=== PATIENT | male | born 1950 | race Caucasian/White ===

== ENCOUNTER 2018-01-05 19:41 | Inpatient (IN) ==
[~2018-01-05 19:41] MED LIST: FLUTICASONE INH SCH; UMECLIDINIUM INH SCH; VILANTEROL INH SCH
[2018-01-05] MEDS ORDERED: Sodium Chlor 0.9% Inj 500 ML IV.SIG ONE ×2 (19:53→19:56)
[2018-01-05] MEDS ORDERED: Midazolam 50 MG/50 ML Inj 50 MG/50 ML BAG IV.CONT PRN (20:00)
[2018-01-05] MEDS: fentaNYL 10 mcg/mL Premix Drip 2,500 MCG/250 ML BAG IV.SIG PRN (20:08)
--- NOTE | 2018-01-05 20:15 | XR ---
EXAM DATE: 01/05/2018 8:09 PM EDT AGE/SEX: 89 years / Male INDICATIONS: Post intubation, fever CLINICAL DATA: This is the patient's initial encounter. Patient reports that signs and symptoms have been present for 1 day and indicates a pain score of Nonresponsive. MEDICAL/SURGICAL HISTORY: Non-responsive. Non-responsive. COMPARISON: No prior exams available for comparison. FINDINGS: ET tube tip is approximately 3 cm above the blessing. There is an NG tube in place. There is a at least moderate right pleural effusion. This increased density at the right base. The left lung is grossly clear. This calcified lymph node in the right mainstem bronchial region. The heart size is normal. CONCLUSION: Moderate right effusion. Right base atelectasis or consolidation. Electronically signed by: Wilfred Rollins MD 01/05/2018 8:14 PM EDT
[2018-01-05] MEDS ORDERED: Piperacil/Tazo 3.375 GM Premix 50 ML IV.SIG ONE (20:27)
[2018-01-05] MEDS ORDERED: Vancomycin Inj 1 GM/200 ML PIGGYBACK IV.SIG ONE (20:27)
[2018-01-05 20:29] LABS: Baso # (Auto) 0.1 th/mm3 (0.0-0.2); Baso % (Auto) 0.9 % (0.0-2.0); Eos % (Auto) 0.6 % (0.0-4.0); Hematocrit 27.9 % (39.0-51.0); Lymph % (Auto) 12.2 % (9.0-44.0); Mean Corpuscular HGB Conc 32.3 % (32.0-36.0); Mean Corpuscular Hemoglobin 28.3 pg (27.0-34.0); Mean Corpuscular Volume 87.7 fL (80.0-100.0); Mean Platelet Volume 8.3 fL (7.0-11.0); Mono # (Auto) 0.8 th/mm3 (0.0-0.9); Mono % (Auto) 10.3 % (0.0-8.0); Neut # (Auto) 6.1 th/mm3 (1.8-7.7); Platelet Count 187 th/mm3 (150-450); Red Blood Count 3.18 mil/mm3 (4.50-5.90); Red Cell Distribution Width 15.2 % (11.6-17.2)
[2018-01-05 20:47] LABS: Bilirubin,Urine Negative (Negative); Clarity,Urine Clear (Clear); Color,Urine Straw (Yellw/Straw); Glucose,Urine (UA) Negative (Negative); Hyaline Casts,Urine 6 /lpf (0-3); Leukocyte Esterase,Urine Negative (Negative); Mucus,Urine Few /lpf (Occasional); Nitrite,Urine Negative (Negative); Specific Gravity,Urine 1.008 (1.002-1.035)
[2018-01-05] MEDS ORDERED: fentaNYL Citrate Inj 100 MCG/2 ML Ampul IV.PUSH ONE (20:50)
[2018-01-05 20:55] LABS: Albumin 2.2 g/dL (3.4-5.0); Carbon Dioxide 33.5 meq/L (21.0-32.0); Potassium 3.6 meq/L (3.5-5.1); Total Protein 5.3 g/dL (6.4-8.2)
--- NOTE | 2018-01-05 20:56 | ED ---
HPI General Chief complaint: Altered Mental Status Stated complaint: Emergent/ Evac Time Seen by Provider: 01/05/18 19:48 Source: EMS Mode of arrival: EMS Limitations: altered mental status History of Present Illness HPI narrative: pt found by evac to be shortness of breath and lethargic FS [address] D50 ampule given no change in Mental status and was intubated to protect airway pt arrives obtunded and intubated and slightly hypotensive, 88/40 but after 500 cc NS BP 112 SBP and POC bedside sono shows good cardiac activity , pt sedated with fentanyl and versed, and then he remains unconscious on vent and admitted ICU for resp failure, No HPI no ROS available except that by EMS Onset (ago): hour(s) (1) Related Data Home Medications Medication Instructions Recorded Confirmed aspirin [Aspirin Low Dose] 81 mg PO DAILY 01/05/18 01/05/18 bumetanide 2 mg PO DAILY 01/05/18 01/05/18 carvedilol 3.125 mg PO BID 01/05/18 01/05/18 febuxostat [Uloric] 80 mg PO DAILY 01/05/18 01/05/18 [id number] 1 inh INHALATION DAILY 01/05/18 01/05/18 [Trelegy Ellipta] glimepiride 8 mg PO QAM 01/05/18 01/05/18 hydralazine 50 mg PO TID 01/05/18 01/05/18 losartan 50 mg PO HS 01/05/18 01/05/18 pravastatin 40 mg PO DAILY 01/05/18 01/05/18 spironolactone 50 mg PO DAILY 01/05/18 01/05/18 Allergies Allergy/AdvReac Type Severity Reaction Status Date / Time Iodine and Iodide Containing Allergy Hives Verified 01/05/18 20:39 Produc Penicillins Allergy Hives Verified 01/05/18 20:52 Review of Systems ROS Unobtainable due to endotracheal tube and unobtainable due to mental condition PMFSH Social History Social History Substance History: No History of Abuse Second Hand Smoke Exposure: No Smoking Status: Former smoker How Often Do You Have a Drink Containing Alcohol: Never Recent Travel in [facility] within the Last 8 Weeks: No Recent Out of Country Travel within the Last 8 Weeks: No Immunization History Tetanus Immunization: Unsure Hx Influenza Vaccine This Season: Yes Exam Narrative Exam Narrative: GENERAL: pt obtunded sedated intubated hypotensive SKIN: Warm and dry. HEAD: Atraumatic. Normocephalic. EYES: Pupils equal and round. No scleral icterus. No injection or drainage. ENT: intubated . NECK: Trachea midline. No JVD. CARDIOVASCULAR: Regular rate and rhythm. RESPIRATORY: No accessory muscle use. Clear to auscultation. Breath sounds equal bilaterally. GASTROINTESTINAL: Abdomen soft, non-tender, nondistended. Hepatic and splenic margins not palpable. MUSCULOSKELETAL: Extremities without clubbing, cyanosis, or edema. No obvious deformities. NEUROLOGICAL: intubated sedated no neuro exam possible Course Initial Documented Vital Signs Temperature 97.7 F 01/05/18 19:43 Pulse Rate 95 H 01/05/18 19:43 Respiratory Rate 14 01/05/18 19:43 Blood Pressure 112/62 01/05/18 19:43 Pulse Oximetry 100 01/05/18 19:43 Last Documented Vital Signs Temperature 98.3 F 01/09/18 16:00 Pulse Rate 90 01/09/18 19:53 Respiratory Rate 18 01/09/18 19:53 Blood Pressure 138/90 01/09/18 19:30 Pulse Oximetry 95 01/09/18 19:53 Critical Care Time Critical Care Time: Yes Total Critical Care Time: 45 Attestation: i was primary provider on this pt i did not supervise midlevel Medical Decision Making MDM Narrative Medical decision making narrative: pt was sedated and intubted in the filed , POC bedside sono shows good cardiac activity and no significant effusion around heart , 1 liter NS bring BP to 120 sbp and pt sedated for ventilator with fentanyl and versed and ICU to Dr Vaca Differential Diagnosis Differential Diagnosis: PNA --> Resp failure vs CHF to resp failure vs COPD to resp failure vs cardiac event vs bronchitis to resp failure Lab Data Result diagrams: 01/09/18 03:44 01/09/18 03:44 Lab Results 01/05/18 01/05/18 01/05/18 Range/Units 19:55 19:55 19:55 WBC 8.0 (4.0-11.0) th/mm3 RBC 3.18 L (4.50-5.90) mil/mm3 Hgb 9.0 L (13.0-17.0) gm/dL Hct 27.9 L (39.0-51.0) % MCV 87.7 (80.0-100.0) fL MCH 28.3 (27.0-34.0) pg MCHC 32.3 (32.0-36.0) % RDW 15.2 (11.6-17.2) % Plt Count 187 (150-450) th/mm3 MPV 8.3 (7.0-11.0) fL Prelim Diff (Auto) Slide review pending Neut % (Auto) 76.0 H (16.0-70.0) % Lymph % (Auto) 12.2 (9.0-44.0) % Meagher % (Auto) 10.3 H (0.0-8.0) % Eos % (Auto) 0.6 (0.0-4.0) % Baso % (Auto) 0.9 (0.0-2.0) % Neut # (Auto) 6.1 (1.8-7.7) th/mm3 Lymph # (Auto) 1.0 (1.0-4.8) th/mm3 Meagher # (Auto) 0.8 (0.0-0.9) th/mm3 Eos # (Auto) 0.0 (0.0-0.4) th/mm3 Baso # (Auto) 0.1 (0.0-0.2) th/mm3 WBC Differential . Diff Scan Auto diff confirmed Seg Neuts % (Manual) (16-70) % Band Neuts % (Manual) (0-6) % Lymphocytes % (Manual) (9-44) % Monocytes % (Manual) (0-8) % Eosinophils % (Manual) (0-4) % Metamyelocytes % (Man) (0-1) % Myelocytes % (Man) (0-0) % Abs Neuts (Manual) (1.8-7.7) th/mm3 Differential Comment . Platelet Estimate (Normal) Platelet Morphology (Normal) Basophilic Stippling (None) Stomatocytes (None) PT (9.8-11.6) sec INR Ratio APTT (24.3-30.1) sec Puncture Site Patient Temperature O2 Saturation (90-100) % ABG pH (7.380-7.420) ABG pCO2 (38-42) mmHg ABG pO2 (61-120) mmHg ABG HCO3 (22-26) mmol/L ABG O2 Content (12.0-20.0) Vol % ABG Base Excess (-2-2) mmol/L ABG Methemoglobin (0-2) % Catracho Test Hemoglobin (12.0-16.0) G/DL Carboxyhemoglobin (0-4) % O2 Delivery Device Vent Setting Inspired O2 % Critical Value Sodium 146 H (136-145) meq/L Potassium 3.6 (3.5-5.1) meq/L Chloride 106 (98-107) meq/L Carbon Dioxide 33.5 H (21.0-32.0) meq/L Anion Gap 7 (5-15) meq/L BUN 35 H (7-18) mg/dL Creatinine 1.22 (0.60-1.30) mg/dL Estimated GFR 51 L (>89) mL/min POC Glucose (68-110) mg/dl Random Glucose 77 (74-106) mg/dL Lactic Acid 1.1 (0.4-2.0) mmol/L Calcium 7.0 L* (8.5-10.1) mg/dL Prot Corrected Calcium 7.9 L (8.5-10.1) mg/dL Phosphorus (2.5-4.9) mg/dL Magnesium (1.5-2.5) mg/dL Total Bilirubin 0.3 (0.2-1.0) mg/dL AST 22 (15-37) U/L ALT 35 (12-78) U/L Alkaline Phosphatase 50 (45-117) U/L Troponin I (0.02-0.05) ng/mL B-Natriuretic Peptide (0-100) pg/mL Total Protein 5.3 L (6.4-8.2) g/dL Albumin 2.2 L (3.4-5.0) g/dL TSH (0.358-3.740) uIU/mL Urine Color (Yellw/Straw) Urine Clarity (Clear) Urine pH (5.0-8.5) Ur Specific [place] (1.002-1.035) Urine Protein (Neg-Trace) mg/dL Urine Glucose (UA) (Negative) mg/dL Urine Ketones (Negative) mg/dL Urine Occult Blood (Negative) Urine Nitrate (Negative) Urine Bilirubin (Negative) Urine Urobilinogen (Less than 2) mg/dL Ur Leukocyte Esterase (Negative) Urine RBC (0-3) /hpf Urine WBC (0-5) /hpf Hyaline Casts (0-3) /lpf Urine Mucus (Occasional) /lpf Micro UA Comment Urine Culture Comments Ur Random Creatinine (27-300) mg/dL Ur Random Sodium meq/L Pleural pH Pleural RBC (0-0) /mm3 Pleural Nuc Cells (0-10) /mm3 Pleural Neutrophils % Pleural Lymphocytes % Pleural Monocytes % Pleural Histocytes % Pleural Total Protein gm/dL Pleural LDH U/L Pleural Glucose mg/dL Pleural Amylase U/L Nasal Screen MRSA (PCR) (Negative) Vancomycin Trough (5.0-10.0) mcg/mL 01/05/18 01/05/18 01/05/18 Range/Units 19:55 20:00 20:12 WBC (4.0-11.0) th/mm3 RBC (4.50-5.90) mil/mm3 Hgb (13.0-17.0) gm/dL Hct (39.0-51.0) % MCV (80.0-100.0) fL MCH (27.0-34.0) pg MCHC (32.0-36.0) % RDW (11.6-17.2) % Plt Count (150-450) th/mm3 MPV (7.0-11.0) fL Prelim Diff (Auto) Neut % (Auto) (16.0-70.0) % Lymph % (Auto) (9.0-44.0) % Meagher % (Auto) (0.0-8.0) % Eos % (Auto) (0.0-4.0) % Baso % (Auto) (0.0-2.0) % Neut # (Auto) (1.8-7.7) th/mm3 Lymph # (Auto) (1.0-4.8) th/mm3 Meagher # (Auto) (0.0-0.9) th/mm3 Eos # (Auto) (0.0-0.4) th/mm3 Baso # (Auto) (0.0-0.2) th/mm3 WBC Differential Diff Scan Seg Neuts % (Manual) (16-70) % Band Neuts % (Manual) (0-6) % Lymphocytes % (Manual) (9-44) % Monocytes % (Manual) (0-8) % Eosinophils % (Manual) (0-4) % Metamyelocytes % (Man) (0-1) % Myelocytes % (Man) (0-0) % Abs Neuts (Manual) (1.8-7.7) th/mm3 Differential Comment Platelet Estimate (Normal) Platelet Morphology (Normal) Basophilic Stippling (None) Stomatocytes (None) PT (9.8-11.6) sec INR Ratio APTT (24.3-30.1) sec Puncture Site Right radial Patient Temperature 98.6 O2 Saturation 92 (90-100) % ABG pH 7.33 L (7.380-7.420) ABG pCO2 79 H* (38-42) mmHg ABG pO2 73 (61-120) mmHg ABG HCO3 40 H (22-26) mmol/L ABG O2 Content 11.0 L (12.0-20.0) Vol % ABG Base Excess 13.9 H (-2-2) mmol/L ABG Methemoglobin 0.6 (0-2) % Catracho Test Present Hemoglobin 8.5 L (12.0-16.0) G/DL Carboxyhemoglobin 2.2 (0-4) % O2 Delivery Device Vent Vent Setting Prvc/ac Inspired O2 100 % Critical Value Yes Sodium (136-145) meq/L Potassium (3.5-5.1) meq/L Chloride (98-107) meq/L Carbon Dioxide (21.0-32.0) meq/L Anion Gap (5-15) meq/L BUN (7-18) mg/dL Creatinine (0.60-1.30) mg/dL Estimated GFR (>89) mL/min POC Glucose (68-110) mg/dl Random Glucose (74-106) mg/dL Lactic Acid (0.4-2.0) mmol/L Calcium (8.5-10.1) mg/dL Prot Corrected Calcium (8.5-10.1) mg/dL Phosphorus (2.5-4.9) mg/dL Magnesium (1.5-2.5) mg/dL Total Bilirubin (0.2-1.0) mg/dL AST (15-37) U/L ALT (12-78) U/L Alkaline Phosphatase (45-117) U/L Troponin I Less than 0.02 L (0.02-0.05) ng/mL B-Natriuretic Peptide (0-100) pg/mL Total Protein (6.4-8.2) g/dL Albumin (3.4-5.0) g/dL TSH (0.358-3.740) uIU/mL Urine Color Straw (Yellw/Straw) Urine Clarity Clear (Clear) Urine pH 5.0 (5.0-8.5) Ur Specific [place] 1.008 (1.002-1.035) Urine Protein Negative (Neg-Trace) mg/dL Urine Glucose (UA) Negative (Negative) mg/dL Urine Ketones Negative (Negative) mg/dL Urine Occult Blood Negative (Negative) Urine Nitrate Negative (Negative) Urine Bilirubin Negative (Negative) Urine Urobilinogen Less than 2 (Less than 2) mg/dL Ur Leukocyte Esterase Negative (Negative) Urine RBC 2 (0-3) /hpf Urine WBC 2 (0-5) /hpf Hyaline Casts 6 (0-3) /lpf Urine Mucus Few H (Occasional) /lpf Micro UA Comment Cath-culture not ind Urine Culture Comments Cath-cult not ind Ur Random Creatinine (27-300) mg/dL Ur Random Sodium meq/L Pleural pH Pleural RBC (0-0) /mm3 Pleural Nuc Cells (0-10) /mm3 Pleural Neutrophils % Pleural Lymphocytes % Pleural Monocytes % Pleural Histocytes % Pleural Total Protein gm/dL Pleural LDH U/L Pleural Glucose mg/dL Pleural Amylase U/L Nasal Screen MRSA (PCR) (Negative) Vancomycin Trough (5.0-10.0) mcg/mL 01/05/18 01/06/18 01/06/18 Range/Units 22:00 00:17 00:18 WBC (4.0-11.0) th/mm3 RBC (4.50-5.90) mil/mm3 Hgb (13.0-17.0) gm/dL Hct (39.0-51.0) % MCV (80.0-100.0) fL MCH (27.0-34.0) pg MCHC (32.0-36.0) % RDW (11.6-17.2) % Plt Count (150-450) th/mm3 MPV (7.0-11.0) fL Prelim Diff (Auto) Neut % (Auto) (16.0-70.0) % Lymph % (Auto) (9.0-44.0) % Meagher % (Auto) (0.0-8.0) % Eos % (Auto) (0.0-4.0) % Baso % (Auto) (0.0-2.0) % Neut # (Auto) (1.8-7.7) th/mm3 Lymph # (Auto) (1.0-4.8) th/mm3 Meagher # (Auto) (0.0-0.9) th/mm3 Eos # (Auto) (0.0-0.4) th/mm3 Baso # (Auto) (0.0-0.2) th/mm3 WBC Differential Diff Scan Seg Neuts % (Manual) (16-70) % Band Neuts % (Manual) (0-6) % Lymphocytes % (Manual) (9-44) % Monocytes % (Manual) (0-8) % Eosinophils % (Manual) (0-4) % Metamyelocytes % (Man) (0-1) % Myelocytes % (Man) (0-0) % Abs Neuts (Manual) (1.8-7.7) th/mm3 Differential Comment Platelet Estimate (Normal) Platelet Morphology (Normal) Basophilic Stippling (None) Stomatocytes (None) PT (9.8-11.6) sec INR Ratio APTT (24.3-30.1) sec Puncture Site Patient Temperature O2 Saturation (90-100) % ABG pH (7.380-7.420) ABG pCO2 (38-42) mmHg ABG pO2 (61-120) mmHg ABG HCO3 (22-26) mmol/L ABG O2 Content (12.0-20.0) Vol % ABG Base Excess (-2-2) mmol/L ABG Methemoglobin (0-2) % Catracho Test Hemoglobin (12.0-16.0) G/DL Carboxyhemoglobin (0-4) % O2 Delivery Device Vent Setting Inspired O2 % Critical Value Sodium (136-145) meq/L Potassium (3.5-5.1) meq/L Chloride (98-107) meq/L Carbon Dioxide (21.0-32.0) meq/L Anion Gap (5-15) meq/L BUN (7-18) mg/dL Creatinine (0.60-1.30) mg/dL Estimated GFR (>89) mL/min POC Glucose 18 L* 18 L* (68-110) mg/dl Random Glucose (74-106) mg/dL Lactic Acid (0.4-2.0) mmol/L Calcium (8.5-10.1) mg/dL Prot Corrected Calcium (8.5-10.1) mg/dL Phosphorus (2.5-4.9) mg/dL Magnesium (1.5-2.5) mg/dL Total Bilirubin (0.2-1.0) mg/dL AST (15-37) U/L ALT (12-78) U/L Alkaline Phosphatase (45-117) U/L Troponin I (0.02-0.05) ng/mL B-Natriuretic Peptide (0-100) pg/mL Total Protein (6.4-8.2) g/dL Albumin (3.4-5.0) g/dL TSH (0.358-3.740) uIU/mL Urine Color (Yellw/Straw) Urine Clarity (Clear) Urine pH (5.0-8.5) Ur Specific [place] (1.002-1.035) Urine Protein (Neg-Trace) mg/dL Urine Glucose (UA) (Negative) mg/dL Urine Ketones (Negative) mg/dL Urine Occult Blood (Negative) Urine Nitrate (Negative) Urine Bilirubin (Negative) Urine Urobilinogen (Less than 2) mg/dL Ur Leukocyte Esterase (Negative) Urine RBC (0-3) /hpf Urine WBC (0-5) /hpf Hyaline Casts (0-3) /lpf Urine Mucus (Occasional) /lpf Micro UA Comment Urine Culture Comments Ur Random Creatinine (27-300) mg/dL Ur Random Sodium meq/L Pleural pH Pleural RBC (0-0) /mm3 Pleural Nuc Cells (0-10) /mm3 Pleural Neutrophils % Pleural Lymphocytes % Pleural Monocytes % Pleural Histocytes % Pleural Total Protein gm/dL Pleural LDH U/L Pleural Glucose mg/dL Pleural Amylase U/L Nasal Screen MRSA (PCR) Not detected (Negative) Vancomycin Trough (5.0-10.0) mcg/mL 01/06/18 01/06/1818 Range/Units 00:24 00:37 02:06 WBC 7.7 (4.0-11.0) th/mm3 RBC 2.77 L (4.50-5.90) mil/mm3 Hgb 7.7 L (13.0-17.0) gm/dL Hct 24.1 L (39.0-51.0) % MCV 86.9 (80.0-100.0) fL MCH 27.8 (27.0-34.0) pg MCHC 32.0 (32.0-36.0) % RDW 15.1 (11.6-17.2) % Plt Count 181 (150-450) th/mm3 MPV 7.5 (7.0-11.0) fL Prelim Diff (Auto) Slide review pending Neut % (Auto) 72.5 H (16.0-70.0) % Lymph % (Auto) 13.2 (9.0-44.0) % Meagher % (Auto) 12.7 H (0.0-8.0) % Eos % (Auto) 0.7 (0.0-4.0) % Baso % (Auto) 0.9 (0.0-2.0) % Neut # (Auto) 5.6 (1.8-7.7) th/mm3 Lymph # (Auto) 1.0 (1.0-4.8) th/mm3 Meagher # (Auto) 1.0 H (0.0-0.9) th/mm3 Eos # (Auto) 0.1 (0.0-0.4) th/mm3 Baso # (Auto) 0.1 (0.0-0.2) th/mm3 WBC Differential Manual diff final Diff Scan Seg Neuts % (Manual) 65 (16-70) % Band Neuts % (Manual) 4 (0-6) % Lymphocytes % (Manual) 12 (9-44) % Monocytes % (Manual) 15 H (0-8) % Eosinophils % (Manual) 1 (0-4) % Metamyelocytes % (Man) 1 (0-1) % Myelocytes % (Man) 2 H (0-0) % Abs Neuts (Manual) 5.5 (1.8-7.7) th/mm3 Differential Comment . Platelet Estimate Normal (Normal) Platelet Morphology Normal (Normal) Basophilic Stippling Faint H (None) Stomatocytes 1+ H (None) PT (9.8-11.6) sec INR Ratio APTT (24.3-30.1) sec Puncture Site Patient Temperature O2 Saturation (90-100) % ABG pH (7.380-7.420) ABG pCO2 (38-42) mmHg ABG pO2 (61-120) mmHg ABG HCO3 (22-26) mmol/L ABG O2 Content (12.0-20.0) Vol % ABG Base Excess (-2-2) mmol/L ABG Methemoglobin (0-2) % Catracho Test Hemoglobin (12.0-16.0) G/DL Carboxyhemoglobin (0-4) % O2 Delivery Device Vent Setting Inspired O2 % Critical Value Sodium (136-145) meq/L Potassium (3.5-5.1) meq/L Chloride (98-107) meq/L Carbon Dioxide (21.0-32.0) meq/L Anion Gap (5-15) meq/L BUN (7-18) mg/dL Creatinine (0.60-1.30) mg/dL Estimated GFR (>89) mL/min POC Glucose 171 H 96 (68-110) mg/dl Random Glucose (74-106) mg/dL Lactic Acid (0.4-2.0) mmol/L Calcium (8.5-10.1) mg/dL Prot Corrected Calcium (8.5-10.1) mg/dL Phosphorus (2.5-4.9) mg/dL Magnesium (1.5-2.5) mg/dL Total Bilirubin (0.2-1.0) mg/dL AST (15-37) U/L ALT (12-78) U/L Alkaline Phosphatase (45-117) U/L Troponin I (0.02-0.05) ng/mL B-Natriuretic Peptide (0-100) pg/mL Total Protein (6.4-8.2) g/dL Albumin (3.4-5.0) g/dL TSH (0.358-3.740) uIU/mL Urine Color (Yellw/Straw) Urine Clarity (Clear) Urine pH (5.0-8.5) Ur Specific [place] (1.002-1.035) Urine Protein (Neg-Trace) mg/dL Urine Glucose (UA) (Negative) mg/dL Urine Ketones (Negative) mg/dL Urine Occult Blood (Negative) Urine Nitrate (Negative) Urine Bilirubin (Negative) Urine Urobilinogen (Less than 2) mg/dL Ur Leukocyte Esterase (Negative) Urine RBC (0-3) /hpf Urine WBC (0-5) /hpf Hyaline Casts (0-3) /lpf Urine Mucus (Occasional) /lpf Micro UA Comment Urine Culture Comments Ur Random Creatinine (27-300) mg/dL Ur Random Sodium meq/L Pleural pH Pleural RBC (0-0) /mm3 Pleural Nuc Cells (0-10) /mm3 Pleural Neutrophils % Pleural Lymphocytes % Pleural Monocytes % Pleural Histocytes % Pleural Total Protein gm/dL Pleural LDH U/L Pleural Glucose mg/dL Pleural Amylase U/L Nasal Screen MRSA (PCR) (Negative) Vancomycin Trough (5.0-10.0) mcg/mL 01/06/18 01/06/18 01/06/18 Range/Units 02:06 02:06 02:06 WBC (4.0-11.0) th/mm3 RBC (4.50-5.90) mil/mm3 Hgb (13.0-17.0) gm/dL Hct (39.0-51.0) % MCV (80.0-100.0) fL MCH (27.0-34.0) pg MCHC (32.0-36.0) % RDW (11.6-17.2) % Plt Count (150-450) th/mm3 MPV (7.0-11.0) fL Prelim Diff (Auto) Neut % (Auto) (16.0-70.0) % Lymph % (Auto) (9.0-44.0) % Meagher % (Auto) (0.0-8.0) % Eos % (Auto) (0.0-4.0) % Baso % (Auto) (0.0-2.0) % Neut # (Auto) (1.8-7.7) th/mm3 Lymph # (Auto) (1.0-4.8) th/mm3 Meagher # (Auto) (0.0-0.9) th/mm3 Eos # (Auto) (0.0-0.4) th/mm3 Baso # (Auto) (0.0-0.2) th/mm3 WBC Differential Diff Scan Seg Neuts % (Manual) (16-70) % Band Neuts % (Manual) (0-6) % Lymphocytes % (Manual) (9-44) % Monocytes % (Manual) (0-8) % Eosinophils % (Manual) (0-4) % Metamyelocytes % (Man) (0-1) % Myelocytes % (Man) (0-0) % Abs Neuts (Manual) (1.8-7.7) th/mm3 Differential Comment Platelet Estimate (Normal) Platelet Morphology (Normal) Basophilic Stippling (None) Stomatocytes (None) PT 11.3 (9.8-11.6) sec INR 1.1 Ratio APTT 28.4 (24.3-30.1) sec Puncture Site Patient Temperature O2 Saturation (90-100) % ABG pH (7.380-7.420) ABG pCO2 (38-42) mmHg ABG pO2 (61-120) mmHg ABG HCO3 (22-26) mmol/L ABG O2 Content (12.0-20.0) Vol % ABG Base Excess (-2-2) mmol/L ABG Methemoglobin (0-2) % Catracho Test Hemoglobin (12.0-16.0) G/DL Carboxyhemoglobin (0-4) % O2 Delivery Device Vent Setting Inspired O2 % Critical Value Sodium 145 (136-145) meq/L Potassium 4.3 (3.5-5.1) meq/L Chloride 100 (98-107) meq/L Carbon Dioxide 40.9 H (21.0-32.0) meq/L Anion Gap 4 L (5-15) meq/L BUN 42 H (7-18) mg/dL Creatinine 1.64 H (0.60-1.30) mg/dL Estimated GFR 36 L (>89) mL/min POC Glucose (68-110) mg/dl Random Glucose 43 L* (74-106) mg/dL Lactic Acid 0.6 (0.4-2.0) mmol/L Calcium 8.0 L D (8.5-10.1) mg/dL Prot Corrected Calcium (8.5-10.1) mg/dL Phosphorus 2.3 L (2.5-4.9) mg/dL Magnesium 1.8 (1.5-2.5) mg/dL Total Bilirubin 0.4 (0.2-1.0) mg/dL AST 20 (15-37) U/L ALT 41 (12-78) U/L Alkaline Phosphatase 53 (45-117) U/L Troponin I Less than 0.02 L (0.02-0.05) ng/mL B-Natriuretic Peptide (0-100) pg/mL Total Protein 5.9 L D (6.4-8.2) g/dL Albumin 2.5 L (3.4-5.0) g/dL TSH (0.358-3.740) uIU/mL Urine Color (Yellw/Straw) Urine Clarity (Clear) Urine pH (5.0-8.5) Ur Specific [place] (1.002-1.035) Urine Protein (Neg-Trace) mg/dL Urine Glucose (UA) (Negative) mg/dL Urine Ketones (Negative) mg/dL Urine Occult Blood (Negative) Urine Nitrate (Negative) Urine Bilirubin (Negative) Urine Urobilinogen (Less than 2) mg/dL Ur Leukocyte Esterase (Negative) Urine RBC (0-3) /hpf Urine WBC (0-5) /hpf Hyaline Casts (0-3) /lpf Urine Mucus (Occasional) /lpf Micro UA Comment Urine Culture Comments Ur Random Creatinine (27-300) mg/dL Ur Random Sodium meq/L Pleural pH Pleural RBC (0-0) /mm3 Pleural Nuc Cells (0-10) /mm3 Pleural Neutrophils % Pleural Lymphocytes % Pleural Monocytes % Pleural Histocytes % Pleural Total Protein gm/dL Pleural LDH U/L Pleural Glucose mg/dL Pleural Amylase U/L Nasal Screen MRSA (PCR) (Negative) Vancomycin Trough (5.0-10.0) mcg/mL 01/06/18 01/06/18 01/06/18 Range/Units 02:06 03:00 03:14 WBC (4.0-11.0) th/mm3 RBC (4.50-5.90) mil/mm3 Hgb (13.0-17.0) gm/dL Hct (39.0-51.0) % MCV (80.0-100.0) fL MCH (27.0-34.0) pg MCHC (32.0-36.0) % RDW (11.6-17.2) % Plt Count (150-450) th/mm3 MPV (7.0-11.0) fL Prelim Diff (Auto) Neut % (Auto) (16.0-70.0) % Lymph % (Auto) (9.0-44.0) % Meagher % (Auto) (0.0-8.0) % Eos % (Auto) (0.0-4.0) % Baso % (Auto) (0.0-2.0) % Neut # (Auto) (1.8-7.7) th/mm3 Lymph # (Auto) (1.0-4.8) th/mm3 Meagher # (Auto) (0.0-0.9) th/mm3 Eos # (Auto) (0.0-0.4) th/mm3 Baso # (Auto) (0.0-0.2) th/mm3 WBC Differential Diff Scan Seg Neuts % (Manual) (16-70) % Band Neuts % (Manual) (0-6) % Lymphocytes % (Manual) (9-44) % Monocytes % (Manual) (0-8) % Eosinophils % (Manual) (0-4) % Metamyelocytes % (Man) (0-1) % Myelocytes % (Man) (0-0) % Abs Neuts (Manual) (1.8-7.7) th/mm3 Differential Comment Platelet Estimate (Normal) Platelet Morphology (Normal) Basophilic Stippling (None) Stomatocytes (None) PT (9.8-11.6) sec INR Ratio APTT (24.3-30.1) sec Puncture Site Patient Temperature O2 Saturation (90-100) % ABG pH (7.380-7.420) ABG pCO2 (38-42) mmHg ABG pO2 (61-120) mmHg ABG HCO3 (22-26) mmol/L ABG O2 Content (12.0-20.0) Vol % ABG Base Excess (-2-2) mmol/L ABG Methemoglobin (0-2) % Catracho Test Hemoglobin (12.0-16.0) G/DL Carboxyhemoglobin (0-4) % O2 Delivery Device Vent Setting Inspired O2 % Critical Value Sodium (136-145) meq/L Potassium (3.5-5.1) meq/L Chloride (98-107) meq/L Carbon Dioxide (21.0-32.0) meq/L Anion Gap (5-15) meq/L BUN (7-18) mg/dL Creatinine (0.60-1.30) mg/dL Estimated GFR (>89) mL/min POC Glucose 34 L* 119 H (68-110) mg/dl Random Glucose (74-106) mg/dL Lactic Acid (0.4-2.0) mmol/L Calcium (8.5-10.1) mg/dL Prot Corrected Calcium (8.5-10.1) mg/dL Phosphorus (2.5-4.9) mg/dL Magnesium (1.5-2.5) mg/dL Total Bilirubin (0.2-1.0) mg/dL AST (15-37) U/L ALT (12-78) U/L Alkaline Phosphatase (45-117) U/L Troponin I (0.02-0.05) ng/mL B-Natriuretic Peptide 72 (0-100) pg/mL Total Protein (6.4-8.2) g/dL Albumin (3.4-5.0) g/dL TSH (0.358-3.740) uIU/mL Urine Color (Yellw/Straw) Urine Clarity (Clear) Urine pH (5.0-8.5) Ur Specific [place] (1.002-1.035) Urine Protein (Neg-Trace) mg/dL Urine Glucose (UA) (Negative) mg/dL Urine Ketones (Negative) mg/dL Urine Occult Blood (Negative) Urine Nitrate (Negative) Urine Bilirubin (Negative) Urine Urobilinogen (Less than 2) mg/dL Ur Leukocyte Esterase (Negative) Urine RBC (0-3) /hpf Urine WBC (0-5) /hpf Hyaline Casts (0-3) /lpf Urine Mucus (Occasional) /lpf Micro UA Comment Urine Culture Comments Ur Random Creatinine (27-300) mg/dL Ur Random Sodium meq/L Pleural pH Pleural RBC (0-0) /mm3 Pleural Nuc Cells (0-10) /mm3 Pleural Neutrophils % Pleural Lymphocytes % Pleural Monocytes % Pleural Histocytes % Pleural Total Protein gm/dL Pleural LDH U/L Pleural Glucose mg/dL Pleural Amylase U/L Nasal Screen MRSA (PCR) (Negative) Vancomycin Trough (5.0-10.0) mcg/mL 01/06/18 01/06/18 01/06/18 Range/Units 05:10 05:53 06:04 WBC (4.0-11.0) th/mm3 RBC (4.50-5.90) mil/mm3 Hgb (13.0-17.0) gm/dL Hct (39.0-51.0) % MCV (80.0-100.0) fL MCH (27.0-34.0) pg MCHC (32.0-36.0) % RDW (11.6-17.2) % Plt Count (150-450) th/mm3 MPV (7.0-11.0) fL Prelim Diff (Auto) Neut % (Auto) (16.0-70.0) % Lymph % (Auto) (9.0-44.0) % Meagher % (Auto) (0.0-8.0) % Eos % (Auto) (0.0-4.0) % Baso % (Auto) (0.0-2.0) % Neut # (Auto) (1.8-7.7) th/mm3 Lymph # (Auto) (1.0-4.8) th/mm3 Meagher # (Auto) (0.0-0.9) th/mm3 Eos # (Auto) (0.0-0.4) th/mm3 Baso # (Auto) (0.0-0.2) th/mm3 WBC Differential Diff Scan Seg Neuts % (Manual) (16-70) % Band Neuts % (Manual) (0-6) % Lymphocytes % (Manual) (9-44) % Monocytes % (Manual) (0-8) % Eosinophils % (Manual) (0-4) % Metamyelocytes % (Man) (0-1) % Myelocytes % (Man) (0-0) % Abs Neuts (Manual) (1.8-7.7) th/mm3 Differential Comment Platelet Estimate (Normal) Platelet Morphology (Normal) Basophilic Stippling (None) Stomatocytes (None) PT (9.8-11.6) sec INR Ratio APTT (24.3-30.1) sec Puncture Site Patient Temperature O2 Saturation (90-100) % ABG pH (7.380-7.420) ABG pCO2 (38-42) mmHg ABG pO2 (61-120) mmHg ABG HCO3 (22-26) mmol/L ABG O2 Content (12.0-20.0) Vol % ABG Base Excess (-2-2) mmol/L ABG Methemoglobin (0-2) % Catracho Test Hemoglobin (12.0-16.0) G/DL Carboxyhemoglobin (0-4) % O2 Delivery Device Vent Setting Inspired O2 % Critical Value Sodium (136-145) meq/L Potassium (3.5-5.1) meq/L Chloride (98-107) meq/L Carbon Dioxide (21.0-32.0) meq/L Anion Gap (5-15) meq/L BUN (7-18) mg/dL Creatinine (0.60-1.30) mg/dL Estimated GFR (>89) mL/min POC Glucose 53 L 97 161 H (68-110) mg/dl Random Glucose (74-106) mg/dL Lactic Acid (0.4-2.0) mmol/L Calcium (8.5-10.1) mg/dL Prot Corrected Calcium (8.5-10.1) mg/dL Phosphorus (2.5-4.9) mg/dL Magnesium (1.5-2.5) mg/dL Total Bilirubin (0.2-1.0) mg/dL AST (15-37) U/L ALT (12-78) U/L Alkaline Phosphatase (45-117) U/L Troponin I (0.02-0.05) ng/mL B-Natriuretic Peptide (0-100) pg/mL Total Protein (6.4-8.2) g/dL Albumin (3.4-5.0) g/dL TSH (0.358-3.740) uIU/mL Urine Color (Yellw/Straw) Urine Clarity (Clear) Urine pH (5.0-8.5) Ur Specific [place] (1.002-1.035) Urine Protein (Neg-Trace) mg/dL Urine Glucose (UA) (Negative) mg/dL Urine Ketones (Negative) mg/dL Urine Occult Blood (Negative) Urine Nitrate (Negative) Urine Bilirubin (Negative) Urine Urobilinogen (Less than 2) mg/dL Ur Leukocyte Esterase (Negative) Urine RBC (0-3) /hpf Urine WBC (0-5) /hpf Hyaline Casts (0-3) /lpf Urine Mucus (Occasional) /lpf Micro UA Comment Urine Culture Comments Ur Random Creatinine (27-300) mg/dL Ur Random Sodium meq/L Pleural pH Pleural RBC (0-0) /mm3 Pleural Nuc Cells (0-10) /mm3 Pleural Neutrophils % Pleural Lymphocytes % Pleural Monocytes % Pleural Histocytes % Pleural Total Protein gm/dL Pleural LDH U/L Pleural Glucose mg/dL Pleural Amylase U/L Nasal Screen MRSA (PCR) (Negative) Vancomycin Trough (5.0-10.0) mcg/mL 01/06/18 01/06/18 01/06/18 Range/Units 07:49 09:25 09:39 WBC (4.0-11.0) th/mm3 RBC (4.50-5.90) mil/mm3 Hgb (13.0-17.0) gm/dL Hct (39.0-51.0) % MCV (80.0-100.0) fL MCH (27.0-34.0) pg MCHC (32.0-36.0) % RDW (11.6-17.2) % Plt Count (150-450) th/mm3 MPV (7.0-11.0) fL Prelim Diff (Auto) Neut % (Auto) (16.0-70.0) % Lymph % (Auto) (9.0-44.0) % Meagher % (Auto) (0.0-8.0) % Eos % (Auto) (0.0-4.0) % Baso % (Auto) (0.0-2.0) % Neut # (Auto) (1.8-7.7) th/mm3 Lymph # (Auto) (1.0-4.8) th/mm3 Meagher # (Auto) (0.0-0.9) th/mm3 Eos # (Auto) (0.0-0.4) th/mm3 Baso # (Auto) (0.0-0.2) th/mm3 WBC Differential Diff Scan Seg Neuts % (Manual) (16-70) % Band Neuts % (Manual) (0-6) % Lymphocytes % (Manual) (9-44) % Monocytes % (Manual) (0-8) % Eosinophils % (Manual) (0-4) % Metamyelocytes % (Man) (0-1) % Myelocytes % (Man) (0-0) % Abs Neuts (Manual) (1.8-7.7) th/mm3 Differential Comment Platelet Estimate (Normal) Platelet Morphology (Normal) Basophilic Stippling (None) Stomatocytes (None) PT (9.8-11.6) sec INR Ratio APTT (24.3-30.1) sec Puncture Site Left radial Patient Temperature 98.6 O2 Saturation 95 (90-100) % ABG pH 7.34 L (7.380-7.420) ABG pCO2 73 H* (38-42) mmHg ABG pO2 104 (61-120) mmHg ABG HCO3 38 H (22-26) mmol/L ABG O2 Content 11.3 L (12.0-20.0) Vol % ABG Base Excess 11.8 H (-2-2) mmol/L ABG Methemoglobin 1.3 (0-2) % Catracho Test Present Hemoglobin 8.3 L (12.0-16.0) G/DL Carboxyhemoglobin 1.1 (0-4) % O2 Delivery Device Ventilator Vent Setting [id number] Inspired O2 50 % Critical Value Yes Sodium (136-145) meq/L Potassium (3.5-5.1) meq/L Chloride (98-107) meq/L Carbon Dioxide (21.0-32.0) meq/L Anion Gap (5-15) meq/L BUN (7-18) mg/dL Creatinine (0.60-1.30) mg/dL Estimated GFR (>89) mL/min POC Glucose 127 H 106 (68-110) mg/dl Random Glucose (74-106) mg/dL Lactic Acid (0.4-2.0) mmol/L Calcium (8.5-10.1) mg/dL Prot Corrected Calcium (8.5-10.1) mg/dL Phosphorus (2.5-4.9) mg/dL Magnesium (1.5-2.5) mg/dL Total Bilirubin (0.2-1.0) mg/dL AST (15-37) U/L ALT (12-78) U/L Alkaline Phosphatase (45-117) U/L Troponin I (0.02-0.05) ng/mL B-Natriuretic Peptide (0-100) pg/mL Total Protein (6.4-8.2) g/dL Albumin (3.4-5.0) g/dL TSH (0.358-3.740) uIU/mL Urine Color (Yellw/Straw) Urine Clarity (Clear) Urine pH (5.0-8.5) Ur Specific [place] (1.002-1.035) Urine Protein (Neg-Trace) mg/dL Urine Glucose (UA) (Negative) mg/dL Urine Ketones (Negative) mg/dL Urine Occult Blood (Negative) Urine Nitrate (Negative) Urine Bilirubin (Negative) Urine Urobilinogen (Less than 2) mg/dL Ur Leukocyte Esterase (Negative) Urine RBC (0-3) /hpf Urine WBC (0-5) /hpf Hyaline Casts (0-3) /lpf Urine Mucus (Occasional) /lpf Micro UA Comment Urine Culture Comments Ur Random Creatinine (27-300) mg/dL Ur Random Sodium meq/L Pleural pH Pleural RBC (0-0) /mm3 Pleural Nuc Cells (0-10) /mm3 Pleural Neutrophils % Pleural Lymphocytes % Pleural Monocytes % Pleural Histocytes % Pleural Total Protein gm/dL Pleural LDH U/L Pleural Glucose mg/dL Pleural Amylase U/L Nasal Screen MRSA (PCR) (Negative) Vancomycin Trough (5.0-10.0) mcg/mL 01/06/18 01/06/18 01/06/18 Range/Units 10:09 11:11 12:22 WBC (4.0-11.0) th/mm3 RBC (4.50-5.90) mil/mm3 Hgb (13.0-17.0) gm/dL Hct (39.0-51.0) % MCV (80.0-100.0) fL MCH (27.0-34.0) pg MCHC (32.0-36.0) % RDW (11.6-17.2) % Plt Count (150-450) th/mm3 MPV (7.0-11.0) fL Prelim Diff (Auto) Neut % (Auto) (16.0-70.0) % Lymph % (Auto) (9.0-44.0) % Meagher % (Auto) (0.0-8.0) % Eos % (Auto) (0.0-4.0) % Baso % (Auto) (0.0-2.0) % Neut # (Auto) (1.8-7.7) th/mm3 Lymph # (Auto) (1.0-4.8) th/mm3 Meagher # (Auto) (0.0-0.9) th/mm3 Eos # (Auto) (0.0-0.4) th/mm3 Baso # (Auto) (0.0-0.2) th/mm3 WBC Differential Diff Scan Seg Neuts % (Manual) (16-70) % Band Neuts % (Manual) (0-6) % Lymphocytes % (Manual) (9-44) % Monocytes % (Manual) (0-8) % Eosinophils % (Manual) (0-4) % Metamyelocytes % (Man) (0-1) % Myelocytes % (Man) (0-0) % Abs Neuts (Manual) (1.8-7.7) th/mm3 Differential Comment Platelet Estimate (Normal) Platelet Morphology (Normal) Basophilic Stippling (None) Stomatocytes (None) PT (9.8-11.6) sec INR Ratio APTT (24.3-30.1) sec Puncture Site Patient Temperature O2 Saturation (90-100) % ABG pH (7.380-7.420) ABG pCO2 (38-42) mmHg ABG pO2 (61-120) mmHg ABG HCO3 (22-26) mmol/L ABG O2 Content (12.0-20.0) Vol % ABG Base Excess (-2-2) mmol/L ABG Methemoglobin (0-2) % Catracho Test Hemoglobin (12.0-16.0) G/DL Carboxyhemoglobin (0-4) % O2 Delivery Device Vent Setting Inspired O2 % Critical Value Sodium (136-145) meq/L Potassium (3.5-5.1) meq/L Chloride (98-107) meq/L Carbon Dioxide (21.0-32.0) meq/L Anion Gap (5-15) meq/L BUN (7-18) mg/dL Creatinine (0.60-1.30) mg/dL Estimated GFR (>89) mL/min POC Glucose 93 85 86 (68-110) mg/dl Random Glucose (74-106) mg/dL Lactic Acid (0.4-2.0) mmol/L Calcium (8.5-10.1) mg/dL Prot Corrected Calcium (8.5-10.1) mg/dL Phosphorus (2.5-4.9) mg/dL Magnesium (1.5-2.5) mg/dL Total Bilirubin (0.2-1.0) mg/dL AST (15-37) U/L ALT (12-78) U/L Alkaline Phosphatase (45-117) U/L Troponin I (0.02-0.05) ng/mL B-Natriuretic Peptide (0-100) pg/mL Total Protein (6.4-8.2) g/dL Albumin (3.4-5.0) g/dL TSH (0.358-3.740) uIU/mL Urine Color (Yellw/Straw) Urine Clarity (Clear) Urine pH (5.0-8.5) Ur Specific [place] (1.002-1.035) Urine Protein (Neg-Trace) mg/dL Urine Glucose (UA) (Negative) mg/dL Urine Ketones (Negative) mg/dL Urine Occult Blood (Negative) Urine Nitrate (Negative) Urine Bilirubin (Negative) Urine Urobilinogen (Less than 2) mg/dL Ur Leukocyte Esterase (Negative) Urine RBC (0-3) /hpf Urine WBC (0-5) /hpf Hyaline Casts (0-3) /lpf Urine Mucus (Occasional) /lpf Micro UA Comment Urine Culture Comments Ur Random Creatinine (27-300) mg/dL Ur Random Sodium meq/L Pleural pH Pleural RBC (0-0) /mm3 Pleural Nuc Cells (0-10) /mm3 Pleural Neutrophils % Pleural Lymphocytes % Pleural Monocytes % Pleural Histocytes % Pleural Total Protein gm/dL Pleural LDH U/L Pleural Glucose mg/dL Pleural Amylase U/L Nasal Screen MRSA (PCR) (Negative) Vancomycin Trough (5.0-10.0) mcg/mL 01/06/18 01/06/18 01/06/18 Range/Units 13:30 14:49 16:37 WBC (4.0-11.0) th/mm3 RBC (4.50-5.90) mil/mm3 Hgb (13.0-17.0) gm/dL Hct (39.0-51.0) % MCV (80.0-100.0) fL MCH (27.0-34.0) pg MCHC (32.0-36.0) % RDW (11.6-17.2) % Plt Count (150-450) th/mm3 MPV (7.0-11.0) fL Prelim Diff (Auto) Neut % (Auto) (16.0-70.0) % Lymph % (Auto) (9.0-44.0) % Meagher % (Auto) (0.0-8.0) % Eos % (Auto) (0.0-4.0) % Baso % (Auto) (0.0-2.0) % Neut # (Auto) (1.8-7.7) th/mm3 Lymph # (Auto) (1.0-4.8) th/mm3 Meagher # (Auto) (0.0-0.9) th/mm3 Eos # (Auto) (0.0-0.4) th/mm3 Baso # (Auto) (0.0-0.2) th/mm3 WBC Differential Diff Scan Seg Neuts % (Manual) (16-70) % Band Neuts % (Manual) (0-6) % Lymphocytes % (Manual) (9-44) % Monocytes % (Manual) (0-8) % Eosinophils % (Manual) (0-4) % Metamyelocytes % (Man) (0-1) % Myelocytes % (Man) (0-0) % Abs Neuts (Manual) (1.8-7.7) th/mm3 Differential Comment Platelet Estimate (Normal) Platelet Morphology (Normal) Basophilic Stippling (None) Stomatocytes (None) PT (9.8-11.6) sec INR Ratio APTT (24.3-30.1) sec Puncture Site Patient Temperature O2 Saturation (90-100) % ABG pH (7.380-7.420) ABG pCO2 (38-42) mmHg ABG pO2 (61-120) mmHg ABG HCO3 (22-26) mmol/L ABG O2 Content (12.0-20.0) Vol % ABG Base Excess (-2-2) mmol/L ABG Methemoglobin (0-2) % Catracho Test Hemoglobin (12.0-16.0) G/DL Carboxyhemoglobin (0-4) % O2 Delivery Device Vent Setting Inspired O2 % Critical Value Sodium (136-145) meq/L Potassium (3.5-5.1) meq/L Chloride (98-107) meq/L Carbon Dioxide (21.0-32.0) meq/L Anion Gap (5-15) meq/L BUN (7-18) mg/dL Creatinine (0.60-1.30) mg/dL Estimated GFR (>89) mL/min POC Glucose 94 107 129 H (68-110) mg/dl Random Glucose (74-106) mg/dL Lactic Acid (0.4-2.0) mmol/L Calcium (8.5-10.1) mg/dL Prot Corrected Calcium (8.5-10.1) mg/dL Phosphorus (2.5-4.9) mg/dL Magnesium (1.5-2.5) mg/dL Total Bilirubin (0.2-1.0) mg/dL AST (15-37) U/L ALT (12-78) U/L Alkaline Phosphatase (45-117) U/L Troponin I (0.02-0.05) ng/mL B-Natriuretic Peptide (0-100) pg/mL Total Protein (6.4-8.2) g/dL Albumin (3.4-5.0) g/dL TSH (0.358-3.740) uIU/mL Urine Color (Yellw/Straw) Urine Clarity (Clear) Urine pH (5.0-8.5) Ur Specific [place] (1.002-1.035) Urine Protein (Neg-Trace) mg/dL Urine Glucose (UA) (Negative) mg/dL Urine Ketones (Negative) mg/dL Urine Occult Blood (Negative) Urine Nitrate (Negative) Urine Bilirubin (Negative) Urine Urobilinogen (Less than 2) mg/dL Ur Leukocyte Esterase (Negative) Urine RBC (0-3) /hpf Urine WBC (0-5) /hpf Hyaline Casts (0-3) /lpf Urine Mucus (Occasional) /lpf Micro UA Comment Urine Culture Comments Ur Random Creatinine (27-300) mg/dL Ur Random Sodium meq/L Pleural pH Pleural RBC (0-0) /mm3 Pleural Nuc Cells (0-10) /mm3 Pleural Neutrophils % Pleural Lymphocytes % Pleural Monocytes % Pleural Histocytes % Pleural Total Protein gm/dL Pleural LDH U/L Pleural Glucose mg/dL Pleural Amylase U/L Nasal Screen MRSA (PCR) (Negative) Vancomycin Trough (5.0-10.0) mcg/mL 01/06/18 01/07/18 01/07/18 Range/Units 23:30 04:45 04:45 WBC 5.5 (4.0-11.0) th/mm3 RBC 2.79 L (4.50-5.90) mil/mm3 Hgb 7.8 L (13.0-17.0) gm/dL Hct 24.6 L (39.0-51.0) % MCV 87.9 (80.0-100.0) fL MCH 27.9 (27.0-34.0) pg MCHC 31.7 L (32.0-36.0) % RDW 15.4 (11.6-17.2) % Plt Count 159 (150-450) th/mm3 MPV 7.7 (7.0-11.0) fL Prelim Diff (Auto) Slide review pending Neut % (Auto) 88.1 H (16.0-70.0) % Lymph % (Auto) 7.5 L (9.0-44.0) % Meagher % (Auto) 4.2 (0.0-8.0) % Eos % (Auto) 0.0 (0.0-4.0) % Baso % (Auto) 0.2 (0.0-2.0) % Neut # (Auto) 4.8 (1.8-7.7) th/mm3 Lymph # (Auto) 0.4 L (1.0-4.8) th/mm3 Meagher # (Auto) 0.2 (0.0-0.9) th/mm3 Eos # (Auto) 0.0 (0.0-0.4) th/mm3 Baso # (Auto) 0.0 (0.0-0.2) th/mm3 WBC Differential Manual diff final Diff Scan Seg Neuts % (Manual) 81 H (16-70) % Band Neuts % (Manual) 8 H (0-6) % Lymphocytes % (Manual) 4 L (9-44) % Monocytes % (Manual) 5 (0-8) % Eosinophils % (Manual) (0-4) % Metamyelocytes % (Man) 1 (0-1) % Myelocytes % (Man) 1 H (0-0) % Abs Neuts (Manual) 5.0 (1.8-7.7) th/mm3 Differential Comment . Platelet Estimate Normal (Normal) Platelet Morphology Normal (Normal) Basophilic Stippling (None) Stomatocytes 1+ H (None) PT (9.8-11.6) sec INR Ratio APTT (24.3-30.1) sec Puncture Site Patient Temperature O2 Saturation (90-100) % ABG pH (7.380-7.420) ABG pCO2 (38-42) mmHg ABG pO2 (61-120) mmHg ABG HCO3 (22-26) mmol/L ABG O2 Content (12.0-20.0) Vol % ABG Base Excess (-2-2) mmol/L ABG Methemoglobin (0-2) % Catracho Test Hemoglobin (12.0-16.0) G/DL Carboxyhemoglobin (0-4) % O2 Delivery Device Vent Setting Inspired O2 % Critical Value Sodium 142 (136-145) meq/L Potassium 4.9 (3.5-5.1) meq/L Chloride 101 (98-107) meq/L Carbon Dioxide 31.9 D (21.0-32.0) meq/L Anion Gap 9 (5-15) meq/L BUN 41 H (7-18) mg/dL Creatinine 1.63 H (0.60-1.30) mg/dL Estimated GFR 42 L (>89) mL/min POC Glucose 336 H (68-110) mg/dl Random Glucose 401 H D (74-106) mg/dL Lactic Acid (0.4-2.0) mmol/L Calcium 8.5 (8.5-10.1) mg/dL Prot Corrected Calcium (8.5-10.1) mg/dL Phosphorus (2.5-4.9) mg/dL Magnesium (1.5-2.5) mg/dL Total Bilirubin 0.4 (0.2-1.0) mg/dL AST 13 L (15-37) U/L ALT 34 (12-78) U/L Alkaline Phosphatase 56 (45-117) U/L Troponin I (0.02-0.05) ng/mL B-Natriuretic Peptide (0-100) pg/mL Total Protein 6.2 L (6.4-8.2) g/dL Albumin 2.4 L (3.4-5.0) g/dL TSH (0.358-3.740) uIU/mL Urine Color (Yellw/Straw) Urine Clarity (Clear) Urine pH (5.0-8.5) Ur Specific [place] (1.002-1.035) Urine Protein (Neg-Trace) mg/dL Urine Glucose (UA) (Negative) mg/dL Urine Ketones (Negative) mg/dL Urine Occult Blood (Negative) Urine Nitrate (Negative) Urine Bilirubin (Negative) Urine Urobilinogen (Less than 2) mg/dL Ur Leukocyte Esterase (Negative) Urine RBC (0-3) /hpf Urine WBC (0-5) /hpf Hyaline Casts (0-3) /lpf Urine Mucus (Occasional) /lpf Micro UA Comment Urine Culture Comments Ur Random Creatinine (27-300) mg/dL Ur Random Sodium meq/L Pleural pH Pleural RBC (0-0) /mm3 Pleural Nuc Cells (0-10) /mm3 Pleural Neutrophils % Pleural Lymphocytes % Pleural Monocytes % Pleural Histocytes % Pleural Total Protein gm/dL Pleural LDH U/L Pleural Glucose mg/dL Pleural Amylase U/L Nasal Screen MRSA (PCR) (Negative) Vancomycin Trough (5.0-10.0) mcg/mL 01/07/18 01/07/18 01/07/18 Range/Units 12:01 16:35 18:07 WBC (4.0-11.0) th/mm3 RBC (4.50-5.90) mil/mm3 Hgb (13.0-17.0) gm/dL Hct (39.0-51.0) % MCV (80.0-100.0) fL MCH (27.0-34.0) pg MCHC (32.0-36.0) % RDW (11.6-17.2) % Plt Count (150-450) th/mm3 MPV (7.0-11.0) fL Prelim Diff (Auto) Neut % (Auto) (16.0-70.0) % Lymph % (Auto) (9.0-44.0) % Meagher % (Auto) (0.0-8.0) % Eos % (Auto) (0.0-4.0) % Baso % (Auto) (0.0-2.0) % Neut # (Auto) (1.8-7.7) th/mm3 Lymph # (Auto) (1.0-4.8) th/mm3 Meagher # (Auto) (0.0-0.9) th/mm3 Eos # (Auto) (0.0-0.4) th/mm3 Baso # (Auto) (0.0-0.2) th/mm3 WBC Differential Diff Scan Seg Neuts % (Manual) (16-70) % Band Neuts % (Manual) (0-6) % Lymphocytes % (Manual) (9-44) % Monocytes % (Manual) (0-8) % Eosinophils % (Manual) (0-4) % Metamyelocytes % (Man) (0-1) % Myelocytes % (Man) (0-0) % Abs Neuts (Manual) (1.8-7.7) th/mm3 Differential Comment Platelet Estimate (Normal) Platelet Morphology (Normal) Basophilic Stippling (None) Stomatocytes (None) PT (9.8-11.6) sec INR Ratio APTT (24.3-30.1) sec Puncture Site Patient Temperature O2 Saturation (90-100) % ABG pH (7.380-7.420) ABG pCO2 (38-42) mmHg ABG pO2 (61-120) mmHg ABG HCO3 (22-26) mmol/L ABG O2 Content (12.0-20.0) Vol % ABG Base Excess (-2-2) mmol/L ABG Methemoglobin (0-2) % Catracho Test Hemoglobin (12.0-16.0) G/DL Carboxyhemoglobin (0-4) % O2 Delivery Device Vent Setting Inspired O2 % Critical Value Sodium (136-145) meq/L Potassium (3.5-5.1) meq/L Chloride (98-107) meq/L Carbon Dioxide (21.0-32.0) meq/L Anion Gap (5-15) meq/L BUN (7-18) mg/dL Creatinine (0.60-1.30) mg/dL Estimated GFR (>89) mL/min POC Glucose 416 H 376 H (68-110) mg/dl Random Glucose (74-106) mg/dL Lactic Acid (0.4-2.0) mmol/L Calcium (8.5-10.1) mg/dL Prot Corrected Calcium (8.5-10.1) mg/dL Phosphorus (2.5-4.9) mg/dL Magnesium (1.5-2.5) mg/dL Total Bilirubin (0.2-1.0) mg/dL AST (15-37) U/L ALT (12-78) U/L Alkaline Phosphatase (45-117) U/L Troponin I (0.02-0.05) ng/mL B-Natriuretic Peptide (0-100) pg/mL Total Protein (6.4-8.2) g/dL Albumin (3.4-5.0) g/dL TSH (0.358-3.740) uIU/mL Urine Color (Yellw/Straw) Urine Clarity (Clear) Urine pH (5.0-8.5) Ur Specific [place] (1.002-1.035) Urine Protein (Neg-Trace) mg/dL Urine Glucose (UA) (Negative) mg/dL Urine Ketones (Negative) mg/dL Urine Occult Blood (Negative) Urine Nitrate (Negative) Urine Bilirubin (Negative) Urine Urobilinogen (Less than 2) mg/dL Ur Leukocyte Esterase (Negative) Urine RBC (0-3) /hpf Urine WBC (0-5) /hpf Hyaline Casts (0-3) /lpf Urine Mucus (Occasional) /lpf Micro UA Comment Urine Culture Comments Ur Random Creatinine 48 (27-300) mg/dL Ur Random Sodium 53 meq/L Pleural pH Pleural RBC (0-0) /mm3 Pleural Nuc Cells (0-10) /mm3 Pleural Neutrophils % Pleural Lymphocytes % Pleural Monocytes % Pleural Histocytes % Pleural Total Protein gm/dL Pleural LDH U/L Pleural Glucose mg/dL Pleural Amylase U/L Nasal Screen MRSA (PCR) (Negative) Vancomycin Trough (5.0-10.0) mcg/mL 01/08/18 01/08/18 01/08/18 Range/Units 01:37 04:00 04:00 WBC 8.4 D (4.0-11.0) th/mm3 RBC 2.68 L (4.50-5.90) mil/mm3 Hgb 7.5 L (13.0-17.0) gm/dL Hct 23.4 L (39.0-51.0) % MCV 87.4 (80.0-100.0) fL MCH 28.1 (27.0-34.0) pg MCHC 32.2 (32.0-36.0) % RDW 15.3 (11.6-17.2) % Plt Count 170 (150-450) th/mm3 MPV 8.1 (7.0-11.0) fL Prelim Diff (Auto) Slide review pending Neut % (Auto) 86.2 H (16.0-70.0) % Lymph % (Auto) 6.2 L (9.0-44.0) % Meagher % (Auto) 7.4 (0.0-8.0) % Eos % (Auto) 0.0 (0.0-4.0) % Baso % (Auto) 0.2 (0.0-2.0) % Neut # (Auto) 7.2 (1.8-7.7) th/mm3 Lymph # (Auto) 0.5 L (1.0-4.8) th/mm3 Meagher # (Auto) 0.6 (0.0-0.9) th/mm3 Eos # (Auto) 0.0 (0.0-0.4) th/mm3 Baso # (Auto) 0.0 (0.0-0.2) th/mm3 WBC Differential Manual diff final Diff Scan Seg Neuts % (Manual) 71 H (16-70) % Band Neuts % (Manual) 20 H (0-6) % Lymphocytes % (Manual) 4 L (9-44) % Monocytes % (Manual) 5 (0-8) % Eosinophils % (Manual) (0-4) % Metamyelocytes % (Man) (0-1) % Myelocytes % (Man) (0-0) % Abs Neuts (Manual) 7.6 (1.8-7.7) th/mm3 Differential Comment . Platelet Estimate Normal (Normal) Platelet Morphology Normal (Normal) Basophilic Stippling (None) Stomatocytes 1+ H (None) PT (9.8-11.6) sec INR Ratio APTT (24.3-30.1) sec Puncture Site Patient Temperature O2 Saturation (90-100) % ABG pH (7.380-7.420) ABG pCO2 (38-42) mmHg ABG pO2 (61-120) mmHg ABG HCO3 (22-26) mmol/L ABG O2 Content (12.0-20.0) Vol % ABG Base Excess (-2-2) mmol/L ABG Methemoglobin (0-2) % Catracho Test Hemoglobin (12.0-16.0) G/DL Carboxyhemoglobin (0-4) % O2 Delivery Device Vent Setting Inspired O2 % Critical Value Sodium 145 (136-145) meq/L Potassium 4.5 (3.5-5.1) meq/L Chloride 106 (98-107) meq/L Carbon Dioxide 36.9 H (21.0-32.0) meq/L Anion Gap 2 L (5-15) meq/L BUN 47 H (7-18) mg/dL Creatinine 1.42 H (0.60-1.30) mg/dL Estimated GFR 49 L (>89) mL/min POC Glucose 369 H (68-110) mg/dl Random Glucose 379 H (74-106) mg/dL Lactic Acid (0.4-2.0) mmol/L Calcium 8.3 L (8.5-10.1) mg/dL Prot Corrected Calcium (8.5-10.1) mg/dL Phosphorus 1.8 L (2.5-4.9) mg/dL Magnesium 2.2 (1.5-2.5) mg/dL Total Bilirubin (0.2-1.0) mg/dL AST (15-37) U/L ALT (12-78) U/L Alkaline Phosphatase (45-117) U/L Troponin I (0.02-0.05) ng/mL B-Natriuretic Peptide (0-100) pg/mL Total Protein (6.4-8.2) g/dL Albumin (3.4-5.0) g/dL TSH 0.761 (0.358-3.740) uIU/mL Urine Color (Yellw/Straw) Urine Clarity (Clear) Urine pH (5.0-8.5) Ur Specific [place] (1.002-1.035) Urine Protein (Neg-Trace) mg/dL Urine Glucose (UA) (Negative) mg/dL Urine Ketones (Negative) mg/dL Urine Occult Blood (Negative) Urine Nitrate (Negative) Urine Bilirubin (Negative) Urine Urobilinogen (Less than 2) mg/dL Ur Leukocyte Esterase (Negative) Urine RBC (0-3) /hpf Urine WBC (0-5) /hpf Hyaline Casts (0-3) /lpf Urine Mucus (Occasional) /lpf Micro UA Comment Urine Culture Comments Ur Random Creatinine (27-300) mg/dL Ur Random Sodium meq/L Pleural pH Pleural RBC (0-0) /mm3 Pleural Nuc Cells (0-10) /mm3 Pleural Neutrophils % Pleural Lymphocytes % Pleural Monocytes % Pleural Histocytes % Pleural Total Protein gm/dL Pleural LDH U/L Pleural Glucose mg/dL Pleural Amylase U/L Nasal Screen MRSA (PCR) (Negative) Vancomycin Trough (5.0-10.0) mcg/mL 01/08/18 01/08/18 01/08/18 Range/Units 11:45 18:06 23:20 WBC (4.0-11.0) th/mm3 RBC (4.50-5.90) mil/mm3 Hgb (13.0-17.0) gm/dL Hct (39.0-51.0) % MCV (80.0-100.0) fL MCH (27.0-34.0) pg MCHC (32.0-36.0) % RDW (11.6-17.2) % Plt Count (150-450) th/mm3 MPV (7.0-11.0) fL Prelim Diff (Auto) Neut % (Auto) (16.0-70.0) % Lymph % (Auto) (9.0-44.0) % Meagher % (Auto) (0.0-8.0) % Eos % (Auto) (0.0-4.0) % Baso % (Auto) (0.0-2.0) % Neut # (Auto) (1.8-7.7) th/mm3 Lymph # (Auto) (1.0-4.8) th/mm3 Meagher # (Auto) (0.0-0.9) th/mm3 Eos # (Auto) (0.0-0.4) th/mm3 Baso # (Auto) (0.0-0.2) th/mm3 WBC Differential Diff Scan Seg Neuts % (Manual) (16-70) % Band Neuts % (Manual) (0-6) % Lymphocytes % (Manual) (9-44) % Monocytes % (Manual) (0-8) % Eosinophils % (Manual) (0-4) % Metamyelocytes % (Man) (0-1) % Myelocytes % (Man) (0-0) % Abs Neuts (Manual) (1.8-7.7) th/mm3 Differential Comment Platelet Estimate (Normal) Platelet Morphology (Normal) Basophilic Stippling (None) Stomatocytes (None) PT (9.8-11.6) sec INR Ratio APTT (24.3-30.1) sec Puncture Site Patient Temperature O2 Saturation (90-100) % ABG pH (7.380-7.420) ABG pCO2 (38-42) mmHg ABG pO2 (61-120) mmHg ABG HCO3 (22-26) mmol/L ABG O2 Content (12.0-20.0) Vol % ABG Base Excess (-2-2) mmol/L ABG Methemoglobin (0-2) % Catracho Test Hemoglobin (12.0-16.0) G/DL Carboxyhemoglobin (0-4) % O2 Delivery Device Vent Setting Inspired O2 % Critical Value Sodium (136-145) meq/L Potassium (3.5-5.1) meq/L Chloride (98-107) meq/L Carbon Dioxide (21.0-32.0) meq/L Anion Gap (5-15) meq/L BUN (7-18) mg/dL Creatinine (0.60-1.30) mg/dL Estimated GFR (>89) mL/min POC Glucose 238 H 238 H 248 H (68-110) mg/dl Random Glucose (74-106) mg/dL Lactic Acid (0.4-2.0) mmol/L Calcium (8.5-10.1) mg/dL Prot Corrected Calcium (8.5-10.1) mg/dL Phosphorus (2.5-4.9) mg/dL Magnesium (1.5-2.5) mg/dL Total Bilirubin (0.2-1.0) mg/dL AST (15-37) U/L ALT (12-78) U/L Alkaline Phosphatase (45-117) U/L Troponin I (0.02-0.05) ng/mL B-Natriuretic Peptide (0-100) pg/mL Total Protein (6.4-8.2) g/dL Albumin (3.4-5.0) g/dL TSH (0.358-3.740) uIU/mL Urine Color (Yellw/Straw) Urine Clarity (Clear) Urine pH (5.0-8.5) Ur Specific [place] (1.002-1.035) Urine Protein (Neg-Trace) mg/dL Urine Glucose (UA) (Negative) mg/dL Urine Ketones (Negative) mg/dL Urine Occult Blood (Negative) Urine Nitrate (Negative) Urine Bilirubin (Negative) Urine Urobilinogen (Less than 2) mg/dL Ur Leukocyte Esterase (Negative) Urine RBC (0-3) /hpf Urine WBC (0-5) /hpf Hyaline Casts (0-3) /lpf Urine Mucus (Occasional) /lpf Micro UA Comment Urine Culture Comments Ur Random Creatinine (27-300) mg/dL Ur Random Sodium meq/L Pleural pH Pleural RBC (0-0) /mm3 Pleural Nuc Cells (0-10) /mm3 Pleural Neutrophils % Pleural Lymphocytes % Pleural Monocytes % Pleural Histocytes % Pleural Total Protein gm/dL Pleural LDH U/L Pleural Glucose mg/dL Pleural Amylase U/L Nasal Screen MRSA (PCR) (Negative) Vancomycin Trough (5.0-10.0) mcg/mL 01/09/18 01/09/18 01/09/18 Range/Units 00:35 03:44 03:44 WBC 9.0 (4.0-11.0) th/mm3 RBC 2.79 L (4.50-5.90) mil/mm3 Hgb 8.0 L (13.0-17.0) gm/dL Hct 24.8 L (39.0-51.0) % MCV 88.7 (80.0-100.0) fL MCH 28.8 (27.0-34.0) pg MCHC 32.5 (32.0-36.0) % RDW 15.5 (11.6-17.2) % Plt Count 169 (150-450) th/mm3 MPV 7.9 (7.0-11.0) fL Prelim Diff (Auto) Neut % (Auto) 89.6 H (16.0-70.0) % Lymph % (Auto) 5.0 L (9.0-44.0) % Meagher % (Auto) 5.3 (0.0-8.0) % Eos % (Auto) 0.0 (0.0-4.0) % Baso % (Auto) 0.1 (0.0-2.0) % Neut # (Auto) 8.1 H (1.8-7.7) th/mm3 Lymph # (Auto) 0.4 L (1.0-4.8) th/mm3 Meagher # (Auto) 0.5 (0.0-0.9) th/mm3 Eos # (Auto) 0.0 (0.0-0.4) th/mm3 Baso # (Auto) 0.0 (0.0-0.2) th/mm3 WBC Differential . Diff Scan Seg Neuts % (Manual) (16-70) % Band Neuts % (Manual) (0-6) % Lymphocytes % (Manual) (9-44) % Monocytes % (Manual) (0-8) % Eosinophils % (Manual) (0-4) % Metamyelocytes % (Man) (0-1) % Myelocytes % (Man) (0-0) % Abs Neuts (Manual) (1.8-7.7) th/mm3 Differential Comment Auto diff final Platelet Estimate (Normal) Platelet Morphology (Normal) Basophilic Stippling (None) Stomatocytes (None) PT (9.8-11.6) sec INR Ratio APTT (24.3-30.1) sec Puncture Site Patient Temperature O2 Saturation (90-100) % ABG pH (7.380-7.420) ABG pCO2 (38-42) mmHg ABG pO2 (61-120) mmHg ABG HCO3 (22-26) mmol/L ABG O2 Content (12.0-20.0) Vol % ABG Base Excess (-2-2) mmol/L ABG Methemoglobin (0-2) % Catracho Test Hemoglobin (12.0-16.0) G/DL Carboxyhemoglobin (0-4) % O2 Delivery Device Vent Setting Inspired O2 % Critical Value Sodium 144 (136-145) meq/L Potassium 4.7 (3.5-5.1) meq/L Chloride 105 (98-107) meq/L Carbon Dioxide 38.9 H (21.0-32.0) meq/L Anion Gap 0 L (5-15) meq/L BUN 42 H (7-18) mg/dL Creatinine 1.18 (0.60-1.30) mg/dL Estimated GFR 61 L (>89) mL/min POC Glucose (68-110) mg/dl Random Glucose 207 H D (74-106) mg/dL Lactic Acid (0.4-2.0) mmol/L Calcium 8.2 L (8.5-10.1) mg/dL Prot Corrected Calcium (8.5-10.1) mg/dL Phosphorus 3.4 D (2.5-4.9) mg/dL Magnesium 2.1 (1.5-2.5) mg/dL Total Bilirubin (0.2-1.0) mg/dL AST (15-37) U/L ALT (12-78) U/L Alkaline Phosphatase (45-117) U/L Troponin I (0.02-0.05) ng/mL B-Natriuretic Peptide (0-100) pg/mL Total Protein (6.4-8.2) g/dL Albumin (3.4-5.0) g/dL TSH (0.358-3.740) uIU/mL Urine Color (Yellw/Straw) Urine Clarity (Clear) Urine pH (5.0-8.5) Ur Specific [place] (1.002-1.035) Urine Protein (Neg-Trace) mg/dL Urine Glucose (UA) (Negative) mg/dL Urine Ketones (Negative) mg/dL Urine Occult Blood (Negative) Urine Nitrate (Negative) Urine Bilirubin (Negative) Urine Urobilinogen (Less than 2) mg/dL Ur Leukocyte Esterase (Negative) Urine RBC (0-3) /hpf Urine WBC (0-5) /hpf Hyaline Casts (0-3) /lpf Urine Mucus (Occasional) /lpf Micro UA Comment Urine Culture Comments Ur Random Creatinine (27-300) mg/dL Ur Random Sodium meq/L Pleural pH Pleural RBC (0-0) /mm3 Pleural Nuc Cells (0-10) /mm3 Pleural Neutrophils % Pleural Lymphocytes % Pleural Monocytes % Pleural Histocytes % Pleural Total Protein gm/dL Pleural LDH U/L Pleural Glucose mg/dL Pleural Amylase U/L Nasal Screen MRSA (PCR) (Negative) Vancomycin Trough 16.3 H (5.0-10.0) mcg/mL 01/09/18 01/09/18 01/09/18 Range/Units 06:06 12:23 16:55 WBC (4.0-11.0) th/mm3 RBC (4.50-5.90) mil/mm3 Hgb (13.0-17.0) gm/dL Hct (39.0-51.0) % MCV (80.0-100.0) fL MCH (27.0-34.0) pg MCHC (32.0-36.0) % RDW (11.6-17.2) % Plt Count (150-450) th/mm3 MPV (7.0-11.0) fL Prelim Diff (Auto) Neut % (Auto) (16.0-70.0) % Lymph % (Auto) (9.0-44.0) % Meagher % (Auto) (0.0-8.0) % Eos % (Auto) (0.0-4.0) % Baso % (Auto) (0.0-2.0) % Neut # (Auto) (1.8-7.7) th/mm3 Lymph # (Auto) (1.0-4.8) th/mm3 Meagher # (Auto) (0.0-0.9) th/mm3 Eos # (Auto) (0.0-0.4) th/mm3 Baso # (Auto) (0.0-0.2) th/mm3 WBC Differential Diff Scan Seg Neuts % (Manual) (16-70) % Band Neuts % (Manual) (0-6) % Lymphocytes % (Manual) (9-44) % Monocytes % (Manual) (0-8) % Eosinophils % (Manual) (0-4) % Metamyelocytes % (Man) (0-1) % Myelocytes % (Man) (0-0) % Abs Neuts (Manual) (1.8-7.7) th/mm3 Differential Comment Platelet Estimate (Normal) Platelet Morphology (Normal) Basophilic Stippling (None) Stomatocytes (None) PT (9.8-11.6) sec INR Ratio APTT (24.3-30.1) sec Puncture Site Patient Temperature O2 Saturation (90-100) % ABG pH (7.380-7.420) ABG pCO2 (38-42) mmHg ABG pO2 (61-120) mmHg ABG HCO3 (22-26) mmol/L ABG O2 Content (12.0-20.0) Vol % ABG Base Excess (-2-2) mmol/L ABG Methemoglobin (0-2) % Catracho Test Hemoglobin (12.0-16.0) G/DL Carboxyhemoglobin (0-4) % O2 Delivery Device Vent Setting Inspired O2 % Critical Value Sodium (136-145) meq/L Potassium (3.5-5.1) meq/L Chloride (98-107) meq/L Carbon Dioxide (21.0-32.0) meq/L Anion Gap (5-15) meq/L BUN (7-18) mg/dL Creatinine (0.60-1.30) mg/dL Estimated GFR (>89) mL/min POC Glucose 202 H 238 H (68-110) mg/dl Random Glucose (74-106) mg/dL Lactic Acid (0.4-2.0) mmol/L Calcium (8.5-10.1) mg/dL Prot Corrected Calcium (8.5-10.1) mg/dL Phosphorus (2.5-4.9) mg/dL Magnesium (1.5-2.5) mg/dL Total Bilirubin (0.2-1.0) mg/dL AST (15-37) U/L ALT (12-78) U/L Alkaline Phosphatase (45-117) U/L Troponin I (0.02-0.05) ng/mL B-Natriuretic Peptide (0-100) pg/mL Total Protein (6.4-8.2) g/dL Albumin (3.4-5.0) g/dL TSH (0.358-3.740) uIU/mL Urine Color (Yellw/Straw) Urine Clarity (Clear) Urine pH (5.0-8.5) Ur Specific [place] (1.002-1.035) Urine Protein (Neg-Trace) mg/dL Urine Glucose (UA) (Negative) mg/dL Urine Ketones (Negative) mg/dL Urine Occult Blood (Negative) Urine Nitrate (Negative) Urine Bilirubin (Negative) Urine Urobilinogen (Less than 2) mg/dL Ur Leukocyte Esterase (Negative) Urine RBC (0-3) /hpf Urine WBC (0-5) /hpf Hyaline Casts (0-3) /lpf Urine Mucus (Occasional) /lpf Micro UA Comment Urine Culture Comments Ur Random Creatinine (27-300) mg/dL Ur Random Sodium meq/L Pleural pH 8.0 Pleural RBC (0-0) /mm3 Pleural Nuc Cells (0-10) /mm3 Pleural Neutrophils % Pleural Lymphocytes % Pleural Monocytes % Pleural Histocytes % Pleural Total Protein 3.7 gm/dL Pleural LDH 336 U/L Pleural Glucose 223 mg/dL Pleural Amylase 57 U/L Nasal Screen MRSA (PCR) (Negative) Vancomycin Trough (5.0-10.0) mcg/mL 01/09/18 01/09/18 Range/Units 16:55 17:25 WBC (4.0-11.0) th/mm3 RBC (4.50-5.90) mil/mm3 Hgb (13.0-17.0) gm/dL Hct (39.0-51.0) % MCV (80.0-100.0) fL MCH (27.0-34.0) pg MCHC (32.0-36.0) % RDW (11.6-17.2) % Plt Count (150-450) th/mm3 MPV (7.0-11.0) fL Prelim Diff (Auto) Neut % (Auto) (16.0-70.0) % Lymph % (Auto) (9.0-44.0) % Meagher % (Auto) (0.0-8.0) % Eos % (Auto) (0.0-4.0) % Baso % (Auto) (0.0-2.0) % Neut # (Auto) (1.8-7.7) th/mm3 Lymph # (Auto) (1.0-4.8) th/mm3 Meagher # (Auto) (0.0-0.9) th/mm3 Eos # (Auto) (0.0-0.4) th/mm3 Baso # (Auto) (0.0-0.2) th/mm3 WBC Differential Diff Scan Seg Neuts % (Manual) (16-70) % Band Neuts % (Manual) (0-6) % Lymphocytes % (Manual) (9-44) % Monocytes % (Manual) (0-8) % Eosinophils % (Manual) (0-4) % Metamyelocytes % (Man) (0-1) % Myelocytes % (Man) (0-0) % Abs Neuts (Manual) (1.8-7.7) th/mm3 Differential Comment Platelet Estimate (Normal) Platelet Morphology (Normal) Basophilic Stippling (None) Stomatocytes (None) PT (9.8-11.6) sec INR Ratio APTT (24.3-30.1) sec Puncture Site Patient Temperature O2 Saturation (90-100) % ABG pH (7.380-7.420) ABG pCO2 (38-42) mmHg ABG pO2 (61-120) mmHg ABG HCO3 (22-26) mmol/L ABG O2 Content (12.0-20.0) Vol % ABG Base Excess (-2-2) mmol/L ABG Methemoglobin (0-2) % Catracho Test Hemoglobin (12.0-16.0) G/DL Carboxyhemoglobin (0-4) % O2 Delivery Device Vent Setting Inspired O2 % Critical Value Sodium (136-145) meq/L Potassium (3.5-5.1) meq/L Chloride (98-107) meq/L Carbon Dioxide (21.0-32.0) meq/L Anion Gap (5-15) meq/L BUN (7-18) mg/dL Creatinine (0.60-1.30) mg/dL Estimated GFR (>89) mL/min POC Glucose 254 H (68-110) mg/dl Random Glucose (74-106) mg/dL Lactic Acid (0.4-2.0) mmol/L Calcium (8.5-10.1) mg/dL Prot Corrected Calcium (8.5-10.1) mg/dL Phosphorus (2.5-4.9) mg/dL Magnesium (1.5-2.5) mg/dL Total Bilirubin (0.2-1.0) mg/dL AST (15-37) U/L ALT (12-78) U/L Alkaline Phosphatase (45-117) U/L Troponin I (0.02-0.05) ng/mL B-Natriuretic Peptide (0-100) pg/mL Total Protein (6.4-8.2) g/dL Albumin (3.4-5.0) g/dL TSH (0.358-3.740) uIU/mL Urine Color (Yellw/Straw) Urine Clarity (Clear) Urine pH (5.0-8.5) Ur Specific [place] (1.002-1.035) Urine Protein (Neg-Trace) mg/dL Urine Glucose (UA) (Negative) mg/dL Urine Ketones (Negative) mg/dL Urine Occult Blood (Negative) Urine Nitrate (Negative) Urine Bilirubin (Negative) Urine Urobilinogen (Less than 2) mg/dL Ur Leukocyte Esterase (Negative) Urine RBC (0-3) /hpf Urine WBC (0-5) /hpf Hyaline Casts (0-3) /lpf Urine Mucus (Occasional) /lpf Micro UA Comment Urine Culture Comments Ur Random Creatinine (27-300) mg/dL Ur Random Sodium meq/L Pleural pH Pleural RBC 08161 H (0-0) /mm3 Pleural Nuc Cells 373 H (0-10) /mm3 Pleural Neutrophils 55 % Pleural Lymphocytes 24 % Pleural Monocytes 5 % Pleural Histocytes 16 % Pleural Total Protein gm/dL Pleural LDH U/L Pleural Glucose mg/dL Pleural Amylase U/L Nasal Screen MRSA (PCR) (Negative) Vancomycin Trough (5.0-10.0) mcg/mL Imaging Data Radiologist's impression: Chest X-Ray 01/05/18 19:52 CONCLUSION: Moderate right effusion. Right base atelectasis or consolidation. Chest X-Ray 01/06/18 03:56 CONCLUSION: Bilateral mostly basilar airspace disease. Small to moderate right effusion. Findings similar to January 05. Abdomen/Bladder Ultrasound 01/07/18 00:00 CONCLUSION: 1. No evidence of hydronephrosis on either side. 2. Gallstones. Chest X-Ray 01/08/18 06:00 CONCLUSION: Support apparatus unchanged. Relatively stable basilar airspace disease and right pleural effusion. Chest X-Ray 01/09/18 00:00 CONCLUSION: No pneumothorax is visualized following right thoracentesis. There is residual atelectasis versus airspace consolidation at the right lung base. Chest X-Ray 01/09/18 06:00 CONCLUSION: Stable exam compared with January 08 bilateral effusions and basilar airspace disease, right greater than left. Previous endotracheal tube has been removed. Discharge Plan Discharge Disposition Patient Disposition: 30 Still Patient Physicians Team ED Provider: Joe Flores Primary Care Provider: Primary Care Olena Hayden Attending Provider: Robert Vaca Other Providers: [facility],Insurance Discharge Interventions Interventions: ED Discharge Assessment Last Done: 01/05/18 21:38 Vital Signs Last Done: 01/05/18 21:38 Status ED Status: Left Department Discharge Information Discharge Date/Time: 01/05/18 22:00
[2018-01-05] MEDS ORDERED: Vancomycin Inj 1,000 MG in Sodium Chlor 0.9% Inj 250 ML IV.SIG ONE (21:00)
[2018-01-05] MEDS ORDERED: Glimepiride 4 MG Tablet PO SCH (21:15)
[2018-01-05] MEDS ORDERED: Acetaminophen 325 MG Tablet PO PRN (21:17)
[2018-01-05] MEDS ORDERED: Bisacodyl 10 MG Supp RECTAL PRN (21:17)
[2018-01-05 21:18] LABS: ABG Base Excess 13.9 mmol/L (-2-2); ABG PCO2 79 mmHg (38-42); ABG PO2 73 mmHg (61-120)
[2018-01-05] MEDS ORDERED: Propofol 1000 mg/100 ml Inj 1,000 MG/100 ML BOTTLE IV.CONT PRN (21:23)
[2018-01-05] MEDS ORDERED: Sod Chloride 0.9% Inj 1,000 ML IV.CONT SCH (21:30)
[2018-01-05] MEDS: Heparin - SQ 10,000 UNITS/ML Vial SQ SCH (22:42)
--- NOTE | 2018-01-05 23:18 | P.HPCC ---
History of Present Illness History of Present Illness: Elderly gentleman with past medical history of CHF, diabetes mellitus, gout, dyslipidemia and hypertension presents with respiratory distress and altered mental status. The patient was intubated by ED attending for an airway protection and respiratory failure. No other information or history is available at this time. Inpatient Certification: I certify that the inpatient services were ordered in accordance with Medicare regulations governing the order. This includes certification that hospital inpatient services are reasonable and necessary and in the case of services not specified as inpatient-only under 42 CFR 419.22(n), that they are appropriately provided as inpatient services in accordance to with the 2-midnight benchmark under 43 CFR 412.3(e) Estimated Total Length of Stay (Days): 5 Plans for Post Hospital Care: Not yet determined Review of Systems unobtainable due to endotracheal tube PMFSH - History History Provided By: Family Member - Medical History Medical History: Medical History (Last Updated 01/05/18 @ 20:14 by Desi Petersen) CHF (congestive heart failure) Diabetes Gout Hyperlipemia Hypertension - Surgical History Surgical History: Surgical History (Last Updated 01/05/18 @ 20:45 by Desi Petersen) History of lung biopsy - Tobacco History Second Hand Smoke Exposure: No Tobacco Use In Past 30 Days: No Smoking Status: Former smoker - Alcohol History How Often Do You Have a Drink Containing Alcohol: Never - Substance Use History Substance History: No History of Abuse - Travel History Recent Travel in the [place] Within the Last 8 Weeks: No Recent Travel Out of the Country Within the Last 8 Weeks: No - Immunization History Tetanus Immunization: Unsure Hx Influenza Vaccine This Season: Yes Medications and Allergies Active Medications: Active Medications Acetaminophen (Tylenol) 650 mg PO Q6H PRN PRN Reason: PAIN 1-10 AND/OR FEVER >101F Al Hydroxide/Mg Hydroxide (Milk Of Jessica Liq) 30 ml PO Q12H PRN PRN Reason: Mild Constipation Albuterol (Duoneb Neb (Prn)) 1 ampul NEB Q2HR NEB PRN PRN Reason: WHEEZING Aspirin (Ecotrin) 81 mg PO DAILY LORI Bisacodyl (Dulcolax Supp) 10 mg RECTAL DAILY PRN PRN Reason: SEVERE CONSITIPATION Chlorhexidine Gluconate (Peridex 0.12% Oral Kit) 15 ml OROPHARYNG BID@0800, 2000 [facility]ORI Chlorhexidine Gluconate (Chlorhexidine 2% Cloth) 3 pack TOPICAL DAILY@0400 [facility] Stop: 01/11/18 03:59 Chlorhexidine Gluconate (Chlorhexidine 2% Cloth) 3 pack TOPICAL DAILY@0400 PRN PRN Reason: Extra cloth needed Stop: 01/11/18 03:59 Dextrose (D50w Vial) 50 ml IV.PUSH UNSCH PRN PRN Reason: PER HYPOGLYCEMIA PROTOCOL Famotidine (Pepcid Pf Inj) 20 mg IV.PUSH Q12HR [facility] Glimepiride (Amaryl) 8 mg PO DAILY [facility] Last Admin: 01/05/18 22:42 Dose: Not Given Glucagon (Glucagon Inj) 1 mg OTHER PRN PRN PRN Reason: for Hypoglycemia Protocol Heparin Sodium (Porcine) (Heparin Inj) 5,000 units SQ Q8HR [facility] Last Admin: 01/05/18 22:42 Dose: 5,000 units Fentanyl (Fentanyl 10 Mcg/Ml Premix Drip) 2,500 mcg in 250 mls @ 5 mls/hr IV.SIG TITRATE PRN; Protocol PRN Reason: Per Protocol Last Titration: 01/05/18 20:50 Dose: 50 mcg/hr, 5 mls/hr Midazolam HCl (Versed Inj) 50 mg in 50 mls @ 2 mls/hr IV.CONT TITRATE PRN; Protocol PRN Reason: Per Protocol Last Titration: 01/05/18 21:38 Dose: 2.5 mg/hr, 2.5 mls/hr Sodium Chloride (Ns Inj) 1,000 mls @ 84 mls/hr IV.CONT .[id number] [facility] Last Admin: 01/05/18 22:00 Dose: 84 mls/hr Propofol (Diprivan 1000 Mg/100 Ml Inj) 1,000 mg in 100 mls @ 4.082 mls/hr IV.CONT TITRATE PRN; Protocol PRN Reason: Per Protocol Insulin Aspart (Novolog Insulin Suppl Scale Inj) 0 unit SQ Q6HR [facility]; Protocol Lactulose (Lactulose Liq) 30 ml PO DAILY PRN PRN Reason: SEVERE CONSITIPATION Lorazepam (Ativan Inj) 1 mg IV.PUSH Q1H PRN PRN Reason: Agitation/sedation Pat Own Med: Febuxostat (Uloric) 80 Mg Tablet 0 each PO DAILY [facility] Pat Own Med: Fluticasone- Umeclidinium- Vilanterol (Trelegy Ellipta)Inh 0 each INH DAILY [facility] Last Admin: 01/05/18 22:38 Dose: Not Given Pravastatin Sodium (Pravachol) 40 mg PO DAILY [facility] Senna/Docusate Sodium (Zandra-Colace) 1 tab PO BID [facility] Sennosides (Senokot) 17.2 mg PO Q12H PRN PRN Reason: Moderate Constipation Sodium Chloride (Ns Flush) 2 ml IV.FLUSH BID [facility] Sodium Chloride (Ns Flush) 2 ml IV.FLUSH PRN PRN PRN Reason: FLUSH AFTER USING IV ACCESS Allergies Allergy/AdvReac Type Severity Reaction Status Date / Time Iodine and Iodide Containing Allergy Hives Verified 01/05/18 20:39 Produc Penicillins Allergy Hives Verified 01/05/18 20:52 Home Medications Medication Instructions Recorded Confirmed Type aspirin [Aspirin Low Dose] 81 mg PO DAILY 01/05/18 01/05/18 History bumetanide 2 mg PO DAILY 01/05/18 01/05/18 History carvedilol 3.125 mg PO BID 01/05/18 01/05/18 History febuxostat [Uloric] 80 mg PO DAILY 01/05/18 01/05/18 History wsefcjlriwz-dtqtftnen-pnfxnefl 1 inh INHALATION DAILY 01/05/18 01/05/18 History [Trelegy Ellipta] glimepiride 8 mg PO QAM 01/05/18 01/05/18 History hydralazine 50 mg PO TID 01/05/18 01/05/18 History losartan 50 mg PO HS 01/05/18 01/05/18 History pravastatin 40 mg PO DAILY 01/05/18 01/05/18 History spironolactone 50 mg PO DAILY 01/05/18 01/05/18 History Results - Labs CBC & Chem 7: 01/05/18 19:55 01/05/18 19:55 Labs: Short CBC 01/05/18 Range/Units 19:55 WBC 8.0 (4.0-11.0) th/mm3 Hgb 9.0 L (13.0-17.0) gm/dL Hct 27.9 L (39.0-51.0) % Plt Count 187 (150-450) th/mm3 [facility] 01/05/18 19:55 Sodium 146 H Potassium 3.6 Chloride 106 Carbon Dioxide 33.5 H BUN 35 H Creatinine 1.22 Calcium 7.0 L* Cardiac Enzymes 01/05/18 Range/Units 19:55 Troponin I Less than 0.02 L (0.02-0.05) ng/mL Liver Function 01/05/18 Range/Units 19:55 Total Bilirubin 0.3 (0.2-1.0) mg/dL AST 22 (15-37) U/L ALT 35 (12-78) U/L Alkaline Phosphatase 50 (45-117) U/L Albumin 2.2 L (3.4-5.0) g/dL Urine 01/05/18 Range/Units 20:00 Urine Color Straw (Yellw/Straw) Urine Clarity Clear (Clear) Urine pH 5.0 (5.0-8.5) Ur Specific [place] 1.008 (1.002-1.035) Urine Protein Negative (Neg-Trace) mg/dL Urine Glucose (UA) Negative (Negative) mg/dL - Imaging Impressions Chest X-Ray 01/05/18 19:52 CONCLUSION: Moderate right effusion. Right base atelectasis or consolidation. Exam Vital signs: Vital Signs 01/05/18 19:43 01/05/18 19:45 01/05/18 19:50 Temperature 97.7 F Pulse Rate 95 H 81 Respiratory Rate 14 18 Blood Pressure 112/62 Pulse Oximetry 100 100 100 01/05/18 20:00 01/05/18 20:15 01/05/18 20:29 Temperature 97.7 F 97.7 F 97.7 F Pulse Rate 78 78 86 Respiratory Rate 14 14 16 Blood Pressure 118/59 L 85/49 L 104/55 L Pulse Oximetry 100 100 100 01/05/18 20:45 01/05/18 21:05 01/05/18 21:38 Temperature 97.7 F 97.7 F 97.9 F Pulse Rate 74 98 H 70 Respiratory Rate 16 16 16 Blood Pressure 113/58 L 124/69 83/53 L Pulse Oximetry 100 100 100 01/05/18 21:48 01/05/18 22:00 Temperature Pulse Rate Respiratory Rate 16 Blood Pressure Pulse Oximetry 100 99 Intake & Output 01/05/18 01/05/18 01/06/18 06:59 18:59 06:59 Intake Total 1000 / 1000 Output Total 850 / 850 Balance 150 / 150 Weight 136.078 kg Intake: IV 1000 / 1000 NS Inj 500 ML @ Wide Open IV. 1000 / 1000 SIG BOLUS ONE Rx#:[id number] Output: Urine Amount (Catheter) 450 / 450 Indwelling Temp Sensing 450 / 450 Catheter Gastric Drainage 400 / 400 Pre-Hospital Oral 400 / 400 - Constitutional average body habitus, chronically ill appearing - Routine HEENT Exam Head: Present: normocephalic, atraumatic Eye: Present: PERRL ENT: Present: mucous membranes moist - Routine Neck Exam Absent: JVD, carotid bruit - Routine Respiratory Exam Present: patient mechanically ventilated, rhonchi. Absent: stridor, wheezes - Routine Cardiovascular Exam Present: RRR, S1, S2 - Routine Abdominal Exam Present: soft, normoactive bowel sounds. Absent: tenderness, distended - Routine Extremities Exam Absent: cyanosis, clubbing, edema - Routine Skin Exam Present: intact. Absent: cyanosis, erythema - Routine Neurological Exam Present: normal reflexes, normal tone Caprini VTE Risk Assessment Caprini VTE Risk Assessment: Moderate/High Risk (score >= 2) Caprini Risk Assessment Model: Point Value = 1 Point Value = 2 Point Value = 3 Point Value = 5 Age 41-60 Minor surgery BMI > 25 kg/m2 Swollen legs Varicose veins or History of unexplained or recurrent spontaneous Oral contraceptives or hormone replacement Sepsis (< 1 month) Serious lung disease, including pneumonia (< 1 month) Abnormal pulmonary function Acute myocardial infarction Congestive heart failure (< 1 month) History of inflammatory bowel disease Medical patient at bed rest Age 61-74 Arthroscopic surgery Major open surgery (> 45 min) Laparoscopic surgery (> 45 min) Malignancy Confined to bed (> 72 hours) Immobilizing plaster cast Central venous access Age >= 75 History of VTE Family history of VTE Factor V Leiden Prothrombin [id number] Lupus anticoagulant Anticardiolipin antibodies Elevated serum homocysteine Heparin-induced thrombocytopenia Other congenital or acquired thrombophilia Stroke (< 1 month) Elective arthroplasty Hip, pelvis, or leg fracture Acute spinal cord injury (< 1 month) Prophylaxis Regimen: Total Risk Factor Score Risk Level Prophylaxis Regimen 0-1 Low Early ambulation 2 Moderate Order ONE of the following: *Sequential Compression Device (SCD) *Heparin 5000 units SQ BID 3-4 Higher Order ONE of the following medications: *Heparin 5000 units SQ TID *Enoxaparin/Lovenox 40 mg SQ daily (WT < 150 kg, CrCl > 30 mL/min) *Enoxaparin/Lovenox 30 mg SQ daily (WT < 150 kg, CrCl > 10-29 mL/min) *Enoxaparin/Lovenox 30 mg SQ BID (WT < 150 kg, CrCl > 30 mL/min) AND/OR *Sequential Compression Device (SCD) 5 or more Highest Order ONE of the following medications: *Heparin 5000 units SQ TID (Preferred with Epidurals) *Enoxaparin/Lovenox 40 mg SQ daily (WT < 150 kg, CrCl > 30 mL/min) *Enoxaparin/Lovenox 30 mg SQ daily (WT < 150 kg, CrCl > 10-29 mL/min) *Enoxaparin/Lovenox 30 mg SQ BID (WT < 150 kg, CrCl > 30 mL/min) AND *Sequential Compression Device (SCD) Assessment and Plan - Assessment and Plan Plan: Respiratory failure -Underlying COPD -DuoNeb scheduled and as needed -Chest x-ray concerning of right lower lobe consolidation -Broad-spectrum antibiotics -CXR and ABG daily Diabetes mellitus -Insulin sliding scale -Glimepiride -Glucerna tube feeds Hypertension -Hold home antihypertensive meds due to borderline blood pressure and hypertension in the ED Coronary artery disease -Continue aspirin -Trends of troponins and EKGs to rule out acute coronary syndrome DVT GI prophylaxis -Teds SCDs -Subcu heparin -Pepcid Critical Care: The total critical care time was 35 minutes. Time to perform other separately billable procedures was not included in the critical care time
[2018-01-05] MEDS ORDERED: Vancomycin Consult Pharmacy 1 EACH OTHER SCH (23:45)
[2018-01-06] MEDS: Dextrose 50% in Water 50 ML Vial IV.PUSH PRN ×4 (00:21→06:01)
[2018-01-06] MEDS: Insulin NovoLOG Aspart Correctional Sugar Inj SQ SCH ×4 (00:33→17:11)
[2018-01-06] MEDS: Oral Hygiene Kit OROPHARYNG SCH ×4 (00:34→16:53)
[2018-01-06] MEDS ORDERED: Vancomycin Inj 1,500 MG in Sodium Chlor 0.9% Inj 500 ML IV.SIG ONE (01:00)
[2018-01-06 02:19] LABS: Baso # (Auto) 0.1 th/mm3 (0.0-0.2); Baso % (Auto) 0.9 % (0.0-2.0); Eos # (Auto) 0.1 th/mm3 (0.0-0.4); Eos % (Auto) 0.7 % (0.0-4.0); Hematocrit 24.1 % (39.0-51.0); Hemoglobin 7.7 gm/dL (13.0-17.0); Lymph % (Auto) 13.2 % (9.0-44.0); Mean Corpuscular Hemoglobin 27.8 pg (27.0-34.0); Mean Corpuscular Volume 86.9 fL (80.0-100.0); Mean Platelet Volume 7.5 fL (7.0-11.0); Mono % (Auto) 12.7 % (0.0-8.0); Neut # (Auto) 5.6 th/mm3 (1.8-7.7); Neut % (Auto) 72.5 % (16.0-70.0); Platelet Count 181 th/mm3 (150-450); Red Blood Count 2.77 mil/mm3 (4.50-5.90); Red Cell Distribution Width 15.1 % (11.6-17.2); White Blood Count 7.7 th/mm3 (4.0-11.0)
[2018-01-06 02:35] LABS: Activated Partial Thrombo Time 28.4 sec (24.3-30.1); INR 1.1 Ratio; Prothrombin Time 11.3 sec (9.8-11.6)
[2018-01-06 02:56] LABS: Alanine Aminotransferase 41 U/L (12-78); Albumin 2.5 g/dL (3.4-5.0); Alkaline Phosphatase 53 U/L (45-117); Anion Gap 4 meq/L (5-15); Aspartate Aminotransferase 20 U/L (15-37); Blood Urea Nitrogen 42 mg/dL (7-18); Carbon Dioxide 40.9 meq/L (21.0-32.0); Chloride 100 meq/L (98-107); Glomerular Filtration Rate 36 mL/min (>89); Magnesium 1.8 mg/dL (1.5-2.5); Phosphorus 2.3 mg/dL (2.5-4.9); Potassium 4.3 meq/L (3.5-5.1); Sodium 145 meq/L (136-145); Total Protein 5.9 g/dL (6.4-8.2)
[2018-01-06] MEDS ORDERED: Sod Chloride 0.9% Inj 2,000 ML IV.SIG ONE (02:56)
[2018-01-06 02:58] LABS: Glucose,Random 43 mg/dL (74-106)
[2018-01-06 03:05] LABS: Eosinophils 1 % (0-4); Lymphocytes 12 % (9-44); Metamyelocytes 1 % (0-1); Monocytes 15 % (0-8); Myelocytes 2 % (0-0)
[2018-01-06 03:06] LABS: Platelet Estimate Normal (Normal); Platelet Morphology Normal (Normal)
[2018-01-06 03:10] LABS: Stomatocytes 1+
[2018-01-06] MEDS ORDERED: Chlorhexidine Gluconate 2% 1 Pack (2 Cloths) TOPICAL PRN (04:00)
[2018-01-06] MEDS: Aztreonam Inj 2 GM in Sodium Chloride 0.9% Inj 100 ML IV.SIG SCH ×5 (04:01→23:51)
[2018-01-06] MEDS: Chlorhexidine Gluconate 2% 1 Pack (2 Cloths) TOPICAL SCH (04:02)
--- NOTE | 2018-01-06 04:54 | XR ---
EXAM DATE: 01/06/2018 4:48 AM EDT AGE/SEX: 89 years / Male INDICATIONS: Central line placement. CLINICAL DATA: This is the patient's subsequent encounter. Patient reports that signs and symptoms h ave been present for 2 days and indicates a pain score of Nonresponsive. MEDICAL/SURGICAL HISTORY: Non-responsive. Non-responsive. COMPARISON: [facility], CHEST 1V SINGLE AP, 01/05/2018. . FINDINGS: Right central line in superior vena cava. Endotracheal tube in good position. NG enters stomach. Bila teral mostly basilar airspace disease. Small to moderate right effusion. CONCLUSION: Bilateral mostly basilar airspace disease. Small to moderate right effusion. Findings similar to January 05. Electronically signed by: Salvatore Cummings MD 01/06/2018 4:52 AM EDT
[2018-01-06] MEDS: Heparin - SQ 10,000 UNITS/ML Vial SQ SCH ×3 (05:49→21:44)
--- NOTE | 2018-01-06 07:50 | P.PNCC ---
Subjective Subjective Remarks/Hospital Course: Elderly gentleman with past medical history of CHF, diabetes mellitus, gout, dyslipidemia and hypertension presents with respiratory distress and altered mental status. The patient was intubated by ED attending for an airway protection and respiratory failure. No other information or history is available at this time. 01/06 Patient remains sedated and intubated Objective Vital Signs / I&O: Vital Signs 01/05/18 19:43 01/05/18 19:45 01/05/18 19:50 Temperature 97.7 F Pulse Rate 95 H 81 Respiratory Rate 14 18 Blood Pressure 112/62 Pulse Oximetry 100 100 100 01/05/18 20:00 01/05/18 20:15 01/05/18 20:29 Temperature 97.7 F 97.7 F 97.7 F Pulse Rate 78 78 86 Respiratory Rate 14 14 16 Blood Pressure 118/59 L 85/49 L 104/55 L Pulse Oximetry 100 100 100 01/05/18 20:45 01/05/18 21:05 01/05/18 21:38 Temperature 97.7 F 97.7 F 97.9 F Pulse Rate 74 98 H 70 Respiratory Rate 16 16 16 Blood Pressure 113/58 L 124/69 83/53 L Pulse Oximetry 100 100 100 01/05/18 21:48 01/05/18 22:00 01/05/18 22:04 Temperature 97.0 F L Pulse Rate 94 H 100 H Respiratory Rate 22 34 H Blood Pressure 119/57 L 119/57 L Pulse Oximetry 100 92 L 92 L 01/05/18 23:00 01/05/18 23:01 01/06/18 00:00 Temperature 98.2 F 98.2 F Pulse Rate 66 68 60 Respiratory Rate 17 13 17 Blood Pressure 95/50 L 95/50 L 87/51 L Pulse Oximetry 100 100 100 01/06/18 00:41 01/06/18 01:00 01/06/18 02:00 Temperature 98.1 F 97.5 F L Pulse Rate 67 62 Respiratory Rate 16 19 17 Blood Pressure 91/63 L 119/44 L Pulse Oximetry 100 100 99 01/06/18 02:01 01/06/18 03:00 01/06/18 04:00 Temperature 97.3 F L 97.0 F L Pulse Rate 66 56 L 64 Respiratory Rate 17 16 16 Blood Pressure 119/44 L 66/46 L 86/48 L Pulse Oximetry 94 L 97 96 01/06/18 04:31 01/06/18 05:00 01/06/18 06:00 Temperature 96.8 F L 96.8 F L Pulse Rate 50 L 76 Respiratory Rate 16 13 12 Blood Pressure 86/51 L 128/60 Pulse Oximetry 95 93 L 94 L Intake & Output 01/05/18 01/06/18 01/06/18 18:59 06:59 18:59 Intake Total 3965 / 3965 Output Total 1050 / 1050 Balance 2915 / 2915 Weight 150 kg Intake: IV 3965 / 3965 Azactam Inj 2 GM In NS Inj 100 200 / 200 ML @ 200 mls/hr IV.SIG Q6HR LORI Rx#:[id number] NS Inj 2,000 ML @ Wide Open IV. 1999 / 1999 SIG BOLUS ONE Rx#:[id number] NS Inj 500 ML @ Wide Open IV. 1000 / 1000 SIG BOLUS ONE Rx#:[id number] Vancomycin Inj 1,000 MG In NS 250 / 250 Inj 250 ML @ 250 mls/hr IV.SIG ONCE ONE Rx#:[id number] Vancomycin Inj 1,500 MG In NS 515 / 515 Inj 500 ML @ 250 mls/hr IV.SIG ONCE ONE Rx#:[id number] Output: Urine Amount (Catheter) 650 / 650 Indwelling Temp Sensing 650 / 650 Catheter Gastric Drainage 400 / 400 Pre-Hospital Oral 400 / 400 Other: Date of Last Bowel Movement 01/06/18 # Bowel Movements 1 Weight On Admission 187.9 kg Result Diagrams: 01/06/18 02:06 01/06/18 02:06 Other Results: Abnormal Lab Results 01/05/18 01/05/18 01/05/18 19:55 19:55 19:55 WBC 8.0 RBC 3.18 L Hgb 9.0 L Hct 27.9 L MCV 87.7 MCH 28.3 MCHC 32.3 RDW 15.2 Plt Count 187 MPV 8.3 Prelim Diff (Auto) Slide review pending Neut % (Auto) 76.0 H Lymph % (Auto) 12.2 [place] % (Auto) 10.3 H Eos % (Auto) 0.6 Baso % (Auto) 0.9 Neut # (Auto) 6.1 Lymph # (Auto) 1.0 [place] # (Auto) 0.8 Eos # (Auto) 0.0 Baso # (Auto) 0.1 WBC Differential . Diff Scan Auto diff confirmed Seg Neuts % (Manual) Band Neuts % (Manual) Lymphocytes % (Manual) Monocytes % (Manual) Eosinophils % (Manual) Metamyelocytes % (Man) Myelocytes % (Man) Abs Neuts (Manual) Differential Comment . Platelet Estimate Platelet Morphology Basophilic Stippling Stomatocytes PT INR APTT Puncture Site Patient Temperature O2 Saturation ABG pH ABG pCO2 ABG pO2 ABG HCO3 ABG O2 Content ABG Base Excess ABG Methemoglobin Catracho Test Hemoglobin Carboxyhemoglobin O2 Delivery Device Vent Setting Inspired O2 Critical Value Sodium 146 H Potassium 3.6 Chloride 106 Carbon Dioxide 33.5 H Anion Gap 7 BUN 35 H Creatinine 1.22 Estimated GFR 51 L POC Glucose Random Glucose 77 Lactic Acid 1.1 Calcium 7.0 L* Prot Corrected Calcium 7.9 L Phosphorus Magnesium Total Bilirubin 0.3 AST 22 ALT 35 Alkaline Phosphatase 50 Troponin I Total Protein 5.3 L Albumin 2.2 L Urine Color Urine Clarity Urine pH Ur Specific [place] Urine Protein Urine Glucose (UA) Urine Ketones Urine Occult Blood Urine Nitrate Urine Bilirubin Urine Urobilinogen Ur Leukocyte Esterase Urine RBC Urine WBC Hyaline Casts Urine Mucus Micro UA Comment Urine Culture Comments Nasal Screen MRSA (PCR) 01/05/18 01/05/18 01/05/18 19:55 20:00 20:12 WBC RBC Hgb Hct MCV MCH MCHC RDW Plt Count MPV Prelim Diff (Auto) Neut % (Auto) Lymph % (Auto) [place] % (Auto) Eos % (Auto) Baso % (Auto) Neut # (Auto) Lymph # (Auto) [place] # (Auto) Eos # (Auto) Baso # (Auto) WBC Differential Diff Scan Seg Neuts % (Manual) Band Neuts % (Manual) Lymphocytes % (Manual) Monocytes % (Manual) Eosinophils % (Manual) Metamyelocytes % (Man) Myelocytes % (Man) Abs Neuts (Manual) Differential Comment Platelet Estimate Platelet Morphology Basophilic Stippling Stomatocytes PT INR APTT Puncture Site Right radial Patient Temperature 98.6 O2 Saturation 92 ABG pH 7.33 L ABG pCO2 79 H* ABG pO2 73 ABG HCO3 40 H ABG O2 Content 11.0 L ABG Base Excess 13.9 H ABG Methemoglobin 0.6 Catracho Test Present Hemoglobin 8.5 L Carboxyhemoglobin 2.2 O2 Delivery Device Vent Vent Setting Prvc/ac Inspired O2 100 Critical Value Yes Sodium Potassium Chloride Carbon Dioxide Anion Gap BUN Creatinine Estimated GFR POC Glucose Random Glucose Lactic Acid Calcium Prot Corrected Calcium Phosphorus Magnesium Total Bilirubin AST ALT Alkaline Phosphatase Troponin I Less than 0.02 L Total Protein Albumin Urine Color Straw Urine Clarity Clear Urine pH 5.0 Ur Specific [place] 1.008 Urine Protein Negative Urine Glucose (UA) Negative Urine Ketones Negative Urine Occult Blood Negative Urine Nitrate Negative Urine Bilirubin Negative Urine Urobilinogen Less than 2 Ur Leukocyte Esterase Negative Urine RBC 2 Urine WBC 2 Hyaline Casts 6 Urine Mucus Few H Micro UA Comment Cath-culture not ind Urine Culture Comments Cath-cult not ind Nasal Screen MRSA (PCR) 01/05/18 01/06/18 01/06/18 22:00 00:17 00:18 WBC RBC Hgb Hct MCV MCH MCHC RDW Plt Count MPV Prelim Diff (Auto) Neut % (Auto) Lymph % (Auto) [place] % (Auto) Eos % (Auto) Baso % (Auto) Neut # (Auto) Lymph # (Auto) [place] # (Auto) Eos # (Auto) Baso # (Auto) WBC Differential Diff Scan Seg Neuts % (Manual) Band Neuts % (Manual) Lymphocytes % (Manual) Monocytes % (Manual) Eosinophils % (Manual) Metamyelocytes % (Man) Myelocytes % (Man) Abs Neuts (Manual) Differential Comment Platelet Estimate Platelet Morphology Basophilic Stippling Stomatocytes PT INR APTT Puncture Site Patient Temperature O2 Saturation ABG pH ABG pCO2 ABG pO2 ABG HCO3 ABG O2 Content ABG Base Excess ABG Methemoglobin Catracho Test Hemoglobin Carboxyhemoglobin O2 Delivery Device Vent Setting Inspired O2 Critical Value Sodium Potassium Chloride Carbon Dioxide Anion Gap BUN Creatinine Estimated GFR POC Glucose 18 L* 18 L* Random Glucose Lactic Acid Calcium Prot Corrected Calcium Phosphorus Magnesium Total Bilirubin AST ALT Alkaline Phosphatase Troponin I Total Protein Albumin Urine Color Urine Clarity Urine pH Ur Specific [place] Urine Protein Urine Glucose (UA) Urine Ketones Urine Occult Blood Urine Nitrate Urine Bilirubin Urine Urobilinogen Ur Leukocyte Esterase Urine RBC Urine WBC Hyaline Casts Urine Mucus Micro UA Comment Urine Culture Comments Nasal Screen MRSA (PCR) Not detected 01/06/18 01/06/18 01/06/18 00:24 00:37 02:06 WBC 7.7 RBC 2.77 L Hgb 7.7 L Hct 24.1 L MCV 86.9 MCH 27.8 MCHC 32.0 RDW 15.1 Plt Count 181 MPV 7.5 Prelim Diff (Auto) Slide review pending Neut % (Auto) 72.5 H Lymph % (Auto) 13.2 [place] % (Auto) 12.7 H Eos % (Auto) 0.7 Baso % (Auto) 0.9 Neut # (Auto) 5.6 Lymph # (Auto) 1.0 [place] # (Auto) 1.0 H Eos # (Auto) 0.1 Baso # (Auto) 0.1 WBC Differential Manual diff final Diff Scan Seg Neuts % (Manual) 65 Band Neuts % (Manual) 4 Lymphocytes % (Manual) 12 Monocytes % (Manual) 15 H Eosinophils % (Manual) 1 Metamyelocytes % (Man) 1 Myelocytes % (Man) 2 H Abs Neuts (Manual) 5.5 Differential Comment . Platelet Estimate Normal Platelet Morphology Normal Basophilic Stippling Faint H Stomatocytes 1+ H PT INR APTT Puncture Site Patient Temperature O2 Saturation ABG pH ABG pCO2 ABG pO2 ABG HCO3 ABG O2 Content ABG Base Excess ABG Methemoglobin Catracho Test Hemoglobin Carboxyhemoglobin O2 Delivery Device Vent Setting Inspired O2 Critical Value Sodium Potassium Chloride Carbon Dioxide Anion Gap BUN Creatinine Estimated GFR POC Glucose 171 H 96 Random Glucose Lactic Acid Calcium Prot Corrected Calcium Phosphorus Magnesium Total Bilirubin AST ALT Alkaline Phosphatase Troponin I Total Protein Albumin Urine Color Urine Clarity Urine pH Ur Specific [place] Urine Protein Urine Glucose (UA) Urine Ketones Urine Occult Blood Urine Nitrate Urine Bilirubin Urine Urobilinogen Ur Leukocyte Esterase Urine RBC Urine WBC Hyaline Casts Urine Mucus Micro UA Comment Urine Culture Comments Nasal Screen MRSA (PCR) 01/06/18 01/06/18 01/06/18 02:06 02:06 02:06 WBC RBC Hgb Hct MCV MCH MCHC RDW Plt Count MPV Prelim Diff (Auto) Neut % (Auto) Lymph % (Auto) [place] % (Auto) Eos % (Auto) Baso % (Auto) Neut # (Auto) Lymph # (Auto) [place] # (Auto) Eos # (Auto) Baso # (Auto) WBC Differential Diff Scan Seg Neuts % (Manual) Band Neuts % (Manual) Lymphocytes % (Manual) Monocytes % (Manual) Eosinophils % (Manual) Metamyelocytes % (Man) Myelocytes % (Man) Abs Neuts (Manual) Differential Comment Platelet Estimate Platelet Morphology Basophilic Stippling Stomatocytes PT 11.3 INR 1.1 APTT 28.4 Puncture Site Patient Temperature O2 Saturation ABG pH ABG pCO2 ABG pO2 ABG HCO3 ABG O2 Content ABG Base Excess ABG Methemoglobin Catracho Test Hemoglobin Carboxyhemoglobin O2 Delivery Device Vent Setting Inspired O2 Critical Value Sodium 145 Potassium 4.3 Chloride 100 Carbon Dioxide 40.9 H Anion Gap 4 L BUN 42 H Creatinine 1.64 H Estimated GFR 36 L POC Glucose Random Glucose 43 L* Lactic Acid 0.6 Calcium 8.0 L D Prot Corrected Calcium Phosphorus 2.3 L Magnesium 1.8 Total Bilirubin 0.4 AST 20 ALT 41 Alkaline Phosphatase 53 Troponin I Less than 0.02 L Total Protein 5.9 L D Albumin 2.5 L Urine Color Urine Clarity Urine pH Ur Specific [place] Urine Protein Urine Glucose (UA) Urine Ketones Urine Occult Blood Urine Nitrate Urine Bilirubin Urine Urobilinogen Ur Leukocyte Esterase Urine RBC Urine WBC Hyaline Casts Urine Mucus Micro UA Comment Urine Culture Comments Nasal Screen MRSA (PCR) 01/06/18 01/06/18 01/06/18 03:00 03:14 05:10 WBC RBC Hgb Hct MCV MCH MCHC RDW Plt Count MPV Prelim Diff (Auto) Neut % (Auto) Lymph % (Auto) [place] % (Auto) Eos % (Auto) Baso % (Auto) Neut # (Auto) Lymph # (Auto) [place] # (Auto) Eos # (Auto) Baso # (Auto) WBC Differential Diff Scan Seg Neuts % (Manual) Band Neuts % (Manual) Lymphocytes % (Manual) Monocytes % (Manual) Eosinophils % (Manual) Metamyelocytes % (Man) Myelocytes % (Man) Abs Neuts (Manual) Differential Comment Platelet Estimate Platelet Morphology Basophilic Stippling Stomatocytes PT INR APTT Puncture Site Patient Temperature O2 Saturation ABG pH ABG pCO2 ABG pO2 ABG HCO3 ABG O2 Content ABG Base Excess ABG Methemoglobin Catracho Test Hemoglobin Carboxyhemoglobin O2 Delivery Device Vent Setting Inspired O2 Critical Value Sodium Potassium Chloride Carbon Dioxide Anion Gap BUN Creatinine Estimated GFR POC Glucose 34 L* 119 H 53 L Random Glucose Lactic Acid Calcium Prot Corrected Calcium Phosphorus Magnesium Total Bilirubin AST ALT Alkaline Phosphatase Troponin I Total Protein Albumin Urine Color Urine Clarity Urine pH Ur Specific [place] Urine Protein Urine Glucose (UA) Urine Ketones Urine Occult Blood Urine Nitrate Urine Bilirubin Urine Urobilinogen Ur Leukocyte Esterase Urine RBC Urine WBC Hyaline Casts Urine Mucus Micro UA Comment Urine Culture Comments Nasal Screen MRSA (PCR) 01/06/18 01/06/18 05:53 06:04 WBC RBC Hgb Hct MCV MCH MCHC RDW Plt Count MPV Prelim Diff (Auto) Neut % (Auto) Lymph % (Auto) [place] % (Auto) Eos % (Auto) Baso % (Auto) Neut # (Auto) Lymph # (Auto) [place] # (Auto) Eos # (Auto) Baso # (Auto) WBC Differential Diff Scan Seg Neuts % (Manual) Band Neuts % (Manual) Lymphocytes % (Manual) Monocytes % (Manual) Eosinophils % (Manual) Metamyelocytes % (Man) Myelocytes % (Man) Abs Neuts (Manual) Differential Comment Platelet Estimate Platelet Morphology Basophilic Stippling Stomatocytes PT INR APTT Puncture Site Patient Temperature O2 Saturation ABG pH ABG pCO2 ABG pO2 ABG HCO3 ABG O2 Content ABG Base Excess ABG Methemoglobin Catracho Test Hemoglobin Carboxyhemoglobin O2 Delivery Device Vent Setting Inspired O2 Critical Value Sodium Potassium Chloride Carbon Dioxide Anion Gap BUN Creatinine Estimated GFR POC Glucose 97 161 H Random Glucose Lactic Acid Calcium Prot Corrected Calcium Phosphorus Magnesium Total Bilirubin AST ALT Alkaline Phosphatase Troponin I Total Protein Albumin Urine Color Urine Clarity Urine pH Ur Specific [place] Urine Protein Urine Glucose (UA) Urine Ketones Urine Occult Blood Urine Nitrate Urine Bilirubin Urine Urobilinogen Ur Leukocyte Esterase Urine RBC Urine WBC Hyaline Casts Urine Mucus Micro UA Comment Urine Culture Comments Nasal Screen MRSA (PCR) Imaging: Chest X-Ray 01/06/18 03:56 CONCLUSION: Bilateral mostly basilar airspace disease. Small to moderate right effusion. Findings similar to January 05. Objective Remarks: GENERAL: Patient is intubated and sedated SKIN: Warm and dry. HEAD: Normocephalic. EYES: No scleral icterus. No injection or drainage. NECK: Supple, trachea midline. No JVD or lymphadenopathy. CARDIOVASCULAR: Regular rate and rhythm without murmurs, gallops, or rubs. RESPIRATORY: Breath sounds equal bilaterally. No accessory muscle use. GASTROINTESTINAL: Abdomen soft, non-tender, nondistended. MUSCULOSKELETAL: No cyanosis, +edema. Neuro: sedated, intubated Assessment and Plan - Assessment and Plan Plan: Acute hypercapnic and hypoxemic resp failure COPD ARGENIS B/L airspace disease Anemia Hx HTN DM CAD Plan Neuro: On Fentanyl and Versed infusion for sedation. Daily sdeation vacation. Pulm: Continue with vent support keep sats >92% Bronchodilators, ICU vent bundle. Place on Solumedrol 60mg Q8. Decrease FIO2 as shanthi, check ABG CV: Wean off Levophed keep MAP>65mmHg Lactic acid 0.6 Check echo to eval LV function, continue with ASA, check BNP : Monitor renal function, electrolytes replacement per protocol Change IVF-D5NS@84ml/hr GI: On Pepcid for GI prophylaxis, tube feeds- Glucerna 1.5 ID: Continue with abx ( Aztreonam, Azithromycin, Vanco) Follow up on sputum and blood cxs. Check strep pneumonia and Legionella urinary Ag Heme: Monitor CBC Endo: SSI for glycemic control DVT GI prophylaxis -Teds SCDs -Subcu heparin -Pepcid Lines" Right IJ CVP, peripheral IV;s Critical Care: The total critical care time was 0 minutes. Time to perform other separately billable procedures was not included in the critical care time
[2018-01-06] MEDS: Senna/Docusate Sodium 8.6/50 MG Tablet PO SCH ×2 (08:37→21:44)
[2018-01-06] MEDS: Chlorhexidine 0.12% Oral Kit 15 ML UDC OROPHARYNG SCH ×2 (08:38→21:45)
[2018-01-06] MEDS ORDERED: FEBUXOSTAT 80 MG PO SCH (09:00)
[2018-01-06] MEDS: Famotidine PF Inj 20 MG/2 ML Vial IV.PUSH SCH ×2 (09:19→21:44)
[2018-01-06] MEDS: MethylPREDNISolone Sod Succinate Inj 40 MG/ML Vial IV.PUSH SCH ×2 (09:19→17:10)
[2018-01-06 10:00] LABS: ABG Base Excess 11.8 mmol/L (-2-2); ABG PCO2 73 mmHg (38-42); ABG PO2 104 mmHG (61-120)
[2018-01-06] MEDS: Dextrose 5%/NaCl 0.9% Inj 1,000 ML IV.CONT SCH (11:45)
--- NOTE | 2018-01-06 12:06 | P.DIET ---
Nutritional Evaluation Type of nutrition evaluation: initial Nutrition consult regarding: Tube Feeding Screening comments: Assessment per SCCM and ASPEN guidelines for critically ill pts with a BMI >30.0 Objective - Diagnosis Respiratory Failure - Objective % IBW: 185 (IBW = 178#/ 80.9 kg) Body Weight Used for Calculations: IBW (Used for protien needs), Actual (150 kg used for kcaloric needs) Energy Needs - Lower Range (kCal/kg): 11 Energy Needs - Upper Range (kCal/kg): 14 Lower Limit kCal/kg (kCals): 1,650 Upper Limit kCal/kg (kCals): 2,100 Lower Limit Protein Factor (Grams per Kg): 1.5 Upper Limit Protein Factor (Grams per Kg): 2.0 Lower Protein Needs (Protein): 121 Upper Protein Needs (Protein): 162 Dietitian Reviewed in Medical Record: Curent medications, Intake & Output, Labs , Medical history, Tube feeding Objective Comments: Hx includes CHF, DM, gout, dyslipidemia, HTN LBM today BMI 44.8 Feeding - Current Tube Feeding Tube Feeding Product: Glucerna 1.5 Assessment Assessment: Pt is at high nutrition risk 2' to his need for TFing while intubated. Recommend Vital High Protein @ 70 mls/hr goal to provide 1680 kcals, 147 gms protein and 1404 mls of free water. Some additional kcals will be provided by propofol (1.1 kcal/ml). Recommendations: Vital High Protein @ 70 mls/hr goal Dietitian to Monitor: Lab values, Intake & Output, Tube feeding tolerance, Weight change, Medical course
--- NOTE | 2018-01-06 12:41 | ECHRPT ---
Indication: SHORTNESS OF BREATH CONCLUSIONS The left ventricular systolic function is normal with an estimated ejection fraction in the range of 60-65%. Normal left ventricular size. Wall thickness is normal. No definite regional wall motion abnormalities are present. The aortic valve is not well visualized. No aortic valve stenosis or regurgitation. There is trace tricuspid valve regurgitation. BP: / HR: Rhythm: Sinus MEASUREMENTS (Male / Female) Normal Values Technical Quality:Poor 2D ECHO LV Diastolic Diameter PLAX 5.0 cm 4.2 - 5.9 / 3.9 - 5.3 cm LV Systolic Diameter PLAX 3.6 cm IVS Diastolic Thickness 1.1 cm 0.6 - 1.0 / 0.6 - 0.9 cm LVPW Diastolic Thickness 1.1 cm 0.6 - 1.0 / 0.6 - 0.9 cm LV Relative Wall Thickness 0.4 LVOT Diameter 1.9 cm LA Systolic Diameter LX 3.9 cm 3.0 - 4.0 / 2.7 - 3.8 cm M-MODE Aortic Root Diameter MM 2.5 cm LA Systolic Diameter MM 3.9 cm LA Ao Ratio MM 1.6 AV Cusp Separation MM 1.9 cm DOPPLER AV Peak Velocity 148.0 cm/s AV Peak Gradient 8.8 mmHg AI Peak Velocity 153.0 cm/s AI Peak Gradient 9.4 mmHg AI Pressure Half Time 117.0 ms LVOT Peak Velocity 90.3 cm/s LVOT Peak Gradient 3.3 mmHg AV Area Cont Eq pk 1.7 cm MV Area PHT 3.2 cm Mitral E Point Velocity 89.3 cm/s Mitral A Point Velocity 57.3 cm/s Mitral E to A Ratio 1.6 LV E' Lateral Velocity 7.7 cm/s Mitral E to LV E' Lateral Ratio 11.6 LV E' Septal Velocity 7.3 cm/s Mitral E to LV E' Septal Ratio 12.2 FINDINGS LEFT VENTRICLE The left ventricular systolic function is normal with an estimated ejection fraction in the range of 60-65%. Normal left ventricular size. Wall thickness is normal. No regional wall motion abnormalities are present. RIGHT VENTRICLE Normal right ventricular size and systolic function. LEFT ATRIUM The left atrial size is normal. RIGHT ATRIUM The right atrial size is normal. ATRIAL SEPTUM Normal atrial septal thickness without atrial level shunting by limited color doppler interrogation. AORTA The aortic root and proximal ascending aorta are normal in size on limited imaging. MITRAL VALVE Structurally normal mitral valve. No mitral valve stenosis or regurgitation. AORTIC VALVE The aortic valve is not well visualized. No aortic valve stenosis or regurgitation. TRICUSPID VALVE Structurally normal tricuspid valve. There is trace tricuspid valve regurgitation. PULMONARY VALVE The pulmonary valve is not well visualized. VESSELS There is less than 50% respiratory change in dimension of the inferior vena cava (abnormal). PERICARDIUM No pericardial effusion. Luis Armando Brown MD (Electronically Signed) Final Date:06 January 2018 12:40
[2018-01-06] MEDS: fentaNYL 10 mcg/mL Premix Drip 2,500 MCG/250 ML BAG IV.SIG PRN (15:16)
--- NOTE | 2018-01-06 17:31 | ECG ---
Date Performed: 01/05/2018 Time Performed: 19:52:35 PTAGE: 89 years EKG: Sinus rhythm WITH SINUS ARRHYTHMIA NORMAL ECG NO PREVIOUS TRACING DOCTOR: Connor Boss Interpretating Date/Time 01/06/2018 17:29:12
--- NOTE | 2018-01-06 23:35 | P.PCN ---
Date of procedure: 01/06/18 Pre-op diagnosis: Hypotension Procedure: Central line placement A time-out was completed verifying correct patient, procedure, site, positioning , and special equipment if applicable. The patient was placed in a dependent position appropriate for central line placement based on the vein to be cannulated. The patients right neck was prepped and draped in sterile fashion. 1% Lidocaine was used to anesthetize the surrounding skin area. A triple lumen 9 -Russian Cordis catheter was introduced into the the internal jugular vein using the Seldinger technique and under ultrasound guidance. The catheter was threaded smoothly over the guide wire and appropriate blood return was obtained. Each lumen of the catheter was evacuated of air and flushed with sterile saline. The catheter was then sutured in place to the skin and a sterile dressing applied. Perfusion to the extremity distal to the point of catheter insertion was checked and found to be adequate. Estimated Blood Loss: 1ml The patient tolerated the procedure well and there were no complications.
[2018-01-07] MEDS: Azithromycin Inj 500 MG in Sodium Chlor 0.9% Inj 250 ML IV.SIG SCH ×2
[2018-01-07] MEDS: Vancomycin Inj 1,750 MG in Sodium Chlor 0.9% Inj 500 ML IV.SIG SCH ×2
[2018-01-07] MEDS: Oral Hygiene Kit OROPHARYNG SCH ×4 (00:01→17:25)
[2018-01-07] MEDS: Insulin NovoLOG Aspart Correctional Sugar Inj SQ SCH ×4 (00:22→18:15)
[2018-01-07] MEDS: Dextrose 5%/NaCl 0.9% Inj 1,000 ML IV.CONT SCH (01:24)
[2018-01-07 05:11] LABS: Baso % (Auto) 0.2 % (0.0-2.0); Hematocrit 24.6 % (39.0-51.0); Hemoglobin 7.8 gm/dL (13.0-17.0); Lymph # (Auto) 0.4 th/mm3 (1.0-4.8); Lymph % (Auto) 7.5 % (9.0-44.0); Mean Corpuscular HGB Conc 31.7 % (32.0-36.0); Mean Corpuscular Hemoglobin 27.9 pg (27.0-34.0); Mean Corpuscular Volume 87.9 fL (80.0-100.0); Mean Platelet Volume 7.7 fL (7.0-11.0); Mono # (Auto) 0.2 th/mm3 (0.0-0.9); Mono % (Auto) 4.2 % (0.0-8.0); Neut # (Auto) 4.8 th/mm3 (1.8-7.7); Neut % (Auto) 88.1 % (16.0-70.0); Platelet Count 159 th/mm3 (150-450); Red Blood Count 2.79 mil/mm3 (4.50-5.90); Red Cell Distribution Width 15.4 % (11.6-17.2); White Blood Count 5.5 th/mm3 (4.0-11.0)
[2018-01-07] MEDS: Chlorhexidine Gluconate 2% 1 Pack (2 Cloths) TOPICAL SCH (05:22)
[2018-01-07 05:35] LABS: Alanine Aminotransferase 34 U/L (12-78); Albumin 2.4 g/dL (3.4-5.0); Alkaline Phosphatase 56 U/L (45-117); Anion Gap 9 meq/L (5-15); Aspartate Aminotransferase 13 U/L (15-37); Blood Urea Nitrogen 41 mg/dL (7-18); Calcium 8.5 mg/dL (8.5-10.1); Carbon Dioxide 31.9 meq/L (21.0-32.0); Chloride 101 meq/L (98-107); Glomerular Filtration Rate 42 mL/min (>89); Glucose,Random 401 mg/dL (74-106); Potassium 4.9 meq/L (3.5-5.1); Sodium 142 meq/L (136-145); Total Protein 6.2 g/dL (6.4-8.2)
[2018-01-07] MEDS: Heparin - SQ 10,000 UNITS/ML Vial SQ SCH ×3 (06:34→22:18)
[2018-01-07] MEDS: Aztreonam Inj 2 GM in Sodium Chloride 0.9% Inj 100 ML IV.SIG SCH ×3 (06:35→18:15)
[2018-01-07 07:20] LABS: Lymphocytes 4 % (9-44); Metamyelocytes 1 % (0-1); Monocytes 5 % (0-8); Myelocytes 1 % (0-0); Stomatocytes 1+
[2018-01-07 07:21] LABS: Platelet Estimate Normal (Normal); Platelet Morphology Normal (Normal)
[2018-01-07] MEDS: Chlorhexidine 0.12% Oral Kit 15 ML UDC OROPHARYNG SCH (09:41)
[2018-01-07] MEDS: Famotidine PF Inj 20 MG/2 ML Vial IV.PUSH SCH ×2 (09:42→22:17)
[2018-01-07] MEDS: MethylPREDNISolone Sod Succinate Inj 40 MG/ML Vial IV.PUSH SCH ×3 (09:42→22:16)
[2018-01-07] MEDS: Senna/Docusate Sodium 8.6/50 MG Tablet PO SCH ×2 (09:43→22:17)
--- NOTE | 2018-01-07 12:45 | P.PNCC ---
Subjective Subjective Remarks/Hospital Course: Elderly gentleman with past medical history of CHF, diabetes mellitus, gout, dyslipidemia and hypertension presents with respiratory distress and altered mental status. The patient was intubated by ED attending for an airway protection and respiratory failure. No other information or history is available at this time. 01/06 Patient remains sedated and intubated SUBJECTIVE: 01/07: Awake and alert on the ventilator on 100 mcg an hour fentanyl. Tolerating tube feeds at goal. On CPAP trial 03/28 at 50%. Saturation 93. On baseline 3 L at home. His long term care social worker is Dr. Clarke. Objective Vital Signs / I&O: Vital Signs 01/06/18 12:45 01/06/18 13:00 01/06/18 13:15 Temperature Pulse Rate 63 65 65 Respiratory Rate 18 16 9 L Blood Pressure 101/56 L 106/57 L 108/58 L Pulse Oximetry 96 99 99 01/06/18 13:30 01/06/18 13:35 01/06/18 13:45 Temperature Pulse Rate 90 77 Respiratory Rate 20 21 21 Blood Pressure 124/58 L 137/75 Pulse Oximetry 97 94 L 96 01/06/18 14:00 01/06/18 14:05 01/06/18 14:15 Temperature Pulse Rate 112 H 102 H 100 H Respiratory Rate 35 H 17 20 Blood Pressure 142/65 H 145/66 H Pulse Oximetry 95 95 95 01/06/18 14:30 01/06/18 14:45 01/06/18 15:00 Temperature Pulse Rate 89 79 88 Respiratory Rate 13 20 13 Blood Pressure 124/57 L 115/58 L Pulse Oximetry 94 L 96 94 L 01/06/18 15:15 01/06/18 15:24 01/06/18 15:29 Temperature Pulse Rate 82 69 Respiratory Rate 14 20 20 Blood Pressure 120/56 L Pulse Oximetry 94 L 96 01/06/18 15:30 01/06/18 15:34 01/06/18 15:45 Temperature Pulse Rate 73 77 72 Respiratory Rate 17 16 13 Blood Pressure 113/56 L 105/56 L 107/56 L Pulse Oximetry 93 L 91 L 92 L 01/06/18 16:00 01/06/18 16:15 01/06/18 16:30 Temperature 98.5 F Pulse Rate 76 76 75 Respiratory Rate 12 15 13 Blood Pressure 108/55 L 108/56 L 115/57 L Pulse Oximetry 94 L 93 L 94 L 01/06/18 16:45 01/06/18 17:00 01/06/18 17:15 Temperature Pulse Rate 71 82 83 Respiratory Rate 16 18 20 Blood Pressure 102/54 L 106/55 L 105/52 L Pulse Oximetry 93 L 91 L 91 L 01/06/18 17:30 01/06/18 18:00 01/06/18 18:01 Temperature Pulse Rate 82 101 H 104 H Respiratory Rate 8 L 21 19 Blood Pressure 101/55 L 162/84 H Pulse Oximetry 92 L 93 L 94 L 01/06/18 18:31 01/06/18 19:00 01/06/18 19:01 Temperature Pulse Rate 104 H 103 H 105 H Respiratory Rate 18 17 18 Blood Pressure 173/89 H 170/78 H Pulse Oximetry 93 L 93 L 93 L 01/06/18 19:31 01/06/18 20:00 01/06/18 20:01 Temperature 98.5 F Pulse Rate 104 H 106 H 106 H Respiratory Rate 19 15 17 Blood Pressure 186/92 H 160/68 H 145/80 H Pulse Oximetry 81 L 93 L 92 L 01/06/18 20:31 01/06/18 20:40 01/06/18 20:47 Temperature Pulse Rate 106 H 103 H Respiratory Rate 11 L 21 20 Blood Pressure 160/68 H Pulse Oximetry 90 L 94 L 01/06/18 21:00 01/06/18 21:31 01/06/18 22:00 Temperature Pulse Rate 104 H 103 H 113 H Respiratory Rate 11 L 9 L 37 H Blood Pressure 160/74 H 131/61 164/72 H Pulse Oximetry 94 L 92 L 92 L 01/06/18 22:02 01/06/18 23:00 01/06/18 23:01 Temperature Pulse Rate 113 H 106 H 105 H Respiratory Rate 39 H 17 20 Blood Pressure 164/72 H 172/77 H 172/77 H Pulse Oximetry 91 L 92 L 92 L 01/06/18 23:29 01/07/18 00:00 01/07/18 00:01 Temperature 98.9 F Pulse Rate 104 H 104 H Respiratory Rate 21 17 21 Blood Pressure 146/73 H 146/73 H Pulse Oximetry 93 L 96 96 01/07/18 01:00 01/07/18 01:01 01/07/18 02:00 Temperature Pulse Rate 96 H 99 H 88 Respiratory Rate 21 20 20 Blood Pressure 110/57 L 110/57 L 118/65 Pulse Oximetry 94 L 94 L 95 01/07/18 03:00 01/07/18 03:07 01/07/18 04:00 Temperature 98.5 F Pulse Rate 84 81 101 H Respiratory Rate 20 20 20 Blood Pressure 120/57 L 122/58 L Pulse Oximetry 96 95 01/07/18 04:16 01/07/18 05:00 01/07/18 06:00 Temperature Pulse Rate 103 H 86 Respiratory Rate 20 20 20 Blood Pressure 132/62 114/56 L Pulse Oximetry 92 L 96 96 01/07/18 07:00 01/07/18 08:00 01/07/18 08:01 Temperature Pulse Rate 104 H 103 H 103 H Respiratory Rate 20 16 15 Blood Pressure 156/75 H 160/72 H Pulse Oximetry 97 95 95 01/07/18 09:00 01/07/18 09:01 01/07/18 10:00 Temperature 99.0 F Pulse Rate 101 H 100 H 102 H Respiratory Rate 18 14 18 Blood Pressure 161/76 H 156/74 H Pulse Oximetry 95 94 L 94 L 01/07/18 11:55 Temperature Pulse Rate Respiratory Rate 12 Blood Pressure Pulse Oximetry 92 L Intake & Output 01/06/18 01/07/18 01/07/18 18:59 06:59 18:59 Intake Total 1989 / 1989 1450.5 / 1450.5 100 / 100 Output Total 400 / 400 1100 / 1100 Balance 1590 / 1590 350.5 / 350.5 100 / 100 Weight 152.5 kg Intake: IV 1700 / 1700 867.5 / 867.5 100 / 100 Versed Inj 50 mg In 50 ml @ 2 50 / 50 MG/HR 2 mls/hr IV.CONT TITRATE PRN Rx#:[id number] NS Inj 1,000 ML @ 84 mls/hr IV. 1000 / 1000 CONT .[id number] [facility] Rx#:[id number] Azithromycin Inj 500 MG In NS 250 / 250 Inj 250 ML @ 250 mls/hr IV.SIG Q24H [facility] Rx#:[id number] Azactam Inj 2 GM In NS Inj 100 200 / 200 100 / 100 100 / 100 ML @ 200 mls/hr IV.SIG Q6HR [facility] Rx#:[id number] Levophed-Dextrose 4 mg/250 ml 200 / 200 Drip 4 mg In 250 ml @ 2 MCG/MIN 7.5 mls/hr IV.SIG TITRATE PRN Rx#:[id number] Vancomycin Inj 1,750 MG In NS 517.5 / 517.5 Inj 500 ML @ 250 mls/hr IV.SIG Q24H [facility] Rx#:[id number] fentaNYL 10 mcg/mL Premix Drip 250 / 250 2,500 mcg In 250 ml @ 50 MCG/HR 5 mls/hr IV.SIG TITRATE PRN Rx #:[id number] Oral 0 / 0 Tube Feeding 230 / 230 583 / 583 Tube Irrigant 60 / 60 Output: Urine 400 / 400 Urine Amount (Catheter) 1100 / 1100 Indwelling Temp Sensing 1100 / 1100 Catheter Other: # Bowel Movements 0 0 Result Diagrams: 01/07/18 04:45 01/07/18 04:45 Other Results: Microbiology 01/05/18 23:00 Sputum - Endotracheal Gram Stain - Final 01/05/18 23:00 Sputum - Endotracheal Sputum Culture - Preliminary Pseudomonas species gram negative rods 01/05/18 19:55 Blood - Peripheral Aerobic Blood Culture - Preliminary No growth in 2 days 01/05/18 19:55 Blood - Peripheral Anaerobic Blood Culture - Preliminary No growth in 2 days 01/05/18 19:50 Blood - Peripheral Aerobic Blood Culture - Preliminary gram positive cocci 01/05/18 19:50 Blood - Peripheral Anaerobic Blood Culture - Preliminary No growth in 2 days 01/06/18 08:45 Urine - Catheterized Urine Legionella Antigen - Final Presumptive negative for Legionella pneumophila serogroup 1 antigen in urine, suggesting no recent or recurrent infection. Infection due to Legionella cannot be ruled out since other serogroups and species may cause disease, antigen may not be present in urine in early infection, and the level of antigen present in the urine may be below the detection limit of the test. 01/06/18 08:45 Urine - Catheterized Urine Streptococcus pneumoniae Antigen ( M - Final Presumptive negative for streptococcus pneumoniae antigen, suggesting no current or recent infection. Infection due to Streptococcus pneumoniae cannot be ruled out since the antigen present in the sample may be below the detection limit of the test. Imaging: Chest X-Ray 01/05/18 19:52 CONCLUSION: Moderate right effusion. Right base atelectasis or consolidation. Chest X-Ray 01/06/18 03:56 CONCLUSION: Bilateral mostly basilar airspace disease. Small to moderate right effusion. Findings similar to January 05. Objective Remarks: GENERAL: 67-year-old male currently orotracheally intubated SKIN: Warm and dry. HEAD: Normocephalic. EYES: No scleral icterus. No injection or drainage. NECK: Supple, trachea midline. No JVD or lymphadenopathy. CARDIOVASCULAR: Tachycardic, RR. S1, S3 no S4. Without murmur RESPIRATORY: Diminished breath sounds bilateral lower lobes right greater than left. No wheezing.. GASTROINTESTINAL: Abdomen soft, non-tender, nondistended. MUSCULOSKELETAL: 1+ bilateral lower extremity edema peer Neuro: Cranial nerves II through XII are grossly intact. Moves all 4 x-rays spontaneously to command. Normal sensation. Positive cough and gag. Assessment and Plan - Assessment and Plan Plan: Neuro/Psych: Currently on fentanyl drip at 100 mcg an hour for analgesia sedation while intubated Goal RASS -2 Daily sedation vacation Acetaminophen 650 p.o. every 6 hours as needed fever Pulm: Acute hypoxic/hypercapnic respiratory failure Chronic respiratory failure/3 L oxygen dependent. Follows with Dr. Clarke Obstructive sleep apnea/CPAP at night COPD Currently on CPAP trial 10/5 and 50% Continue with vent support keep sats >92% Albuterol/Ultram aerosols every 4 hours with albuterol aerosols every 2 hours as needed for dyspnea Budesonide 0.5/2 1 inhalation twice daily. On fluticasone/umeclinide/ Vilanterol 100/60 2.5/25 1 inhalation twice daily at home ICU vent bundle. Patient is on nocturnal CPAP at home. will bring in machine Continue methylprednisolone 40 mg IV twice daily Chest x-ray in a.m. 01/08 CV: Essential hypertension Hyperlipidemia Coronary artery disease Currently normal saline at 84 cc now. Weaned off norepinephrine drip. Map greater than equal 65. Home medications include carvedilol 3.125 mg twice daily, hydralazine 50 3 times daily, losartan 50 mg at night and spironolactone 50 mg daily with bumetanide 2 mg daily. Continue aspirin chew 81 mg daily Continue pravastatin 40 mg daily for dyslipidemia 2D echocardiogram revealed EF 60-65%. No regional wall motion abnormalities. : Condom catheter GI: Hypoalbuminemia On famotidine for GI prophylaxis, tube feeds-vital high-protein goal 70 cc an hour Docusate sodium/senna 1 tablet twice daily for bowel regimen ID: Sputum -Pseudomonas/gram-negative anna Gram-positive cocci bacteremia Continue with abx ( Aztreonam, Azithromycin, Vanco) Pertinent cultures 01/05 -blood cultures 2 gram-positive cocci 01/05 -sputum -Pseudomonas/gram-negative anna Follow up on sputum and blood cxs. Check strep pneumonia and Legionella urinary Ag Heme: Normocytic anemia Monitor CBC No indication for transfusion of blood products at this time Endo: Diabetes mellitus type 2 Gout On glimepiride 4 mg daily at home. SSI for glycemic control every 6 hours with aspart insulin On febuxostat at home for gout FEN: Replace electrolytes as clinically indicated per ICU electrolyte protocol Discontinue IV fluids MSK: Elevated BMI Weight loss encouraged DVT GI prophylaxis -Teds SCDs -Subcu heparin -Famotidine Lines" Right IJ CVP, peripheral IV;s Critical Care: The total critical care time was 30 minutes. Time to perform other separately billable procedures was not included in the critical care time. Discussed with at bedside. Care plan discussed and all questions answered.
[2018-01-07] MEDS: hydrALAZINE 10 MG Tablet PO SCH ×2 (14:14→18:15)
[2018-01-07] MEDS: Metoprolol Inj 5 MG/5 ML Vial IV.PUSH SCH ×2 (14:14→22:17)
[2018-01-07] MEDS: Hypromellose 0.3% Opth Gel 10 GM Bottle EACH EYE SCH (14:15)
[2018-01-07] MEDS: fentaNYL 10 mcg/mL Premix Drip 2,500 MCG/250 ML BAG IV.SIG PRN (14:47)
[2018-01-07 19:14] LABS: Creatinine,Urine Random 48 mg/dL (27-300)
--- NOTE | 2018-01-07 21:15 | ECG ---
Date Performed: 01/06/2018 Time Performed: 03:29:26 PTAGE: 89 years EKG: Sinus rhythm with PAC(s). rSr'(V1) - probable normal variant Borderline ECG No significant change when compared w ith previous DOCTOR: Myra White Interpretating Date/Time 01/07/2018 21:12:59
--- NOTE | 2018-01-07 22:02 | US ---
EXAM DATE: 01/07/2018 9:35 PM EDT AGE/SEX: 67 years / Male INDICATIONS: Increased lab values. CLINICAL DATA: This is the patient's initial encounter. Patient reports that signs and symptoms have been present for 1 day and indicates a pain score of 2/10. MEDICAL/SURGICAL HISTORY: Congestive heart failure. Diabetes. Hypertension. Hyperlipidemia. Gout. . Lung biopsy. Endotracheal tube. COMPARISON: [facility], US KIDNEY, BILATERAL, 06/07/2014. . MEASUREMENTS: Right Kidney:__14.3 x 5.6 x 6.4 cm Left Kidney:__12.8 x x 6.0 cm FINDINGS: Right Kidney: Normal renal cortical thickness. No evidence of hydronephrosis. Cortical cyst lower cliff e measuring 1.4 cm. Left Kidney: Normal renal cortical thickness. No evidence of hydronephrosis. Multiple simple cysts, t he largest located in the lower pole measuring 5.8 x 4.8 cm. Bladder: Cunningham catheter is present. Bladder decompressed. Other: Multiple shadowing gallstones near the neck. CONCLUSION: 1. No evidence of hydronephrosis on either side. 2. Gallstones. Electronically signed by: Elias Latif MD 01/07/2018 10:01 PM EDT
[2018-01-08] MEDS: Aztreonam Inj 2 GM in Sodium Chloride 0.9% Inj 100 ML IV.SIG SCH ×5 (02:06→23:16)
[2018-01-08] MEDS: Vancomycin Inj 1,750 MG in Sodium Chlor 0.9% Inj 500 ML IV.SIG SCH (02:07)
--- NOTE | 2018-01-08 04:51 | XR ---
EXAM DATE: 01/08/2018 4:46 AM EDT AGE/SEX: 67 years / Male INDICATIONS: . Shortness of breath. CLINICAL DATA: This is the patient's subsequent encounter. Patient reports that signs and symptoms h ave been present for 4 - 6 days and indicates a pain score of Nonresponsive. MEDICAL/SURGICAL HISTORY: Non-responsive. Non-responsive. COMPARISON: [facility], CHEST 1V SINGLE AP, 01/06/2018. . FINDINGS: Endotracheal tube in good position. NG enters stomach. Bilateral mostly basilar airspace disease and right effusion not significantly changed over the last day. Cardiomegaly. Right central line in super ior vena cava. CONCLUSION: Support apparatus unchanged. Relatively stable basilar airspace disease and right pleural effusion. Electronically signed by: Salvatore Cummings MD 01/08/2018 4:50 AM EDT
[2018-01-08 05:25] LABS: Baso % (Auto) 0.2 % (0.0-2.0); Hematocrit 23.4 % (39.0-51.0); Hemoglobin 7.5 gm/dL (13.0-17.0); Lymph # (Auto) 0.5 th/mm3 (1.0-4.8); Lymph % (Auto) 6.2 % (9.0-44.0); Mean Corpuscular HGB Conc 32.2 % (32.0-36.0); Mean Corpuscular Hemoglobin 28.1 pg (27.0-34.0); Mean Corpuscular Volume 87.4 fL (80.0-100.0); Mean Platelet Volume 8.1 fL (7.0-11.0); Mono # (Auto) 0.6 th/mm3 (0.0-0.9); Mono % (Auto) 7.4 % (0.0-8.0); Neut # (Auto) 7.2 th/mm3 (1.8-7.7); Neut % (Auto) 86.2 % (16.0-70.0); Platelet Count 170 th/mm3 (150-450); Red Blood Count 2.68 mil/mm3 (4.50-5.90); Red Cell Distribution Width 15.3 % (11.6-17.2); White Blood Count 8.4 th/mm3 (4.0-11.0)
[2018-01-08 05:43] LABS: Calcium 8.3 mg/dL (8.5-10.1); Carbon Dioxide 36.9 meq/L (21.0-32.0); Magnesium 2.2 mg/dL (1.5-2.5); Phosphorus 1.8 mg/dL (2.5-4.9); Potassium 4.5 meq/L (3.5-5.1)
[2018-01-08 05:52] LABS: Thyroid Stimulating Hormone 0.761 uIU/mL (0.358-3.740)
[2018-01-08] MEDS: Insulin NovoLOG Aspart Correctional Sugar Inj SQ SCH ×5 (06:25→23:27)
[2018-01-08] MEDS: Heparin - SQ 10,000 UNITS/ML Vial SQ SCH ×3 (06:27→21:46)
[2018-01-08] MEDS: Oral Hygiene Kit OROPHARYNG SCH ×5 (06:28→23:23)
[2018-01-08] MEDS: Metoprolol Inj 5 MG/5 ML Vial IV.PUSH SCH ×2 (06:28→08:13)
[2018-01-08] MEDS: Hypromellose 0.3% Opth Gel 10 GM Bottle EACH EYE SCH ×3 (06:29→20:05)
[2018-01-08] MEDS: Azithromycin Inj 500 MG in Sodium Chlor 0.9% Inj 250 ML IV.SIG SCH (06:31)
[2018-01-08] MEDS: Chlorhexidine Gluconate 2% 1 Pack (2 Cloths) TOPICAL SCH (06:32)
[2018-01-08 08:09] LABS: Lymphocytes 4 % (9-44); Monocytes 5 % (0-8)
[2018-01-08 08:10] LABS: Platelet Estimate Normal (Normal); Platelet Morphology Normal (Normal); Stomatocytes 1+
[2018-01-08] MEDS: Chlorhexidine 0.12% Oral Kit 15 ML UDC OROPHARYNG SCH ×2 (08:12→19:21)
[2018-01-08] MEDS: Famotidine PF Inj 20 MG/2 ML Vial IV.PUSH SCH ×2 (08:13→20:04)
[2018-01-08] MEDS: Senna/Docusate Sodium 8.6/50 MG Tablet PO SCH ×2 (08:13→20:04)
[2018-01-08] MEDS: hydrALAZINE 10 MG Tablet PO SCH (08:13)
[2018-01-08] MEDS ORDERED: Sodium Phosphate Inj 15 MMOL in Sodium Chlor 0.9% Inj 150 ML IV.SIG ONE (10:00)
[2018-01-08] MEDS: MethylPREDNISolone Sod Succinate Inj 40 MG/ML Vial IV.PUSH SCH ×2 (10:52→21:46)
[2018-01-08] MEDS: hydrALAZINE 25 MG Tablet PO SCH ×3 (10:53→18:11)
--- NOTE | 2018-01-08 11:40 | P.PNCC ---
Subjective Subjective Remarks/Hospital Course: Elderly gentleman with past medical history of CHF, diabetes mellitus, gout, dyslipidemia and hypertension presents with respiratory distress and altered mental status. The patient was intubated by ED attending for an airway protection and respiratory failure. No other information or history is available at this time. 01/06 Patient remains sedated and intubated 01/07: Awake and alert on the ventilator on 100 mcg an hour fentanyl. Tolerating tube feeds at goal. On CPAP trial 03/28 at 50%. Saturation 93. On baseline 3 L at home. His heel room supervisor is Dr. Clarke. SUBJECTIVE: 01/08: Extubated today without complication. Currently on high flow nasal cannula at 50%. Saturations 94%. Requesting coffee. Denies chest pain or shortness of breath currently. Objective Vital Signs / I&O: Vital Signs 01/07/18 11:55 01/07/18 12:00 01/07/18 12:01 Temperature 98.4 F Pulse Rate 99 H 97 H Respiratory Rate 12 19 17 Blood Pressure 150/69 H Pulse Oximetry 92 L 93 L 93 L 01/07/18 13:00 01/07/18 13:01 01/07/18 14:00 Temperature Pulse Rate 97 H 102 H 90 Respiratory Rate 12 19 12 Blood Pressure 152/83 H Pulse Oximetry 90 L 97 92 L 01/07/18 14:01 01/07/18 15:00 01/07/18 15:35 Temperature Pulse Rate 87 91 H Respiratory Rate 12 22 11 L Blood Pressure 117/58 L 166/79 H Pulse Oximetry 92 L 93 L 91 L 01/07/18 16:00 01/07/18 17:00 01/07/18 18:00 Temperature 98.1 F Pulse Rate 80 73 82 Respiratory Rate 21 10 L 11 L Blood Pressure 136/62 136/62 143/72 H Pulse Oximetry 90 L 90 L 92 L 01/07/18 19:00 01/07/18 19:25 01/07/18 20:00 Temperature 98.1 F Pulse Rate 61 59 L 61 Respiratory Rate 9 L 20 20 Blood Pressure 133/63 117/58 L Pulse Oximetry 92 L 94 L 93 L 01/07/18 21:00 01/07/18 22:00 01/07/18 23:00 Temperature 98.1 F Pulse Rate 96 H 66 59 L Respiratory Rate 5 L 16 7 L Blood Pressure 169/77 H 145/65 H 123/58 L Pulse Oximetry 94 L 92 L 94 L 01/07/18 23:08 01/08/18 00:00 01/08/18 01:00 Temperature 98.4 F Pulse Rate 52 L 51 L Respiratory Rate 20 11 L 13 Blood Pressure 115/58 L 118/61 Pulse Oximetry 94 L 92 L 94 L 01/08/18 02:00 01/08/18 03:00 01/08/18 03:01 Temperature Pulse Rate 69 94 H 91 H Respiratory Rate 11 L 15 13 Blood Pressure 119/56 L 161/70 H 161/73 H Pulse Oximetry 93 L 93 L 93 L 01/08/18 03:21 01/08/18 04:00 01/08/18 04:01 Temperature 98.8 F Pulse Rate 75 77 Respiratory Rate 20 20 20 Blood Pressure 162/70 H Pulse Oximetry 93 L 93 L 01/08/18 05:00 01/08/18 06:00 01/08/18 07:00 Temperature 98.3 F Pulse Rate 69 100 H 55 L Respiratory Rate 16 16 20 Blood Pressure 157/69 H 168/76 H Pulse Oximetry 93 L 95 92 L 01/08/18 07:01 01/08/18 07:35 01/08/18 08:00 Temperature 98.3 F Pulse Rate 80 94 H Respiratory Rate 20 8 L 16 Blood Pressure 141/64 H 185/81 H Pulse Oximetry 90 L 92 L 92 L 01/08/18 09:00 01/08/18 09:01 01/08/18 09:51 Temperature Pulse Rate 93 H 92 H Respiratory Rate 15 16 12 Blood Pressure 181/81 H Pulse Oximetry 94 L 93 L 01/08/18 10:00 01/08/18 10:20 01/08/18 11:00 Temperature Pulse Rate 87 94 H Respiratory Rate 23 30 H Blood Pressure 173/74 H Pulse Oximetry 90 L 92 L 88 L 01/08/18 11:01 Temperature Pulse Rate 91 H Respiratory Rate 25 H Blood Pressure 198/88 H Pulse Oximetry 89 L Intake & Output 01/07/18 01/08/18 01/08/18 18:59 06:59 18:59 Intake Total 825 / 825 1240 / 1240 100 / 100 Output Total 1475 / 1475 0 / 0 Balance -650 / -650 1240 / 1240 100 / 100 Weight 154.4 kg Intake: IV 550 / 550 100 / 100 100 / 100 Azactam Inj 2 GM In NS Inj 100 300 / 300 100 / 100 100 / 100 ML @ 200 mls/hr IV.SIG Q6HR [facility] Rx#:[id number] fentaNYL 10 mcg/mL Premix Drip 250 / 250 2,500 mcg In 250 ml @ 50 MCG/HR 5 mls/hr IV.SIG TITRATE PRN Rx #:[id number] Tube Feeding 275 / 275 420 / 420 Other 720 / 720 Output: Urine 1475 / 1475 0 / 0 Stool 0 / 0 Other: Date of Last Bowel Movement 01/06/18 01/06/18 Result Diagrams: 01/08/18 04:00 01/08/18 04:00 Other Results: Microbiology 01/05/18 19:55 Blood - Peripheral Aerobic Blood Culture - Preliminary No growth in 3 days 01/05/18 19:55 Blood - Peripheral Anaerobic Blood Culture - Preliminary No growth in 3 days 01/05/18 19:50 Blood - Peripheral Aerobic Blood Culture - Preliminary Staphylococcus coag negative 01/05/18 19:50 Blood - Peripheral Anaerobic Blood Culture - Preliminary No growth in 3 days 01/05/18 23:00 Sputum - Endotracheal Gram Stain - Final 01/05/18 23:00 Sputum - Endotracheal Sputum Culture - Preliminary Pseudomonas aeruginosa gram negative rods 01/07/18 15:00 Nasal Wash Influenza Types A,B Antigen - Final Negative for FLU A and B antigen Infection due to influenza A or B cannot be ruled out since the antigen present in the sample may be below the detection limit of the test. 01/06/18 08:45 Urine - Catheterized Urine Legionella Antigen - Final Presumptive negative for Legionella pneumophila serogroup 1 antigen in urine, suggesting no recent or recurrent infection. Infection due to Legionella cannot be ruled out since other serogroups and species may cause disease, antigen may not be present in urine in early infection, and the level of antigen present in the urine may be below the detection limit of the test. 01/06/18 08:45 Urine - Catheterized Urine Streptococcus pneumoniae Antigen ( M - Final Presumptive negative for streptococcus pneumoniae antigen, suggesting no current or recent infection. Infection due to Streptococcus pneumoniae cannot be ruled out since the antigen present in the sample may be below the detection limit of the test. Imaging: ITS Impressions Abdomen/Bladder Ultrasound 01/07/18 00:00 CONCLUSION: 1. No evidence of hydronephrosis on either side. 2. Gallstones. Chest X-Ray 01/08/18 06:00 CONCLUSION: Support apparatus unchanged. Relatively stable basilar airspace disease and right pleural effusion. Objective Remarks: GENERAL: 67-year-old male currently on high flow nasal cannula requesting coffee SKIN: Warm and dry. Chronic venous stasis lower extremities HEAD: Normocephalic. EYES: No scleral icterus. No injection or drainage. NECK: Supple, trachea midline. No JVD or lymphadenopathy. CARDIOVASCULAR: Tachycardic, RR. S1, S3 no S4. Without murmur RESPIRATORY: Diminished breath sounds bilateral lower lobes right greater than left. No wheezing.. GASTROINTESTINAL: Abdomen soft, non-tender, nondistended. MUSCULOSKELETAL: 1+ bilateral lower extremity edema pretibial Neuro: Cranial nerves II through XII are grossly intact. Strength is equal and symmetric. Normal sensation. Assessment and Plan - Assessment and Plan Plan: Neuro/Psych: Acetaminophen 650 p.o. every 6 hours as needed fever Morphine sulfate 2 mg IV every 2 hours as needed pain 1 through 10 Pulm: Acute hypoxic/hypercapnic respiratory failure Chronic respiratory failure/3 L oxygen dependent. Follows with Dr. Clarke Obstructive sleep apnea/CPAP at night COPD Extubated today 01/08. High flow nasal cannula currently at 50% FiO2/30 L. Titrate to keep saturations greater or equal to 92% Albuterol/ipratropium aerosols every 4 hours with albuterol aerosols every 2 hours as needed for dyspnea Budesonide 0.5/2 1 inhalation twice daily. On fluticasone/umeclinide/ Vilanterol 100/60 2.5/25 1 inhalation twice daily at home Patient is on nocturnal CPAP at home. cannot bring in machine as it is too heavy for her Continue methylprednisolone 40 mg IV twice daily Chest x-ray in a.m. 01/09 CV: Essential hypertension Hyperlipidemia Coronary artery disease Currently normal saline at 84 cc now. Discontinue Weaned off norepinephrine drip. Map greater than equal 65. Home medications include carvedilol 3.125 mg twice daily, hydralazine 50 3 times daily, losartan 50 mg at night and spironolactone 50 mg daily with bumetanide 2 mg daily. We will start on hydralazine 25 3 times daily, carvedilol 3.125 mg twice daily. Hold losartan with acute kidney injury. Restart the amantadine 1 mg daily and prolactin 25 mg daily. As needed labetalol Nitropaste Continue aspirin chew 81 mg daily Continue pravastatin 40 mg daily for dyslipidemia 2D echocardiogram revealed EF 60-65%. No regional wall motion abnormalities. : Condom catheter GI: Hypoalbuminemia Speech therapy. Evaluate and advance diet as tolerated On famotidine for GI prophylaxis, tube feeds-vital high-protein goal 70 cc an hour can be discontinued Docusate sodium/senna 1 tablet twice daily for bowel regimen ID: Sputum -Pseudomonas/gram-negative anna Gram-positive cocci bacteremia Continue with abx ( Aztreonam, Azithromycin, Vanco) Repeat blood cultures today 01/08 Pertinent cultures 01/05 -blood cultures 2 gram-positive cocci 01/05 -sputum -Pseudomonas/gram-negative anna Follow up on sputum and blood cxs. Negative strep pneumonia and Legionella urinary Ag Heme: Normocytic anemia Monitor CBC No indication for transfusion of blood products at this time Endo: Diabetes mellitus type 2 Gout On glimepiride 4 mg daily at home. SSI for glycemic control every 6 hours with aspart insulin On febuxostat at home for gout FEN: Replace electrolytes as clinically indicated per ICU electrolyte protocol Discontinue IV fluids MSK: Elevated BMI Weight loss encouraged DVT GI prophylaxis -Teds SCDs -Subcu heparin -Famotidine Lines- Right IJ CVP day #3, peripheral IV;s Level 3 follow-up
[2018-01-08] MEDS: Labetalol HCl Inj 100 MG/20 ML Vial IV.PUSH PRN (15:13)
[2018-01-08] MEDS ORDERED: niCARdipine Inj 25 MG in Sodium Chlor 0.9% Inj 240 ML IV.CONT PRN (16:23)
[2018-01-09] MEDS: Labetalol HCl Inj 100 MG/20 ML Vial IV.PUSH PRN (00:02)
[2018-01-09] MEDS: Azithromycin Inj 500 MG in Sodium Chlor 0.9% Inj 250 ML IV.SIG SCH (00:12)
[2018-01-09] MEDS ORDERED: Pharmacy Ordered Lab Info OTHER ONE (00:45)
[2018-01-09] MEDS: Vancomycin Inj 1,750 MG in Sodium Chlor 0.9% Inj 500 ML IV.SIG SCH (01:24)
--- NOTE | 2018-01-09 04:00 | XR ---
EXAM DATE: 01/09/2018 3:57 AM EDT AGE/SEX: 67 years / Male INDICATIONS: . Short of breath. CLINICAL DATA: This is the patient's subsequent encounter. Patient reports that signs and symptoms h ave been present for 1 week and indicates a pain score of 3/10. MEDICAL/SURGICAL HISTORY: None. None. COMPARISON: [facility], CHEST 1V SINGLE AP, 01/08/2018. . FINDINGS: Right central line in superior vena cava. Moderate right effusion and small left effusion with basila r airspace disease, right greater than left. Findings are similar to January 08. CONCLUSION: Stable exam compared with January 08 bilateral effusions and basilar airspace disease, right greater abisai n left. Previous endotracheal tube has been removed. Electronically signed by: Salvatore Cummings MD 01/09/2018 3:59 AM EDT
[2018-01-09 04:12] LABS: Baso % (Auto) 0.1 % (0.0-2.0); Hematocrit 24.8 % (39.0-51.0); Lymph # (Auto) 0.4 th/mm3 (1.0-4.8); Mean Corpuscular HGB Conc 32.5 % (32.0-36.0); Mean Corpuscular Hemoglobin 28.8 pg (27.0-34.0); Mean Corpuscular Volume 88.7 fL (80.0-100.0); Mean Platelet Volume 7.9 fL (7.0-11.0); Mono # (Auto) 0.5 th/mm3 (0.0-0.9); Mono % (Auto) 5.3 % (0.0-8.0); Neut # (Auto) 8.1 th/mm3 (1.8-7.7); Neut % (Auto) 89.6 % (16.0-70.0); Platelet Count 169 th/mm3 (150-450); Red Blood Count 2.79 mil/mm3 (4.50-5.90); Red Cell Distribution Width 15.5 % (11.6-17.2)
[2018-01-09 04:47] LABS: Calcium 8.2 mg/dL (8.5-10.1); Carbon Dioxide 38.9 meq/L (21.0-32.0); Magnesium 2.1 mg/dL (1.5-2.5); Phosphorus 3.4 mg/dL (2.5-4.9); Potassium 4.7 meq/L (3.5-5.1)
[2018-01-09] MEDS: Chlorhexidine Gluconate 2% 1 Pack (2 Cloths) TOPICAL SCH (05:57)
[2018-01-09] MEDS: Oral Hygiene Kit OROPHARYNG SCH ×3 (05:57→16:01)
[2018-01-09] MEDS: Hypromellose 0.3% Opth Gel 10 GM Bottle EACH EYE SCH ×3 (05:57→21:49)
[2018-01-09] MEDS: Aztreonam Inj 2 GM in Sodium Chloride 0.9% Inj 100 ML IV.SIG SCH ×3 (06:18→17:26)
[2018-01-09] MEDS: Insulin NovoLOG Aspart Correctional Sugar Inj SQ SCH ×3 (06:18→17:27)
[2018-01-09] MEDS: Heparin - SQ 10,000 UNITS/ML Vial SQ SCH ×3 (06:18→21:50)
[2018-01-09] MEDS: Senna/Docusate Sodium 8.6/50 MG Tablet PO SCH ×2 (08:24→21:50)
[2018-01-09] MEDS: hydrALAZINE 25 MG Tablet PO SCH ×2 (08:24→12:30)
[2018-01-09] MEDS: Spironolactone 25 MG Tablet PO SCH (08:25)
[2018-01-09] MEDS: Famotidine PF Inj 20 MG/2 ML Vial IV.PUSH SCH (08:25)
[2018-01-09] MEDS: Chlorhexidine 0.12% Oral Kit 15 ML UDC OROPHARYNG SCH ×2 (08:26→21:49)
[2018-01-09] MEDS: MethylPREDNISolone Sod Succinate Inj 40 MG/ML Vial IV.PUSH SCH ×2 (10:07→21:50)
--- NOTE | 2018-01-09 13:29 | P.PNCC ---
Subjective Subjective Remarks/Hospital Course: Elderly gentleman with past medical history of CHF, diabetes mellitus, gout, dyslipidemia and hypertension presents with respiratory distress and altered mental status. The patient was intubated by ED attending for an airway protection and respiratory failure. No other information or history is available at this time. 01/06 Patient remains sedated and intubated 01/07: Awake and alert on the ventilator on 100 mcg an hour fentanyl. Tolerating tube feeds at goal. On CPAP trial 03/28 at 50%. Saturation 93. On baseline 3 L at home. 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 01/08: Extubated today without complication. Currently on high flow nasal cannula at 50%. Saturations 94%. Requesting coffee. Denies chest pain or shortness of breath currently. SUBJECTIVE: 01/09: Afebrile. Remains on high flow nasal cannula at 50%. States he has a history of nonspinal lung carcinoma stage for newly diagnosed. Recently hospitalized at [facility] red bilateral thoracentesis approximately 3 L. Objective Vital Signs / I&O: Vital Signs 01/08/18 14:00 01/08/18 15:00 01/08/18 15:01 Temperature Pulse Rate 81 78 75 Respiratory Rate 12 14 16 Blood Pressure 181/85 H 195/84 H Pulse Oximetry 93 L 83 L 83 L 01/08/18 15:28 01/08/18 15:31 01/08/18 16:00 Temperature 97.6 F Pulse Rate 89 73 66 Respiratory Rate 21 12 20 Blood Pressure 206/81 H Pulse Oximetry 96 96 01/08/18 16:01 01/08/18 16:31 01/08/18 17:00 Temperature 97.6 F Pulse Rate 82 70 84 Respiratory Rate 30 H 13 30 H Blood Pressure 183/84 H 184/82 H Pulse Oximetry 96 95 95 01/08/18 17:01 01/08/18 17:30 01/08/18 18:00 Temperature Pulse Rate 84 85 82 Respiratory Rate 29 H 20 20 Blood Pressure 181/91 H 178/84 H 192/89 H Pulse Oximetry 94 L 95 97 01/08/18 19:00 01/08/18 19:32 01/08/18 20:00 Temperature Pulse Rate 85 85 94 H Respiratory Rate 13 22 33 H Blood Pressure 179/82 H Pulse Oximetry 94 L 96 94 L 01/08/18 20:02 01/08/18 21:00 01/08/18 21:03 Temperature Pulse Rate 82 Respiratory Rate 22 Blood Pressure 149/70 H 165/75 H Pulse Oximetry 92 L 01/08/18 22:00 01/08/18 23:00 01/08/18 23:01 Temperature Pulse Rate 76 93 H Respiratory Rate 12 13 Blood Pressure 150/70 H 177/97 H Pulse Oximetry 95 95 01/08/18 23:22 01/09/18 00:00 01/09/18 00:20 Temperature Pulse Rate 85 84 Respiratory Rate 25 H 17 Blood Pressure 176/81 H Pulse Oximetry 91 L 98 01/09/18 00:24 01/09/18 01:00 01/09/18 02:00 Temperature Pulse Rate 82 64 Respiratory Rate 14 11 L Blood Pressure 149/77 H Pulse Oximetry 95 96 98 01/09/18 02:01 01/09/18 02:30 01/09/18 03:00 Temperature Pulse Rate 65 72 Respiratory Rate 14 22 Blood Pressure 151/79 H 172/86 H Pulse Oximetry 97 94 L 01/09/18 03:01 01/09/18 03:35 01/09/18 04:00 Temperature Pulse Rate 65 Respiratory Rate 10 L Blood Pressure 151/68 H 157/77 H Pulse Oximetry 96 97 01/09/18 04:31 01/09/18 05:00 01/09/18 05:31 Temperature Pulse Rate 64 63 95 H Respiratory Rate 12 11 L 36 H Blood Pressure 158/71 H 160/80 H 145/68 H Pulse Oximetry 99 98 85 L 01/09/18 06:00 01/09/18 07:43 01/09/18 08:00 Temperature 98.1 F Pulse Rate 88 94 H 77 Respiratory Rate 15 21 Blood Pressure 141/76 H Pulse Oximetry 95 96 01/09/18 11:39 Temperature Pulse Rate 98 H Respiratory Rate 19 Blood Pressure Pulse Oximetry Intake & Output 01/08/18 01/09/18 01/09/18 18:59 06:59 18:59 Intake Total 1310 / 1310 2016. / Output Total 2550 / 2550 1125 / 1125 Balance -1240 / -1240 892.5 / 892.5 Weight 156.6 kg Intake: IV 450 / 450 817.5 / 817.5 Azithromycin Inj 500 MG In NS 250 / 250 Inj 250 ML @ 250 mls/hr IV.SIG Q24H L[facility]I Rx#:[id number] Azactam Inj 2 GM In NS Inj 100 200 / 200 300 / 300 ML @ 200 mls/hr IV.SIG Q6HR [facility] Rx#:[id number] Vancomycin Inj 1,750 MG In NS 517.5 / 517.5 Inj 500 ML @ 250 mls/hr IV.SIG Q24H LORI Rx#:[id number] Oral 720 / 720 1200 / 1200 Tube Feeding 140 / 140 Output: Urine Amount (Catheter) 2550 / 2550 1125 / 1125 Indwelling Urethral Catheter 2550 / 2550 1125 / 1125 Other: Date of Last Bowel Movement 01/06/18 01/06/18 # Bowel Movements 0 Result Diagrams: 01/09/18 03:44 01/09/18 03:44 Other Results: Microbiology 01/08/18 13:20 Blood - Peripheral Aerobic Blood Culture - Preliminary No growth in 1 day 01/08/18 13:20 Blood - Peripheral Anaerobic Blood Culture - Preliminary No growth in 1 day 01/08/18 13:15 Blood - Peripheral Aerobic Blood Culture - Preliminary No growth in 1 day 01/08/18 13:15 Blood - Peripheral Anaerobic Blood Culture - Preliminary No growth in 1 day 01/05/18 19:55 Blood - Peripheral Aerobic Blood Culture - Preliminary No growth in 4 days 01/05/18 19:55 Blood - Peripheral Anaerobic Blood Culture - Preliminary No growth in 4 days 01/05/18 19:50 Blood - Peripheral Aerobic Blood Culture - Preliminary Staphylococcus coag negative 01/05/18 19:50 Blood - Peripheral Anaerobic Blood Culture - Preliminary No growth in 4 days 01/05/18 23:00 Sputum - Endotracheal Gram Stain - Final 01/05/18 23:00 Sputum - Endotracheal Sputum Culture - Final Pseudomonas aeruginosa Stenotrophomonas maltophilia 01/07/18 15:00 Nasal Wash Influenza Types A,B Antigen - Final Negative for FLU A and B antigen Infection due to influenza A or B cannot be ruled out since the antigen present in the sample may be below the detection limit of the test. 01/06/18 08:45 Urine - Catheterized Urine Legionella Antigen - Final Presumptive negative for Legionella pneumophila serogroup 1 antigen in urine, suggesting no recent or recurrent infection. Infection due to Legionella cannot be ruled out since other serogroups and species may cause disease, antigen may not be present in urine in early infection, and the level of antigen present in the urine may be below the detection limit of the test. 01/06/18 08:45 Urine - Catheterized Urine Streptococcus pneumoniae Antigen ( M - Final Presumptive negative for streptococcus pneumoniae antigen, suggesting no current or recent infection. Infection due to Streptococcus pneumoniae cannot be ruled out since the antigen present in the sample may be below the detection limit of the test. Imaging: ITS Impressions Abdomen/Bladder Ultrasound 01/07/18 00:00 CONCLUSION: 1. No evidence of hydronephrosis on either side. 2. Gallstones. Chest X-Ray 01/09/18 06:00 CONCLUSION: Stable exam compared with January 08 bilateral effusions and basilar airspace disease, right greater than left. Previous endotracheal tube has been removed. Objective Remarks: GENERAL: 67-year-old male currently on high flow nasal cannula in no acute distress SKIN: Warm and dry. Chronic venous stasis lower extremities HEAD: Normocephalic. EYES: No scleral icterus. No injection or drainage. NECK: Supple, trachea midline. No JVD or lymphadenopathy. CARDIOVASCULAR: Tachycardic, RR. S1, S3 no S4. Without murmur RESPIRATORY: Diminished breath sounds bilateral lower lobes right greater than left. No wheezing.. GASTROINTESTINAL: Abdomen soft, non-tender, nondistended. MUSCULOSKELETAL: 1+ bilateral lower extremity edema pretibial Neuro: Cranial nerves II through XII are grossly intact. Strength is equal and symmetric. Normal sensation. Assessment and Plan - Assessment and Plan Plan: Neuro/Psych: Acetaminophen 650 p.o. every 6 hours as needed fever Morphine sulfate 2 mg IV every 2 hours as needed pain 1 through 10 Pulm: Acute hypoxic/hypercapnic respiratory failure Chronic respiratory failure/3 L oxygen dependent. Follows with Dr. Clarke Obstructive sleep apnea/CPAP at night COPD Bilateral pleural effusion Extubated today 01/08. High flow nasal cannula currently at 50% FiO2/30 L. Titrate to keep saturations greater or equal to 92% Albuterol/ipratropium aerosols every 4 hours with albuterol aerosols every 2 hours as needed for dyspnea Budesonide 0.5/2 1 inhalation twice daily. On fluticasone/umeclinide/ Vilanterol 100/60 2.5/25 1 inhalation twice daily at home Patient is on nocturnal CPAP at home. cannot bring in machine as it is too heavy for her Continue methylprednisolone 40 mg IV twice daily Chest x-ray in a.m. 01/10 -possible thoracentesis right side CV: Essential hypertension Hyperlipidemia Coronary artery disease Currently normal saline at 84 cc now. Discontinue Weaned off norepinephrine drip. Map greater than equal 65. Home medications include carvedilol 3.125 mg twice daily, hydralazine 50 3 times daily, losartan 50 mg at night and spironolactone 50 mg daily with bumetanide 2 mg daily. We will start on hydralazine 25 3 times daily, carvedilol 3.125 mg twice daily. Hold losartan with acute kidney injury. Restart the amantadine 1 mg daily and prolactin 25 mg daily. As needed labetalol Nitropaste Continue aspirin chew 81 mg daily Continue pravastatin 40 mg daily for dyslipidemia 2D echocardiogram revealed EF 60-65%. No regional wall motion abnormalities. : Condom catheter/Cunningham catheter placed secondary to urinary retention. GI: Hypoalbuminemia Speech therapy. Evaluate and advance diet as tolerated On famotidine for GI prophylaxis, tube feeds-vital high-protein goal 70 cc an hour can be discontinued Docusate sodium/senna 1 tablet twice daily for bowel regimen ID: Sputum -Pseudomonas/gram-negative anna Gram-positive cocci bacteremia Continue with abx ( Aztreonam, Azithromycin, Vanco) Repeat blood cultures today 01/08 Pertinent cultures 01/05 -blood cultures 2 gram-positive cocci 01/05 -sputum -Pseudomonas/gram-negative anna Follow up on sputum and blood cxs. Negative strep pneumonia and Legionella urinary Ag Heme: Normocytic anemia Monitor CBC No indication for transfusion of blood products at this time Endo: Diabetes mellitus type 2 Gout On glimepiride 4 mg daily at home. SSI for glycemic control every 6 hours with aspart insulin Start insulin detemir 8 units subcu twice daily On febuxostat at home for gout FEN: Replace electrolytes as clinically indicated per ICU electrolyte protocol Discontinue IV fluids MSK: Elevated BMI Weight loss encouraged DVT GI prophylaxis -Teds SCDs -Subcu heparin -Famotidine Lines- Right IJ CVP day #4, peripheral IV;s Level 3 follow-up
[2018-01-09] MEDS ORDERED: acetaZOLAMIDE Inj 250 MG in Sodium Chlor 0.9% Inj 50 ML IV.SIG SCH (14:00)
[2018-01-09] MEDS ORDERED: Lidocaine PF 1% Inj 30 ML Vial ONE (17:14)
[2018-01-09] MEDS: hydrALAZINE 50 MG Tablet PO SCH (17:26)
[2018-01-09 17:48] LABS: Total Protein,Pleural Fluid 3.7 gm/dL
--- NOTE | 2018-01-09 18:03 | XR ---
EXAM DATE: 01/09/2018 5:52 PM EDT AGE/SEX: 67 years / Male INDICATIONS: Post thoracentesis CLINICAL DATA: This is the patient's subsequent encounter. Patient reports that signs and symptoms h ave been present for 4 - 6 days and indicates a pain score of Nonresponsive. MEDICAL/SURGICAL HISTORY: Non-responsive. Non-responsive. COMPARISON: [facility], CHEST 1V SINGLE AP, 01/09/2018. . FINDINGS: AP upright expiratory view of the chest demonstrates no pneumothorax following recent right thoracent esis. There is residual airspace opacity in the right lower lung zone. Some type of lines overlie the right hemithorax. Right IJ line tip overlies the SVC. There is stable atelectasis at the left lung b ase. CONCLUSION: No pneumothorax is visualized following right thoracentesis. There is residual atelectasis versus air space consolidation at the right lung base. Electronically signed by: Wilfred Reyes MD 01/09/2018 6:01 PM EDT
[2018-01-09 18:07] LABS: Lymphocytes,Pleural Fluid 24 %; Monocytes,Pleural Fluid 5 %; Neutrophils,Pleural Fluid 55 %; RBC,Pleural Fluid 12282 /mm3 (0-0)
[2018-01-09] MEDS: Insulin Detemir Inj 1,000 UNIT/10 ML Vial SQ SCH (21:49)
[2018-01-10] MEDS: Oral Hygiene Kit OROPHARYNG SCH ×5 (01:09→23:38)
[2018-01-10] MEDS: Insulin NovoLOG Aspart Correctional Sugar Inj SQ SCH ×5 (01:32→21:17)
[2018-01-10] MEDS: Aztreonam Inj 2 GM in Sodium Chloride 0.9% Inj 100 ML IV.SIG SCH ×2 (01:33→05:14)
[2018-01-10] MEDS: Vancomycin Inj 1,750 MG in Sodium Chlor 0.9% Inj 500 ML IV.SIG SCH (01:34)
[2018-01-10] MEDS: Azithromycin Inj 500 MG in Sodium Chlor 0.9% Inj 250 ML IV.SIG SCH (01:36)
[2018-01-10] MEDS: Chlorhexidine Gluconate 2% 1 Pack (2 Cloths) TOPICAL SCH (03:11)
[2018-01-10] MEDS: Hypromellose 0.3% Opth Gel 10 GM Bottle EACH EYE SCH ×3 (05:14→21:16)
[2018-01-10] MEDS: Heparin - SQ 10,000 UNITS/ML Vial SQ SCH ×3 (05:15→21:18)
[2018-01-10 05:28] LABS: Baso % (Auto) 0.2 % (0.0-2.0); Hematocrit 25.6 % (39.0-51.0); Hemoglobin 8.1 gm/dL (13.0-17.0); Lymph # (Auto) 0.5 th/mm3 (1.0-4.8); Lymph % (Auto) 6.6 % (9.0-44.0); Mean Corpuscular HGB Conc 31.5 % (32.0-36.0); Mean Corpuscular Hemoglobin 27.8 pg (27.0-34.0); Mean Platelet Volume 8.3 fL (7.0-11.0); Mono # (Auto) 0.6 th/mm3 (0.0-0.9); Mono % (Auto) 7.2 % (0.0-8.0); Neut # (Auto) 6.7 th/mm3 (1.8-7.7); Platelet Count 170 th/mm3 (150-450); Red Cell Distribution Width 15.4 % (11.6-17.2); White Blood Count 7.7 th/mm3 (4.0-11.0)
[2018-01-10 05:52] LABS: Calcium 8.4 mg/dL (8.5-10.1); Carbon Dioxide 36.9 meq/L (21.0-32.0); Potassium 4.6 meq/L (3.5-5.1)
[2018-01-10 05:55] LABS: Magnesium 2.4 mg/dL (1.5-2.5)
--- NOTE | 2018-01-10 06:51 | XR ---
EXAM DATE: 01/10/2018 6:45 AM EDT AGE/SEX: 67 years / Male INDICATIONS: Shortness of breath. CLINICAL DATA: This is the patient's subsequent encounter. Patient reports that signs and symptoms h ave been present for 4 - 6 days and indicates a pain score of Nonresponsive. MEDICAL/SURGICAL HISTORY: Non-responsive. Non-responsive. COMPARISON: [facility], CHEST EXPIRATION ONLY, 01/09/2018. . FINDINGS: Right greater the left basilar consolidation not significantly changed. There is a small right pleura l effusion also similar to yesterday. No pneumothorax demonstrated. Right chest tube has been removed . Heart size within normal limits. Right IJ line has been removed. CONCLUSION: Right chest tube out. No pneumothorax demonstrated. No significant change right base consolidation an d small effusion. Electronically signed by: Wilfred Chamorro MD 01/10/2018 6:50 AM EDT
[2018-01-10 07:55] LABS: Platelet Estimate Normal (Normal); Platelet Morphology Normal (Normal)
[2018-01-10] MEDS: hydrALAZINE 50 MG Tablet PO SCH ×3 (08:07→17:28)
[2018-01-10] MEDS: Senna/Docusate Sodium 8.6/50 MG Tablet PO SCH ×3 (08:07→21:19)
[2018-01-10] MEDS: Chlorhexidine 0.12% Oral Kit 15 ML UDC OROPHARYNG SCH ×3 (08:07→21:19)
[2018-01-10] MEDS: Insulin Detemir Inj 1,000 UNIT/10 ML Vial SQ SCH ×2 (08:08→21:16)
[2018-01-10] MEDS: Spironolactone 25 MG Tablet PO SCH (08:10)
--- NOTE | 2018-01-10 09:24 | P.PNCC ---
Subjective Subjective Remarks/Hospital Course: Elderly gentleman with past medical history of CHF, diabetes mellitus, gout, dyslipidemia and hypertension presents with respiratory distress and altered mental status. The patient was intubated by ED attending for an airway protection and respiratory failure. No other information or history is available at this time. 01/06 Patient remains sedated and intubated 01/07: Awake and alert on the ventilator on 100 mcg an hour fentanyl. Tolerating tube feeds at goal. On CPAP trial 03/28 at 50%. Saturation 93. On baseline 3 L at home. 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 01/08: Extubated today without complication. Currently on high flow nasal cannula at 50%. Saturations 94%. Requesting coffee. Denies chest pain or shortness of breath currently. 01/09: Afebrile. Remains on high flow nasal cannula at 50%. States he has a history of nonspinal lung carcinoma stage for newly diagnosed. Recently hospitalized at [facility] [place] red bilateral thoracentesis approximately 3 L. SUBJECTIVE: 01/10: Afebrile. -2 L from bedside right-sided thoracentesis yesterday. Patient is breathing better. New stenotrophomonas noted in sputum today. Will consult ID and pulmonology for assistance with management. Obtain records from PET scan from [facility]. Appears comfortable. Objective Vital Signs / I&O: Vital Signs 01/09/18 09:30 01/09/18 10:00 01/09/18 10:14 Temperature Pulse Rate 95 H 98 H 89 Respiratory Rate 18 27 H 24 Blood Pressure 125/58 L 164/71 H Pulse Oximetry 91 L 82 L 84 L 01/09/18 10:30 01/09/18 11:00 01/09/18 11:01 Temperature Pulse Rate 81 78 79 Respiratory Rate 24 19 19 Blood Pressure 172/78 H 183/77 H Pulse Oximetry 92 L 96 96 01/09/18 11:26 01/09/18 11:31 01/09/18 11:39 Temperature Pulse Rate 88 89 98 H Respiratory Rate 31 H 53 H 19 Blood Pressure 142/76 H 125/88 Pulse Oximetry 94 L 91 L 01/09/18 12:00 01/09/18 12:02 01/09/18 12:34 Temperature 98.1 F Pulse Rate 95 H 82 85 Respiratory Rate 28 H 20 17 Blood Pressure 135/92 H 177/91 H Pulse Oximetry 97 90 L 94 L 01/09/18 12:36 01/09/18 13:00 01/09/18 13:11 Temperature Pulse Rate 86 83 94 H Respiratory Rate 14 23 23 Blood Pressure 176/86 H 114/61 Pulse Oximetry 94 L 94 L 94 L 01/09/18 13:31 01/09/18 14:00 01/09/18 14:31 Temperature Pulse Rate 93 H 90 99 H Respiratory Rate 16 17 24 Blood Pressure 158/72 H 160/78 H 149/72 H Pulse Oximetry 94 L 95 90 L 01/09/18 15:00 01/09/18 16:00 01/09/18 17:00 Temperature 98.3 F Pulse Rate 96 H 94 H Respiratory Rate 28 H 25 H Blood Pressure 168/83 H Pulse Oximetry 87 L 95 94 L 01/09/18 17:02 01/09/18 17:31 01/09/18 18:00 Temperature Pulse Rate 101 H 88 89 Respiratory Rate 21 25 H 20 Blood Pressure 161/77 H 145/65 H Pulse Oximetry 96 99 99 01/09/18 18:01 01/09/18 18:31 01/09/18 19:00 Temperature Pulse Rate 77 89 92 H Respiratory Rate 17 27 H 7 L Blood Pressure 179/81 H 183/100 H Pulse Oximetry 98 97 97 01/09/18 19:30 01/09/18 19:53 01/09/18 20:00 Temperature 98.6 F Pulse Rate 94 H 90 83 Respiratory Rate 6 L 18 18 Blood Pressure 138/90 138/90 Pulse Oximetry 94 L 95 96 01/09/18 22:23 01/09/18 23:37 01/10/18 00:00 Temperature 98.2 F Pulse Rate 65 63 Respiratory Rate 15 16 Blood Pressure 141/71 H Pulse Oximetry 96 94 L 01/10/18 04:00 01/10/18 04:11 01/10/18 04:13 Temperature 97.7 F Pulse Rate 73 52 L Respiratory Rate 20 16 Blood Pressure 116/67 Pulse Oximetry 100 95 01/10/18 04:15 01/10/18 07:33 Temperature Pulse Rate 101 H Respiratory Rate 18 16 Blood Pressure Pulse Oximetry Intake & Output 01/09/18 01/10/18 01/10/18 18:59 06:59 18:59 Intake Total 1250 / 1250 2925 / 2925 Output Total 3450 / 3450 1400 / 1400 Balance -2200 / -2200 1525 / 1525 Weight 154.2 kg Intake: IV 100 / 100 1725 / 1725 Azithromycin Inj 500 MG In NS 450 / 450 Inj 250 ML @ 250 mls/hr IV.SIG Q24H [facility] Rx#:[id number] Azactam Inj 2 GM In NS Inj 100 100 / 100 300 / 300 ML @ 200 mls/hr IV.SIG Q6HR [facility] Rx#:[id number] Vancomycin Inj 1,750 MG In NS 975 / 975 Inj 500 ML @ 250 mls/hr IV.SIG Q24H [facility]I Rx#:[id number] Oral 1150 / 1150 1200 / 1200 Output: Pleural Fluid 2000 / 1999 Urine Amount (Catheter) 1450 / 1450 1400 / 1400 Indwelling Urethral Catheter 1450 / 1450 1400 / 1400 Other: Bladder Irrigation Fluid - Amount Instilled Indwelling Urethral Catheter 60 Bladder Irrigation Fluid - Amount Drained Indwelling Urethral Catheter 60 Date of Last Bowel Movement 01/06/18 # Bowel Movements 0 Result Diagrams: 01/10/18 04:01 01/10/18 04:01 Other Results: Microbiology 01/09/18 16:55 Fluid - Pleural fluid Gram Stain - Final 01/05/18 19:50 Blood - Peripheral Aerobic Blood Culture - Final Staphylococcus hominis-hominis 01/05/18 19:50 Blood - Peripheral Anaerobic Blood Culture - Preliminary No growth in 4 days 01/08/18 13:20 Blood - Peripheral Aerobic Blood Culture - Preliminary No growth in 1 day 01/08/18 13:20 Blood - Peripheral Anaerobic Blood Culture - Preliminary No growth in 1 day 01/08/18 13:15 Blood - Peripheral Aerobic Blood Culture - Preliminary No growth in 1 day 01/08/18 13:15 Blood - Peripheral Anaerobic Blood Culture - Preliminary No growth in 1 day 01/05/18 19:55 Blood - Peripheral Aerobic Blood Culture - Preliminary No growth in 4 days 01/05/18 19:55 Blood - Peripheral Anaerobic Blood Culture - Preliminary No growth in 4 days 01/05/18 23:00 Sputum - Endotracheal Gram Stain - Final 01/05/18 23:00 Sputum - Endotracheal Sputum Culture - Final Pseudomonas aeruginosa Stenotrophomonas maltophilia 01/07/18 15:00 Nasal Wash Influenza Types A,B Antigen - Final Negative for FLU A and B antigen Infection due to influenza A or B cannot be ruled out since the antigen present in the sample may be below the detection limit of the test. 01/06/18 08:45 Urine - Catheterized Urine Legionella Antigen - Final Presumptive negative for Legionella pneumophila serogroup 1 antigen in urine, suggesting no recent or recurrent infection. Infection due to Legionella cannot be ruled out since other serogroups and species may cause disease, antigen may not be present in urine in early infection, and the level of antigen present in the urine may be below the detection limit of the test. 01/06/18 08:45 Urine - Catheterized Urine Streptococcus pneumoniae Antigen ( M - Final Presumptive negative for streptococcus pneumoniae antigen, suggesting no current or recent infection. Infection due to Streptococcus pneumoniae cannot be ruled out since the antigen present in the sample may be below the detection limit of the test. Imaging: Chest X-Ray 01/05/18 19:52 CONCLUSION: Moderate right effusion. Right base atelectasis or consolidation. Chest X-Ray 01/06/18 03:56 CONCLUSION: Bilateral mostly basilar airspace disease. Small to moderate right effusion. Findings similar to January 05. Abdomen/Bladder Ultrasound 01/07/18 00:00 CONCLUSION: 1. No evidence of hydronephrosis on either side. 2. Gallstones. Chest X-Ray 01/08/18 06:00 CONCLUSION: Support apparatus unchanged. Relatively stable basilar airspace disease and right pleural effusion. Chest X-Ray 01/09/18 00:00 CONCLUSION: No pneumothorax is visualized following right thoracentesis. There is residual atelectasis versus airspace consolidation at the right lung base. Chest X-Ray 01/09/18 06:00 CONCLUSION: Stable exam compared with January 08 bilateral effusions and basilar airspace disease, right greater than left. Previous endotracheal tube has been removed. Chest X-Ray 01/10/18 06:00 CONCLUSION: Right chest tube out. No pneumothorax demonstrated. No significant change right base consolidation and small effusion. Objective Remarks: GENERAL: 67-year-old male currently on high flow nasal cannula in no acute distress SKIN: Warm and dry. Chronic venous stasis lower extremities HEAD: Normocephalic. EYES: No scleral icterus. No injection or drainage. NECK: Supple, trachea midline. No JVD or lymphadenopathy. CARDIOVASCULAR: Tachycardic, RR. S1, S3 no S4. Without murmur RESPIRATORY: Diminished breath sounds bilateral lower lobes right greater than left. No wheezing.. GASTROINTESTINAL: Abdomen soft, non-tender, nondistended. MUSCULOSKELETAL: 1+ bilateral lower extremity edema pretibial Neuro: Cranial nerves II through XII are grossly intact. Strength is equal and symmetric. Moves all 4 extremities spontaneously. Normal sensation. Assessment and Plan - Assessment and Plan Plan: Neuro/Psych: Acetaminophen 650 p.o. every 6 hours as needed fever Morphine sulfate 2 mg IV every 2 hours as needed pain 1 through 10 Pulm: Acute hypoxic/hypercapnic respiratory failure Chronic respiratory failure/3 L oxygen dependent. Follows with Dr. Clarke Obstructive sleep apnea/CPAP at night COPD Bilateral pleural effusion right greater than left. -2 L Extubated today 01/08. High flow nasal cannula currently at 50% FiO2/30 L. Titrate to keep saturations greater or equal to 92% Albuterol/ipratropium aerosols every 4 hours with albuterol aerosols every 2 hours as needed for dyspnea Budesonide 0.5/2 1 inhalation twice daily. On fluticasone/umeclinide/ Vilanterol 100/60 2.5/25 1 inhalation twice daily at home Patient is on nocturnal CPAP at home. cannot bring in machine as it is too heavy for her Continue methylprednisolone 40 mg IV twice daily Chest x-ray in a.m. 01/10 -stable/small right pleural effusion. Bilateral effusions. CV: Essential hypertension Hyperlipidemia Coronary artery disease Currently normal saline at 84 cc now. Discontinue Weaned off norepinephrine drip. Map greater than equal 65. Home medications include carvedilol 3.125 mg twice daily, hydralazine 50 3 times daily, losartan 50 mg at night and spironolactone 50 mg daily with bumetanide 2 mg daily. We will start on hydralazine 25 3 times daily, carvedilol 3.125 mg twice daily. Hold losartan with acute kidney injury. Restart the amantadine 1 mg daily and prolactin 25 mg daily. As needed labetalol Nitropaste Continue aspirin chew 81 mg daily Continue pravastatin 40 mg daily for dyslipidemia 2D echocardiogram revealed EF 60-65%. No regional wall motion abnormalities. : Condom catheter/Cunningham catheter placed secondary to urinary retention. GI: Hypoalbuminemia Speech therapy. Evaluate and advance diet as tolerated On famotidine for GI prophylaxis, tube feeds-vital high-protein goal 70 cc an hour can be discontinued Docusate sodium/senna 1 tablet twice daily for bowel regimen ID: Sputum -Pseudomonas/stenotrophomonas Staph hominis bacteremia Continue with abx ( Aztreonam, Azithromycin, levofloxacin. Discontinue vancomycin 01/10 Repeat blood cultures today 01/08 Pertinent cultures 01/05 -blood cultures 2 gram-staph hominis. -Repeat blood culture 01/08 no growth to date 01/05 -sputum -Pseudomonas/stenotrophomonas Follow up on sputum and blood cxs. Negative strep pneumonia and Legionella urinary Ag Heme: Normocytic anemia Monitor CBC No indication for transfusion of blood products at this time Endo: Diabetes mellitus type 2 Gout On glimepiride 4 mg daily at home. SSI for glycemic control every before meals/at bedtime with medium protocol with aspart insulin Start insulin detemir 12 units subcu twice daily On febuxostat at home for gout FEN: Replace electrolytes as clinically indicated per ICU electrolyte protocol Discontinue IV fluids MSK: Elevated BMI Weight loss encouraged DVT GI prophylaxis -Teds SCDs -Subcu heparin -Famotidine Lines- Right IJ CVP day #4 discontinued 01/09 Level 3 follow-up
[2018-01-10] MEDS: MethylPREDNISolone Sod Succinate Inj 40 MG/ML Vial IV.PUSH SCH ×2 (10:17→21:18)
--- NOTE | 2018-01-10 10:53 | P.CONID ---
History of Present Illness Service: Infectious disease Consult date: 01/10/18 Requesting Physician: Ernesto Oakley Reason for Consult: Evaluate patient with Pseudomonas pneumonia Primary Care Provider: No Primary Care Physician History of Present Illness: Patient seen and examined. Records reviewed. Patient is a 67-year-old male with known COPD, on nasal O2 at home 24 hours a day, and just prescribed a BiPAP machine to be used at night, presented to the hospital with severe shortness of breath. He apparently has been having shortness of breath for about a week. Patient has a chronic cough and usually does not bring up any phlegm. He emergently got intubated, and sputum culture is now reported as growing Pseudomonas and stenotrophomonas. Patient has been on Azactam, and Zithromax, and has been successfully extubated 01/08. He is on high flow oxygen. Levaquin was added today. He has not been febrile. His WBC is normal. Chest x-ray has show bilateral pleural effusions, and he had right thoracentesis and took out 2 L of fluid. Plans for left thoracentesis is in process. Patient currently feels a little better as far as his shortness of breath. He denies any chest pain. Patient states that he has not really had any change in his chronic cough. There was no fever or chills, but he has had some occasional sweats. He has not had any nausea or vomiting, swallowing difficulty, GI or any urinary complaints. Patient was recently hospitalized at [facility] in November for about 3 weeks. He was intubated at that time and improved and discharged. Infectious disease consultation has been requested to evaluate patient with Pseudomonas and stenotrophomonas in the sputum. Review of Systems Constitutional: Reports night sweats, Denies body ache(s), Denies chills Eyes: Denies discharge, Denies dry eyes Ears, Nose, Mouth, and Throat: Denies difficulty swallowing, Denies dizziness, Denies nasal discharge, Denies pain with swallowing, Denies sore throat Cardiovascular: Reports leg swelling, Denies chest pain Respiratory: Reports cough, Denies coughing up blood Gastrointestinal: Denies abdominal pain, Denies difficulty swallowing, Denies loose stools, Denies nausea, Denies vomiting Genitourinary: Reports painful urination Skin/Breast: Denies redness, Denies rash PMFSH - History History Provided By: Family Member - Medical History Medical History: Medical History (Last Updated 01/10/18 @ 10:42 by Hilary Armstrong MD) CHF (congestive heart failure) Diabetes Gout Hyperlipemia Hypertension Lipoma - Surgical History Surgical History: Surgical History (Last Updated 01/10/18 @ 10:42 by Hilary Armstrong MD) History of cystoscopy History of lung biopsy - Tobacco History Second Hand Smoke Exposure: No Tobacco Use In Past 30 Days: No Smoking Status: Former smoker - Alcohol History How Often Do You Have a Drink Containing Alcohol: Monthly or less - Substance Use History Substance History: No History of Abuse - Travel History Recent Travel in the [place] Within the Last 8 Weeks: No Recent Travel Out of the Country Within the Last 8 Weeks: No - Immunization History Tetanus Immunization: Unsure Hx Influenza Vaccine This Season: Yes Medications and Allergies Active Medications: Active Medications Acetaminophen (Tylenol) 650 mg PO Q6H PRN PRN Reason: PAIN 1-10 AND/OR FEVER >101F Last Admin: 01/10/18 02:43 Dose: 650 mg Al Hydroxide/Mg Hydroxide (Milk Of Jessica Polanco) 30 ml PO Q12H PRN PRN Reason: Mild Constipation Last Admin: 01/10/18 02:42 Dose: 30 ml Albuterol (Albuterol Neb (Prn)) 2.5 mg NEB Q2HR NEB PRN PRN Reason: DYSPNEA Albuterol (Duoneb Neb (Usman)) 1 ampul NEB Q4HR NEB [facility]MAN Last Admin: 01/10/18 04:11 Dose: 1 ampul Artificial Tears (Genteal Severe Dry Eye Relief 0.3% Opth Gel) 1 drops EACH EYE Q8H [facility] Last Admin: 01/10/18 05:14 Dose: 1 drops Aspirin (Aspirin Chew) 81 mg PO DAILY [facility] Last Admin: 01/10/18 08:07 Dose: 81 mg Bisacodyl (Dulcolax Supp) 10 mg RECTAL DAILY PRN PRN Reason: SEVERE CONSITIPATION Budesonide (Pulmocort Respule Neb) 0.5 mg NEB Q12HR NEB [facility]MAN Last Admin: 01/10/18 07:30 Dose: 0.5 mg Bumetanide (Bumex Inj) 1 mg IV.PUSH DAILY [facility] Last Admin: 01/09/18 08:25 Dose: 1 mg Carvedilol (Coreg) 3.125 mg PO BID [facility] Last Admin: 01/10/18 08:08 Dose: 3.125 mg Chlorhexidine Gluconate (Peridex 0.12% Oral Kit) 15 ml OROPHARYNG BID@0800, 2000 [facility] Last Admin: 01/10/18 08:07 Dose: Not Given Chlorhexidine Gluconate (Chlorhexidine 2% Cloth) 3 pack TOPICAL DAILY@0400 [facility] Stop: 01/11/18 03:59 Last Admin: 01/10/18 03:11 Dose: 3 pack Chlorhexidine Gluconate (Chlorhexidine 2% Cloth) 3 pack TOPICAL DAILY@0400 PRN PRN Reason: Extra cloth needed Stop: 01/11/18 03:59 Dextrose (D50w Vial) 50 ml IV.PUSH UNSCH PRN PRN Reason: PER HYPOGLYCEMIA PROTOCOL Last Admin: 01/06/18 06:01 Dose: 50 ml Glucagon (Glucagon Inj) 1 mg OTHER PRN PRN PRN Reason: for Hypoglycemia Protocol Heparin Sodium (Porcine) (Heparin Inj) 5,000 units SQ Q8HR [facility] Last Admin: 01/10/18 05:15 Dose: 5,000 units Hydralazine HCl (Apresoline) 50 mg PO TID [facility] Last Admin: 01/10/18 08:07 Dose: 50 mg Aztreonam 2 gm/ Sodium (Chloride) 100 mls @ 200 mls/hr IV.SIG Q6HR [facility] Last Infusion: 01/10/18 06:30 Dose: Infused Azithromycin 500 mg/ Sodium (Chloride) 250 mls @ 250 mls/hr IV.SIG Q24H [facility] Stop: 01/12/18 00:59 Last Admin: 01/10/18 01:36 Dose: 250 mls/hr Nicardipine HCl 25 mg/ Sodium (Chloride) 250 mls @ 50 mls/hr IV.CONT TITRATE PRN; Protocol PRN Reason: Per Protocol Levofloxacin/Dextrose (Levaquin 750 Mg Premix Inj) 150 mls @ 100 mls/hr IV.SIG Q24H [facility] Last Admin: 01/10/18 10:18 Dose: 100 mls/hr Insulin Aspart (Novolog Insulin Correctional Sugar Inj) 0 unit SQ ACHS [facility]; Protocol Insulin Detemir (Levemir Inj) 12 unit SQ BID [facility] Labetalol HCl (Trandate Inj) 10 mg IV.PUSH Q1H PRN PRN Reason: SBP>180, DBP>100, HR>65 Last Admin: 01/09/18 00:02 Dose: 10 mg Lactulose (Lactulose Liq) 30 ml PO DAILY PRN PRN Reason: SEVERE CONSITIPATION Last Admin: 01/10/18 02:42 Dose: 30 ml Lorazepam (Ativan Inj) 1 mg IV.PUSH Q1H PRN PRN Reason: Agitation/sedation Last Admin: 01/07/18 22:46 Dose: 1 mg Methylprednisolone Sodium Succinate (Solumedrol Inj) 40 mg IV.PUSH Q12H [facility] Last Admin: 01/10/18 10:17 Dose: 40 mg Nitroglycerin (Nitro-Bid 2% Oint) 2 inch TOPICAL Q6HR PRN PRN Reason: SBP>160, DBP>90 Pat Own Med: Febuxostat (Uloric) 80 Mg Tablet 0 each PO DAILY [facility] Pat Own Med: Fluticasone- Umeclidinium- Vilanterol (Trelegy Ellipta)Inh 0 each INH DAILY [facility] Last Admin: 01/05/18 22:38 Dose: Not Given Pravastatin Sodium (Pravachol) 40 mg PO DAILY [facility] Last Admin: 01/10/18 08:09 Dose: Not Given Senna/Docusate Sodium (Zandra-Colace) 1 tab PO BID [facility] Last Admin: 01/10/18 08:07 Dose: 1 tab Sennosides (Senokot) 17.2 mg PO Q12H PRN PRN Reason: Moderate Constipation Last Admin: 01/10/18 02:43 Dose: 17.2 mg Sodium Chloride (Ns Flush) 2 ml IV.FLUSH BID [facility] Last Admin: 01/10/18 08:07 Dose: 2 ml Sodium Chloride (Ns Flush) 2 ml IV.FLUSH PRN PRN PRN Reason: FLUSH AFTER USING IV ACCESS Spironolactone (Aldactone) 25 mg PO DAILY [facility] Last Admin: 01/10/18 08:10 Dose: 25 mg Allergies Allergy/AdvReac Type Severity Reaction Status Date / Time Iodine and Iodide Containing Allergy Hives Verified 01/10/18 10:43 Produc Penicillins Allergy Hives Verified 01/05/18 20:52 Home Medications Medication Instructions Recorded Confirmed Type aspirin [Aspirin Low Dose] 81 mg PO DAILY 01/05/18 01/05/18 History bumetanide 2 mg PO DAILY 01/05/18 01/05/18 History carvedilol 3.125 mg PO BID 01/05/18 01/05/18 History febuxostat [Uloric] 80 mg PO DAILY 01/05/18 01/05/18 History pexfcibamvw-ikwvbhftw-siovkblv 1 inh INHALATION DAILY 01/05/18 01/05/18 History [Trelegy Ellipta] glimepiride 8 mg PO QAM 01/05/18 01/05/18 History hydralazine 50 mg PO TID 01/05/18 01/05/18 History losartan 50 mg PO HS 01/05/18 01/05/18 History pravastatin 40 mg PO DAILY 01/05/18 01/05/18 History spironolactone 50 mg PO DAILY 01/05/18 01/05/18 History Exam Vital signs: Vital Signs 01/09/18 11:00 01/09/18 11:01 01/09/18 11:26 Temperature Pulse Rate 78 79 88 Respiratory Rate 19 19 31 H Blood Pressure 183/77 H 142/76 H Pulse Oximetry 96 96 94 L 01/09/18 11:31 01/09/18 11:39 01/09/18 12:00 Temperature 98.1 F Pulse Rate 89 98 H 95 H Respiratory Rate 53 H 19 28 H Blood Pressure 125/88 Pulse Oximetry 91 L 97 01/09/18 12:02 01/09/18 12:34 01/09/18 12:36 Temperature Pulse Rate 82 85 86 Respiratory Rate 20 17 14 Blood Pressure 135/92 H 177/91 H 176/86 H Pulse Oximetry 90 L 94 L 94 L 01/09/18 13:00 01/09/18 13:11 01/09/18 13:31 Temperature Pulse Rate 83 94 H 93 H Respiratory Rate 23 23 16 Blood Pressure 114/61 158/72 H Pulse Oximetry 94 L 94 L 94 L 01/09/18 14:00 01/09/18 14:31 01/09/18 15:00 Temperature Pulse Rate 90 99 H 96 H Respiratory Rate 17 24 28 H Blood Pressure 160/78 H 149/72 H 168/83 H Pulse Oximetry 95 90 L 87 L 01/09/18 16:00 01/09/18 17:00 01/09/18 17:02 Temperature 98.3 F Pulse Rate 94 H 101 H Respiratory Rate 25 H 21 Blood Pressure 161/77 H Pulse Oximetry 95 94 L 96 01/09/18 17:31 01/09/18 18:00 01/09/18 18:01 Temperature Pulse Rate 88 89 77 Respiratory Rate 25 H 20 17 Blood Pressure 145/65 H 179/81 H Pulse Oximetry 99 99 98 01/09/18 18:31 01/09/18 19:00 01/09/18 19:30 Temperature Pulse Rate 89 92 H 94 H Respiratory Rate 27 H 7 L 6 L Blood Pressure 183/100 H 138/90 Pulse Oximetry 97 97 94 L 01/09/18 19:53 01/09/18 20:00 01/09/18 22:23 Temperature 98.6 F Pulse Rate 90 83 Respiratory Rate 18 18 Blood Pressure 138/90 Pulse Oximetry 95 96 96 01/09/18 23:37 01/10/18 00:00 01/10/18 04:00 Temperature 98.2 F 97.7 F Pulse Rate 65 63 73 Respiratory Rate 15 16 20 Blood Pressure 141/71 H 116/67 Pulse Oximetry 94 L 100 01/10/18 04:11 01/10/18 04:13 01/10/18 04:15 Temperature Pulse Rate 52 L Respiratory Rate 16 18 Blood Pressure Pulse Oximetry 95 01/10/18 07:33 Temperature Pulse Rate 101 H Respiratory Rate 16 Blood Pressure Pulse Oximetry Intake & Output 01/09/18 01/10/18 01/10/18 18:59 06:59 18:59 Intake Total 1250 / 1250 2925 / 2925 Output Total 3450 / 3450 1400 / 1400 Balance -2200 / -2200 1525 / 1525 Weight 154.2 kg Intake: IV 100 / 100 1725 / 1725 Azithromycin Inj 500 MG In NS 450 / 450 Inj 250 ML @ 250 mls/hr IV.SIG Q24H [facility] Rx#:[id number] Azactam Inj 2 GM In NS Inj 100 100 / 100 300 / 300 ML @ 200 mls/hr IV.SIG Q6HR [facility] Rx#:[id number] Vancomycin Inj 1,750 MG In NS 975 / 975 Inj 500 ML @ 250 mls/hr IV.SIG Q24H [facility] Rx#:[id number] Oral 1150 / 1150 1200 / 1200 Output: Pleural Fluid 2000 / 2000 Urine Amount (Catheter) 1450 / 1450 1400 / 1400 Indwelling Urethral Catheter 1450 / 1450 1400 / 1400 Other: Bladder Irrigation Fluid - Amount Instilled Indwelling Urethral Catheter 60 Bladder Irrigation Fluid - Amount Drained Indwelling Urethral Catheter 60 Date of Last Bowel Movement 01/06/18 # Bowel Movements 0 Narrative: PHYSICAL EXAMINATION GENERAL: Patient is an obese, well-developed patient, awake and alert, mild SOB when talking, on high flow O2. SKIN: Cool and dry. No generalized rash, no ecchymoses and no evidence of embolic lesions. HEAD: Atraumatic. Normocephalic. No temporal wasting, or tenderness. EYES: [place] conjunctiva. No petechia or hemorrhage. Pupils equal, round and reactive to light. Extraocular movements full and intact. No scleral icterus. No injection or drainage. EARS, NOSE AND THROAT: Nose without bleeding or purulent nasal discharge. No sinus tenderness. Mucous membranes pink and moist. No oral lesions noted. No exudate. No oral thrush. NECK: Trachea midline. Supple and not tender, no meningeal signs CARDIOVASCULAR: Regular rate and rhythm. No murmurs, rubs or gallops heard RESPIRATORY: Occ rhonchi L side, decreased breath sounds bases, worse n L then on R. ABDOMEN: Soft, obese, non-tender, nondistended. Bowel sounds present and normoactive. No guarding. No rebound. No organomegaly. EXTREMITIES: No clubbing, cyanosis. Has some pedal edema, and chronic pigmentation legs and feet. No calf tenderness. Well perfused and warm. NEUROLOGICAL: Awake and alert. Cranial nerves grossly intact. Motor grossly within normal limits. PSYCHIATRIC: Normal affect, calm and cooperative. LINE: No evidence of infection Results - Labs CBC & Chem 7: 01/10/18 04:01 01/10/18 04:01 Labs: Laboratory Results - last 24 hr 01/09/18 01/09/18 01/09/18 12:23 16:55 16:55 WBC RBC Hgb Hct MCV MCH MCHC RDW Plt Count MPV Prelim Diff (Auto) Neut % (Auto) Lymph % (Auto) Glynn % (Auto) Eos % (Auto) Baso % (Auto) Neut # (Auto) Lymph # (Auto) Glynn # (Auto) Eos # (Auto) Baso # (Auto) WBC Differential Diff Scan Differential Comment Platelet Estimate Platelet Morphology Basophilic Stippling Sodium Potassium Chloride Carbon Dioxide Anion Gap BUN Creatinine Estimated GFR POC Glucose 238 H Random Glucose Calcium Phosphorus Magnesium Lactate Dehydrogenase Urine Eosinophils Pleural pH 8.0 Pleural RBC 20114 H Pleural Nuc Cells 373 H Pleural Neutrophils 55 Pleural Lymphocytes 24 Pleural Monocytes 5 Pleural Histocytes 16 Pleural Total Protein 3.7 Pleural LDH 336 Pleural Glucose 223 Pleural Amylase 57 01/09/18 01/09/18 01/10/18 17:25 21:54 01:05 WBC RBC Hgb Hct MCV MCH MCHC RDW Plt Count MPV Prelim Diff (Auto) Neut % (Auto) Lymph % (Auto) Glynn % (Auto) Eos % (Auto) Baso % (Auto) Neut # (Auto) Lymph # (Auto) Glynn # (Auto) Eos # (Auto) Baso # (Auto) WBC Differential Diff Scan Differential Comment Platelet Estimate Platelet Morphology Basophilic Stippling Sodium Potassium Chloride Carbon Dioxide Anion Gap BUN Creatinine Estimated GFR POC Glucose 254 H 257 H 245 H Random Glucose Calcium Phosphorus Magnesium Lactate Dehydrogenase Urine Eosinophils Pleural pH Pleural RBC Pleural Nuc Cells Pleural Neutrophils Pleural Lymphocytes Pleural Monocytes Pleural Histocytes Pleural Total Protein Pleural LDH Pleural Glucose Pleural Amylase 01/10/18 01/10/18 01/10/18 03:06 04:01 04:01 WBC 7.7 RBC 2.90 L Hgb 8.1 L Hct 25.6 L MCV 88.0 MCH 27.8 MCHC 31.5 L RDW 15.4 Plt Count 170 MPV 8.3 Prelim Diff (Auto) Slide review pending Neut % (Auto) 86.0 H Lymph % (Auto) 6.6 L Glynn % (Auto) 7.2 Eos % (Auto) 0.0 Baso % (Auto) 0.2 Neut # (Auto) 6.7 Lymph # (Auto) 0.5 L Glynn # (Auto) 0.6 Eos # (Auto) 0.0 Baso # (Auto) 0.0 WBC Differential . Diff Scan Auto diff confirmed Differential Comment . Platelet Estimate Normal Platelet Morphology Normal Basophilic Stippling Faint H Sodium Potassium Chloride Carbon Dioxide Anion Gap BUN Creatinine Estimated GFR POC Glucose Random Glucose Calcium Phosphorus 3.0 Magnesium 2.4 Lactate Dehydrogenase 216 Urine Eosinophils None seen Pleural pH Pleural RBC Pleural Nuc Cells Pleural Neutrophils Pleural Lymphocytes Pleural Monocytes Pleural Histocytes Pleural Total Protein Pleural LDH Pleural Glucose Pleural Amylase 01/10/18 01/10/18 01/10/18 04:01 05:16 08:06 WBC RBC Hgb Hct MCV MCH MCHC RDW Plt Count MPV Prelim Diff (Auto) Neut % (Auto) Lymph % (Auto) Glynn % (Auto) Eos % (Auto) Baso % (Auto) Neut # (Auto) Lymph # (Auto) Glynn # (Auto) Eos # (Auto) Baso # (Auto) WBC Differential Diff Scan Differential Comment Platelet Estimate Platelet Morphology Basophilic Stippling Sodium 143 Potassium 4.6 Chloride 103 Carbon Dioxide 36.9 H Anion Gap 3 L BUN 45 H Creatinine 1.23 Estimated GFR 58 L POC Glucose 264 H 219 H Random Glucose 219 H Calcium 8.4 L Phosphorus Magnesium Lactate Dehydrogenase Urine Eosinophils Pleural pH Pleural RBC Pleural Nuc Cells Pleural Neutrophils Pleural Lymphocytes Pleural Monocytes Pleural Histocytes Pleural Total Protein Pleural LDH Pleural Glucose Pleural Amylase - Imaging Impressions Chest X-Ray 01/09/18 00:00 CONCLUSION: No pneumothorax is visualized following right thoracentesis. There is residual atelectasis versus airspace consolidation at the right lung base. Chest X-Ray 01/10/18 06:00 CONCLUSION: Right chest tube out. No pneumothorax demonstrated. No significant change right base consolidation and small effusion. Assessment and Plan - Plan Impression Respiratory failure, has Hx COPD, has bilateral pleural effusions - has PSAE and Sten mal in sputum C/S, prob more of tracheitis than PNA, he has been extubated despita no RX for these pathogens Bilateral pleural effusions, recurrent problem, etiology? COPD, prob CORINA Recent Dx NSCL Ca, from lung biopsy - had PET scan results not known yet Obesity Allergy to PCN, has tolerated Cephalosporins States he is allergic to levaquin Recommendation Stop Levaquin IV Fortaz and po Bactrim - give at least 7 days Monitor respiratory status Monitor progress I will follow along with you Thank you for this consultation
--- NOTE | 2018-01-10 13:23 | US ---
EXAM DATE: 01/09/2018 5:31 PM EDT AGE/SEX: 67 years / Male INDICATIONS: Right pleural effusion. CLINICAL DATA: This is the patient's initial encounter. Patient reports that signs and symptoms have been present for 2 months and indicates a pain score of 2/10. MEDICAL/SURGICAL HISTORY: Hypertension. Congestive heart failure. Diabetes. GOUT. Hyperlipidemi a. . Lung biopsy. COMPARISON: No prior exams available for comparison. FLUID: Total volume of 2000 cc of clear, red fluid was removed. Fluid was sent to lab for ordered studies. . . TECHNIQUE: Ultrasound guidance for thoracentesis. Thoracentesis. The risks, benefits, and alternatives to ultrasound guided thoracentesis were explained to the patien t in lay simple terms, including the risk of bleeding and infection. Written and verbal informed con sent was obtained. Appropriate area for right thoracentesis was marked under ultrasound guidance with the patient in the upright position. Overlying skin was prepped and draped in the usual sterile fashion and with local anesthetic, a dermatotomy was made with an 11 blade scalpel. A 6 Mal[place]ian thoracentesis catheter was placed in the pleural space and fluid was removed. Catheter was then removed and a sterile dressing applied. There were no immediate complications. The patient tolerated the procedure well and the lef t the ultrasound suite in stable condition. Chest radiograph is to be obtained. FINDINGS: Large right-sided pleural effusion. CONCLUSION: 1. Uncomplicated ultrasound-guided right-sided thoracentesis, as above. Electronically signed by: Jesus Hayes MD 01/10/2018 1:22 PM EDT
[2018-01-10] MEDS: Sulfamethoxazole/Trimethoprim 400/80 MG Tablet PO SCH ×2 (14:12→21:16)
[2018-01-10] MEDS ORDERED: Vancomycin Consult Pharmacy 1 EACH OTHER SCH (18:00)
[2018-01-11] MEDS: Azithromycin Inj 500 MG in Sodium Chlor 0.9% Inj 250 ML IV.SIG SCH (00:30)
[2018-01-11] MEDS ORDERED: Pharmacy Ordered Lab Info OTHER ONE (00:45)
[2018-01-11] MEDS: Vancomycin Inj 1,750 MG in Sodium Chlor 0.9% Inj 500 ML IV.SIG SCH (01:50)
[2018-01-11] MEDS: Oral Hygiene Kit OROPHARYNG SCH ×3 (05:34→19:26)
[2018-01-11] MEDS: Heparin - SQ 10,000 UNITS/ML Vial SQ SCH ×3 (05:34→22:32)
[2018-01-11] MEDS: Hypromellose 0.3% Opth Gel 10 GM Bottle EACH EYE SCH ×3 (05:34→22:31)
[2018-01-11 06:31] LABS: Baso % (Auto) 0.3 % (0.0-2.0); Hematocrit 25.5 % (39.0-51.0); Hemoglobin 8.2 gm/dL (13.0-17.0); Lymph # (Auto) 0.5 th/mm3 (1.0-4.8); Mean Corpuscular Hemoglobin 27.8 pg (27.0-34.0); Mean Corpuscular Volume 86.8 fL (80.0-100.0); Mono # (Auto) 0.5 th/mm3 (0.0-0.9); Mono % (Auto) 7.3 % (0.0-8.0); Neut # (Auto) 6.2 th/mm3 (1.8-7.7); Neut % (Auto) 85.4 % (16.0-70.0); Platelet Count 157 th/mm3 (150-450); Red Blood Count 2.94 mil/mm3 (4.50-5.90); Red Cell Distribution Width 15.2 % (11.6-17.2); White Blood Count 7.2 th/mm3 (4.0-11.0)
[2018-01-11 07:00] LABS: Calcium 8.5 mg/dL (8.5-10.1); Carbon Dioxide 33.6 meq/L (21.0-32.0); Potassium 4.8 meq/L (3.5-5.1)
[2018-01-11] MEDS: Insulin Detemir Inj 1,000 UNIT/10 ML Vial SQ SCH ×2 (08:38→22:31)
[2018-01-11] MEDS: hydrALAZINE 50 MG Tablet PO SCH ×3 (08:39→19:25)
[2018-01-11] MEDS: Sulfamethoxazole/Trimethoprim 400/80 MG Tablet PO SCH ×2 (08:39→22:30)
[2018-01-11] MEDS: Senna/Docusate Sodium 8.6/50 MG Tablet PO SCH ×2 (08:39→22:32)
[2018-01-11] MEDS: Spironolactone 25 MG Tablet PO SCH ×2 (08:40→19:25)
[2018-01-11] MEDS: Chlorhexidine 0.12% Oral Kit 15 ML UDC OROPHARYNG SCH ×2 (12:38→19:44)
--- NOTE | 2018-01-11 13:27 | P.PNCC ---
Subjective Subjective Remarks/Hospital Course: Elderly gentleman with past medical history of CHF, diabetes mellitus, gout, dyslipidemia and hypertension presents with respiratory distress and altered mental status. The patient was intubated by ED attending for an airway protection and respiratory failure. No other information or history is available at this time. 01/06 Patient remains sedated and intubated 01/07: Awake and alert on the ventilator on 100 mcg an hour fentanyl. Tolerating tube feeds at goal. On CPAP trial 03/28 at 50%. Saturation 93. On baseline 3 L at home. His hearing examiner is Dr. Clarke. 01/08: Extubated today without complication. Currently on high flow nasal cannula at 50%. Saturations 94%. Requesting coffee. Denies chest pain or shortness of breath currently. 01/09: Afebrile. Remains on high flow nasal cannula at 50%. States he has a history of nonspinal lung carcinoma stage for newly diagnosed. Recently hospitalized at [facility] [place] red bilateral thoracentesis approximately 3 L. 01/10: Afebrile. -2 L from bedside right-sided thoracentesis yesterday. Patient is breathing better. New Stenotrophomonas noted in sputum today. Will consult ID and pulmonology for assistance with management. Obtain records from PET scan from [facility]. Appears comfortable. SUBJECTIVE: 01/11: Afebrile. Down to nasal cannula/off high flow nasal cannula. Saturations were 92%. No acute findings overnight. Will check chest x-ray in a.m. Objective Vital Signs / I&O: Vital Signs 01/10/18 14:00 01/10/18 15:00 01/10/18 15:01 Temperature Pulse Rate 91 H 90 95 H Respiratory Rate 17 17 19 Blood Pressure 160/69 H 115/78 Pulse Oximetry 94 L 93 L 94 L 01/10/18 15:31 01/10/18 16:00 01/10/18 16:31 Temperature 97.9 F Pulse Rate 91 H 86 87 Respiratory Rate 18 19 15 Blood Pressure 156/71 H 169/75 H 134/72 Pulse Oximetry 96 94 L 96 01/10/18 16:39 01/10/18 17:00 01/10/18 17:30 Temperature Pulse Rate 82 82 Respiratory Rate 16 18 Blood Pressure 152/69 H 161/71 H Pulse Oximetry 99 96 93 L 01/10/18 18:00 01/10/18 18:01 01/10/18 18:31 Temperature Pulse Rate 88 85 92 H Respiratory Rate 16 22 16 Blood Pressure 128/87 166/71 H Pulse Oximetry 96 93 L 93 L 01/10/18 19:58 01/10/18 20:00 01/10/18 23:27 Temperature 98.7 F Pulse Rate 97 H 85 79 Respiratory Rate 18 15 17 Blood Pressure 150/66 H Pulse Oximetry 92 L 89 L 100 01/11/18 00:00 01/11/18 03:21 01/11/18 04:00 Temperature 97.8 F Pulse Rate 74 76 Respiratory Rate 15 25 H Blood Pressure 139/72 155/75 H Pulse Oximetry 98 98 96 01/11/18 07:18 01/11/18 08:00 01/11/18 11:58 Temperature Pulse Rate 80 80 Respiratory Rate 18 Blood Pressure Pulse Oximetry 94 L 96 Intake & Output 01/10/18 01/11/18 01/11/18 18:59 06:59 18:59 Intake Total 1100 / 1100 0 / 0 100 / 100 Output Total 1650 / 1650 1500 / 1500 Balance -550 / -550 -1500 / -1500 100 / 100 Weight 153.4 kg Intake: IV 100 / 100 100 / 100 Tazicef Inj 2,000 MG In NS Inj 100 / 100 100 / 100 100 ML @ 200 mls/hr IV.SIG Q12H [facility] Rx#:[id number] Oral 1000 / 1000 0 / 0 Tube Feeding 0 / 0 Tube Irrigant 0 / 0 Other 0 / 0 Output: Urine 0 / 0 Stool 0 / 0 Pleural Fluid 0 / 0 Urine Amount (Catheter) 1650 / 1650 1500 / 1500 Indwelling Urethral Catheter 1650 / 1650 1500 / 1500 Gastric Drainage 0 / 0 Pre-Hospital Oral 0 / 0 Other: Date of Last Bowel Movement 01/10/18 01/10/18 01/10/18 # Bowel Movements 1 0 Result Diagrams: 01/11/18 06:09 01/11/18 06:09 Other Results: Microbiology 01/08/18 13:20 Blood - Peripheral Aerobic Blood Culture - Preliminary No growth in 3 days 01/08/18 13:20 Blood - Peripheral Anaerobic Blood Culture - Preliminary No growth in 3 days 01/08/18 13:15 Blood - Peripheral Aerobic Blood Culture - Preliminary Staphylococcus coag negative 01/08/18 13:15 Blood - Peripheral Anaerobic Blood Culture - Preliminary No growth in 3 days 01/09/18 16:55 Fluid - Pleural fluid Gram Stain - Final 01/09/18 16:55 Fluid - Pleural fluid Body Fluid Culture - Preliminary No growth in 48 hours 01/05/18 19:55 Blood - Peripheral Aerobic Blood Culture - Final No growth in 5 days 01/05/18 19:55 Blood - Peripheral Anaerobic Blood Culture - Final No growth in 5 days 01/05/18 19:50 Blood - Peripheral Aerobic Blood Culture - Final Staphylococcus hominis-hominis 01/05/18 19:50 Blood - Peripheral Anaerobic Blood Culture - Final No growth in 5 days 01/05/18 23:00 Sputum - Endotracheal Gram Stain - Final 01/05/18 23:00 Sputum - Endotracheal Sputum Culture - Final Pseudomonas aeruginosa Stenotrophomonas maltophilia 01/07/18 15:00 Nasal Wash Influenza Types A,B Antigen - Final Negative for FLU A and B antigen Infection due to influenza A or B cannot be ruled out since the antigen present in the sample may be below the detection limit of the test. 01/06/18 08:45 Urine - Catheterized Urine Legionella Antigen - Final Presumptive negative for Legionella pneumophila serogroup 1 antigen in urine, suggesting no recent or recurrent infection. Infection due to Legionella cannot be ruled out since other serogroups and species may cause disease, antigen may not be present in urine in early infection, and the level of antigen present in the urine may be below the detection limit of the test. 01/06/18 08:45 Urine - Catheterized Urine Streptococcus pneumoniae Antigen ( M - Final Presumptive negative for streptococcus pneumoniae antigen, suggesting no current or recent infection. Infection due to Streptococcus pneumoniae cannot be ruled out since the antigen present in the sample may be below the detection limit of the test. Imaging: Chest X-Ray 01/05/18 19:52 CONCLUSION: Moderate right effusion. Right base atelectasis or consolidation. Chest X-Ray 01/06/18 03:56 CONCLUSION: Bilateral mostly basilar airspace disease. Small to moderate right effusion. Findings similar to January 05. Abdomen/Bladder Ultrasound 01/07/18 00:00 CONCLUSION: 1. No evidence of hydronephrosis on either side. 2. Gallstones. Chest X-Ray 01/08/18 06:00 CONCLUSION: Support apparatus unchanged. Relatively stable basilar airspace disease and right pleural effusion. Chest X-Ray 01/09/18 00:00 CONCLUSION: No pneumothorax is visualized following right thoracentesis. There is residual atelectasis versus airspace consolidation at the right lung base. Thoracentesis Ultrasound 01/09/18 00:00 CONCLUSION: 1. Uncomplicated ultrasound-guided right-sided thoracentesis, as above. Chest X-Ray 01/09/18 06:00 CONCLUSION: Stable exam compared with January 08 bilateral effusions and basilar airspace disease, right greater than left. Previous endotracheal tube has been removed. Chest X-Ray 01/10/18 06:00 CONCLUSION: Right chest tube out. No pneumothorax demonstrated. No significant change right base consolidation and small effusion. Objective Remarks: GENERAL: 67-year-old male currently on high flow nasal cannula in no acute distress SKIN: Warm and dry. Chronic venous stasis lower extremities HEAD: Normocephalic. EYES: No scleral icterus. No injection or drainage. NECK: Supple, trachea midline. No JVD or lymphadenopathy. CARDIOVASCULAR: RRR. S1, S3 no S4. Without murmur RESPIRATORY: Diminished breath sounds bilateral lower lobes right greater than left. No wheezing.. GASTROINTESTINAL: Abdomen soft, non-tender, nondistended. MUSCULOSKELETAL: 1+ bilateral lower extremity edema pretibial Neuro: Cranial nerves II through XII are grossly intact. Strength is equal and symmetric. Moves all 4 extremities spontaneously. Normal sensation. Assessment and Plan - Assessment and Plan Plan: Neuro/Psych: Acetaminophen 650 p.o. every 6 hours as needed fever Morphine sulfate 2 mg IV every 2 hours as needed pain 1 through 10 Pulm: Acute hypoxic/hypercapnic respiratory failure Chronic respiratory failure/3 L oxygen dependent. Follows with Dr. Clarke Obstructive sleep apnea/CPAP at night COPD Bilateral pleural effusion right greater than left. -2 L Extubated today 01/08. High flow nasal cannula currently at 50% FiO2/30 L. Titrate to keep saturations greater or equal to 92% Albuterol/ipratropium aerosols every 4 hours with albuterol aerosols every 2 hours as needed for dyspnea Budesonide 0.5/2 1 inhalation twice daily. On fluticasone/umeclinide/ Vilanterol 100/60 2.5/25 1 inhalation twice daily at home Patient is on nocturnal CPAP at home. cannot bring in machine as it is too heavy for her Continue methylprednisolone 40 mg IV twice daily Chest x-ray in a.m. 01/10 -stable/small right pleural effusion. Bilateral effusions. CV: Essential hypertension Hyperlipidemia Coronary artery disease Currently normal saline at 84 cc now. Discontinue Weaned off norepinephrine drip. Map greater than equal 65. Home medications include carvedilol 3.125 mg twice daily, hydralazine 50 3 times daily, losartan 50 mg at night and spironolactone 50 mg daily with bumetanide 2 mg daily. We will start on hydralazine 25 3 times daily, carvedilol 3.125 mg twice daily. Hold losartan with acute kidney injury. Restart the amantadine 1 mg daily and prolactin 25 mg daily. As needed labetalol Nitropaste Continue aspirin chew 81 mg daily Continue pravastatin 40 mg daily for dyslipidemia 2D echocardiogram revealed EF 60-65%. No regional wall motion abnormalities. : Condom catheter/Cunningham catheter placed secondary to urinary retention. GI: Hypoalbuminemia Speech therapy. Evaluate and advance diet as tolerated On famotidine for GI prophylaxis, tube feeds-vital high-protein goal 70 cc an hour can be discontinued Docusate sodium/senna 1 tablet twice daily for bowel regimen ID: Sputum -Pseudomonas/stenotrophomonas Staph hominis bacteremia Continue with abx (discontinued aztreonam, Azithromycin, levofloxacin 01/10. Currently on sulfamethoxazole/trimethoprim twice daily #2 through 7 days, on ceftazidime to 7 days day #2 7 Repeat blood cultures today 01/08 Pertinent cultures 01/05 -blood cultures 2 gram-staph hominis. -Repeat blood culture 01/08 with gram -positive cocci. Results pending 01/05 -sputum -Pseudomonas/Stenotrophomonas Negative strep pneumonia and Legionella urinary Ag Heme: Normocytic anemia Monitor CBC No indication for transfusion of blood products at this time Endo: Diabetes mellitus type 2 Gout On glimepiride 4 mg daily at home. SSI for glycemic control every before meals/at bedtime with medium protocol with aspart insulin Start insulin detemir 14 units subcu twice daily On febuxostat at home for gout FEN: Replace electrolytes as clinically indicated per ICU electrolyte protocol Discontinue IV fluids MSK: Elevated BMI Weight loss encouraged DVT GI prophylaxis -Teds SCDs -Subcu heparin -Famotidine Lines- Right IJ CVP day #4 discontinued 01/09 Level 3 follow-up
--- NOTE | 2018-01-11 18:42 | P.PNID ---
Subjective Remarks: ID Xcover for Dr Armstrong 67 M [facility] COPD morbid obesity and recent NSC lung ca with acute VDRF and PNA - PSAE, Steno malt extubated 2nd blood clx + for coag neg staph afebrile c/o cough, unable to expectorate Antibiotics: azithro ceftaz bactrim Past Medical History: lung CA - new dx COPD Allergies/Adverse Reactions: Allergies Iodine and Iodide Containing Produc Allergy (Verified 01/10/18 10:43) Hives has tolerated cephalosporins levofloxacin [From Levaquin] Allergy (Verified 01/10/18 10:57) Hives Penicillins Allergy (Verified 01/10/18 10:58) Hives tolerates cephalosporins Objective Vital Signs 01/10/18 19:58 01/10/18 20:00 01/10/18 23:27 Temperature 98.7 F Pulse Rate 97 H 85 79 Respiratory Rate 18 15 17 Blood Pressure 150/66 H Pulse Oximetry 92 L 89 L 100 01/11/18 00:00 01/11/18 03:21 01/11/18 04:00 Temperature 97.8 F Pulse Rate 74 76 Respiratory Rate 15 25 H Blood Pressure 139/72 155/75 H Pulse Oximetry 98 98 96 01/11/18 07:18 01/11/18 08:00 01/11/18 11:58 Temperature 98.2 F Pulse Rate 80 84 Respiratory Rate 18 16 Blood Pressure 156/53 H Pulse Oximetry 94 L 96 01/11/18 12:00 01/11/18 15:57 01/11/18 16:00 Temperature 97.5 F L 98.0 F Pulse Rate 90 94 H 86 Respiratory Rate 17 Blood Pressure 125/60 Pulse Oximetry 95 Intake & Output 01/10/18 01/11/18 01/11/18 18:59 06:59 18:59 Intake Total 1100 / 1100 0 / 0 100 / 100 Output Total 1650 / 1650 1500 / 1500 Balance -550 / -550 -1500 / -1500 100 / 100 Weight 153.4 kg Intake: IV 100 / 100 100 / 100 Tazicef Inj 2,000 MG In NS Inj 100 / 100 100 / 100 100 ML @ 200 mls/hr IV.SIG Q12H [facility] Rx#:[id number] Oral 1000 / 1000 0 / 0 Tube Feeding 0 / 0 Tube Irrigant 0 / 0 Other 0 / 0 Output: Urine 0 / 0 Stool 0 / 0 Pleural Fluid 0 / 0 Urine Amount (Catheter) 1650 / 1650 1500 / 1500 Indwelling Urethral Catheter 1650 / 1650 1500 / 1500 Gastric Drainage 0 / 0 Pre-Hospital Oral 0 / 0 Other: Date of Last Bowel Movement 01/10/18 01/10/18 01/10/18 # Bowel Movements 1 0 01/08/18 13:20 Blood - Peripheral Aerobic Blood Culture - Preliminary No growth in 3 days 01/08/18 13:20 Blood - Peripheral Anaerobic Blood Culture - Preliminary No growth in 3 days 01/08/18 13:15 Blood - Peripheral Aerobic Blood Culture - Preliminary Staphylococcus coag negative 01/08/18 13:15 Blood - Peripheral Anaerobic Blood Culture - Preliminary No growth in 3 days 01/09/18 16:55 Fluid - Pleural fluid Gram Stain - Final 01/09/18 16:55 Fluid - Pleural fluid Body Fluid Culture - Preliminary No growth in 48 hours 01/05/18 19:55 Blood - Peripheral Aerobic Blood Culture - Final No growth in 5 days 01/05/18 19:55 Blood - Peripheral Anaerobic Blood Culture - Final No growth in 5 days 01/05/18 19:50 Blood - Peripheral Aerobic Blood Culture - Final Staphylococcus hominis-hominis 01/05/18 19:50 Blood - Peripheral Anaerobic Blood Culture - Final No growth in 5 days 01/05/18 23:00 Sputum - Endotracheal Gram Stain - Final 01/05/18 23:00 Sputum - Endotracheal Sputum Culture - Final Pseudomonas aeruginosa Stenotrophomonas maltophilia Lab - Hematology Results 01/10/18 01/11/18 04:01 06:09 WBC 7.7 7.2 RBC 2.90 L 2.94 L Hgb 8.1 L 8.2 L Hct 25.6 L 25.5 L MCV 88.0 86.8 MCH 27.8 27.8 MCHC 31.5 L 32.0 RDW 15.4 15.2 Plt Count 170 157 MPV 8.3 8.0 Prelim Diff (Auto) Slide review pending Neut % (Auto) 86.0 H 85.4 H Lymph % (Auto) 6.6 L 7.0 L Jewell % (Auto) 7.2 7.3 Eos % (Auto) 0.0 0.0 Baso % (Auto) 0.2 0.3 Neut # (Auto) 6.7 6.2 Lymph # (Auto) 0.5 L 0.5 L Jewell # (Auto) 0.6 0.5 Eos # (Auto) 0.0 0.0 Baso # (Auto) 0.0 0.0 WBC Differential . . Diff Scan Auto diff confirmed Differential Comment . Auto diff final Platelet Estimate Normal Platelet Morphology Normal Basophilic Stippling Faint H Lab - Chemistry Results 01/09/18 01/10/18 01/10/18 21:54 01:05 04:01 Sodium Potassium Chloride Carbon Dioxide Anion Gap BUN Creatinine Estimated GFR POC Glucose 257 H 245 H Random Glucose Calcium Phosphorus 3.0 Magnesium 2.4 Lactate Dehydrogenase 216 01/10/18 01/10/18 01/10/18 04:01 05:16 08:06 Sodium 143 Potassium 4.6 Chloride 103 Carbon Dioxide 36.9 H Anion Gap 3 L BUN 45 H Creatinine 1.23 Estimated GFR 58 L POC Glucose 264 H 219 H Random Glucose 219 H Calcium 8.4 L Phosphorus Magnesium Lactate Dehydrogenase 01/10/18 01/10/18 01/10/18 12:25 17:29 19:42 Sodium Potassium Chloride Carbon Dioxide Anion Gap BUN Creatinine Estimated GFR POC Glucose 201 H 203 H 224 H Random Glucose Calcium Phosphorus Magnesium Lactate Dehydrogenase 01/11/18 01/11/18 01/11/18 06:09 11:17 16:05 Sodium 140 Potassium 4.8 Chloride 101 Carbon Dioxide 33.6 H Anion Gap 5 BUN 41 H Creatinine 1.12 Estimated GFR 65 L POC Glucose 202 H 243 H Random Glucose 184 H Calcium 8.5 Phosphorus Magnesium Lactate Dehydrogenase Imaging: ITS Impressions Abdomen/Bladder Ultrasound 01/07/18 00:00 CONCLUSION: 1. No evidence of hydronephrosis on either side. 2. Gallstones. Thoracentesis Ultrasound 01/09/18 00:00 CONCLUSION: 1. Uncomplicated ultrasound-guided right-sided thoracentesis, as above. Chest X-Ray 01/10/18 06:00 CONCLUSION: Right chest tube out. No pneumothorax demonstrated. No significant change right base consolidation and small effusion. Physical Exam: GENERAL: NAD morbidly obese SKIN: Warm and dry. Brown skin discoloration VBL lower legs, cw stasis hyperpigmientation HEAD: Atraumatic. Normocephalic. EYES: Pupils equal and round. No scleral icterus. No injection or drainage. ENT: No nasal bleeding or discharge. Mucous membranes pink and moist. NECK: Trachea midline. No JVD. CARDIOVASCULAR: Regular rate and rhythm. RESPIRATORY: No accessory muscle use. Clear to auscultation. Breath sounds equally diminished bilaterally. GASTROINTESTINAL: Abdomen soft, non-tender, nondistended. Hepatic and splenic margins not palpable. MUSCULOSKELETAL: Extremities without clubbing, cyanosis, or edema. No obvious deformities. NEUROLOGICAL: Awake and alert. No obvious cranial nerve deficits. Motor grossly within normal limits. Five out of 5 muscle strength in the arms and legs. Normal speech. PSYCHIATRIC: Appropriate mood and affect; insight and judgment normal. Assessment and Plan - Plan Impression Respiratory failure, has Hx COPD, has bilateral pleural effusions - has PSAE and Sten mal in sputum C/S, prob more of tracheitis than PNA, he has been extubated despita no RX for these pathogens Bilateral pleural effusions, recurrent problem, etiology? COPD, prob CORINA Recent Dx NSCL Ca, from lung biopsy - had PET scan results not known yet Morbid obesity Allergy to PCN, has tolerated Cephalosporins States he is allergic to levaquin Coag neg staph bacteremia - unknown signoificance Recommendation IV Fortaz and po Bactrim - x 7 days Increase Bacrtim dose, keep monitoring electrolytes and GFR Monitor respiratory status Monitor progress Monitor BC results, no tx if different strains: will dc vanco if 2nd clx with different strai debi Oakley
[2018-01-11] MEDS: MethylPREDNISolone Sod Succinate Inj 40 MG/ML Vial IV.PUSH SCH ×2 (19:24→22:33)
[2018-01-11] MEDS: Insulin NovoLOG Aspart Correctional Sugar Inj SQ SCH ×4 (19:24→22:32)
[2018-01-12] MEDS: Oral Hygiene Kit OROPHARYNG SCH ×4 (02:50→15:19)
[2018-01-12] MEDS: Vancomycin Inj 1,750 MG in Sodium Chlor 0.9% Inj 500 ML IV.SIG SCH (02:50)
[2018-01-12 04:34] LABS: Baso % (Auto) 0.1 % (0.0-2.0); Hematocrit 24.4 % (39.0-51.0); Hemoglobin 7.9 gm/dL (13.0-17.0); Lymph # (Auto) 0.4 th/mm3 (1.0-4.8); Lymph % (Auto) 4.8 % (9.0-44.0); Mean Corpuscular HGB Conc 32.6 % (32.0-36.0); Mean Corpuscular Hemoglobin 28.6 pg (27.0-34.0); Mean Corpuscular Volume 87.7 fL (80.0-100.0); Mean Platelet Volume 8.4 fL (7.0-11.0); Mono # (Auto) 0.5 th/mm3 (0.0-0.9); Mono % (Auto) 6.7 % (0.0-8.0); Neut # (Auto) 7.1 th/mm3 (1.8-7.7); Neut % (Auto) 88.4 % (16.0-70.0); Platelet Count 146 th/mm3 (150-450); Red Blood Count 2.78 mil/mm3 (4.50-5.90); Red Cell Distribution Width 15.8 % (11.6-17.2); White Blood Count 8.1 th/mm3 (4.0-11.0)
[2018-01-12 04:52] LABS: Albumin 2.2 g/dL (3.4-5.0); Anion Gap 4 meq/L (5-15); Aspartate Aminotransferase 12 U/L (15-37); Blood Urea Nitrogen 39 mg/dL (7-18); Calcium 8.8 mg/dL (8.5-10.1); Chloride 101 meq/L (98-107); Glomerular Filtration Rate 63 mL/min (>89); Glucose,Random 193 mg/dL (74-106); Magnesium 2.3 mg/dL (1.5-2.5); Potassium 4.9 meq/L (3.5-5.1); Sodium 138 meq/L (136-145)
[2018-01-12 04:53] LABS: Alanine Aminotransferase 31 U/L (12-78); Phosphorus 3.3 mg/dL (2.5-4.9)
[2018-01-12 04:56] LABS: Alkaline Phosphatase 54 U/L (45-117); Total Protein 5.5 g/dL (6.4-8.2)
[2018-01-12] MEDS: Hypromellose 0.3% Opth Gel 10 GM Bottle EACH EYE SCH ×3 (05:28→21:14)
[2018-01-12] MEDS: Heparin - SQ 10,000 UNITS/ML Vial SQ SCH ×3 (05:28→21:16)
--- NOTE | 2018-01-12 05:29 | XR ---
EXAM DATE: 01/12/2018 5:23 AM EDT AGE/SEX: 67 years / Male INDICATIONS: Follow up pleural effusion. CLINICAL DATA: This is the patient's subsequent encounter. Patient reports that signs and symptoms h ave been present for 1 week and indicates a pain score of Nonresponsive. MEDICAL/SURGICAL HISTORY: Non-responsive. . Chest tube COMPARISON: [facility] [place], CHEST 1V SINGLE AP, 01/10/2018. . FINDINGS: Single AP view the chest. Increased confluent parenchymal opacity at the mid to lower lung zone on th e right. Persistent small right pleural effusion. No evidence of pneumothorax. CONCLUSION: Increased right lung base pulmonary consolidation. Persistent small right pleural effusion. Electronically signed by: Robinson Hankins MD 01/12/2018 5:28 AM EDT
[2018-01-12] MEDS: Insulin NovoLOG Aspart Correctional Sugar Inj SQ SCH ×4 (08:03→21:15)
[2018-01-12] MEDS: Chlorhexidine 0.12% Oral Kit 15 ML UDC OROPHARYNG SCH ×2 (08:04→21:14)
[2018-01-12] MEDS: Sulfamethoxazole/Trimethoprim 400/80 MG Tablet PO SCH ×2 (09:29→21:14)
[2018-01-12] MEDS: Senna/Docusate Sodium 8.6/50 MG Tablet PO SCH ×2 (09:30→21:16)
[2018-01-12] MEDS: Insulin Detemir Inj 1,000 UNIT/10 ML Vial SQ SCH ×2 (09:30→21:15)
[2018-01-12] MEDS: Spironolactone 25 MG Tablet PO SCH ×2 (09:32→18:10)
[2018-01-12] MEDS: hydrALAZINE 50 MG Tablet PO SCH ×3 (09:33→18:10)
[2018-01-12] MEDS: MethylPREDNISolone Sod Succinate Inj 40 MG/ML Vial IV.PUSH SCH (10:17)
--- NOTE | 2018-01-12 12:19 | P.PNCC ---
Subjective Subjective Remarks/Hospital Course: Elderly gentleman with past medical history of CHF, diabetes mellitus, gout, dyslipidemia and hypertension presents with respiratory distress and altered mental status. The patient was intubated by ED attending for an airway protection and respiratory failure. No other information or history is available at this time. 01/06 Patient remains sedated and intubated 01/07: Awake and alert on the ventilator on 100 mcg an hour fentanyl. Tolerating tube feeds at goal. On CPAP trial 03/28 at 50%. Saturation 93. On baseline 3 L at home. His crossing supervisor is Dr. Clarke. 01/08: Extubated today without complication. Currently on high flow nasal cannula at 50%. Saturations 94%. Requesting coffee. Denies chest pain or shortness of breath currently. 01/09: Afebrile. Remains on high flow nasal cannula at 50%. States he has a history of nonspinal lung carcinoma stage for newly diagnosed. Recently hospitalized at [facility] new [place] red bilateral thoracentesis approximately 3 L. 01/10: Afebrile. -2 L from bedside right-sided thoracentesis yesterday. Patient is breathing better. New Stenotrophomonas noted in sputum today. Will consult ID and pulmonology for assistance with management. Obtain records from PET scan from [facility]. Appears comfortable. 01/11: Afebrile. Down to nasal cannula/off high flow nasal cannula. Saturations were 92%. No acute findings overnight. Will check chest x-ray in a.m. SUBJECTIVE: 01/12: Currently on 3 L nasal cannula. Saturations were 92%. Productive cough persists. X-ray with slight increase in right-sided pleural effusion. Will recheck tomorrow might need initial thoracentesis. Objective Vital Signs / I&O: Vital Signs 01/11/18 15:57 01/11/18 16:00 01/11/18 19:52 Temperature 98.0 F Pulse Rate 94 H 86 89 Respiratory Rate 17 22 Blood Pressure 125/60 Pulse Oximetry 95 95 01/11/18 20:00 01/12/18 00:00 01/12/18 03:36 Temperature 98.1 F 97.9 F Pulse Rate 92 H 90 84 Respiratory Rate 22 19 24 Blood Pressure 158/81 H 131/61 Pulse Oximetry 97 95 01/12/18 04:00 01/12/18 08:00 01/12/18 08:24 Temperature 97.9 F 98.2 F Pulse Rate 80 97 H Respiratory Rate 17 24 Blood Pressure 133/71 152/69 H Pulse Oximetry 94 L 93 L 95 01/12/18 11:00 Temperature Pulse Rate 84 Respiratory Rate 18 Blood Pressure Pulse Oximetry Intake & Output 01/11/18 01/12/18 01/12/18 18:59 06:59 18:59 Intake Total 100 / 100 100 / 100 100 / 100 Output Total 3100 / 3100 1425 / 1425 Balance -3000 / -3000 -1325 / -1325 100 / 100 Weight 153.3 kg Intake: IV 100 / 100 100 / 100 100 / 100 Tazicef Inj 2,000 MG In NS Inj 100 / 100 100 / 100 100 / 100 100 ML @ 200 mls/hr IV.SIG Q12H [facility] Rx#:[id number] Oral 0 / 0 0 / 0 Tube Feeding 0 / 0 0 / 0 Tube Irrigant 0 / 0 0 / 0 Other 0 / 0 0 / 0 Output: Urine 0 / 0 0 / 0 Stool 0 / 0 0 / 0 Pleural Fluid 0 / 0 0 / 0 Urine Amount (Catheter) 3100 / 3100 1425 / 1425 Indwelling Urethral Catheter 3100 / 3100 1425 / 1425 Gastric Drainage 0 / 0 0 / 0 Pre-Hospital Oral 0 / 0 0 / 0 Other: Date of Last Bowel Movement 01/10/18 01/10/18 01/10/18 # Bowel Movements 0 0 Result Diagrams: 01/12/18 02:36 01/12/18 02:36 Other Results: Microbiology 01/08/18 13:20 Blood - Peripheral Aerobic Blood Culture - Preliminary No growth in 4 days 01/08/18 13:20 Blood - Peripheral Anaerobic Blood Culture - Preliminary No growth in 4 days 01/08/18 13:15 Blood - Peripheral Aerobic Blood Culture - Preliminary Staphylococcus coag negative 01/08/18 13:15 Blood - Peripheral Anaerobic Blood Culture - Preliminary No growth in 4 days 01/09/18 16:55 Fluid - Pleural fluid Gram Stain - Final 01/09/18 16:55 Fluid - Pleural fluid Body Fluid Culture - Final No growth in 72 hours (aerobically and anaerobically ) 01/05/18 19:55 Blood - Peripheral Aerobic Blood Culture - Final No growth in 5 days 01/05/18 19:55 Blood - Peripheral Anaerobic Blood Culture - Final No growth in 5 days 01/05/18 19:50 Blood - Peripheral Aerobic Blood Culture - Final Staphylococcus hominis-hominis 01/05/18 19:50 Blood - Peripheral Anaerobic Blood Culture - Final No growth in 5 days 01/05/18 23:00 Sputum - Endotracheal Gram Stain - Final 01/05/18 23:00 Sputum - Endotracheal Sputum Culture - Final Pseudomonas aeruginosa Stenotrophomonas maltophilia 01/07/18 15:00 Nasal Wash Influenza Types A,B Antigen - Final Negative for FLU A and B antigen Infection due to influenza A or B cannot be ruled out since the antigen present in the sample may be below the detection limit of the test. 01/06/18 08:45 Urine - Catheterized Urine Legionella Antigen - Final Presumptive negative for Legionella pneumophila serogroup 1 antigen in urine, suggesting no recent or recurrent infection. Infection due to Legionella cannot be ruled out since other serogroups and species may cause disease, antigen may not be present in urine in early infection, and the level of antigen present in the urine may be below the detection limit of the test. 01/06/18 08:45 Urine - Catheterized Urine Streptococcus pneumoniae Antigen ( M - Final Presumptive negative for streptococcus pneumoniae antigen, suggesting no current or recent infection. Infection due to Streptococcus pneumoniae cannot be ruled out since the antigen present in the sample may be below the detection limit of the test. Imaging: Chest X-Ray 01/05/18 19:52 CONCLUSION: Moderate right effusion. Right base atelectasis or consolidation. Chest X-Ray 01/06/18 03:56 CONCLUSION: Bilateral mostly basilar airspace disease. Small to moderate right effusion. Findings similar to January 05. Abdomen/Bladder Ultrasound 01/07/18 00:00 CONCLUSION: 1. No evidence of hydronephrosis on either side. 2. Gallstones. Chest X-Ray 01/08/18 06:00 CONCLUSION: Support apparatus unchanged. Relatively stable basilar airspace disease and right pleural effusion. Chest X-Ray 01/09/18 00:00 CONCLUSION: No pneumothorax is visualized following right thoracentesis. There is residual atelectasis versus airspace consolidation at the right lung base. Thoracentesis Ultrasound 01/09/18 00:00 CONCLUSION: 1. Uncomplicated ultrasound-guided right-sided thoracentesis, as above. Chest X-Ray 01/09/18 06:00 CONCLUSION: Stable exam compared with January 08 bilateral effusions and basilar airspace disease, right greater than left. Previous endotracheal tube has been removed. Chest X-Ray 01/10/18 06:00 CONCLUSION: Right chest tube out. No pneumothorax demonstrated. No significant change right base consolidation and small effusion. Chest X-Ray 01/12/18 06:00 CONCLUSION: Increased right lung base pulmonary consolidation. Persistent small right pleural effusion. Objective Remarks: GENERAL: 67-year-old male currently on nasal cannula in no acute distress SKIN: Warm and dry. Chronic venous stasis lower extremities HEAD: Normocephalic. EYES: No scleral icterus. No injection or drainage. NECK: Supple, trachea midline. No JVD or lymphadenopathy. CARDIOVASCULAR: RRR. S1, S3 no S4. Without murmur RESPIRATORY: Diminished breath sounds bilateral lower lobes right greater than left. No wheezing.. GASTROINTESTINAL: Abdomen soft, non-tender, nondistended. MUSCULOSKELETAL: 1+ bilateral lower extremity edema pretibial Neuro: Cranial nerves II through XII are grossly intact. Strength is equal and symmetric. Moves all 4 extremities spontaneously. Normal sensation. Assessment and Plan - Assessment and Plan Plan: Neuro/Psych: Acetaminophen 650 p.o. every 6 hours as needed fever Morphine sulfate 2 mg IV every 2 hours as needed pain 1 through 10 Pulm: Acute hypoxic/hypercapnic respiratory failure Chronic respiratory failure/3 L oxygen dependent. Follows with Dr. Clarke Obstructive sleep apnea/CPAP at night COPD Bilateral pleural effusion right greater than left. -2 L Extubated today 01/08. High flow nasal cannula currently at 50% FiO2/30 L. Titrate to keep saturations greater or equal to 92% Albuterol/ipratropium aerosols every 4 hours with albuterol aerosols every 2 hours as needed for dyspnea Budesonide 0.5/2 1 inhalation twice daily. On fluticasone/umeclinide/ Vilanterol 100/60 2.5/25 1 inhalation twice daily at home Patient is on nocturnal CPAP at home. cannot bring in machine as it is too heavy for her Continue methylprednisolone 40 mg IV twice daily Chest x-ray in a.m. 01/12 -slight worsening lower lobe infiltrates./small right pleural effusion. Pulmonary consultation ordered CV: Essential hypertension Hyperlipidemia Coronary artery disease Home medications include carvedilol 3.125 mg twice daily, hydralazine 50 3 times daily, losartan 50 mg at night and spironolactone 50 mg daily with bumetanide 2 mg daily. We will start on hydralazine 100 mg 3 times daily, carvedilol 3.125 mg twice daily. Hold losartan with acute kidney injury. Restart bumetanide 1 mg daily and Aldactone 25 mg twice daily.. Added isosorbide dinitrate 10 mg 3 times daily As needed labetalol Nitropaste Continue aspirin chew 81 mg daily Continue pravastatin 40 mg daily for dyslipidemia 2D echocardiogram revealed EF 60-65%. No regional wall motion abnormalities. : Condom catheter/Cunningham catheter placed secondary to urinary retention. GI: Hypoalbuminemia Speech therapy. Evaluate and advance diet as tolerated On famotidine for GI prophylaxis, Docusate sodium/senna 1 tablet twice daily for bowel regimen ID: Sputum -Pseudomonas/stenotrophomonas Staph hominis bacteremia Continue with abx (discontinued aztreonam, Azithromycin, levofloxacin 01/10. Currently on sulfamethoxazole/trimethoprim 2 tablets twice daily #3 through 7 days, on ceftazidime day #3- 7. Likely discontinue vancomycin today. Infectious disease following Pertinent cultures 01/05 -blood cultures 2 gram-staph hominis. -Repeat blood culture 01/08 with gram -positive cocci. Coag negative staph. 01/05 -sputum -Pseudomonas/Stenotrophomonas Negative strep pneumonia and Legionella urinary Ag Heme: Normocytic anemia Monitor CBC No indication for transfusion of blood products at this time Endo: Diabetes mellitus type 2 Gout On glimepiride 4 mg daily at home. SSI for glycemic control every before meals/at bedtime with medium protocol with aspart insulin Start insulin detemir 14 units subcu twice daily On febuxostat at home for gout FEN: Replace electrolytes as clinically indicated per ICU electrolyte protocol Discontinue IV fluids MSK: Elevated BMI Weight loss encouraged DVT GI prophylaxis -Teds SCDs -Subcu heparin -Famotidine Lines- Right IJ CVP day #4 discontinued 01/09 Level 2 follow-up Stable from critical care medicine standpoint. Assign care to hospitalist in a.m. 01/13.
--- NOTE | 2018-01-12 19:19 | MB ---
cc: Jean Gastelum MD DATE: 01/12/2018 REASON FOR CONSULTATION: Pleural effusion and lung mass. HISTORY OF PRESENT ILLNESS: This is a 67-year-old white male with a prior history of COPD, diabetes mellitus, sleep apnea, hypertension, gout, CHF and dyslipidemia, was admitted with respiratory distress and altered mental status. The patient had to be intubated in the ER and placed on ventilator support and was treated for CHF and IV antibiotics, as well as steroids for a right lung pneumonia, and subsequently extubated now and on a nasal cannula at 3 liters. The patient presently is breathing easier. He does have a cough, does not have hemoptysis, fevers or chills. PAST MEDICAL HISTORY: Includes a history for a lung mass in the right lung, for which a CT-guided needle biopsy was done and was found to be non-small cell lung CA. The patient did have a PET/CT and the results are still pending and he has had a brain CT as well. The patient has been on diuretics for a history of CHF and has had history for diabetes, gout, hyperlipidemia. The patient also had a thoracentesis done this week with removal of over a liter of fluid from the right chest and a prior thoracentesis was done last week, with removal of over 2 liters of fluid. He has had a history for cystoscopy and needle biopsy of the lung. HABITS: The patient smoked 1-2 packs per day for over 40 years and alcohol use minimal. 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 FAMILY HISTORY: Mother is alive at age 95. Father of heart trouble. MEDICATIONS: List was reviewed from the chart, also include budesonide nebs b.i.d., albuterol nebs q.i.d. p.r.n., Solu-Medrol 40 mg IV q. 12 hours, pravastatin 40 mg a day, Aldactone 25 mg daily, Bumex 1 mg daily. ALLERGIES: NO DRUG ALLERGIES ARE LISTED. REVIEW OF SYSTEMS: Reveals the patient is overweight. He has obstructive sleep apnea. He has dizziness and postnasal drip. He has cough with expectoration. He has had leg swelling. No calf muscle pain. Has urinary frequency and he has joint pains to the extremities. PHYSICAL EXAMINATION: GENERAL: This very obese, elderly white male, who is alert, , mild peripheral edema. No lymphadenopathy. VITAL SIGNS: Blood pressure 140/70, pulse 85, respirations 18, temperature 98. HEENT: Head is normocephalic. Pupils are reactive and equal. Nasal mucosa injected. Throat is mildly injected. NECK: Supple, without lymphadenopathy. No bruits or thyroid enlargement. CHEST: Equal movements with percussion, resonance throughout, with dullness at the right base. Breath sounds are diminished over the right lower chest, with occasional wheezes bilaterally. HEART: Sounds are irregular S1 and S2, with no murmur. ABDOMEN: Soft, obese, without masses. No organomegaly. No tenderness. EXTREMITIES: Varicosities and decreased pulses. Reflexes are 1+, with no gross motor deficits. NEUROLOGIC: Cranial nerves grossly intact. SKIN: No lesions. IMPRESSION: 1. Right basilar atelectasis and pleural effusion. 2. Probable obstructive pneumonitis. 3. Non-small cell carcinoma of the right lung. 4. Right pleural effusion. 5. Chronic obstructive pulmonary disease and emphysema. 6. Diabetes mellitus. 7. Hypertension. PLAN: The patient will be continued on antibiotic coverage as ordered, which includes Zithromax IV, Azactam and vancomycin. The pleural effusion is recurrent and he may need to have a PleurX catheter placed for recurrent drainage of this area. The patient will also need a pulmonary function study and evaluation by the oncologist for further treatment, including chemo and/or radiation. We will place him on O2 at 3 liters during the day and BiPAP at night set at 12/5 cm and 30% FiO2. A followup chest x-ray to be done. Prophylactic Lovenox to be given when the procedures are completed. I will follow the case with you, Dr. Oakley. Thank you for this consultation. MD CAMERON Duffy/TOY , 04:49 PM , 07:18 PM
[2018-01-13] MEDS: Oral Hygiene Kit OROPHARYNG SCH ×3 (01:21→19:46)
[2018-01-13] MEDS: Vancomycin Inj 1,750 MG in Sodium Chlor 0.9% Inj 500 ML IV.SIG SCH (01:21)
[2018-01-13 04:12] LABS: Baso % (Auto) 0.2 % (0.0-2.0); Eos % (Auto) 0.3 % (0.0-4.0); Hematocrit 25.1 % (39.0-51.0); Hemoglobin 8.1 gm/dL (13.0-17.0); Lymph % (Auto) 9.3 % (9.0-44.0); Mean Corpuscular HGB Conc 32.2 % (32.0-36.0); Mean Corpuscular Hemoglobin 27.9 pg (27.0-34.0); Mean Corpuscular Volume 86.6 fL (80.0-100.0); Mean Platelet Volume 8.1 fL (7.0-11.0); Mono # (Auto) 1.1 th/mm3 (0.0-0.9); Mono % (Auto) 11.1 % (0.0-8.0); Neut # (Auto) 8.1 th/mm3 (1.8-7.7); Neut % (Auto) 79.1 % (16.0-70.0); Platelet Count 150 th/mm3 (150-450); Red Cell Distribution Width 15.9 % (11.6-17.2); White Blood Count 10.3 th/mm3 (4.0-11.0)
[2018-01-13 04:31] LABS: Calcium 8.3 mg/dL (8.5-10.1); Magnesium 2.2 mg/dL (1.5-2.5); Phosphorus 2.8 mg/dL (2.5-4.9); Potassium 4.2 meq/L (3.5-5.1)
[2018-01-13] MEDS: Hypromellose 0.3% Opth Gel 10 GM Bottle EACH EYE SCH ×3 (04:52→21:44)
--- NOTE | 2018-01-13 06:04 | XR ---
EXAM DATE: 01/13/2018 5:39 AM EDT AGE/SEX: 67 years / Male INDICATIONS: Shortness of breath, possible pulmonary disease. CLINICAL DATA: This is the patient's subsequent encounter. Patient reports that signs and symptoms h ave been present for 1 week and indicates a pain score of Nonresponsive. MEDICAL/SURGICAL HISTORY: Non-responsive. Non-responsive. [place] [facility] [place]. . FINDINGS: Persistent, rather extensive right-sided airspace disease with associated effusion. Developing left b asilar consolidation with effusion. Heart size is normal. Osseous structures are intact CONCLUSION: Overall worsening in the radiographic appearance of the chest with worsening right-sided infiltrate a nd developing left basilar consolidation/effusion Electronically signed by: Marc Stewart MD 01/13/2018 6:03 AM EDT
[2018-01-13] MEDS: Heparin - SQ 10,000 UNITS/ML Vial SQ SCH ×2 (06:34→13:44)
--- NOTE | 2018-01-13 09:10 | US ---
EXAM DATE: 01/13/2018 9:04 AM EDT AGE/SEX: 67 years / Male INDICATIONS: Right pleural effusion. CLINICAL DATA: This is the patient's subsequent encounter. Patient reports that signs and symptoms h ave been present for 1 month and indicates a pain score of 0/10. MEDICAL/SURGICAL HISTORY: Congestive heart failure. Diabetes. Hypertension. Gout. Hyperlipid emia. Lipoma. . Cystoscopy. Lung biopsy. COMPARISON: [facility], CT CHEST W/O CONTRAST, 11/20/2017. . MEASUREMENTS: Skin To Parietal Pleura:__3.6 cm Skin To Max Safe Depth:__5.6 cm Estimated Fluid Volume:__434 cc Fluid Composition:__simple FINDINGS: Pleural effusion as above. CONCLUSION: 1. Moderate size pleural effusion. The patient was marked for thoracentesis. Electronically signed by: Alexander Barker MD 01/13/2018 9:08 AM EDT
--- NOTE | 2018-01-13 09:23 | P.PNID ---
Subjective Remarks: Patient is a 67-year-old male with known COPD, on nasal O2 at home 24 hours a day, and just prescribed a BiPAP machine to be used at night, presented to the hospital with severe shortness of breath. He apparently has been having shortness of breath for about a week. Patient has a chronic cough and usually does not bring up any phlegm. He emergently got intubated, and sputum culture is now reported as growing Pseudomonas and stenotrophomonas. Patient has been on Azactam, and Zithromax, and has been successfully extubated 01/08. He is on high flow oxygen. Levaquin was added today. He has not been febrile. His WBC is normal. Chest x-ray has show bilateral pleural effusions, and he had right thoracentesis and took out 2 L of fluid. Plans for left thoracentesis is in process. Patient currently feels a little better as far as his shortness of breath. He denies any chest pain. Patient states that he has not really had any change in his chronic cough. There was no fever or chills, but he has had some occasional sweats. He has not had any nausea or vomiting, swallowing difficulty, GI or any urinary complaints. Patient was recently hospitalized at [facility] in November for about 3 weeks. He was intubated at that time and improved and discharged. Infectious disease consultation has been requested to evaluate patient with Pseudomonas and stenotrophomonas in the sputum. Notes reviewed Tolerating extubation, on 4L nasal O2 Used BIPAP overnight Notes increased SOB last 2 days Suctioning up some brownish phlegm Complains of some chest tightness when he breathes Temps ok BP ok CXR worse infiltrates on R One BC 01/05 (+) Staph hominis Another BC 01/08 (+) Staph epi No rash or itching Antibiotics: Fortaz Bactrim vancomycin Past Medical History: lung CA - new dx COPD Allergies/Adverse Reactions: Allergies Iodine and Iodide Containing Produc Allergy (Verified 01/10/18 10:43) Hives has tolerated cephalosporins levofloxacin [From Levaquin] Allergy (Verified 01/10/18 10:57) Hives Penicillins Allergy (Verified 01/10/18 10:58) Hives tolerates cephalosporins Objective Vital Signs 01/12/18 11:00 01/12/18 12:00 01/12/18 14:39 Temperature 98.2 F Pulse Rate 84 81 91 H Respiratory Rate 18 17 15 Blood Pressure 154/72 H Pulse Oximetry 92 L 01/12/18 15:22 01/12/18 16:00 01/12/18 20:00 Temperature 98.2 F 98.3 F Pulse Rate 86 96 H 90 Respiratory Rate 23 18 Blood Pressure 126/97 H 132/60 Pulse Oximetry 84 L 92 L 01/12/18 20:39 01/12/18 23:50 01/13/18 00:00 Temperature 98.3 F Pulse Rate 92 H 87 85 Respiratory Rate 22 22 16 Blood Pressure 130/59 L Pulse Oximetry 94 L 95 01/13/18 04:00 01/13/18 04:17 01/13/18 04:24 Temperature 98.3 F Pulse Rate 79 92 H Respiratory Rate 22 Blood Pressure 119/59 L Pulse Oximetry 95 01/13/18 08:36 Temperature Pulse Rate Respiratory Rate Blood Pressure Pulse Oximetry 93 L Intake & Output 01/12/18 01/13/18 01/13/18 18:59 06:59 18:59 Intake Total 850 / 850 0 / 0 Output Total 2675 / 2675 1600 / 1600 Balance -1825 / -1825 -1600 / -1600 Weight 152 kg Intake: IV 100 / 100 Tazicef Inj 2,000 MG In NS Inj 100 / 100 100 ML @ 200 mls/hr IV.SIG Q12H [facility] Rx#:[id number] Oral 750 / 750 0 / 0 Tube Feeding 0 / 0 Tube Irrigant 0 / 0 Other 0 / 0 Output: Urine 0 / 0 Stool 0 / 0 Pleural Fluid 0 / 0 Urine Amount (Catheter) 2675 / 2675 1600 / 1600 Indwelling Urethral Catheter 2675 / 2675 1600 / 1600 Gastric Drainage 0 / 0 Pre-Hospital Oral 0 / 0 Other: Date of Last Bowel Movement 01/10/18 01/10/18 # Bowel Movements 0 0 01/08/18 13:15 Blood - Peripheral Aerobic Blood Culture - Final Staphylococcus epidermidis 01/08/18 13:15 Blood - Peripheral Anaerobic Blood Culture - Preliminary No growth in 4 days 01/08/18 13:20 Blood - Peripheral Aerobic Blood Culture - Preliminary No growth in 4 days 01/08/18 13:20 Blood - Peripheral Anaerobic Blood Culture - Preliminary No growth in 4 days 01/09/18 16:55 Fluid - Pleural fluid Gram Stain - Final 01/09/18 16:55 Fluid - Pleural fluid Body Fluid Culture - Final No growth in 72 hours (aerobically and anaerobically ) 01/05/18 19:55 Blood - Peripheral Aerobic Blood Culture - Final No growth in 5 days 01/05/18 19:55 Blood - Peripheral Anaerobic Blood Culture - Final No growth in 5 days 01/05/18 19:50 Blood - Peripheral Aerobic Blood Culture - Final Staphylococcus hominis-hominis 01/05/18 19:50 Blood - Peripheral Anaerobic Blood Culture - Final No growth in 5 days Lab - Hematology Results 01/12/18 01/13/18 02:36 03:46 WBC 8.1 10.3 RBC 2.78 L 2.90 L Hgb 7.9 L 8.1 L Hct 24.4 L 25.1 L MCV 87.7 86.6 MCH 28.6 27.9 MCHC 32.6 32.2 RDW 15.8 15.9 Plt Count 146 L 150 MPV 8.4 8.1 Neut % (Auto) 88.4 H 79.1 H Lymph % (Auto) 4.8 L 9.3 [place] % (Auto) 6.7 11.1 H Eos % (Auto) 0.0 0.3 Baso % (Auto) 0.1 0.2 Neut # (Auto) 7.1 8.1 H Lymph # (Auto) 0.4 L 1.0 [place] # (Auto) 0.5 1.1 H Eos # (Auto) 0.0 0.0 Baso # (Auto) 0.0 0.0 WBC Differential . . Differential Comment Auto diff final Auto diff final Lab - Chemistry Results 01/11/18 01/11/18 01/11/18 11:17 16:05 22:15 Sodium Potassium Chloride Carbon Dioxide Anion Gap BUN Creatinine Estimated GFR POC Glucose 202 H 243 H 247 H Random Glucose Calcium Phosphorus Magnesium Total Bilirubin AST ALT Alkaline Phosphatase Total Protein Albumin 01/12/18 01/12/18 01/12/18 02:36 07:59 11:43 Sodium 138 Potassium 4.9 Chloride 101 Carbon Dioxide 33.0 H Anion Gap 4 L BUN 39 H Creatinine 1.15 Estimated GFR 63 L POC Glucose 223 H 200 H Random Glucose 193 H Calcium 8.8 Phosphorus 3.3 Magnesium 2.3 Total Bilirubin 0.3 AST 12 L ALT 31 Alkaline Phosphatase 54 Total Protein 5.5 L D Albumin 2.2 L 01/12/18 01/12/18 01/13/18 16:44 19:19 03:46 Sodium 140 Potassium 4.2 Chloride 101 Carbon Dioxide 36.0 H Anion Gap 3 L BUN 35 H Creatinine 1.24 Estimated GFR 58 L POC Glucose 232 H 221 H Random Glucose 137 H Calcium 8.3 L Phosphorus 2.8 Magnesium 2.2 Total Bilirubin AST ALT Alkaline Phosphatase Total Protein Albumin 01/13/18 08:36 Sodium Potassium Chloride Carbon Dioxide Anion Gap BUN Creatinine Estimated GFR POC Glucose 116 H Random Glucose Calcium Phosphorus Magnesium Total Bilirubin AST ALT Alkaline Phosphatase Total Protein Albumin Imaging: ITS Impressions Abdomen/Bladder Ultrasound 01/07/18 00:00 CONCLUSION: 1. No evidence of hydronephrosis on either side. 2. Gallstones. Thoracentesis Ultrasound 01/09/18 00:00 CONCLUSION: 1. Uncomplicated ultrasound-guided right-sided thoracentesis, as above. Chest Ultrasound 01/13/18 00:00 CONCLUSION: 1. Moderate size pleural effusion. The patient was marked for thoracentesis. Chest X-Ray 01/13/18 06:00 CONCLUSION: Overall worsening in the radiographic appearance of the chest with worsening right-sided infiltrate and developing left basilar consolidation/effusion Physical Exam: GENERAL: Patient is an obese, well-developed patient, awake and alert, mild SOB when talking, nasal O2 SKIN: Cool and dry. No generalized rash, no ecchymoses and no evidence of embolic lesions. HEAD: Atraumatic. Normocephalic. No temporal wasting, or tenderness. EYES: [place] conjunctiva. No petechia or hemorrhage. Pupils equal, round and reactive to light. Extraocular movements full and intact. No scleral icterus. No injection or drainage. EARS, NOSE AND THROAT: Nose without bleeding or purulent nasal discharge. No sinus tenderness. Mucous membranes pink and moist. No oral lesions noted. No exudate. No oral thrush. NECK: Trachea midline. Supple and not tender, no meningeal signs CARDIOVASCULAR: Regular rate and rhythm. No murmurs, rubs or gallops heard RESPIRATORY: Occ wheezing upper lung parks, decreased at bases. ABDOMEN: Soft, obese, non-tender, nondistended. Bowel sounds present and normoactive. No guarding. No rebound. No organomegaly. EXTREMITIES: No clubbing, cyanosis. Has some pedal edema, and chronic pigmentation legs and feet. No calf tenderness. Well perfused and warm. NEUROLOGICAL: Grossly non-focal. PSYCHIATRIC: Normal affect, calm and cooperative. LINE: No evidence of infection Assessment and Plan - Plan Impression Respiratory failure, has Hx COPD, has bilateral pleural effusions - has PSAE and Sten mal in sputum C/S, prob more of tracheitis than PNA, he has been extubated despite no RX for these pathogens Bilateral pleural effusions, recurrent problem, etiology? COPD, prob CORINA Recent Dx NSCL Ca, from lung biopsy - had PET scan results not known yet Morbid obesity Allergy to PCN, has tolerated Cephalosporins States he is allergic to levaquin Coag neg staph bacteremia - C/W contamination, 2 different Coag Neg Staph Recommendation Continue IV Fortaz and po Bactrim - x 7 days Repeat BMP - may need to decrease Bactrim dose again repeat sputum G/S C/S Stop Vancomycin Monitor respiratory status Monitor progress
[2018-01-13] MEDS: MethylPREDNISolone Sod Succinate Inj 40 MG/ML Vial IV.PUSH SCH (09:49)
[2018-01-13] MEDS: Senna/Docusate Sodium 8.6/50 MG Tablet PO SCH ×2 (09:50→21:45)
[2018-01-13] MEDS: Sulfamethoxazole/Trimethoprim 400/80 MG Tablet PO SCH ×2 (09:52→21:43)
[2018-01-13] MEDS: hydrALAZINE 50 MG Tablet PO SCH ×3 (09:53→18:10)
[2018-01-13] MEDS: Chlorhexidine 0.12% Oral Kit 15 ML UDC OROPHARYNG SCH ×2 (09:56→21:44)
[2018-01-13] MEDS: Spironolactone 25 MG Tablet PO SCH ×2 (10:07→18:10)
[2018-01-13] MEDS: Insulin Detemir Inj 1,000 UNIT/10 ML Vial SQ SCH ×2 (10:10→21:43)
[2018-01-13] MEDS: Insulin NovoLOG Aspart Correctional Sugar Inj SQ SCH ×3 (10:31→22:41)
--- NOTE | 2018-01-13 12:45 | P.DIET ---
Nutritional Evaluation Type of nutrition evaluation: follow-up Nutrition consult regarding: Tube Feeding, Diet Evaluation Subjective Subjective Comments: Pt states he does not have much of an appetite yet. He states he does not like the consistency and taste of his present diet. Has agreed to try Glucerna shakes. Objective - Diagnosis Respiratory Failure - Objective % IBW: 185 Body Weight Used for Calculations: IBW (81kg) Energy Needs - Lower Range (kCal/kg): 25 Energy Needs - Upper Range (kCal/kg): 30 Lower Limit kCal/kg (kCals): 2,025 Upper Limit kCal/kg (kCals): 2,430 Lower Limit Protein Factor (Grams per Kg): 1.2 Upper Limit Protein Factor (Grams per Kg): 1.5 Lower Protein Needs (Protein): 97 Upper Protein Needs (Protein): 122 Dietitian Reviewed in Medical Record: Current diet, Curent medications, Intake & Output, Labs Diet Order: 1800 [facility] soft with chopped meat Speech Therapy Recommendations: Yes Objective Comments: Hx includes CHF, DM, gout, dyslipidemia, HTN Feeding - Current Tube Feeding Tube Feeding Product: Glucerna 1.5 Assessment Assessment: Pt remains at nutritional risk r/t current clinical status. Pt extubated 01/08 and is on a diabetic mech soft diet per speech. Adequate po intake has not yet been established. Obtained food preferences, will provide Glucerna bid, each bottle contains 220 kcals and 10 gms protein. Reviewed meds, labs, MD notes. Will monitor clinical course. Recommendations: [address] [facility] soft diet Glucerna BID Dietitian to Monitor: Lab values, Supplement acceptance, Intake & Output, Diet tolerance, Weight change, Diet advancement, Medical course
--- NOTE | 2018-01-13 13:12 | P.PNIM ---
Subjective Interval history: Patient is tolerating BiPAP overnight. No complaints. Possible thoracentesis based on pending report from chest ultrasound. If no thoracentesis plan patient may be stable for transfer out of ICU. Physical Exam Vital signs: Vital Signs 01/12/18 14:39 01/12/18 15:22 01/12/18 16:00 Temperature 98.2 F Pulse Rate 91 H 86 96 H Respiratory Rate 15 23 Blood Pressure 126/97 H Pulse Oximetry 84 L 01/12/18 20:00 01/12/18 20:39 01/12/18 23:50 Temperature 98.3 F Pulse Rate 90 92 H 87 Respiratory Rate 18 22 22 Blood Pressure 132/60 Pulse Oximetry 92 L 94 L 01/13/18 00:00 01/13/18 04:00 01/13/18 04:17 Temperature 98.3 F 98.3 F Pulse Rate 85 79 Respiratory Rate 16 Blood Pressure 130/59 L 119/59 L Pulse Oximetry 95 95 01/13/18 04:24 01/13/18 08:36 01/13/18 10:51 Temperature Pulse Rate 92 H 95 H Respiratory Rate 22 16 Blood Pressure Pulse Oximetry 93 L Intake & Output 01/12/18 01/13/18 01/13/18 18:59 06:59 18:59 Intake Total 850 / 850 0 / 0 100 / 100 Output Total 2675 / 2675 1600 / 1600 Balance -1825 / -1825 -1600 / -1600 100 / 100 Weight 152 kg Intake: IV 100 / 100 100 / 100 Tazicef Inj 2,000 MG In NS Inj 100 / 100 100 / 100 100 ML @ 200 mls/hr IV.SIG Q12H [facility] Rx#:[id number] Oral 750 / 750 0 / 0 Tube Feeding 0 / 0 Tube Irrigant 0 / 0 Other 0 / 0 Output: Urine 0 / 0 Stool 0 / 0 Pleural Fluid 0 / 0 Urine Amount (Catheter) 2675 / 2675 1600 / 1600 Indwelling Urethral Catheter 2675 / 2675 1600 / 1600 Gastric Drainage 0 / 0 Pre-Hospital Oral 0 / 0 Other: Date of Last Bowel Movement 01/10/18 01/10/18 01/10/18 # Bowel Movements 0 0 Narrative: GENERAL: NAD, A&Ox3 HEAD: Normocephalic. NECK: Supple, trachea midline. No lymphadenopathy. EYES: No scleral icterus. No injection or drainage. CARDIOVASCULAR: Regular rate and rhythm without murmurs, gallops, or rubs. RESPIRATORY: Breath sounds equal bilaterally. No accessory muscle use. GASTROINTESTINAL: Abdomen soft, non-tender, nondistended. MUSCULOSKELETAL: No cyanosis, or edema. SKIN: Warm and dry. NEURO: No focal neurological deficits. - Urinary Catheter Management Indwelling Temp Sensing Catheter Cath placed during this visit: yes, but has since been removed by the nurse Reason for continuing: Chronic Urinary Retention Insertion date: 01/08/18 Insertion time: 17:15 Removal date: 01/07/18 Removal time: 10:00 Indwelling Urethral Catheter Cath placed during this visit: yes Reason for continuing: Chronic Urinary Retention Insertion date: 01/08/18 Results - Labs CBC & Chem 7: 01/13/18 03:46 01/13/18 03:46 Laboratory Results - last 24 hr 01/12/18 01/12/18 01/13/18 16:44 19:19 03:46 WBC 10.3 RBC 2.90 L Hgb 8.1 L Hct 25.1 L MCV 86.6 MCH 27.9 MCHC 32.2 RDW 15.9 Plt Count 150 MPV 8.1 Neut % (Auto) 79.1 H Lymph % (Auto) 9.3 [place] % (Auto) 11.1 H Eos % (Auto) 0.3 Baso % (Auto) 0.2 Neut # (Auto) 8.1 H Lymph # (Auto) 1.0 [place] # (Auto) 1.1 H Eos # (Auto) 0.0 Baso # (Auto) 0.0 WBC Differential . Differential Comment Auto diff final Sodium Potassium Chloride Carbon Dioxide Anion Gap BUN Creatinine Estimated GFR POC Glucose 232 H 221 H Random Glucose Calcium Phosphorus Magnesium 01/13/18 01/13/18 03:46 08:36 WBC RBC Hgb Hct MCV MCH MCHC RDW Plt Count MPV Neut % (Auto) Lymph % (Auto) [place] % (Auto) Eos % (Auto) Baso % (Auto) Neut # (Auto) Lymph # (Auto) [place] # (Auto) Eos # (Auto) Baso # (Auto) WBC Differential Differential Comment Sodium 140 Potassium 4.2 Chloride 101 Carbon Dioxide 36.0 H Anion Gap 3 L BUN 35 H Creatinine 1.24 Estimated GFR 58 L POC Glucose 116 H Random Glucose 137 H Calcium 8.3 L Phosphorus 2.8 Magnesium 2.2 Microbiology 01/08/18 13:20 Blood - Peripheral Aerobic Blood Culture - Final No growth in 5 days 01/08/18 13:20 Blood - Peripheral Anaerobic Blood Culture - Final No growth in 5 days 01/08/18 13:15 Blood - Peripheral Aerobic Blood Culture - Final Staphylococcus epidermidis 01/08/18 13:15 Blood - Peripheral Anaerobic Blood Culture - Final No growth in 5 days - Imaging Impressions Chest Ultrasound 01/13/18 00:00 CONCLUSION: 1. Moderate size pleural effusion. The patient was marked for thoracentesis. Chest X-Ray 01/13/18 06:00 CONCLUSION: Overall worsening in the radiographic appearance of the chest with worsening right-sided infiltrate and developing left basilar consolidation/effusion Assessment and Plan - Plan 67-year-old male admitted for altered mental status with respiratory failure, intubated for airway protection Acute hypoxic/hypercapnic respiratory failure Chronic respiratory failure/3 L oxygen dependent. Follows with Dr. Clarke Obstructive sleep apnea/CPAP at night COPD Bilateral pleural effusion right greater than left. -2 L Extubated 01/08. Continue albuterol as needed Continue the desonide Continue CPAP at night Continue IV steroids Right pleural effusion Ultrasound completed, report pending to determine volume Pulmonology following Essential hypertension Hyperlipidemia Coronary artery disease Continue hydralazine 100 mg 3 times daily, carvedilol 3.125 mg twice daily. Hold losartan with acute kidney injury. Continue bumetanide 1 mg daily and Aldactone 25 mg twice daily.. Continue isosorbide dinitrate 10 mg 3 times daily As needed labetalol As needed Nitropaste Continue aspirin chew 81 mg daily Continue pravastatin 40 mg daily for dyslipidemia Hypoalbuminemia Continue diet Sputum -Pseudomonas/stenotrophomonas Staph hominis bacteremia Continue Bactrim Continue ceftazidime Infectious disease following Follow cultures Normocytic anemia Follow CBC No indication for transfusion of blood products at this time Diabetes mellitus type 2 Follow blood sugars Insulin sliding scale Diabetic diet Gout No exacerbation Follow clinically Continue baseline treatment DVT prophylaxis SCDs and heparin
--- NOTE | 2018-01-13 19:04 | P.PN ---
Subjective Interval history: He is still SOB and on O 2 4 L On Antibiotics BiPAP at HS Physical Exam Vital signs: Vital Signs 01/12/18 20:00 01/12/18 20:39 01/12/18 23:50 Temperature 98.3 F Pulse Rate 90 92 H 87 Respiratory Rate 18 22 22 Blood Pressure 132/60 Pulse Oximetry 92 L 94 L 01/13/18 00:00 01/13/18 04:00 01/13/18 04:17 Temperature 98.3 F 98.3 F Pulse Rate 85 79 Respiratory Rate 16 Blood Pressure 130/59 L 119/59 L Pulse Oximetry 95 95 01/13/18 04:24 01/13/18 08:00 01/13/18 08:36 Temperature 98.7 F Pulse Rate 92 H 87 Respiratory Rate 22 16 Blood Pressure 134/58 L Pulse Oximetry 95 93 L 01/13/18 10:51 01/13/18 12:00 01/13/18 15:00 Temperature 98.8 F Pulse Rate 95 H 92 H 104 H Respiratory Rate 16 11 L 24 Blood Pressure 144/72 H Pulse Oximetry 93 L Intake & Output 01/12/18 01/13/18 01/13/18 18:59 06:59 18:59 Intake Total 850 / 850 0 / 0 100 / 100 Output Total 2675 / 2675 1600 / 1600 Balance -1825 / -1825 -1600 / -1600 100 / 100 Weight 152 kg Intake: IV 100 / 100 100 / 100 Tazicef Inj 2,000 MG In NS Inj 100 / 100 100 / 100 100 ML @ 200 mls/hr IV.SIG Q12H [facility] Rx#:[id number] Oral 750 / 750 0 / 0 Tube Feeding 0 / 0 Tube Irrigant 0 / 0 Other 0 / 0 Output: Urine 0 / 0 Stool 0 / 0 Pleural Fluid 0 / 0 Urine Amount (Catheter) 2675 / 2675 1600 / 1600 Indwelling Urethral Catheter 2675 / 2675 1600 / 1600 Gastric Drainage 0 / 0 Pre-Hospital Oral 0 / 0 Other: Date of Last Bowel Movement 01/10/18 01/10/18 01/10/18 # Bowel Movements 0 0 Narrative: GENERAL: Obese elderly W/M NAD, A&Ox3 HEAD: Normocephalic. NECK: Supple, trachea midline. No lymphadenopathy. EYES: No scleral icterus. No injection or drainage. CARDIOVASCULAR: Regular rate and rhythm without murmurs, gallops, or rubs. RESPIRATORY: Breath sounds equal bilaterally. Occ Right base crackles. accessory muscle use. GASTROINTESTINAL: Abdomen soft, non-tender, nondistended. MUSCULOSKELETAL: No cyanosis,2 + edema. SKIN: Warm and dry. NEURO: No focal neurological deficits. - Urinary Catheter Management Indwelling Temp Sensing Catheter Cath placed during this visit: yes, but has since been removed by the nurse Reason for continuing: Chronic Urinary Retention Insertion date: 01/08/18 Insertion time: 17:15 Removal date: 01/07/18 Removal time: 10:00 Indwelling Urethral Catheter Cath placed during this visit: yes Reason for continuing: Chronic Urinary Retention Insertion date: 01/08/18 Results - Labs CBC & Chem 7: 01/13/18 03:46 01/13/18 03:46 Laboratory Results - last 24 hr 01/12/18 01/13/18 01/13/18 19:19 03:46 03:46 WBC 10.3 RBC 2.90 L Hgb 8.1 L Hct 25.1 L MCV 86.6 MCH 27.9 MCHC 32.2 RDW 15.9 Plt Count 150 MPV 8.1 Neut % (Auto) 79.1 H Lymph % (Auto) 9.3 [place] % (Auto) 11.1 H Eos % (Auto) 0.3 Baso % (Auto) 0.2 Neut # (Auto) 8.1 H Lymph # (Auto) 1.0 [place] # (Auto) 1.1 H Eos # (Auto) 0.0 Baso # (Auto) 0.0 WBC Differential . Differential Comment Auto diff final Sodium 140 Potassium 4.2 Chloride 101 Carbon Dioxide 36.0 H Anion Gap 3 L BUN 35 H Creatinine 1.24 Estimated GFR 58 L POC Glucose 221 H Random Glucose 137 H Calcium 8.3 L Phosphorus 2.8 Magnesium 2.2 01/13/18 01/13/18 08:36 18:16 WBC RBC Hgb Hct MCV MCH MCHC RDW Plt Count MPV Neut % (Auto) Lymph % (Auto) [place] % (Auto) Eos % (Auto) Baso % (Auto) Neut # (Auto) Lymph # (Auto) [place] # (Auto) Eos # (Auto) Baso # (Auto) WBC Differential Differential Comment Sodium Potassium Chloride Carbon Dioxide Anion Gap BUN Creatinine Estimated GFR POC Glucose 116 H 304 H Random Glucose Calcium Phosphorus Magnesium Microbiology 01/08/18 13:20 Blood - Peripheral Aerobic Blood Culture - Final No growth in 5 days 01/08/18 13:20 Blood - Peripheral Anaerobic Blood Culture - Final No growth in 5 days 01/08/18 13:15 Blood - Peripheral Aerobic Blood Culture - Final Staphylococcus epidermidis 01/08/18 13:15 Blood - Peripheral Anaerobic Blood Culture - Final No growth in 5 days - Imaging Impressions Chest Ultrasound 01/13/18 00:00 CONCLUSION: 1. Moderate size pleural effusion. The patient was marked for thoracentesis. Chest X-Ray 01/13/18 06:00 CONCLUSION: Overall worsening in the radiographic appearance of the chest with worsening right-sided infiltrate and developing left basilar consolidation/effusion Assessment and Plan - Assessment (1) Pneumonia Code(s): J18.9 - Pneumonia, unspecified organism Status: Acute Plan: Cont antibiotics per ID. Duonebs qid O 2 at 4 L (2) COPD (chronic obstructive pulmonary disease) with chronic bronchitis Code(s): J44.9 - Chronic obstructive pulmonary disease, unspecified Status: Acute (3) Pleural effusion associated with pulmonary infection Code(s): J18.9 - Pneumonia, unspecified organism; J91.8 - Pleural effusion in other conditions classified elsewhere Status: Acute Plan: Pleur X Catheter per radiology (4) Non-small cell cancer of right lung Code(s): C34.91 - Malignant neoplasm of unspecified part of right bronchus or lung Status: Acute Plan: Oncology Evaluation (5) Sleep apnea with hypersomnolence Code(s): G47.10 - Hypersomnia, unspecified; G47.30 - Sleep apnea, unspecified Status: Acute Plan: BiPAP 15/5 cm at HS (6) Obesity Code(s): E66.9 - Obesity, unspecified Status: Acute (7) Hypertension Code(s): I10 - Essential (primary) hypertension Status: Acute (8) Diabetes 1.5, managed as type 2 Code(s): E10.9 - Type 1 diabetes mellitus without complications Status: Acute - Plan 1. Will continue O2 4 L and wean. 2. Neb sqid duoneb 3. Continue antibiotics per ID 4. Have IR to place Pleur X catheter in Right chest
[2018-01-14] MEDS ORDERED: Pharmacy Ordered Lab Info OTHER ONE (00:45)
[2018-01-14] MEDS: Oral Hygiene Kit OROPHARYNG SCH ×4 (01:49→18:20)
[2018-01-14 04:34] LABS: Baso % (Auto) 0.5 % (0.0-2.0); Eos % (Auto) 0.3 % (0.0-4.0); Hematocrit 25.4 % (39.0-51.0); Hemoglobin 8.3 gm/dL (13.0-17.0); Lymph # (Auto) 0.8 th/mm3 (1.0-4.8); Lymph % (Auto) 7.7 % (9.0-44.0); Mean Corpuscular HGB Conc 32.8 % (32.0-36.0); Mean Corpuscular Hemoglobin 28.6 pg (27.0-34.0); Mean Platelet Volume 8.7 fL (7.0-11.0); Mono # (Auto) 1.2 th/mm3 (0.0-0.9); Mono % (Auto) 11.1 % (0.0-8.0); Neut # (Auto) 8.5 th/mm3 (1.8-7.7); Neut % (Auto) 80.4 % (16.0-70.0); Platelet Count 157 th/mm3 (150-450); Red Blood Count 2.91 mil/mm3 (4.50-5.90); Red Cell Distribution Width 16.6 % (11.6-17.2); White Blood Count 10.6 th/mm3 (4.0-11.0)
[2018-01-14 05:03] LABS: Albumin 2.3 g/dL (3.4-5.0); Anion Gap 4 meq/L (5-15); Aspartate Aminotransferase 12 U/L (15-37); Blood Urea Nitrogen 32 mg/dL (7-18); Calcium 8.5 mg/dL (8.5-10.1); Carbon Dioxide 36.6 meq/L (21.0-32.0); Chloride 97 meq/L (98-107); Glomerular Filtration Rate 56 mL/min (>89); Glucose,Random 151 mg/dL (74-106); Potassium 4.2 meq/L (3.5-5.1); Sodium 138 meq/L (136-145)
[2018-01-14 05:05] LABS: Alanine Aminotransferase 26 U/L (12-78)
[2018-01-14 05:07] LABS: Alkaline Phosphatase 52 U/L (45-117); Total Protein 5.6 g/dL (6.4-8.2)
[2018-01-14] MEDS: Hypromellose 0.3% Opth Gel 10 GM Bottle EACH EYE SCH ×3 (05:09→23:06)
[2018-01-14] MEDS: Insulin NovoLOG Aspart Correctional Sugar Inj SQ SCH ×5 (08:00→23:07)
[2018-01-14] MEDS: hydrALAZINE 50 MG Tablet PO SCH ×3 (09:10→18:05)
[2018-01-14] MEDS: Sulfamethoxazole/Trimethoprim 400/80 MG Tablet PO SCH ×2 (09:10→23:51)
[2018-01-14] MEDS: Chlorhexidine 0.12% Oral Kit 15 ML UDC OROPHARYNG SCH ×2 (09:11→23:04)
[2018-01-14] MEDS: MethylPREDNISolone Sod Succinate Inj 40 MG/ML Vial IV.PUSH SCH (09:12)
[2018-01-14] MEDS: Spironolactone 25 MG Tablet PO SCH ×2 (09:28→18:05)
--- NOTE | 2018-01-14 10:07 | P.DCO ---
- Home Health Nursing Order: Medical education, Signs/symptoms of disease process, Wound care and dressing changes, Nursing assessment with vital signs Instructions: Monitor Aspira Drain - Certification I have seen patient Kareem Penn on 01/14/18. My clinical findings support the need for the requested home health care services because: Limited mobility due to disease progression, Deconditioned with increased weakness, Infection with risk of complications I certify that my clinical findings support that this patient is homebound because: Unsteady gait/balance, Unsafe to leave home unassisted, Unable to use public transportation
--- NOTE | 2018-01-14 11:07 | P.PNIM ---
Subjective Interval history: Pleurx catheter placement pending for today. Sputum cultures have grown Pseudomonas. Patient has no new complaints. He has been on 4-5 L oxygen nasal cannula. Physical Exam Vital signs: Vital Signs 01/13/18 12:00 01/13/18 13:00 01/13/18 14:00 Temperature 98.8 F Pulse Rate 92 H 95 H 101 H Respiratory Rate 11 L 14 18 Blood Pressure 144/72 H 152/69 H Pulse Oximetry 93 L 90 L 86 L 01/13/18 14:01 01/13/18 15:00 01/13/18 15:04 Temperature Pulse Rate 102 H 104 H 104 H Respiratory Rate 17 14 22 Blood Pressure 122/50 L 117/70 Pulse Oximetry 90 L 90 L 92 L 01/13/18 16:00 01/13/18 17:00 01/13/18 18:00 Temperature Pulse Rate 105 H 101 H 101 H Respiratory Rate 25 H 7 L 12 Blood Pressure 102/66 116/59 L 123/62 Pulse Oximetry 91 L 92 L 94 L 01/13/18 19:00 01/13/18 19:20 01/13/18 19:49 Temperature Pulse Rate 117 H 109 H 100 H Respiratory Rate 30 H 18 16 Blood Pressure 130/57 L Pulse Oximetry 91 L 89 L 01/13/18 19:50 01/13/18 20:00 01/13/18 21:00 Temperature 98.6 F Pulse Rate 103 H 102 H Respiratory Rate 16 19 Blood Pressure 131/63 146/69 H Pulse Oximetry 92 L 94 L 92 L 01/13/18 22:00 01/13/18 22:01 01/13/18 23:00 Temperature Pulse Rate 101 H 103 H 96 H Respiratory Rate 16 16 16 Blood Pressure 116/60 131/62 Pulse Oximetry 92 L 94 L 92 L 01/13/18 23:19 01/14/18 00:00 01/14/18 00:09 Temperature 98.7 F Pulse Rate 100 H 93 H Respiratory Rate 20 16 Blood Pressure 117/59 L Pulse Oximetry 89 L 94 L 01/14/18 01:00 01/14/18 02:00 01/14/18 03:00 Temperature Pulse Rate 79 84 92 H Respiratory Rate 16 15 19 Blood Pressure 119/62 126/63 127/72 Pulse Oximetry 92 L 93 L 92 L 01/14/18 03:10 01/14/18 04:00 01/14/18 05:00 Temperature 98.6 F Pulse Rate 92 H 90 82 Respiratory Rate 20 16 16 Blood Pressure 117/74 123/56 L Pulse Oximetry 94 L 93 L 01/14/18 06:00 01/14/18 07:00 01/14/18 08:20 Temperature Pulse Rate 92 H 93 H 96 H Respiratory Rate 15 16 27 H Blood Pressure 122/56 L 130/73 Pulse Oximetry 94 L 92 L 97 Intake & Output 01/13/18 01/14/18 01/14/18 18:59 06:59 18:59 Intake Total 200 / 200 600 / 600 100 / 100 Output Total 2600 / 2600 950 / 950 Balance -2400 / -2400 -350 / -350 100 / 100 Weight 149.9 kg Intake: IV 200 / 200 100 / 100 Tazicef Inj 2,000 MG In NS Inj 200 / 200 100 / 100 100 ML @ 200 mls/hr IV.SIG Q12H LORI Rx#:[id number] Oral 600 / 600 Output: Stool 0 / 0 Urine Amount (Catheter) 2600 / 2600 950 / 950 Indwelling Urethral Catheter 2600 / 2600 950 / 950 Other: Date of Last Bowel Movement 01/10/18 01/10/18 # Bowel Movements 0 Narrative: GENERAL: NAD, A&Ox3 HEAD: Normocephalic. NECK: Supple, trachea midline. No lymphadenopathy. EYES: No scleral icterus. No injection or drainage. CARDIOVASCULAR: Regular rate and rhythm without murmurs, gallops, or rubs. RESPIRATORY: Breath sounds equal bilaterally. No accessory muscle use. GASTROINTESTINAL: Abdomen soft, non-tender, nondistended. MUSCULOSKELETAL: No cyanosis, or edema. SKIN: Warm and dry. NEURO: No focal neurological deficits. - Urinary Catheter Management Indwelling Temp Sensing Catheter Cath placed during this visit: yes, but has since been removed by the nurse Reason for continuing: Chronic Urinary Retention Insertion date: 01/08/18 Insertion time: 17:15 Removal date: 01/07/18 Removal time: 10:00 Indwelling Urethral Catheter Cath placed during this visit: yes, but has since been removed by the nurse Reason for continuing: Chronic Urinary Retention Insertion date: 01/08/18 Removal date: 01/14/18 Removal time: 06:40 Results - Labs CBC & Chem 7: 01/14/18 02:57 01/14/18 02:57 Laboratory Results - last 24 hr 01/13/18 01/13/18 01/14/18 18:16 21:41 02:57 WBC 10.6 RBC 2.91 L Hgb 8.3 L Hct 25.4 L MCV 87.0 MCH 28.6 MCHC 32.8 RDW 16.6 Plt Count 157 MPV 8.7 Neut % (Auto) 80.4 H Lymph % (Auto) 7.7 L Sherman % (Auto) 11.1 H Eos % (Auto) 0.3 Baso % (Auto) 0.5 Neut # (Auto) 8.5 H Lymph # (Auto) 0.8 L Sherman # (Auto) 1.2 H Eos # (Auto) 0.0 Baso # (Auto) 0.0 WBC Differential . Differential Comment Auto diff final Sodium Potassium Chloride Carbon Dioxide Anion Gap BUN Creatinine Estimated GFR POC Glucose 304 H 278 H Random Glucose Calcium Total Bilirubin AST ALT Alkaline Phosphatase Total Protein Albumin 01/14/18 01/14/18 02:57 09:07 WBC RBC Hgb Hct MCV MCH MCHC RDW Plt Count MPV Neut % (Auto) Lymph % (Auto) Sherman % (Auto) Eos % (Auto) Baso % (Auto) Neut # (Auto) Lymph # (Auto) Sherman # (Auto) Eos # (Auto) Baso # (Auto) WBC Differential Differential Comment Sodium 138 Potassium 4.2 Chloride 97 L Carbon Dioxide 36.6 H Anion Gap 4 L BUN 32 H Creatinine 1.27 Estimated GFR 56 L POC Glucose 145 H Random Glucose 151 H Calcium 8.5 Total Bilirubin 0.3 AST 12 L ALT 26 Alkaline Phosphatase 52 Total Protein 5.6 L Albumin 2.3 L Microbiology 01/08/18 13:20 Blood - Peripheral Aerobic Blood Culture - Final No growth in 5 days 01/08/18 13:20 Blood - Peripheral Anaerobic Blood Culture - Final No growth in 5 days 01/08/18 13:15 Blood - Peripheral Aerobic Blood Culture - Final Staphylococcus epidermidis 01/08/18 13:15 Blood - Peripheral Anaerobic Blood Culture - Final No growth in 5 days Assessment and Plan - Plan 67-year-old male admitted for altered mental status with respiratory failure, intubated for airway protection Pleurx placement today. Sputum cultures are still positive for Pseudomonas. ID following and Bactrim and ceftazidime will be continued. Patient stable for transfer out of ICU. Acute hypoxic/hypercapnic respiratory failure Chronic respiratory failure/3 L oxygen dependent. Follows with Dr. Clarke Obstructive sleep apnea/CPAP at night COPD Bilateral pleural effusion right greater than left. -2 L Extubated 01/08. Continue albuterol as needed Continue the desonide Continue CPAP at night Continue IV steroids Right pleural effusion Ultrasound completed, report pending to determine volume Pulmonology following Essential hypertension Hyperlipidemia Coronary artery disease Continue hydralazine 100 mg 3 times daily, carvedilol 3.125 mg twice daily. Hold losartan with acute kidney injury. Continue bumetanide 1 mg daily and Aldactone 25 mg twice daily.. Continue isosorbide dinitrate 10 mg 3 times daily As needed labetalol As needed Nitropaste Continue aspirin chew 81 mg daily Continue pravastatin 40 mg daily for dyslipidemia Hypoalbuminemia Continue diet Sputum -Pseudomonas/stenotrophomonas Staph hominis bacteremia Continue Bactrim Continue ceftazidime Infectious disease following Follow cultures Normocytic anemia Follow CBC No indication for transfusion of blood products at this time Diabetes mellitus type 2 Follow blood sugars Insulin sliding scale Diabetic diet Gout No exacerbation Follow clinically Continue baseline treatment DVT prophylaxis SCDs and heparin
[2018-01-14] MEDS: Insulin Detemir Inj 1,000 UNIT/10 ML Vial SQ SCH ×2 (15:16→23:06)
[2018-01-14] MEDS: Senna/Docusate Sodium 8.6/50 MG Tablet PO SCH ×2 (15:17→23:08)
--- NOTE | 2018-01-14 19:36 | P.PN ---
Subjective Interval history: He is alert and on o2 2 L. Will go for Pleur X catheter today.Used BiPAP at HS Has some leg edema Physical Exam Vital signs: Vital Signs 01/13/18 19:49 01/13/18 19:50 01/13/18 20:00 Temperature 98.6 F Pulse Rate 100 H 103 H Respiratory Rate 16 16 Blood Pressure 131/63 Pulse Oximetry 92 L 94 L 01/13/18 21:00 01/13/18 22:00 01/13/18 22:01 Temperature Pulse Rate 102 H 101 H 103 H Respiratory Rate 19 16 16 Blood Pressure 146/69 H 116/60 Pulse Oximetry 92 L 92 L 94 L 01/13/18 23:00 01/13/18 23:19 01/14/18 00:00 Temperature 98.7 F Pulse Rate 96 H 100 H 93 H Respiratory Rate 16 20 16 Blood Pressure 131/62 117/59 L Pulse Oximetry 92 L 89 L 01/14/18 00:09 01/14/18 01:00 01/14/18 02:00 Temperature Pulse Rate 79 84 Respiratory Rate 16 15 Blood Pressure 119/62 126/63 Pulse Oximetry 94 L 92 L 93 L 01/14/18 03:00 01/14/18 03:10 01/14/18 04:00 Temperature 98.6 F Pulse Rate 92 H 92 H 90 Respiratory Rate 19 20 16 Blood Pressure 127/72 117/74 Pulse Oximetry 92 L 94 L 01/14/18 05:00 01/14/18 06:00 01/14/18 07:00 Temperature Pulse Rate 82 92 H 93 H Respiratory Rate 16 15 16 Blood Pressure 123/56 L 122/56 L 130/73 Pulse Oximetry 93 L 94 L 92 L 01/14/18 08:00 01/14/18 08:20 01/14/18 09:00 Temperature 98.7 F Pulse Rate 91 H 96 H 95 H Respiratory Rate 17 27 H 16 Blood Pressure 145/69 H 142/65 H Pulse Oximetry 93 L 97 92 L 01/14/18 10:00 01/14/18 10:33 01/14/18 10:50 Temperature Pulse Rate 96 H 96 H Respiratory Rate 16 24 Blood Pressure 127/58 L 119/61 127/67 Pulse Oximetry 90 L 88 L 89 L 01/14/18 11:00 01/14/18 11:50 01/14/18 12:00 Temperature Pulse Rate 97 H 95 H Respiratory Rate 21 17 Blood Pressure 134/67 140/74 Pulse Oximetry 88 L 92 L 01/14/18 13:00 01/14/18 13:01 01/14/18 14:00 Temperature Pulse Rate 102 H 100 H 98 H Respiratory Rate 22 17 11 L Blood Pressure 156/84 H 132/64 Pulse Oximetry 87 L 91 L 90 L 01/14/18 15:00 01/14/18 15:30 01/14/18 16:00 Temperature Pulse Rate 110 H 106 H 105 H Respiratory Rate 33 H 23 27 H Blood Pressure 113/68 113/62 Pulse Oximetry 90 L 91 L Intake & Output 01/14/18 01/14/18 01/15/18 06:59 18:59 06:59 Intake Total 600 / 600 100 / 100 Output Total 950 / 950 Balance -350 / -350 100 / 100 Weight 149.9 kg Intake: IV 100 / 100 Tazicef Inj 2,000 MG In NS Inj 100 / 100 100 ML @ 200 mls/hr IV.SIG Q12H LORI Rx#:[id number] Oral 600 / 600 Output: Stool 0 / 0 Urine Amount (Catheter) 950 / 950 Indwelling Urethral Catheter 950 / 950 Other: Date of Last Bowel Movement 01/10/18 01/10/18 # Bowel Movements 0 Narrative: GENERAL: NAD, A&Ox3. Obese W/M HEAD: Normocephalic. NECK: Supple, trachea midline. No lymphadenopathy. EYES: No scleral icterus. No injection or drainage. CARDIOVASCULAR: Regular rate and rhythm without murmurs, gallops, or rubs. RESPIRATORY: Breath sounds equal bilaterally. Decreased at bases .No accessory muscle use. GASTROINTESTINAL: Abdomen soft, non-tender, nondistended. MUSCULOSKELETAL: No cyanosis, but has 1 + edema. SKIN: Warm and dry. NEURO: No focal neurological deficits. - Urinary Catheter Management Indwelling Temp Sensing Catheter Cath placed during this visit: yes, but has since been removed by the nurse Reason for continuing: Chronic Urinary Retention Insertion date: 01/08/18 Insertion time: 17:15 Removal date: 01/07/18 Removal time: 10:00 Indwelling Urethral Catheter Cath placed during this visit: yes, but has since been removed by the nurse Reason for continuing: Chronic Urinary Retention Insertion date: 01/08/18 Removal date: 01/14/18 Removal time: 06:40 Results - Labs CBC & Chem 7: 01/14/18 02:57 01/14/18 02:57 Laboratory Results - last 24 hr 01/13/18 01/14/18 01/14/18 21:41 02:57 02:57 WBC 10.6 RBC 2.91 L Hgb 8.3 L Hct 25.4 L MCV 87.0 MCH 28.6 MCHC 32.8 RDW 16.6 Plt Count 157 MPV 8.7 Neut % (Auto) 80.4 H Lymph % (Auto) 7.7 L Gage % (Auto) 11.1 H Eos % (Auto) 0.3 Baso % (Auto) 0.5 Neut # (Auto) 8.5 H Lymph # (Auto) 0.8 L Gage # (Auto) 1.2 H Eos # (Auto) 0.0 Baso # (Auto) 0.0 WBC Differential . Differential Comment Auto diff final Sodium 138 Potassium 4.2 Chloride 97 L Carbon Dioxide 36.6 H Anion Gap 4 L BUN 32 H Creatinine 1.27 Estimated GFR 56 L POC Glucose 278 H Random Glucose 151 H Calcium 8.5 Total Bilirubin 0.3 AST 12 L ALT 26 Alkaline Phosphatase 52 Total Protein 5.6 L Albumin 2.3 L 01/14/18 01/14/18 01/14/18 09:07 12:10 18:11 WBC RBC Hgb Hct MCV MCH MCHC RDW Plt Count MPV Neut % (Auto) Lymph % (Auto) Gage % (Auto) Eos % (Auto) Baso % (Auto) Neut # (Auto) Lymph # (Auto) Gage # (Auto) Eos # (Auto) Baso # (Auto) WBC Differential Differential Comment Sodium Potassium Chloride Carbon Dioxide Anion Gap BUN Creatinine Estimated GFR POC Glucose 145 H 176 H 305 H Random Glucose Calcium Total Bilirubin AST ALT Alkaline Phosphatase Total Protein Albumin Assessment and Plan - Assessment (1) Pneumonia Code(s): J18.9 - Pneumonia, unspecified organism Status: Acute (2) COPD (chronic obstructive pulmonary disease) with chronic bronchitis Code(s): J44.9 - Chronic obstructive pulmonary disease, unspecified Status: Acute (3) Pleural effusion associated with pulmonary infection Code(s): J18.9 - Pneumonia, unspecified organism; J91.8 - Pleural effusion in other conditions classified elsewhere Status: Acute (4) Non-small cell cancer of right lung Code(s): C34.91 - Malignant neoplasm of unspecified part of right bronchus or lung Status: Acute (5) Sleep apnea with hypersomnolence Code(s): G47.10 - Hypersomnia, unspecified; G47.30 - Sleep apnea, unspecified Status: Acute (6) Obesity Code(s): E66.9 - Obesity, unspecified Status: Acute (7) Hypertension Code(s): I10 - Essential (primary) hypertension Status: Acute (8) Diabetes 1.5, managed as type 2 Code(s): E10.9 - Type 1 diabetes mellitus without complications Status: Acute - Plan 1. Will continue O2 3 L and wean. 2. Nebs qid duoneb and PRN 3. Continue antibiotics per ID 4. Have IR to place Pleur X catheter in Right chest 5. Will Drain pleural fluid on Right every 2 days 6. Get records from [facility] about Biopsy of lung lesion 7. Cont solumedrol 40 mg IV daily
[2018-01-15] MEDS: Oral Hygiene Kit OROPHARYNG SCH ×4 (00:41→17:53)
[2018-01-15] MEDS: Hypromellose 0.3% Opth Gel 10 GM Bottle EACH EYE SCH ×3 (05:55→21:39)
[2018-01-15] MEDS: MethylPREDNISolone Sod Succinate Inj 40 MG/ML Vial IV.PUSH SCH (09:18)
[2018-01-15] MEDS: Senna/Docusate Sodium 8.6/50 MG Tablet PO SCH ×2 (09:20→21:38)
[2018-01-15] MEDS: Insulin Detemir Inj 1,000 UNIT/10 ML Vial SQ SCH ×2 (09:20→21:40)
[2018-01-15] MEDS: Chlorhexidine 0.12% Oral Kit 15 ML UDC OROPHARYNG SCH ×2 (09:22→21:39)
[2018-01-15] MEDS: hydrALAZINE 50 MG Tablet PO SCH ×3 (09:22→17:53)
[2018-01-15] MEDS: Insulin NovoLOG Aspart Correctional Sugar Inj SQ SCH ×4 (09:22→21:39)
[2018-01-15] MEDS: Spironolactone 25 MG Tablet PO SCH ×2 (09:32→17:53)
[2018-01-15] MEDS: Sulfamethoxazole/Trimethoprim 400/80 MG Tablet PO SCH ×2 (09:53→21:38)
[2018-01-15 10:12] LABS: Baso # (Auto) 0.1 th/mm3 (0.0-0.2); Baso % (Auto) 0.5 % (0.0-2.0); Eos # (Auto) 0.1 th/mm3 (0.0-0.4); Eos % (Auto) 0.6 % (0.0-4.0); Hematocrit 25.1 % (39.0-51.0); Hemoglobin 8.2 gm/dL (13.0-17.0); Lymph # (Auto) 0.8 th/mm3 (1.0-4.8); Lymph % (Auto) 8.3 % (9.0-44.0); Mean Corpuscular HGB Conc 32.6 % (32.0-36.0); Mean Corpuscular Hemoglobin 28.6 pg (27.0-34.0); Mean Corpuscular Volume 87.6 fL (80.0-100.0); Mean Platelet Volume 8.7 fL (7.0-11.0); Mono # (Auto) 1.1 th/mm3 (0.0-0.9); Mono % (Auto) 10.9 % (0.0-8.0); Neut % (Auto) 79.7 % (16.0-70.0); Platelet Count 162 th/mm3 (150-450); Red Blood Count 2.87 mil/mm3 (4.50-5.90); Red Cell Distribution Width 16.5 % (11.6-17.2)
[2018-01-15 11:00] LABS: Anion Gap 4 meq/L (5-15); Carbon Dioxide 37.5 meq/L (21.0-32.0); Chloride 99 meq/L (98-107); Sodium 140 meq/L (136-145)
[2018-01-15 11:01] LABS: Alanine Aminotransferase 26 U/L (12-78); Albumin 2.4 g/dL (3.4-5.0); Alkaline Phosphatase 51 U/L (45-117); Aspartate Aminotransferase 15 U/L (15-37); Blood Urea Nitrogen 25 mg/dL (7-18); Calcium 8.5 mg/dL (8.5-10.1); Glomerular Filtration Rate 58 mL/min (>89); Glucose,Random 82 mg/dL (74-106); Total Protein 5.8 g/dL (6.4-8.2)
--- NOTE | 2018-01-15 11:43 | P.PNIM ---
Subjective Interval history: Breathing okay. No active shortness of breath. Wants to continue to be a full code. Declined palliative care consult for now. Physical Exam Vital signs: Vital Signs 01/14/18 11:50 01/14/18 12:00 01/14/18 13:00 Temperature Pulse Rate 97 H 95 H 102 H Respiratory Rate 21 17 22 Blood Pressure 140/74 Pulse Oximetry 92 L 87 L 01/14/18 13:01 01/14/18 14:00 01/14/18 15:00 Temperature Pulse Rate 100 H 98 H 110 H Respiratory Rate 17 11 L 33 H Blood Pressure 156/84 H 132/64 113/68 Pulse Oximetry 91 L 90 L 90 L 01/14/18 15:30 01/14/18 16:00 01/14/18 20:00 Temperature 98.2 F Pulse Rate 106 H 105 H 94 H Respiratory Rate 23 27 H 20 Blood Pressure 113/62 134/63 Pulse Oximetry 91 L 95 01/14/18 20:42 01/15/18 00:00 01/15/18 01:19 Temperature 97.9 F Pulse Rate 105 H 97 H 91 H Respiratory Rate 27 H 20 18 Blood Pressure 112/58 L Pulse Oximetry 96 98 01/15/18 04:00 01/15/18 04:51 01/15/18 06:00 Temperature 97.8 F Pulse Rate 72 82 75 Respiratory Rate 20 20 Blood Pressure 123/58 L Pulse Oximetry 95 01/15/18 07:56 01/15/18 07:57 01/15/18 08:00 Temperature 97.4 F L Pulse Rate 84 84 Respiratory Rate 18 22 Blood Pressure 137/68 Pulse Oximetry 94 L 98 Intake & Output 01/14/18 01/15/18 01/15/18 18:59 06:59 18:59 Intake Total 800 / 800 340 / 340 Output Total 0 / 0 500 / 500 Balance 800 / 800 -160 / -160 Weight 149.1 kg Intake: IV 200 / 200 100 / 100 Tazicef Inj 2,000 MG In NS Inj 200 / 200 100 / 100 100 ML @ 200 mls/hr IV.SIG Q12H LORI Rx#:[id number] Oral 600 / 600 240 / 240 Tube Feeding 0 / 0 Tube Irrigant 0 / 0 Other 0 / 0 Output: Urine 0 / 0 500 / 500 Stool 0 / 0 Pleural Fluid 0 / 0 Gastric Drainage 0 / 0 Pre-Hospital Oral 0 / 0 Other: Date of Last Bowel Movement 01/10/18 01/10/18 # Bowel Movements 0 0 Narrative: GENERAL: This is a well-nourished, well-developed patient, in no apparent distress. CARDIOVASCULAR: Regular rate and rhythm without murmurs, gallops, or rubs. RESPIRATORY: Bibasilar crackles GASTROINTESTINAL: Abdomen soft, non-tender, nondistended. Normal active bowel sounds MUSCULOSKELETAL: Extremities without clubbing, cyanosis, trace edema NEURO: Alert & Oriented x4 to person, place, time, situation. Moves all ext x4 - Urinary Catheter Management Indwelling Temp Sensing Catheter Cath placed during this visit: yes, but has since been removed by the nurse Reason for continuing: Chronic Urinary Retention Insertion date: 01/08/18 Insertion time: 17:15 Removal date: 01/07/18 Removal time: 10:00 Indwelling Urethral Catheter Cath placed during this visit: yes, but has since been removed by the nurse Reason for continuing: Chronic Urinary Retention Insertion date: 01/08/18 Removal date: 01/14/18 Removal time: 06:40 Results - Labs CBC & Chem 7: 01/15/18 08:48 01/15/18 08:44 Laboratory Results - last 24 hr 01/14/18 01/14/18 01/14/18 12:10 18:11 20:50 WBC RBC Hgb Hct MCV MCH MCHC RDW Plt Count MPV Neut % (Auto) Lymph % (Auto) Tucker % (Auto) Eos % (Auto) Baso % (Auto) Neut # (Auto) Lymph # (Auto) Tucker # (Auto) Eos # (Auto) Baso # (Auto) WBC Differential Differential Comment Sodium Potassium Chloride Carbon Dioxide Anion Gap BUN Creatinine Estimated GFR POC Glucose 176 H 305 H 269 H Random Glucose Calcium Total Bilirubin AST ALT Alkaline Phosphatase Total Protein Albumin 01/15/18 01/15/18 01/15/18 07:40 08:44 08:48 WBC 10.0 RBC 2.87 L Hgb 8.2 L Hct 25.1 L MCV 87.6 MCH 28.6 MCHC 32.6 RDW 16.5 Plt Count 162 MPV 8.7 Neut % (Auto) 79.7 H Lymph % (Auto) 8.3 L Tucker % (Auto) 10.9 H Eos % (Auto) 0.6 Baso % (Auto) 0.5 Neut # (Auto) 8.0 H Lymph # (Auto) 0.8 L Tucker # (Auto) 1.1 H Eos # (Auto) 0.1 Baso # (Auto) 0.1 WBC Differential . Differential Comment Auto diff final Sodium 140 Potassium 4.0 Chloride 99 Carbon Dioxide 37.5 H Anion Gap 4 L BUN 25 H Creatinine 1.24 Estimated GFR 58 L POC Glucose 102 Random Glucose 82 Calcium 8.5 Total Bilirubin 0.4 AST 15 ALT 26 Alkaline Phosphatase 51 Total Protein 5.8 L Albumin 2.4 L Assessment and Plan - Plan 67-year-old male admitted for altered mental status with respiratory failure, intubated for airway protection Pleurx placement rescheduled for tomorrow. Sputum cultures are still positive for Pseudomonas. ID following and Bactrim and ceftazidime will be continued. 1. Acute hypoxic/hypercapnic respiratory failure Chronic respiratory failure/3 L oxygen dependent. Follows with Dr. Clarke as an outpatient Obstructive sleep apnea/CPAP at night COPD, O2 dependent Bilateral pleural effusion right greater than left. -2 L Extubated 01/08. Continue albuterol as needed Continue the desonide Continue CPAP at night Continue IV steroids and wean as tolerated 3. Right pleural effusion Ultrasound completed, report pending to determine volume Pulmonology following, Pleurx placement, continue Aldactone and Bumex Likely non-small cell carcinoma recently diagnosedfollows up with [facility] [address] [place] [address] need to get records from recent hospitalization from [facility] for further evaluation. Essential hypertension, chronic Hyperlipidemia Coronary artery disease Continue hydralazine 100 mg 3 times daily, carvedilol 3.125 mg twice daily. Hold losartan with acute kidney injury. Continue bumetanide 1 mg daily and Aldactone 25 mg twice daily.. Continue isosorbide dinitrate 10 mg 3 times daily As needed labetalol As needed Nitropaste Continue aspirin chew 81 mg daily Continue pravastatin 40 mg daily for dyslipidemia Hypoalbuminemia Continue diet Sputum -Pseudomonas/stenotrophomonas Staph hominis bacteremia Continue Bactrim Continue ceftazidime Infectious disease following Follow cultures Normocytic anemia Follow CBC No indication for transfusion of blood products at this time Diabetes mellitus type 2 Follow blood sugars, fair control Insulin sliding scale Diabetic diet Gout No exacerbation Follow clinically Continue baseline treatment DVT prophylaxis SCDs and heparin
--- NOTE | 2018-01-15 13:56 | P.PNID ---
Subjective Remarks: Patient is a 67-year-old male with known COPD, on nasal O2 at home 24 hours a day, and just prescribed a BiPAP machine to be used at night, presented to the hospital with severe shortness of breath. He apparently has been having shortness of breath for about a week. Patient has a chronic cough and usually does not bring up any phlegm. He emergently got intubated, and sputum culture is now reported as growing Pseudomonas and stenotrophomonas. Patient has been on Azactam, and Zithromax, and has been successfully extubated 01/08. He is on high flow oxygen. Levaquin was added today. He has not been febrile. His WBC is normal. Chest x-ray has show bilateral pleural effusions, and he had right thoracentesis and took out 2 L of fluid. Plans for left thoracentesis is in process. Patient currently feels a little better as far as his shortness of breath. He denies any chest pain. Patient states that he has not really had any change in his chronic cough. There was no fever or chills, but he has had some occasional sweats. He has not had any nausea or vomiting, swallowing difficulty, GI or any urinary complaints. Patient was recently hospitalized at [facility] in November for about 3 weeks. He was intubated at that time and improved and discharged. Infectious disease consultation has been requested to evaluate patient with Pseudomonas and stenotrophomonas in the sputum. Notes reviewed Out of ICU Sats good on nasal O2 Temps ok BP ok CXR worse infiltrates on R One BC 01/05 (+) Staph hominis Another BC 01/08 (+) Staph epi No rash or itching Antibiotics: Fortaz Bactrim Past Medical History: lung CA - new dx COPD Allergies/Adverse Reactions: Allergies Iodine and Iodide Containing Produc Allergy (Verified 01/10/18 10:43) Hives has tolerated cephalosporins levofloxacin [From Levaquin] Allergy (Verified 01/10/18 10:57) Hives Penicillins Allergy (Verified 01/10/18 10:58) Hives tolerates cephalosporins Objective Vital Signs 01/14/18 14:00 01/14/18 15:00 01/14/18 15:30 Temperature Pulse Rate 98 H 110 H 106 H Respiratory Rate 11 L 33 H 23 Blood Pressure 132/64 113/68 Pulse Oximetry 90 L 90 L 01/14/18 16:00 01/14/18 20:00 01/14/18 20:42 Temperature 98.2 F Pulse Rate 105 H 94 H 105 H Respiratory Rate 27 H 20 27 H Blood Pressure 113/62 134/63 Pulse Oximetry 91 L 95 01/15/18 00:00 01/15/18 01:19 01/15/18 04:00 Temperature 97.9 F 97.8 F Pulse Rate 97 H 91 H 72 Respiratory Rate 20 18 20 Blood Pressure 112/58 L 123/58 L Pulse Oximetry 96 98 95 01/15/18 04:51 01/15/18 06:00 01/15/18 07:56 Temperature Pulse Rate 82 75 Respiratory Rate 20 Blood Pressure Pulse Oximetry 94 L 01/15/18 07:57 01/15/18 08:00 01/15/18 12:00 Temperature 97.4 F L 98.3 F Pulse Rate 84 84 87 Respiratory Rate 18 22 22 Blood Pressure 137/68 145/65 H Pulse Oximetry 98 91 L 01/15/18 12:03 Temperature Pulse Rate 102 H Respiratory Rate 20 Blood Pressure Pulse Oximetry Intake & Output 01/14/18 01/15/18 01/15/18 18:59 06:59 18:59 Intake Total 800 / 800 340 / 340 Output Total 0 / 0 500 / 500 Balance 800 / 800 -160 / -160 Weight 149.1 kg Intake: IV 200 / 200 100 / 100 Tazicef Inj 2,000 MG In NS Inj 200 / 200 100 / 100 100 ML @ 200 mls/hr IV.SIG Q12H [facility] Rx#:[id number] Oral 600 / 600 240 / 240 Tube Feeding 0 / 0 Tube Irrigant 0 / 0 Other 0 / 0 Output: Urine 0 / 0 500 / 500 Stool 0 / 0 Pleural Fluid 0 / 0 Gastric Drainage 0 / 0 Pre-Hospital Oral 0 / 0 Other: Date of Last Bowel Movement 01/10/18 01/10/18 # Bowel Movements 0 0 01/08/18 13:20 Blood - Peripheral Aerobic Blood Culture - Final No growth in 5 days 01/08/18 13:20 Blood - Peripheral Anaerobic Blood Culture - Final No growth in 5 days 01/08/18 13:15 Blood - Peripheral Aerobic Blood Culture - Final Staphylococcus epidermidis 01/08/18 13:15 Blood - Peripheral Anaerobic Blood Culture - Final No growth in 5 days Lab - Hematology Results 01/14/18 01/15/18 02:57 08:48 WBC 10.6 10.0 RBC 2.91 L 2.87 L Hgb 8.3 L 8.2 L Hct 25.4 L 25.1 L MCV 87.0 87.6 MCH 28.6 28.6 MCHC 32.8 32.6 RDW 16.6 16.5 Plt Count 157 162 MPV 8.7 8.7 Neut % (Auto) 80.4 H 79.7 H Lymph % (Auto) 7.7 L 8.3 L [place] % (Auto) 11.1 H 10.9 H Eos % (Auto) 0.3 0.6 Baso % (Auto) 0.5 0.5 Neut # (Auto) 8.5 H 8.0 H Lymph # (Auto) 0.8 L 0.8 L [place] # (Auto) 1.2 H 1.1 H Eos # (Auto) 0.0 0.1 Baso # (Auto) 0.0 0.1 WBC Differential . . Differential Comment Auto diff final Auto diff final Lab - Chemistry Results 01/13/18 01/13/18 01/14/18 18:16 21:41 02:57 Sodium 138 Potassium 4.2 Chloride 97 L Carbon Dioxide 36.6 H Anion Gap 4 L BUN 32 H Creatinine 1.27 Estimated GFR 56 L POC Glucose 304 H 278 H Random Glucose 151 H Calcium 8.5 Total Bilirubin 0.3 AST 12 L ALT 26 Alkaline Phosphatase 52 Total Protein 5.6 L Albumin 2.3 L 01/14/18 01/14/18 01/14/18 09:07 12:10 18:11 Sodium Potassium Chloride Carbon Dioxide Anion Gap BUN Creatinine Estimated GFR POC Glucose 145 H 176 H 305 H Random Glucose Calcium Total Bilirubin AST ALT Alkaline Phosphatase Total Protein Albumin 01/14/18 01/15/18 01/15/18 20:50 07:40 08:44 Sodium 140 Potassium 4.0 Chloride 99 Carbon Dioxide 37.5 H Anion Gap 4 L BUN 25 H Creatinine 1.24 Estimated GFR 58 L POC Glucose 269 H 102 Random Glucose 82 Calcium 8.5 Total Bilirubin 0.4 AST 15 ALT 26 Alkaline Phosphatase 51 Total Protein 5.8 L Albumin 2.4 L 01/15/18 11:53 Sodium Potassium Chloride Carbon Dioxide Anion Gap BUN Creatinine Estimated GFR POC Glucose 175 H Random Glucose Calcium Total Bilirubin AST ALT Alkaline Phosphatase Total Protein Albumin Imaging: ITS Impressions Abdomen/Bladder Ultrasound 01/07/18 00:00 CONCLUSION: 1. No evidence of hydronephrosis on either side. 2. Gallstones. Thoracentesis Ultrasound 01/09/18 00:00 CONCLUSION: 1. Uncomplicated ultrasound-guided right-sided thoracentesis, as above. Chest Ultrasound 01/13/18 00:00 CONCLUSION: 1. Moderate size pleural effusion. The patient was marked for thoracentesis. Chest X-Ray 01/13/18 06:00 CONCLUSION: Overall worsening in the radiographic appearance of the chest with worsening right-sided infiltrate and developing left basilar consolidation/effusion Physical Exam: GENERAL: awake and alert, mild SOB when talking, nasal O2 SKIN: Cool and dry. No generalized rash, no ecchymoses and no evidence of embolic lesions. HEAD: Atraumatic. Normocephalic. No temporal wasting, or tenderness. EYES: [place] conjunctiva. No petechia or hemorrhage. Pupils equal, round and reactive to light. Extraocular movements full and intact. No scleral icterus. No injection or drainage. EARS, NOSE AND THROAT: Nose without bleeding or purulent nasal discharge. No sinus tenderness. Mucous membranes pink and moist. No oral lesions noted. NECK: Trachea midline. Supple and not tender, no meningeal signs CARDIOVASCULAR: Regular rate and rhythm. No murmurs, rubs or gallops heard RESPIRATORY: Occ wheezing upper lung parks, decreased at bases. ABDOMEN: Soft, obese, non-tender, nondistended. Bowel sounds present and normoactive. No guarding. No rebound. No organomegaly. EXTREMITIES: No clubbing, cyanosis. Has some pedal edema, and chronic pigmentation legs and feet. No calf tenderness. Well perfused and warm. NEUROLOGICAL: Grossly non-focal. PSYCHIATRIC: Normal affect, calm and cooperative. LINE: No evidence of infection Assessment and Plan - Plan Impression Respiratory failure, has Hx COPD, has bilateral pleural effusions - has PSAE and Sten mal in sputum C/S, prob more of tracheitis than PNA, he has been extubated despite no RX for these pathogens Bilateral pleural effusions, recurrent problem, etiology? COPD, prob CORINA Recent Dx NSCL Ca, from lung biopsy - had PET scan results not known yet Morbid obesity Allergy to PCN, has tolerated Cephalosporins States he is allergic to levaquin Coag neg staph bacteremia - C/W contamination, 2 different Coag Neg Staph Recommendation Continue IV Fortaz and po Bactrim - x 7 days Repeat BMP - may need to decrease Bactrim dose again repeat sputum G/S C/S Repeat CXR Monitor respiratory status Monitor progress
--- NOTE | 2018-01-15 19:29 | P.PN ---
Subjective Interval history: He is alert and sitting up. On O2 4 l. Used BiPAP at HS. On Antibiotics for sepsis and pneumonia Physical Exam Vital signs: Vital Signs 01/14/18 20:00 01/14/18 20:42 01/15/18 00:00 Temperature 98.2 F 97.9 F Pulse Rate 94 H 105 H 97 H Respiratory Rate 20 27 H 20 Blood Pressure 134/63 112/58 L Pulse Oximetry 95 96 01/15/18 01:19 01/15/18 04:00 01/15/18 04:51 Temperature 97.8 F Pulse Rate 91 H 72 82 Respiratory Rate 18 20 20 Blood Pressure 123/58 L Pulse Oximetry 98 95 01/15/18 06:00 01/15/18 07:56 01/15/18 07:57 Temperature Pulse Rate 75 84 Respiratory Rate 18 Blood Pressure Pulse Oximetry 94 L 01/15/18 08:00 01/15/18 12:00 01/15/18 12:03 Temperature 97.4 F L 98.3 F Pulse Rate 84 87 102 H Respiratory Rate 22 22 20 Blood Pressure 137/68 145/65 H Pulse Oximetry 98 91 L 01/15/18 16:00 Temperature 98.6 F Pulse Rate 100 H Respiratory Rate 22 Blood Pressure 140/65 Pulse Oximetry 93 L Intake & Output 01/15/18 01/15/18 01/16/18 06:59 18:59 06:59 Intake Total 340 / 340 340 / 340 Output Total 500 / 500 500 / 500 Balance -160 / -160 -160 / -160 Weight 149.1 kg Intake: IV 100 / 100 100 / 100 Tazicef Inj 2,000 MG In NS Inj 100 / 100 100 / 100 100 ML @ 200 mls/hr IV.SIG Q12H [facility] Rx#:[id number] Oral 240 / 240 240 / 240 Tube Feeding 0 / 0 Tube Irrigant 0 / 0 Other 0 / 0 Output: Urine 500 / 500 500 / 500 Stool 0 / 0 Pleural Fluid 0 / 0 Gastric Drainage 0 / 0 Pre-Hospital Oral 0 / 0 Other: Date of Last Bowel Movement 01/10/18 # Bowel Movements 0 0 Narrative: GENERAL: This is a obese well-developed patient, in no apparent distress. CARDIOVASCULAR: Regular rate and rhythm without murmurs, gallops, or rubs. RESPIRATORY: Bibasilar crackles with wheeze scattered GASTROINTESTINAL: Abdomen soft, non-tender, nondistended. Normal active bowel sounds MUSCULOSKELETAL: Extremities without clubbing, cyanosis, trace edema NEURO: Alert & Oriented x4 to person, place, time, situation. Moves all ext x4 - Urinary Catheter Management Indwelling Temp Sensing Catheter Cath placed during this visit: yes, but has since been removed by the nurse Reason for continuing: Chronic Urinary Retention Insertion date: 01/08/18 Insertion time: 17:15 Removal date: 01/07/18 Removal time: 10:00 Indwelling Urethral Catheter Cath placed during this visit: yes, but has since been removed by the nurse Reason for continuing: Chronic Urinary Retention Insertion date: 01/08/18 Removal date: 01/14/18 Removal time: 06:40 Results - Labs CBC & Chem 7: 01/15/18 08:48 01/15/18 08:44 Laboratory Results - last 24 hr 01/14/18 01/15/18 01/15/18 20:50 07:40 08:44 WBC RBC Hgb Hct MCV MCH MCHC RDW Plt Count MPV Neut % (Auto) Lymph % (Auto) [place] % (Auto) Eos % (Auto) Baso % (Auto) Neut # (Auto) Lymph # (Auto) [place] # (Auto) Eos # (Auto) Baso # (Auto) WBC Differential Differential Comment Sodium 140 Potassium 4.0 Chloride 99 Carbon Dioxide 37.5 H Anion Gap 4 L BUN 25 H Creatinine 1.24 Estimated GFR 58 L POC Glucose 269 H 102 Random Glucose 82 Calcium 8.5 Total Bilirubin 0.4 AST 15 ALT 26 Alkaline Phosphatase 51 Total Protein 5.8 L Albumin 2.4 L 01/15/18 01/15/18 01/15/18 08:48 11:53 16:37 WBC 10.0 RBC 2.87 L Hgb 8.2 L Hct 25.1 L MCV 87.6 MCH 28.6 MCHC 32.6 RDW 16.5 Plt Count 162 MPV 8.7 Neut % (Auto) 79.7 H Lymph % (Auto) 8.3 L [place] % (Auto) 10.9 H Eos % (Auto) 0.6 Baso % (Auto) 0.5 Neut # (Auto) 8.0 H Lymph # (Auto) 0.8 L [place] # (Auto) 1.1 H Eos # (Auto) 0.1 Baso # (Auto) 0.1 WBC Differential . Differential Comment Auto diff final Sodium Potassium Chloride Carbon Dioxide Anion Gap BUN Creatinine Estimated GFR POC Glucose 175 H 280 H Random Glucose Calcium Total Bilirubin AST ALT Alkaline Phosphatase Total Protein Albumin Assessment and Plan - Assessment (1) Pneumonia Code(s): J18.9 - Pneumonia, unspecified organism Status: Acute (2) COPD (chronic obstructive pulmonary disease) with chronic bronchitis Code(s): J44.9 - Chronic obstructive pulmonary disease, unspecified Status: Acute (3) Pleural effusion associated with pulmonary infection Code(s): J18.9 - Pneumonia, unspecified organism; J91.8 - Pleural effusion in other conditions classified elsewhere Status: Acute (4) Non-small cell cancer of right lung Code(s): C34.91 - Malignant neoplasm of unspecified part of right bronchus or lung Status: Acute (5) Sleep apnea with hypersomnolence Code(s): G47.10 - Hypersomnia, unspecified; G47.30 - Sleep apnea, unspecified Status: Acute (6) Obesity Code(s): E66.9 - Obesity, unspecified Status: Acute (7) Hypertension Code(s): I10 - Essential (primary) hypertension Status: Acute (8) Diabetes 1.5, managed as type 2 Code(s): E10.9 - Type 1 diabetes mellitus without complications Status: Acute - Plan 1. Will continue O2 4 L and wean. 2. Nebs qid duoneb and PRN 3. Continue antibiotics per ID 4. Have IR to place Pleur X catheter in Right chest 5. Will Drain pleural fluid on Right every 2 days 6. Get records from [facility] about Biopsy of lung lesion 7. Cont solumedrol 40 mg IV daily X3 8. Oncology evaluation when stable
[2018-01-16] MEDS: Oral Hygiene Kit OROPHARYNG SCH ×4 (00:45→16:02)
[2018-01-16] MEDS: Hypromellose 0.3% Opth Gel 10 GM Bottle EACH EYE SCH ×3 (04:48→23:33)
--- NOTE | 2018-01-16 08:00 | P.PNID ---
Subjective Remarks: Patient is a 67-year-old male with known COPD, on nasal O2 at home 24 hours a day, and just prescribed a BiPAP machine to be used at night, presented to the hospital with severe shortness of breath. He apparently has been having shortness of breath for about a week. Patient has a chronic cough and usually does not bring up any phlegm. He emergently got intubated, and sputum culture is now reported as growing Pseudomonas and stenotrophomonas. Patient has been on Azactam, and Zithromax, and has been successfully extubated 01/08. He is on high flow oxygen. Levaquin was added today. He has not been febrile. His WBC is normal. Chest x-ray has show bilateral pleural effusions, and he had right thoracentesis and took out 2 L of fluid. Plans for left thoracentesis is in process. Patient currently feels a little better as far as his shortness of breath. He denies any chest pain. Patient states that he has not really had any change in his chronic cough. There was no fever or chills, but he has had some occasional sweats. He has not had any nausea or vomiting, swallowing difficulty, GI or any urinary complaints. Patient was recently hospitalized at [facility] in November for about 3 weeks. He was intubated at that time and improved and discharged. Infectious disease consultation has been requested to evaluate patient with Pseudomonas and stenotrophomonas in the sputum. Notes reviewed C/O being congested On nasal O2, good sats Temps ok BP ok CXR worse infiltrates on R One BC 01/05 (+) Staph hominis Another BC 01/08 (+) Staph epi No rash or itching Antibiotics: Fortaz Bactrim Past Medical History: lung CA - new dx COPD Allergies/Adverse Reactions: Allergies Iodine and Iodide Containing Produc Allergy (Verified 01/10/18 10:43) Hives has tolerated cephalosporins levofloxacin [From Levaquin] Allergy (Verified 01/10/18 10:57) Hives Penicillins Allergy (Verified 01/10/18 10:58) Hives tolerates cephalosporins Objective Vital Signs 01/15/18 07:57 01/15/18 08:00 01/15/18 12:00 Temperature 97.4 F L 98.3 F Pulse Rate 84 84 87 Respiratory Rate 18 22 22 Blood Pressure 137/68 145/65 H Pulse Oximetry 98 91 L 01/15/18 12:03 01/15/18 16:00 01/15/18 19:35 Temperature 98.6 F Pulse Rate 102 H 100 H 97 H Respiratory Rate 20 22 22 Blood Pressure 140/65 Pulse Oximetry 93 L 98 01/15/18 20:00 01/15/18 23:59 01/16/18 04:00 Temperature 98.1 F 98.1 F 97.4 F L Pulse Rate 101 H 79 92 H Respiratory Rate 20 20 20 Blood Pressure 130/56 L 110/56 L 118/71 Pulse Oximetry 93 L 96 95 Intake & Output 01/15/18 01/16/18 01/16/18 18:59 06:59 18:59 Intake Total 340 / 340 240 / 240 Output Total 500 / 500 1250 / 1250 Balance -160 / -160 -1010 / -1010 Weight 148.7 kg Intake: IV 100 / 100 Tazicef Inj 2,000 MG In NS Inj 100 / 100 100 ML @ 200 mls/hr IV.SIG Q12H [facility] Rx#:[id number] Oral 240 / 240 240 / 240 Tube Feeding 0 / 0 Tube Irrigant 0 / 0 Other 0 / 0 Output: Urine 500 / 500 1250 / 1250 Stool 0 / 0 Pleural Fluid 0 / 0 Gastric Drainage 0 / 0 Pre-Hospital Oral 0 / 0 Other: Date of Last Bowel Movement 01/10/18 # Bowel Movements 0 0 01/08/18 13:20 Blood - Peripheral Aerobic Blood Culture - Final No growth in 5 days 01/08/18 13:20 Blood - Peripheral Anaerobic Blood Culture - Final No growth in 5 days 01/08/18 13:15 Blood - Peripheral Aerobic Blood Culture - Final Staphylococcus epidermidis 01/08/18 13:15 Blood - Peripheral Anaerobic Blood Culture - Final No growth in 5 days Lab - Hematology Results 01/15/18 08:48 WBC 10.0 RBC 2.87 L Hgb 8.2 L Hct 25.1 L MCV 87.6 MCH 28.6 MCHC 32.6 RDW 16.5 Plt Count 162 MPV 8.7 Neut % (Auto) 79.7 H Lymph % (Auto) 8.3 L [place] % (Auto) 10.9 H Eos % (Auto) 0.6 Baso % (Auto) 0.5 Neut # (Auto) 8.0 H Lymph # (Auto) 0.8 L [place] # (Auto) 1.1 H Eos # (Auto) 0.1 Baso # (Auto) 0.1 WBC Differential . Differential Comment Auto diff final Lab - Chemistry Results 01/14/18 01/14/18 01/14/18 09:07 12:10 18:11 Sodium Potassium Chloride Carbon Dioxide Anion Gap BUN Creatinine Estimated GFR POC Glucose 145 H 176 H 305 H Random Glucose Calcium Total Bilirubin AST ALT Alkaline Phosphatase Total Protein Albumin 01/14/18 01/15/18 01/15/18 20:50 07:40 08:44 Sodium 140 Potassium 4.0 Chloride 99 Carbon Dioxide 37.5 H Anion Gap 4 L BUN 25 H Creatinine 1.24 Estimated GFR 58 L POC Glucose 269 H 102 Random Glucose 82 Calcium 8.5 Total Bilirubin 0.4 AST 15 ALT 26 Alkaline Phosphatase 51 Total Protein 5.8 L Albumin 2.4 L 01/15/18 01/15/18 01/15/18 11:53 16:37 20:00 Sodium Potassium Chloride Carbon Dioxide Anion Gap BUN Creatinine Estimated GFR POC Glucose 175 H 280 H 256 H Random Glucose Calcium Total Bilirubin AST ALT Alkaline Phosphatase Total Protein Albumin Imaging: ITS Impressions Abdomen/Bladder Ultrasound 01/07/18 00:00 CONCLUSION: 1. No evidence of hydronephrosis on either side. 2. Gallstones. Thoracentesis Ultrasound 01/09/18 00:00 CONCLUSION: 1. Uncomplicated ultrasound-guided right-sided thoracentesis, as above. Chest Ultrasound 01/13/18 00:00 CONCLUSION: 1. Moderate size pleural effusion. The patient was marked for thoracentesis. Chest X-Ray 01/13/18 06:00 CONCLUSION: Overall worsening in the radiographic appearance of the chest with worsening right-sided infiltrate and developing left basilar consolidation/effusion Physical Exam: GENERAL: awake and alert, mild SOB when talking, nasal O2. Up in chair SKIN: Cool and dry. No generalized rash HEAD: Atraumatic. Normocephalic. No temporal wasting, or tenderness. EYES: [place] conjunctiva. No petechia or hemorrhage. Pupils equal, round and reactive to light. Extraocular movements full and intact. No scleral icterus. No injection or drainage. EARS, NOSE AND THROAT: Nose without bleeding or purulent nasal discharge. No sinus tenderness. Mucous membranes pink and moist. No oral lesions noted. NECK: Trachea midline. Supple and not tender, no meningeal signs CARDIOVASCULAR: Regular rate and rhythm. No murmurs, rubs or gallops heard RESPIRATORY: decreased at bases. ABDOMEN: Soft, obese, non-tender, nondistended. Bowel sounds present and normoactive. No organomegaly. EXTREMITIES: No clubbing, cyanosis. Has some pedal edema, and chronic pigmentation legs and feet. No calf tenderness. Well perfused and warm. NEUROLOGICAL: Grossly non-focal. PSYCHIATRIC: Normal affect, calm and cooperative. LINE: No evidence of infection Assessment and Plan - Plan Impression Respiratory failure, has Hx COPD, has bilateral pleural effusions - has PSAE and Sten mal in sputum C/S, prob more of tracheitis than PNA Bilateral pleural effusions, recurrent problem, etiology? COPD, prob CORINA Recent Dx NSCL Ca, from lung biopsy - had PET scan results not known yet Morbid obesity Allergy to PCN, has tolerated Cephalosporins States he is allergic to levaquin Coag neg staph bacteremia - C/W contamination, 2 different Coag Neg Staph Recommendation Continue IV Fortaz and po Bactrim - x 7 days Abx to finish 01/17 Pulmonary looking at putting pleural cath Monitor respiratory status Monitor progress He seems clinically stable from ID standpoint D/W RN
[2018-01-16] MEDS: hydrALAZINE 50 MG Tablet PO SCH ×3 (08:27→18:16)
[2018-01-16] MEDS: Senna/Docusate Sodium 8.6/50 MG Tablet PO SCH ×2 (08:29→23:32)
[2018-01-16] MEDS: Sulfamethoxazole/Trimethoprim 400/80 MG Tablet PO SCH ×2 (08:29→23:32)
[2018-01-16] MEDS: MethylPREDNISolone Sod Succinate Inj 40 MG/ML Vial IV.PUSH SCH (08:30)
[2018-01-16] MEDS: Insulin NovoLOG Aspart Correctional Sugar Inj SQ SCH ×4 (08:31→23:34)
[2018-01-16] MEDS: Insulin Detemir Inj 1,000 UNIT/10 ML Vial SQ SCH ×2 (08:31→23:34)
--- NOTE | 2018-01-16 09:17 | XR ---
EXAM DATE: 01/16/2018 9:05 AM EDT AGE/SEX: 67 years / Male INDICATIONS: . Short of breath. CLINICAL DATA: This is the patient's initial encounter. Patient reports that signs and symptoms have been present for 2 weeks and indicates a pain score of 1/10. MEDICAL/SURGICAL HISTORY: Chronic obstructive pulmonary disease. Congestive heart failure. 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 lung bx [facility] [place] [facility] [place]13/2018. . FINDINGS: AP and lateral erect views of the chest were obtained and demonstrate continued abnormal opacity in t he right lower lobe and right lung base. There is also blunting of the right costophrenic angle consi stent with effusion. The left lung is clear. The heart size remains mildly prominent. Atherosclerotic changes are present in the aorta. There are mild atherosclerotic calcifications. The bony thorax rem ains intact with overlying electrocardiogram leads. 1. Abnormal opacity remains in the right lung base and right lower lobe. 2. Right pleural effusion. Electronically signed by: Alexander Barker MD 01/16/2018 9:16 AM EDT
[2018-01-16 10:22] LABS: Calcium 8.3 mg/dL (8.5-10.1); Carbon Dioxide 31.6 meq/L (21.0-32.0); Potassium 4.3 meq/L (3.5-5.1)
[2018-01-16] MEDS: Spironolactone 25 MG Tablet PO SCH (11:50)
--- NOTE | 2018-01-16 13:52 | P.PNIM ---
Subjective Interval history: Still short of breath. Had his procedure canceled earlier today and to be rescheduled again tomorrow morning. Physical Exam Vital signs: Vital Signs 01/15/18 16:00 01/15/18 19:35 01/15/18 20:00 Temperature 98.6 F 98.1 F Pulse Rate 100 H 97 H 101 H Respiratory Rate 22 22 20 Blood Pressure 140/65 130/56 L Pulse Oximetry 93 L 98 93 L 01/15/18 23:59 01/16/18 04:00 01/16/18 08:00 Temperature 98.1 F 97.4 F L 97.6 F Pulse Rate 79 92 H 94 H Respiratory Rate 20 20 20 Blood Pressure 110/56 L 118/71 117/59 L Pulse Oximetry 96 95 99 01/16/18 08:55 01/16/18 12:00 Temperature Pulse Rate 68 95 H Respiratory Rate 20 Blood Pressure Pulse Oximetry 92 L Intake & Output 01/15/18 01/16/18 01/16/18 18:59 06:59 18:59 Intake Total 340 / 340 340 / 340 100 / 100 Output Total 500 / 500 1250 / 1250 Balance -160 / -160 -910 / -910 100 / 100 Weight 148.7 kg Intake: IV 100 / 100 100 / 100 100 / 100 Tazicef Inj 2,000 MG In NS Inj 100 / 100 100 / 100 100 / 100 100 ML @ 200 mls/hr IV.SIG Q12H [facility] Rx#:[id number] Oral 240 / 240 240 / 240 Tube Feeding 0 / 0 Tube Irrigant 0 / 0 Other 0 / 0 Output: Urine 500 / 500 1250 / 1250 Stool 0 / 0 Pleural Fluid 0 / 0 Gastric Drainage 0 / 0 Pre-Hospital Oral 0 / 0 Other: Date of Last Bowel Movement 01/10/18 # Bowel Movements 0 0 Narrative: GENERAL: This is a obese well-developed patient, in no apparent distress. CARDIOVASCULAR: Regular rate and rhythm without murmurs, gallops, or rubs. RESPIRATORY: Bibasilar crackles with wheeze scattered GASTROINTESTINAL: Abdomen soft, non-tender, nondistended. Normal active bowel sounds MUSCULOSKELETAL: Extremities without clubbing, cyanosis, trace edema NEURO: Alert & Oriented x4 to person, place, time, situation. Moves all ext x4 - Urinary Catheter Management Indwelling Temp Sensing Catheter Cath placed during this visit: yes, but has since been removed by the nurse Reason for continuing: Chronic Urinary Retention Insertion date: 01/08/18 Insertion time: 17:15 Removal date: 01/07/18 Removal time: 10:00 Indwelling Urethral Catheter Cath placed during this visit: yes, but has since been removed by the nurse Reason for continuing: Chronic Urinary Retention Insertion date: 01/08/18 Removal date: 01/14/18 Removal time: 06:40 Results - Labs CBC & Chem 7: 01/15/18 08:48 01/16/18 08:07 Laboratory Results - last 24 hr 01/15/18 01/15/18 01/16/18 16:37 20:00 07:32 Sodium Potassium Chloride Carbon Dioxide Anion Gap BUN Creatinine Estimated GFR POC Glucose 280 H 256 H 116 H Random Glucose Calcium 01/16/18 01/16/18 08:07 12:35 Sodium 138 Potassium 4.3 Chloride 100 Carbon Dioxide 31.6 Anion Gap 6 BUN 27 H Creatinine 1.36 H Estimated GFR 52 L POC Glucose 186 H Random Glucose 81 Calcium 8.3 L - Imaging Impressions Chest X-Ray 01/16/18 00:00 CONCLUSION: Assessment and Plan - Plan 67-year-old male admitted for altered mental status with respiratory failure, intubated for airway protection Pleurx placement rescheduled for tomorrow as patient ate lunch. Sputum cultures are positive for Pseudomonas and stenotrophomonas. ID following and Bactrim and ceftazidime will be continued. 1. Acute hypoxic/hypercapnic respiratory failure Chronic respiratory failure/3 L oxygen dependent. Follows with Dr. Clarke as an outpatient Obstructive sleep apnea/CPAP at night COPD, O2 dependent Bilateral pleural effusion right greater than left. -2 L Extubated 01/08. Continue albuterol as needed Continue the desonide Continue CPAP at night Continue IV steroids and wean as tolerated Pulmonary, Dr. Meyers following during this hospitalization. 3. Right pleural effusion Ultrasound completed, report pending to determine volume Pulmonology following, await Pleurx placement and rescheduled for tomorrow morning, continue Aldactone and Bumex Likely non-small cell carcinoma recently diagnosedfollows up with Dr. [facility] through [facility] need to get records from recent hospitalization from [facility] for further evaluation. Still awaiting records. 4. Essential hypertension, chronic Hyperlipidemia Coronary artery disease Continue hydralazine 100 mg 3 times daily, carvedilol 3.125 mg twice daily. Hold losartan with acute kidney injury. Continue bumetanide 1 mg daily and Aldactone 25 mg twice daily.. Continue isosorbide dinitrate 10 mg 3 times daily As needed labetalol As needed Nitropaste Continue aspirin chew 81 mg daily Continue pravastatin 40 mg daily for dyslipidemia 5. Hypoalbuminemia Continue diet 6. Sputum - Pseudomonas/stenotrophomonas Staph hominis bacteremia Continue Bactrim Continue ceftazidime through 01/17 Infectious disease following Follow cultures 7. Normocytic anemia Follow CBC No indication for transfusion of blood products at this time 8. Diabetes mellitus type 2 Follow blood sugars, overall fair control Insulin sliding scale Diabetic diet 9. Gout No exacerbation Follow clinically Continue baseline treatment 10. DVT prophylaxis SCDs and heparin Discharge Planning: Discharge likely this weekend with home health care.
--- NOTE | 2018-01-16 13:54 | P.DCO ---
- Home Health Nursing Order: Medical education, Oxygen administration education, Wound care and dressing changes Instructions: Pleurx drainage maintenance and management, remove fluid daily. - Certification I have seen patient Kareem Penn on 01/16/18. My clinical findings support the need for the requested home health care services because: Patient has SOB I certify that my clinical findings support that this patient is homebound because: Post-op weakness
[2018-01-16] MEDS: Chlorhexidine 0.12% Oral Kit 15 ML UDC OROPHARYNG SCH ×2 (14:52→23:33)
--- NOTE | 2018-01-16 19:31 | P.PN ---
Subjective Interval history: He is SOB now . Pleur X catheter was cancelled for today. reports from [facility] not here yet. On O2 3L Physical Exam Vital signs: Vital Signs 01/15/18 19:35 01/15/18 20:00 01/15/18 23:59 Temperature 98.1 F 98.1 F Pulse Rate 97 H 101 H 79 Respiratory Rate 22 20 20 Blood Pressure 130/56 L 110/56 L Pulse Oximetry 98 93 L 96 01/16/18 04:00 01/16/18 08:00 01/16/18 08:55 Temperature 97.4 F L 97.6 F Pulse Rate 92 H 94 H 68 Respiratory Rate 20 20 20 Blood Pressure 118/71 117/59 L Pulse Oximetry 95 99 92 L 01/16/18 12:00 01/16/18 16:00 Temperature 98.3 F 98.0 F Pulse Rate 92 H 102 H Respiratory Rate 20 20 Blood Pressure 135/70 133/64 Pulse Oximetry 93 L 94 L Intake & Output 01/16/18 01/16/18 01/17/18 06:59 18:59 06:59 Intake Total 340 / 340 820 / 820 Output Total 1250 / 1250 1300 / 1300 Balance -910 / -910 -480 / -480 Weight 148.7 kg Intake: IV 100 / 100 100 / 100 Tazicef Inj 2,000 MG In NS Inj 100 / 100 100 / 100 100 ML @ 200 mls/hr IV.SIG Q12H [facility] Rx#:[id number] Oral 240 / 240 720 / 720 Output: Urine 1250 / 1250 1300 / 1300 Other: # Bowel Movements 0 Narrative: GENERAL: This is a obese well-developed patient, in mild distress. CARDIOVASCULAR: Regular rate and rhythm without murmurs, gallops, or rubs. RESPIRATORY: Bibasilar crackles with wheeze scattered, and distant breath sounds GASTROINTESTINAL: Abdomen soft, non-tender, nondistended. Normal active bowel sounds MUSCULOSKELETAL: Extremities without clubbing, cyanosis, trace edema NEURO: Alert & Oriented x4 to person, place, time, situation. Moves all ext x4 - Urinary Catheter Management Indwelling Temp Sensing Catheter Cath placed during this visit: yes, but has since been removed by the nurse Reason for continuing: Chronic Urinary Retention Insertion date: 01/08/18 Insertion time: 17:15 Removal date: 01/07/18 Removal time: 10:00 Indwelling Urethral Catheter Cath placed during this visit: yes, but has since been removed by the nurse Reason for continuing: Chronic Urinary Retention Insertion date: 01/08/18 Removal date: 01/14/18 Removal time: 06:40 Results - Labs CBC & Chem 7: 01/15/18 08:48 01/16/18 08:07 Laboratory Results - last 24 hr 01/15/18 01/16/18 01/16/18 20:00 07:32 08:07 Sodium 138 Potassium 4.3 Chloride 100 Carbon Dioxide 31.6 Anion Gap 6 BUN 27 H Creatinine 1.36 H Estimated GFR 52 L POC Glucose 256 H 116 H Random Glucose 81 Calcium 8.3 L 01/16/18 01/16/18 12:35 17:24 Sodium Potassium Chloride Carbon Dioxide Anion Gap BUN Creatinine Estimated GFR POC Glucose 186 H 264 H Random Glucose Calcium - Imaging Impressions Chest X-Ray 01/16/18 00:00 CONCLUSION: Assessment and Plan - Assessment (1) Pneumonia Code(s): J18.9 - Pneumonia, unspecified organism Status: Acute (2) COPD (chronic obstructive pulmonary disease) with chronic bronchitis Code(s): J44.9 - Chronic obstructive pulmonary disease, unspecified Status: Acute (3) Pleural effusion associated with pulmonary infection Code(s): J18.9 - Pneumonia, unspecified organism; J91.8 - Pleural effusion in other conditions classified elsewhere Status: Acute (4) Non-small cell cancer of right lung Code(s): C34.91 - Malignant neoplasm of unspecified part of right bronchus or lung Status: Acute (5) Sleep apnea with hypersomnolence Code(s): G47.10 - Hypersomnia, unspecified; G47.30 - Sleep apnea, unspecified Status: Acute (6) Obesity Code(s): E66.9 - Obesity, unspecified Status: Acute (7) Hypertension Code(s): I10 - Essential (primary) hypertension Status: Acute (8) Diabetes 1.5, managed as type 2 Code(s): E10.9 - Type 1 diabetes mellitus without complications Status: Acute - Plan 1. Will continue O2 3 L and wean. 2. Nebs qid duoneb and PRN 3. Continue antibiotics per ID 4. Have IR to place Pleur X catheter in Right chest 5. Will Drain pleural fluid on Right every 2 days 6. Get records from [facility] about Biopsy of lung lesion 7. D/C solumedrol and add Prednisone 20 mg daily 8. Oncology evaluation when stable
[2018-01-17] MEDS: Oral Hygiene Kit OROPHARYNG SCH ×4 (01:15→17:10)
[2018-01-17] MEDS: Hypromellose 0.3% Opth Gel 10 GM Bottle EACH EYE SCH ×3 (04:41→21:08)
[2018-01-17] MEDS: Senna/Docusate Sodium 8.6/50 MG Tablet PO SCH ×2 (08:23→21:01)
[2018-01-17] MEDS: MethylPREDNISolone Sod Succinate Inj 40 MG/ML Vial IV.PUSH SCH (08:23)
[2018-01-17] MEDS: Insulin NovoLOG Aspart Correctional Sugar Inj SQ SCH ×4 (08:25→21:02)
[2018-01-17] MEDS: Insulin Detemir Inj 1,000 UNIT/10 ML Vial SQ SCH ×2 (08:26→21:02)
[2018-01-17] MEDS: hydrALAZINE 50 MG Tablet PO SCH ×3 (08:26→17:09)
[2018-01-17] MEDS: Spironolactone 25 MG Tablet PO SCH ×3 (08:31→17:09)
[2018-01-17] MEDS: Chlorhexidine 0.12% Oral Kit 15 ML UDC OROPHARYNG SCH ×2 (08:32→21:03)
[2018-01-17] MEDS: Sulfamethoxazole/Trimethoprim 400/80 MG Tablet PO SCH (09:43)
--- NOTE | 2018-01-17 13:28 | P.PNIM ---
Subjective Interval history: Still short of breath at baseline and not worse but not better. No complaints of chest pain. Was open to following up with oncologist here in [place] as he feels any future hospitalizations if needed would be an [facility] since he lives in [place]. Physical Exam Vital signs: Vital Signs 01/16/18 16:00 01/16/18 19:00 01/16/18 19:30 Temperature 98.0 F Pulse Rate 102 H 90 Respiratory Rate 20 18 Blood Pressure 133/64 Pulse Oximetry 94 L 92 L 01/16/18 20:00 01/17/18 00:00 01/17/18 04:00 Temperature 98 F 98 F 98.1 F Pulse Rate 93 H 84 89 Respiratory Rate 18 18 18 Blood Pressure 134/64 118/56 L 116/55 L Pulse Oximetry 94 L 93 L 95 01/17/18 07:54 01/17/18 08:00 01/17/18 12:00 Temperature 97.8 F 98.5 F Pulse Rate 61 83 86 Respiratory Rate 22 18 18 Blood Pressure 129/57 L 149/76 H Pulse Oximetry 98 96 93 L Intake & Output 01/16/18 01/17/18 01/17/18 18:59 06:59 18:59 Intake Total 820 / 820 240 / 240 Output Total 1300 / 1300 750 / 750 Balance -480 / -480 -510 / -510 Weight 146.3 kg Intake: IV 100 / 100 Tazicef Inj 2,000 MG In NS Inj 100 / 100 100 ML @ 200 mls/hr IV.SIG Q12H [facility] Rx#:[id number] Oral 720 / 720 240 / 240 Output: Urine 1300 / 1300 750 / 750 Other: # Bowel Movements 0 Narrative: GENERAL: This is a obese well-developed patient, in mild distress. CARDIOVASCULAR: Regular rate and rhythm without murmurs, gallops, or rubs. RESPIRATORY: Bibasilar crackles with wheeze scattered, and distant breath sounds GASTROINTESTINAL: Abdomen soft, non-tender, nondistended. Normal active bowel sounds MUSCULOSKELETAL: Extremities without clubbing, cyanosis, trace edema NEURO: Alert & Oriented x4 to person, place, time, situation. Moves all ext x4 - Urinary Catheter Management Indwelling Temp Sensing Catheter Cath placed during this visit: yes, but has since been removed by the nurse Reason for continuing: Chronic Urinary Retention Insertion date: 01/08/18 Insertion time: 17:15 Removal date: 01/07/18 Removal time: 10:00 Indwelling Urethral Catheter Cath placed during this visit: yes, but has since been removed by the nurse Reason for continuing: Chronic Urinary Retention Insertion date: 01/08/18 Removal date: 01/14/18 Removal time: 06:40 Results - Labs CBC & Chem 7: 01/15/18 08:48 01/16/18 08:07 Laboratory Results - last 24 hr 01/16/18 01/16/18 01/17/18 17:24 20:41 08:22 POC Glucose 264 H 219 H 122 H 01/17/18 12:08 POC Glucose 147 H Assessment and Plan - Plan 67-year-old male admitted for altered mental status with respiratory failure, intubated for airway protection Pleurx placement scheduled for today. Through today sputum cultures are positive for Pseudomonas and stenotrophomonas. ID following and Bactrim and ceftazidime will be continued. 1. Acute hypoxic/hypercapnic respiratory failure Chronic respiratory failure/3 L oxygen dependent. Follows with Dr. Clarke as an outpatient Obstructive sleep apnea/CPAP at night COPD, O2 dependent Bilateral pleural effusion right greater than left. -2 L Extubated 01/08. Continue albuterol as needed Continue the desonide Continue CPAP at night Continue IV steroids and wean as tolerated to p.o. prednisone Pulmonary, Dr. Meyers following during this hospitalization. 3. Right pleural effusion Ultrasound completed, report pending to determine volume Pulmonology following, await Pleurx placement today for drainage, continue Aldactone and Bumex Likely non-small cell carcinoma recently diagnosedfollows up with Dr. [facility] through [facility] need to get records from recent hospitalization from [facility] for further evaluation. Still awaiting records. Patient states that he only had one appointment with Dr. Duke would be interested in following up with our own oncologist as he feels any future admissions would be a [place] in [facility] or [place]. Requests a oncology consult here during this hospitalization. 4. Essential hypertension, chronic Hyperlipidemia Coronary artery disease Continue hydralazine 100 mg 3 times daily, carvedilol 3.125 mg twice daily. Hold losartan with acute kidney injury. Continue bumetanide 1 mg daily and Aldactone 25 mg twice daily.. Continue isosorbide dinitrate 10 mg 3 times daily As needed labetalol As needed Nitropaste Continue aspirin chew 81 mg daily Continue pravastatin 40 mg daily for dyslipidemia 5. Hypoalbuminemia Continue diet 6. Sputum - Pseudomonas/stenotrophomonas Staph hominis bacteremia Continue Bactrim Continue ceftazidime through 01/17 Infectious disease following Follow cultures 7. Normocytic anemia Follow CBC No indication for transfusion of blood products at this time 8. Diabetes mellitus type 2 Follow blood sugars, overall fair control Insulin sliding scale Diabetic diet 9. Gout No exacerbation Follow clinically Continue baseline treatment 10. DVT prophylaxis SCDs and heparin Discharge Planning: Discharge likely this weekend with home health care.
[2018-01-17] MEDS ORDERED: fentaNYL Citrate Inj 250 MCG/5 ML Ampul ONE (13:44)
[2018-01-17] MEDS ORDERED: Lidocaine 1%/Epinephrine 1:100,000 Inj 30 ML Vial ONE (13:52)
--- NOTE | 2018-01-17 14:47 | P.PNID ---
Subjective Remarks: Patient is a 67-year-old male with known COPD, on nasal O2 at home 24 hours a day, and just prescribed a BiPAP machine to be used at night, presented to the hospital with severe shortness of breath. He apparently has been having shortness of breath for about a week. Patient has a chronic cough and usually does not bring up any phlegm. He emergently got intubated, and sputum culture is now reported as growing Pseudomonas and stenotrophomonas. Patient has been on Azactam, and Zithromax, and has been successfully extubated 01/08. He is on high flow oxygen. Levaquin was added today. He has not been febrile. His WBC is normal. Chest x-ray has show bilateral pleural effusions, and he had right thoracentesis and took out 2 L of fluid. Plans for left thoracentesis is in process. Patient currently feels a little better as far as his shortness of breath. He denies any chest pain. Patient states that he has not really had any change in his chronic cough. There was no fever or chills, but he has had some occasional sweats. He has not had any nausea or vomiting, swallowing difficulty, GI or any urinary complaints. Patient was recently hospitalized at [facility] in November for about 3 weeks. He was intubated at that time and improved and discharged. Infectious disease consultation has been requested to evaluate patient with Pseudomonas and stenotrophomonas in the sputum. Late entry. Seen this morning Notes reviewed Still with SOB On nasal O2, good sats Temps ok BP ok Antibiotics: Fortaz Bactrim Past Medical History: lung CA - new dx COPD Allergies/Adverse Reactions: Allergies Iodine and Iodide Containing Produc Allergy (Verified 01/10/18 10:43) Hives has tolerated cephalosporins levofloxacin [From Levaquin] Allergy (Verified 01/10/18 10:57) Hives Penicillins Allergy (Verified 01/10/18 10:58) Hives tolerates cephalosporins Objective Vital Signs 01/16/18 16:00 01/16/18 19:00 01/16/18 19:30 Temperature 98.0 F Pulse Rate 102 H 90 Respiratory Rate 20 18 Blood Pressure 133/64 Pulse Oximetry 94 L 92 L 01/16/18 20:00 01/17/18 00:00 01/17/18 04:00 Temperature 98 F 98 F 98.1 F Pulse Rate 93 H 84 89 Respiratory Rate 18 18 18 Blood Pressure 134/64 118/56 L 116/55 L Pulse Oximetry 94 L 93 L 95 01/17/18 07:54 01/17/18 08:00 01/17/18 12:00 Temperature 97.8 F 98.5 F Pulse Rate 61 83 86 Respiratory Rate 18 18 Blood Pressure 129/57 L 149/76 H Pulse Oximetry 98 96 93 L Intake & Output 01/16/18 01/17/18 01/17/18 18:59 06:59 18:59 Intake Total 820 / 820 240 / 240 Output Total 1300 / 1300 750 / 750 Balance -480 / -480 -510 / -510 Weight 146.3 kg Intake: IV 100 / 100 Tazicef Inj 2,000 MG In NS Inj 100 / 100 100 ML @ 200 mls/hr IV.SIG Q12H [facility] Rx#:[id number] Oral 720 / 720 240 / 240 Output: Urine 1300 / 1300 750 / 750 Other: # Bowel Movements 0 Lab - Chemistry Results 01/15/18 01/15/18 01/16/18 16:37 20:00 07:32 Sodium Potassium Chloride Carbon Dioxide Anion Gap BUN Creatinine Estimated GFR POC Glucose 280 H 256 H 116 H Random Glucose Calcium 01/16/18 01/16/18 01/16/18 08:07 12:35 17:24 Sodium 138 Potassium 4.3 Chloride 100 Carbon Dioxide 31.6 Anion Gap 6 BUN 27 H Creatinine 1.36 H Estimated GFR 52 L POC Glucose 186 H 264 H Random Glucose 81 Calcium 8.3 L 01/16/18 01/17/18 01/17/18 20:41 08:22 12:08 Sodium Potassium Chloride Carbon Dioxide Anion Gap BUN Creatinine Estimated GFR POC Glucose 219 H 122 H 147 H Random Glucose Calcium Imaging: ITS Impressions Abdomen/Bladder Ultrasound 01/07/18 00:00 CONCLUSION: 1. No evidence of hydronephrosis on either side. 2. Gallstones. Thoracentesis Ultrasound 01/09/18 00:00 CONCLUSION: 1. Uncomplicated ultrasound-guided right-sided thoracentesis, as above. Chest Ultrasound 01/13/18 00:00 CONCLUSION: 1. Moderate size pleural effusion. The patient was marked for thoracentesis. Chest X-Ray 01/16/18 00:00 CONCLUSION: Physical Exam: GENERAL: awake and alert, mild SOB when talking, nasal O2. SKIN: Cool and dry. No generalized rash HEAD: Atraumatic. Normocephalic. No temporal wasting, or tenderness. EYES: [place] conjunctiva. No petechia or hemorrhage. No scleral icterus. No injection or drainage. EARS, NOSE AND THROAT: Nose without bleeding or purulent nasal discharge. No sinus tenderness. Mucous membranes pink and moist. No oral lesions noted. NECK: Trachea midline. Supple and not tender, no meningeal signs CARDIOVASCULAR: Regular rate and rhythm. No murmurs, rubs or gallops heard RESPIRATORY: decreased at bases. ABDOMEN: Soft, obese, non-tender, nondistended. Bowel sounds present and normoactive. No organomegaly. EXTREMITIES: No clubbing, cyanosis. Has some pedal edema, and chronic pigmentation legs and feet. No calf tenderness. Well perfused and warm. NEUROLOGICAL: Grossly non-focal. PSYCHIATRIC: Normal affect, calm and cooperative. LINE: No evidence of infection Assessment and Plan - Plan Impression Respiratory failure, has Hx COPD, has bilateral pleural effusions - has PSAE and Sten mal in sputum C/S, prob more of tracheitis than PNA Bilateral pleural effusions, recurrent problem, etiology? COPD, prob CORINA Recent Dx NSCL Ca, from lung biopsy - had PET scan results not known yet Morbid obesity Allergy to PCN, has tolerated Cephalosporins States he is allergic to levaquin Coag neg staph bacteremia - C/W contamination, 2 different Coag Neg Staph Recommendation Continue IV Fortaz and po Bactrim - x 7 days Abx to finish today Pulmonary looking at putting pleural cath Monitor respiratory status Monitor progress He seems clinically stable from ID standpoint
--- NOTE | 2018-01-17 15:20 | P.RAD ---
Post Procedure Progress Note - Pre Procedure Diagnosis (1) Non-small cell cancer of right lung (2) Recurrent right pleural effusion - Post Procedure Diagnosis (1) Non-small cell cancer of right lung (2) Recurrent right pleural effusion - Procedure Information Procedure Date: 01/17/18 Supervising Radiologist: Elias Muller Jr, MD Estimated blood loss (mL): 0 Anesthesia: Conscious Sedation - Plan of Activity Patient to Unit: [facility]OP[facility] Patient Condition: Good See PACS Report for procedural detail/treatment. Drainage Procedure Fluoroscopy right Chest Tube Tunneled Placement Fluid Description: Bloody Findings: Placed tunneled right chest tube for recurrent malignant effusion. Drained serosanguineous fluid. Plan: Drain daily for 14 days then PRN Remove all sutures in 2-3 weeks.
--- NOTE | 2018-01-17 15:53 | IR ---
EXAM DATE: 01/17/2018 3:20 PM EDT AGE/SEX: 67 years / Male INDICATIONS: Patient presents with right-sided lung cancer with recurrent pleural effusion. Tunneled chest tube placement for symptomatic relief requested.. CLINICAL DATA: This is the patient's initial encounter. Patient reports that signs and symptoms have been present for 2 months and indicates a pain score of 0/10. MEDICAL/SURGICAL HISTORY: Congestive heart failure. Diabetes, Gout, Hyperlipidemia, HTN, Pleura l effusion. . Lung biopsy, thoracentesis. COMPARISON: No prior exams available for comparison. FLUORO TIME (min): 1.23 IMAGE SERIES: 4 ACCESS SITE: SEDATION TIME (min): 45 MEDICATION(S): 3.5mg midazolam (Versed) IV 175mcg fentanyl (Sublimaze) IV DEVICE(S): 15 Uzbek Aspiria catheter . . PROCEDURE: 1. Fluoroscopically guided chest tube placement. 2. Conscious sedation with continuous EKG and oximetry monitoring. The risks, benefits and alternatives to the procedure were explained and verbal and written consent w as obtained. The site was prepped in sterile fashion. Full sterile technique was used, including ca p, mask, sterile gloves and gown and a large sterile sheet. Hand hygiene and 2% chlorhexidine and/or betadine/alcohol prep was utilized per protocol for cutaneous antisepsis. The skin and subcutaneous tissues were infiltrated with local anesthetic solution. With fluoroscopic guidance the right chest was punctured within the right posterior lateral aspects s erial dilatation and placement of a peel-away sheath performed. An Aspira Wall tunneled chest tube wa s tunneled for approximately 15 cm and then passed down the peel-away sheath into the subpulmonic asp ects of the right lung base. The peel-away sheath was removed. Suction was applied draining 1400 mL o f serosanguineous fluid.. Post procedure images demonstrate satisfactory position of the tube. The catheter was sutured in place . Conscious sedation was performed with the prescribed dosages and duration as above in the presence of an independent trained radiology nurse to assist in the monitoring of the patient. EKG and oximetry remained stable throughout the procedure. The patient tolerated the procedure well and there were n o complications. The patient was sent to post anesthesia recovery in stable condition. CONCLUSION: 1. Uncomplicated tunneled right chest tube placement as above. 1400 mL of serosanguineous fluid was removed. Electronically signed by: Elias Muller MD 01/17/2018 3:51 PM EDT
--- NOTE | 2018-01-17 16:19 | XR ---
EXAM DATE: 01/17/2018 4:05 PM EDT AGE/SEX: 67 years / Male INDICATIONS: S/P chest tube placement. CLINICAL DATA: This is the patient's subsequent encounter. Patient reports that signs and symptoms h ave been present for 1 day and indicates a pain score of 0/10. MEDICAL/SURGICAL HISTORY: . Chronic obstructive pulmonary disease. Congestive heart failure. 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 lung bx at [facility] COMPARISON: [facility] [place] 2[place] AP&LAT[place]/16/2018. . FINDINGS: A single AP erect portable view of the chest was obtained and demonstrates mild patchy opacity in the right lung which is mildly improved from the prior study. The costophrenic angles now appear clear. The heart size is mildly enlarged. Mild atherosclerotic changes are present in the aorta. The bony th orax remains intact. Is questionable visualization of a small tube projected over the right lung base however this is not well visualized. There is no evidence of pneumothorax. CONCLUSION: 1. No evidence of pneumothorax. 2. Questionable subtle visualization of a small tube projected over the right lung base. 3. Interval improvement in pulmonary opacities. Electronically signed by: Alexander Barker MD 01/17/2018 4:18 PM EDT
--- NOTE | 2018-01-17 18:15 | P.PN ---
Subjective Interval history: He is SOB and will go for Pleur X catheter today. No fever. On antibiotics for Pneumonia Wants oncology to see him Physical Exam Vital signs: Vital Signs 01/16/18 19:00 01/16/18 19:30 01/16/18 20:00 Temperature 98 F Pulse Rate 90 93 H Respiratory Rate 18 18 Blood Pressure 134/64 Pulse Oximetry 92 L 94 L 01/17/18 00:00 01/17/18 04:00 01/17/18 07:54 Temperature 98 F 98.1 F Pulse Rate 84 89 61 Respiratory Rate 18 18 22 Blood Pressure 118/56 L 116/55 L Pulse Oximetry 93 L 95 98 01/17/18 08:00 01/17/18 12:00 01/17/18 15:01 Temperature 97.8 F 98.5 F 98.1 F Pulse Rate 83 86 89 Respiratory Rate 18 18 18 Blood Pressure 129/57 L 149/76 H 148/65 H Pulse Oximetry 96 93 L 92 L 01/17/18 15:16 01/17/18 15:31 Temperature 98.1 F Pulse Rate 87 93 H Respiratory Rate 20 20 Blood Pressure 128/55 L 140/69 Pulse Oximetry 92 L 92 L Intake & Output 01/16/18 01/17/18 01/17/18 18:59 06:59 18:59 Intake Total 820 / 820 240 / 240 Output Total 1300 / 1300 750 / 750 Balance -480 / -480 -510 / -510 Weight 146.3 kg Intake: IV 100 / 100 Tazicef Inj 2,000 MG In NS Inj 100 / 100 100 ML @ 200 mls/hr IV.SIG Q12H LORI Rx#:[id number] Oral 720 / 720 240 / 240 Output: Urine 1300 / 1300 750 / 750 Other: # Bowel Movements 0 Narrative: GENERAL: This is a obese well-developed patient, in some distress. CARDIOVASCULAR: Regular rate and rhythm without murmurs, gallops, or rubs. RESPIRATORY: Bibasilar crackles with occ wheeze scattered, and distant breath sounds GASTROINTESTINAL: Abdomen soft, non-tender, nondistended. Normal active bowel sounds MUSCULOSKELETAL: Extremities without clubbing, cyanosis, trace edema NEURO: Alert & Oriented x4 to person, place, time, situation. Moves all ext x4 - Urinary Catheter Management Indwelling Temp Sensing Catheter Cath placed during this visit: yes, but has since been removed by the nurse Reason for continuing: Chronic Urinary Retention Insertion date: 01/08/18 Insertion time: 17:15 Removal date: 01/07/18 Removal time: 10:00 Indwelling Urethral Catheter Cath placed during this visit: yes, but has since been removed by the nurse Reason for continuing: Chronic Urinary Retention Insertion date: 01/08/18 Removal date: 01/14/18 Removal time: 06:40 Results - Labs CBC & Chem 7: 01/15/18 08:48 01/16/18 08:07 Laboratory Results - last 24 hr 01/16/18 01/17/18 01/17/18 20:41 08:22 12:08 POC Glucose 219 H 122 H 147 H 01/17/18 17:08 POC Glucose 206 H - Imaging Impressions Catheter Placement X-Ray 01/17/18 08:00 CONCLUSION: 1. Uncomplicated tunneled right chest tube placement as above. 1400 mL of serosanguineous fluid was removed. Chest X-Ray 01/17/18 15:16 CONCLUSION: 1. No evidence of pneumothorax. 2. Questionable subtle visualization of a small tube projected over the right lung base. 3. Interval improvement in pulmonary opacities. Assessment and Plan - Assessment (1) Pneumonia Code(s): J18.9 - Pneumonia, unspecified organism Status: Acute (2) COPD (chronic obstructive pulmonary disease) with chronic bronchitis Code(s): J44.9 - Chronic obstructive pulmonary disease, unspecified Status: Acute (3) Pleural effusion associated with pulmonary infection Code(s): J18.9 - Pneumonia, unspecified organism; J91.8 - Pleural effusion in other conditions classified elsewhere Status: Acute (4) Non-small cell cancer of right lung Code(s): C34.91 - Malignant neoplasm of unspecified part of right bronchus or lung Status: Acute (5) Sleep apnea with hypersomnolence Code(s): G47.10 - Hypersomnia, unspecified; G47.30 - Sleep apnea, unspecified Status: Acute (6) Obesity Code(s): E66.9 - Obesity, unspecified Status: Acute (7) Hypertension Code(s): I10 - Essential (primary) hypertension Status: Acute (8) Diabetes 1.5, managed as type 2 Code(s): E10.9 - Type 1 diabetes mellitus without complications Status: Acute - Plan 1. Will continue O2 3 L . 2. Nebs qid duoneb and PRN 3. Continue antibiotics per ID 4. Have IR to place Pleur X catheter in Right chest 5. Will Drain pleural fluid on Right every 3 days 6. Get records from [facility] about Biopsy of lung lesion 7. Prednisone 20 mg daily 8. Oncology evaluation and therapy
--- NOTE | 2018-01-17 19:17 | P.CON ---
History of Present Illness Service: Hematology/oncology Consult date: 01/17/18 Requesting Physician: Wilfred Pryor Reason for Consult: Metastatic non-small cell carcinoma of the lung. Primary Care Provider: No Primary Care Physician Chief Complaint: "I have nonresectable lung cancer ". History of Present Illness: Mr. Penn is a very pleasant 67-year-old man, he is originally from [place] but grew up in [place], [place]. The patient worked many years in [employer] in the [facility] area and then Retired in the [employer] several years ago. The patient lives at home with his of 48 years, he tells me his is a frail health and as of late has had issues with memory. The patient has no children of his own but him and his adopted a son who is now 48 years old. The patient reports smoking close to 2 packs a day for close to 45 years, he quit smoking about 5 years ago. Mr. Penn reports being in his usual state of health up until about 2 and half months ago, at that time the patient underwent CT scan of the thorax which revealed a right-sided pleural effusion. The patient was informed by his feltmaker that previous CT scans had indicated smaller lesions within the lung but these in the past were 2 small to biopsy. The patient reports developing rapid onset difficulty breathing in November 2017, he was hospitalized at [facility] where the course of 3 weeks he required thoracentesis on the right side twice, on one occasion 2 L were removed and on a second occasion 3 L were removed. The patient reports the pleural fluid was positive for "non-small cell carcinoma ". He was informed by his feltmaker that his disease was nonresectable, the patient was referred for medical oncology evaluation to discuss palliative systemic therapy. The patient in early December met with Dr. Duke of the [place] cancer specialists and was advised staging PET CT scan which was performed also in early December at [facility] imaging in [place]. The results of the biopsy and the PET scan are not available to me. Mr. Penn had been awaiting outpatient therapy when on 01/05/2018 he developed worsening difficulty breathing, he was at home at that time and passed out. He recalls waking up at [facility] intubated. Per the electronic health record the patient was brought in obtunded by EMS, he was noted to be hypoxic and hypotensive and was intubated in the emergency department. He remained intubated for several days, he was successfully extubated and has been transferred to the medical surgical floor. Due to the rapid reaccumulation of the right-sided pleural effusion which is now known to be a malignant pleural effusion the patient underwent Pleurx catheter placement earlier today; 01/17/2018. I have been asked to see him to discuss further workup and management of his diagnosis of metastatic non-small cell carcinoma of the lung. Review of Systems Constitutional: Reports body ache(s), Reports fatigue, Reports malaise, Reports weight gain, Denies anorexia, Denies chills, Denies fever(s) Eyes: Denies blind spots, Denies blurry vision, Denies bulging eyes Ears, Nose, Mouth, and Throat: Reports dental pain, Reports dizziness, Denies abnormal hearing, Denies bleeding gums, Denies difficulty swallowing Cardiovascular: Reports leg pain with activity, Reports leg swelling, Reports lightheadedness, Reports shortness of breath, Reports shortness of breath with activity, Reports shortness of breath when lying down, Denies chest pain, Denies chest pain at rest, Denies excessive sweating, Denies fainting Respiratory: Reports chest congestion, Reports cough, Reports excessive phlegm production, Reports shortness of breath, Reports shortness of breath with activity, Reports snoring, Denies coughing up blood, Denies pain on inspiration , Denies pain with cough Gastrointestinal: Denies abdominal pain, Denies belching, Denies black, tarry stools, Denies bloating, Denies constant urge to pass stool, Denies heartburn, Denies incontinent of stools, Denies pain with swallowing, Denies vomiting, Denies vomiting blood Musculoskeletal: Reports back pain, Reports body aches, Reports decreased muscle mass, Reports joint pain, Reports joint swelling, Denies deformity Skin/Breast: Denies acne, Denies bleeding lesions, Denies boil Neurologic: Denies abnormal hearing, Denies abnormal movements, Denies abnormal walking, Denies confusion Psychiatric: Denies abnormal sleep pattern, Denies anxiety Endocrine: Reports cold intolerance Hematologic/Lymphatic: Denies easy bleeding Allergic/Immunologic: Denies GI upset with certain foods PMFSH - History History Provided By: Family Member - Medical History Medical History: Medical History (Last Updated 01/17/18 @ 19:07 by Derrick Foley MD) CHF (congestive heart failure) COPD (chronic obstructive pulmonary disease) Chronic kidney disease Chronic respiratory failure with hypoxia, on home O2 therapy Diabetes Gout Hyperlipemia Hypertension Lipoma Malignant pleural effusion Morbid obesity Non-small cell carcinoma of left lung, stage 4 Personal history of tobacco use - Surgical History Surgical History: Surgical History (Last Reviewed 01/16/18 @ 08:29 by Cara Choe) History of cystoscopy History of lung biopsy - Tobacco History Second Hand Smoke Exposure: No Tobacco Use In Past 30 Days: No Smoking Status: Former smoker - Alcohol History How Often Do You Have a Drink Containing Alcohol: Monthly or less - Substance Use History Substance History: No History of Abuse - Travel History Recent Travel in the [place] Within the Last 8 Weeks: No Recent Travel Out of the Country Within the Last 8 Weeks: No - Immunization History Tetanus Immunization: Unsure Hx Influenza Vaccine This Season: Yes Medications and Allergies Active Medications: Active Medications Acetaminophen (Tylenol) 650 mg PO Q6H PRN PRN Reason: PAIN 1-10 AND/OR FEVER >101F Last Admin: 01/10/18 02:43 Dose: 650 mg Al Hydroxide/Mg Hydroxide (Milk Of Jessica Polanco) 30 ml PO Q12H PRN PRN Reason: Mild Constipation Last Admin: 01/10/18 02:42 Dose: 30 ml Albuterol (Albuterol Neb (Prn)) 2.5 mg NEB Q2HR NEB PRN PRN Reason: DYSPNEA Last Admin: 01/16/18 07:55 Dose: 2.5 mg Artificial Tears (Genteal Severe Dry Eye Relief 0.3% Opth Gel) 1 drops EACH EYE Q8H [facility] Last Admin: 01/17/18 12:11 Dose: 1 drops Aspirin (Aspirin Chew) 81 mg PO DAILY [facility] Last Admin: 01/17/18 08:23 Dose: 81 mg Bisacodyl (Dulcolax Supp) 10 mg RECTAL DAILY PRN PRN Reason: SEVERE CONSITIPATION Budesonide (Pulmocort Respule Neb) 0.5 mg NEB Q12HR NEB [facility] Last Admin: 01/17/18 07:54 Dose: 0.5 mg Bumetanide (Bumex) 1 mg PO DAILY [facility] Last Admin: 01/17/18 08:24 Dose: 1 mg Carvedilol (Coreg) 3.125 mg PO BID [facility] Last Admin: 01/17/18 08:24 Dose: 3.125 mg Chlorhexidine Gluconate (Peridex 0.12% Oral Kit) 15 ml OROPHARYNG BID@0800, 2000 [facility] Last Admin: 01/17/18 08:32 Dose: 15 ml Dextrose (D50w Vial) 50 ml IV.PUSH UNSCH PRN PRN Reason: PER HYPOGLYCEMIA PROTOCOL Last Admin: 01/06/18 06:01 Dose: 50 ml Glucagon (Glucagon Inj) 1 mg OTHER PRN PRN PRN Reason: for Hypoglycemia Protocol Hydralazine HCl (Apresoline) 100 mg PO TID [facility] Last Admin: 01/17/18 17:09 Dose: 100 mg Nicardipine HCl 25 mg/ Sodium (Chloride) 250 mls @ 50 mls/hr IV.CONT TITRATE PRN; Protocol PRN Reason: Per Protocol Insulin Aspart (Novolog Insulin Correctional Sugar Inj) 0 unit SQ ACHS [facility]; Protocol Last Admin: 01/17/18 17:11 Dose: 4 unit Insulin Detemir (Levemir Inj) 17 unit SQ BID [facility] Isosorbide Dinitrate (Isordil) 10 mg PO Q8HR [facility] Last Admin: 01/17/18 13:18 Dose: 10 mg Labetalol HCl (Trandate Inj) 10 mg IV.PUSH Q1H PRN PRN Reason: SBP>180, DBP>100, HR>65 Last Admin: 01/09/18 00:02 Dose: 10 mg Lactulose (Lactulose Liq) 30 ml PO DAILY PRN PRN Reason: SEVERE CONSITIPATION Last Admin: 01/16/18 18:20 Dose: 30 ml Methylprednisolone Sodium Succinate (Solumedrol Inj) 40 mg IV.PUSH DAILY [facility] Stop: 01/18/18 08:59 Last Admin: 01/17/18 08:23 Dose: 40 mg Nitroglycerin (Nitro-Bid 2% Oint) 2 inch TOPICAL Q6HR PRN PRN Reason: SBP>160, DBP>90 Last Admin: 01/13/18 06:35 Dose: 2 inch Oxycodone/Acetaminophen (Percocet 5/325 Mg) 1 tab PO Q6H PRN PRN Reason: pain Last Admin: 01/16/18 04:57 Dose: 1 tab Pat Own Med: Febuxostat (Uloric) 80 Mg Tablet 0 each PO DAILY [facility] Pat Own Med: Fluticasone- Umeclidinium- Vilanterol (Trelegy Ellipta)Inh 0 each INH DAILY [facility] Last Admin: 01/05/18 22:38 Dose: Not Given Pravastatin Sodium (Pravachol) 10 mg PO DAILY [facility] Last Admin: 01/17/18 08:23 Dose: 10 mg Senna/Docusate Sodium (Zandra-Colace) 1 tab PO BID [facility] Last Admin: 01/17/18 08:23 Dose: 1 tab Sennosides (Senokot) 17.2 mg PO Q12H PRN PRN Reason: Moderate Constipation Last Admin: 01/14/18 09:28 Dose: 17.2 mg Sodium Chloride (Ns Flush) 2 ml IV.FLUSH BID [facility] Last Admin: 01/17/18 08:27 Dose: 2 ml Sodium Chloride (Ns Flush) 2 ml IV.FLUSH PRN PRN PRN Reason: FLUSH AFTER USING IV ACCESS Spironolactone (Aldactone) 25 mg PO BID@0900,1800 [facility] Last Admin: 01/17/18 17:09 Dose: 25 mg Tamsulosin HCl (Flomax) 0.4 mg PO DAILY [facility] Last Admin: 01/17/18 08:24 Dose: 0.4 mg Allergies Allergy/AdvReac Type Severity Reaction Status Date / Time Iodine and Iodide Containing Allergy Hives Verified 01/10/18 10:43 Produc levofloxacin [From Levaquin] Allergy Hives Verified 01/10/18 10:57 Penicillins Allergy Hives Verified 01/10/18 10:58 Home Medications Medication Instructions Recorded Confirmed Type aspirin [Aspirin Low Dose] 81 mg PO DAILY 01/05/18 01/05/18 History bumetanide 2 mg PO DAILY 01/05/18 01/05/18 History carvedilol 3.125 mg PO BID 01/05/18 01/05/18 History febuxostat [Uloric] 80 mg PO DAILY 01/05/18 01/05/18 History [id number] 1 inh INHALATION DAILY 01/05/18 01/05/18 History [Trelegy Ellipta] glimepiride 8 mg PO QAM 01/05/18 01/05/18 History hydralazine 50 mg PO TID 01/05/18 01/05/18 History losartan 50 mg PO HS 01/05/18 01/05/18 History pravastatin 40 mg PO DAILY 01/05/18 01/05/18 History spironolactone 50 mg PO DAILY 01/05/18 01/05/18 History Physical Exam Vital signs: Vital Signs 01/16/18 19:00 01/16/18 19:30 01/16/18 20:00 Temperature 98 F Pulse Rate 90 93 H Respiratory Rate 18 18 Blood Pressure 134/64 Pulse Oximetry 92 L 94 L 01/17/18 00:00 01/17/18 04:00 01/17/18 07:54 Temperature 98 F 98.1 F Pulse Rate 84 89 61 Respiratory Rate 18 18 22 Blood Pressure 118/56 L 116/55 L Pulse Oximetry 93 L 95 98 01/17/18 08:00 01/17/18 12:00 01/17/18 15:01 Temperature 97.8 F 98.5 F 98.1 F Pulse Rate 83 86 89 Respiratory Rate 18 18 18 Blood Pressure 129/57 L 149/76 H 148/65 H Pulse Oximetry 96 93 L 92 L 01/17/18 15:16 01/17/18 15:31 Temperature 98.1 F Pulse Rate 87 93 H Respiratory Rate 20 20 Blood Pressure 128/55 L 140/69 Pulse Oximetry 92 L 92 L Intake & Output 01/16/18 01/17/18 01/17/18 18:59 06:59 18:59 Intake Total 820 / 820 240 / 240 Output Total 1300 / 1300 750 / 750 1200 / 1200 Balance -480 / -480 -510 / -510 -1200 / -1200 Weight 146.3 kg Intake: IV 100 / 100 Tazicef Inj 2,000 MG In NS Inj 100 / 100 100 ML @ 200 mls/hr IV.SIG Q12H LORI Rx#:[id number] Oral 720 / 720 240 / 240 Output: Urine 1300 / 1300 750 / 750 1200 / 1200 Other: # Bowel Movements 0 0 - Constitutional no acute distress, disheveled Comments: Elderly male, sitting up on the bedside, he is heavyset. He speaks to me in full sentences, is on oxygen supplementation by nasal cannula. - Routine HEENT Exam Head: Present: normocephalic. Absent: atraumatic, cushingoid faces Eye: Present: EOMI, PERRL ENT: Present: mucous membranes moist - Routine Neck Exam Present: supple, full ROM. Absent: JVD, carotid bruit - Routine Respiratory Exam Comments: Good air movement over the left lung with prolonged expiratory phase. Right lung decreased breath sounds over the lower half, pleural rub noted, coarse crepitus. Prolonged expiratory phase. - Routine Cardiovascular Exam Present: RRR, S1, S2. Absent: murmur - Routine Abdominal Exam Present: soft. Absent: normoactive bowel sounds, tenderness, distended, rebound - Routine Extremities Exam Present: edema (Bilateral lower extremities. Chronic venous stasis changes with skin hyperpigmentation.). Absent: cyanosis, clubbing - Routine Skin Exam Present: intact - Routine Neurological Exam Present: alert, oriented X3, CN II-XII intact. Absent: sensory deficit, motor deficit - Detailed Neurological Exam: Coma Scale Eye Opening: Spontaneous - Routine Psychiatric Exam Present: normal affect, cooperative, good insight - Urinary Catheter Management Indwelling Temp Sensing Catheter Cath placed during this visit: yes, but has since been removed by the nurse Reason for continuing: Chronic Urinary Retention Insertion date: 01/08/18 Insertion time: 17:15 Removal date: 01/07/18 Removal time: 10:00 Indwelling Urethral Catheter Cath placed during this visit: yes, but has since been removed by the nurse Reason for continuing: Chronic Urinary Retention Insertion date: 01/08/18 Removal date: 01/14/18 Removal time: 06:40 Assessment and Plan - Plan Mr. Penn is a 67-year-old man with a [id number] history of smoking, recently diagnosed with a advanced/metastatic non-small cell carcinoma of the lung (report histology was squamous cell) associated with a malignant right- sided pleural effusion. The patient was hospitalized about 2 weeks ago with hypoxic respiratory failure and hypotension, he was intubated at the time of presentation and spent several days in the critical care unit on the ventilator. He has now been successfully extubated and is on the medical surgical unit. In the weeks leading up to this hospitalization the patient had been undergoing an outpatient workup i.e. diagnosis and staging of metastatic non-small cell carcinoma of the lung, he had undergone right-sided therapeutic/ diagnostic thoracentesis at least on 2 previous occasions at [facility]. And had met with one of the [place] cancer specialists in [place] regarding his diagnosis and further management. The patient had been advised outpatient PET/CT imaging which was performed in early December, the results of which are not known to me at this time. Mr. Penn requested inpatient oncology consultation today to discuss further workup and management of his diagnosis of metastatic non-small cell carcinoma of the lung. Plan: 1. Reported diagnosis of non-small cell carcinoma of the lung; reported histology's squamous cell. PDL-1 status is not known, mutational analysis also not known for B TARIQ mutation, EGFR and ALK mutations. I will request records from [facility] as well as PET/CT imaging. Should the patient indeed have metastatic disease, treatment would be palliative in nature i.e. to help prolong survival and to help mitigate disease related symptoms. The patient's ECOG performance status at this time is rather poor and he does have significant medical comorbid conditions such as CHF, morbid obesity, diabetes, functional debility all of which will be barriers to aggressive disease directed therapy. I explained to the patient that his overall health and performance status are very important factors when he comes to determining optimal therapeutic interventions per management of advanced lung cancer. I explained to him that various palliative systemic therapeutic options exist, these include first-line immunotherapy in certain instances, targeted therapy in cases such as in individuals who have disease which harbors rare mutation such as the EGFR, ALK or BRA F mutations. Conventionally, treatment for metastatic squama cell carcinoma has however consisted of palliative cytotoxic chemotherapy. 2. Rapidly reaccumulating right-sided pleural effusion: Now status post Pleurx catheter placement. Oncology will follow along with you. Thank you for this consultation.
--- NOTE | 2018-01-18 04:50 | XR ---
EXAM DATE: 01/18/2018 4:09 AM EDT AGE/SEX: 67 years / Male INDICATIONS: Pleural effusion. CLINICAL DATA: This is the patient's subsequent encounter. Patient reports that signs and symptoms h ave been present for 2 weeks and indicates a pain score of 2/10. MEDICAL/SURGICAL HISTORY: . Chronic obstructive pulmonary disease. Congestive heart failure. 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 . Lung biopsy. COMPARISON: [facility] – [place], CHEST EXPIRATION ONLY, 01/17/2018. . FINDINGS: Inferior right-sided tunneled pleural catheter. No definite pneumothorax. However, there is new subcu taneous right chest wall emphysema. Stable patchy right lower lung zone airspace disease. Cardiomedia stinal contours are stable. Remainder of the exam is unchanged. CONCLUSION: 1. Inferior right-sided tunneled pleural catheter without significant pneumothorax. However, there i s new moderate subcutaneous right chest wall emphysema that was not present immediately following cat heter placement. 2. Stable patchy right lower lung zone airspace disease. Electronically signed by: Jesus Hayes MD 01/18/2018 4:48 AM EDT
[2018-01-18] MEDS: Oral Hygiene Kit OROPHARYNG SCH ×4 (05:54→17:43)
[2018-01-18] MEDS: Hypromellose 0.3% Opth Gel 10 GM Bottle EACH EYE SCH ×3 (05:54→23:15)
[2018-01-18] MEDS: Insulin NovoLOG Aspart Correctional Sugar Inj SQ SCH ×4 (07:51→23:16)
[2018-01-18] MEDS: hydrALAZINE 50 MG Tablet PO SCH ×3 (08:28→17:42)
[2018-01-18] MEDS: Senna/Docusate Sodium 8.6/50 MG Tablet PO SCH ×2 (08:29→20:13)
[2018-01-18] MEDS: Chlorhexidine 0.12% Oral Kit 15 ML UDC OROPHARYNG SCH ×2 (08:29→20:13)
[2018-01-18] MEDS: Spironolactone 25 MG Tablet PO SCH ×2 (08:29→17:43)
[2018-01-18] MEDS: Insulin Detemir Inj 1,000 UNIT/10 ML Vial SQ SCH ×2 (08:30→20:13)
[2018-01-18 09:16] LABS: Baso % (Auto) 0.3 % (0.0-2.0); Eos # (Auto) 0.1 th/mm3 (0.0-0.4); Eos % (Auto) 0.4 % (0.0-4.0); Hematocrit 28.1 % (39.0-51.0); Lymph % (Auto) 7.6 % (9.0-44.0); Mean Corpuscular HGB Conc 32.1 % (32.0-36.0); Mean Corpuscular Hemoglobin 28.1 pg (27.0-34.0); Mean Corpuscular Volume 87.5 fL (80.0-100.0); Mean Platelet Volume 8.3 fL (7.0-11.0); Mono # (Auto) 1.1 th/mm3 (0.0-0.9); Mono % (Auto) 8.7 % (0.0-8.0); Neut # (Auto) 10.7 th/mm3 (1.8-7.7); Platelet Count 183 th/mm3 (150-450); Red Cell Distribution Width 16.3 % (11.6-17.2); White Blood Count 12.9 th/mm3 (4.0-11.0)
[2018-01-18 09:33] LABS: % Iron Saturation 17.7 % (20-50)
--- NOTE | 2018-01-18 12:27 | P.PNONC ---
Subjective Interval history: Afebrile Patient reports his breathing is about the same Anxious to know what his plan will be in regards to treatment Feels hungry this morning States he has not had a bowel movement in approximately a week; however had a small one yesterday. Objective Vital Signs/Intake & Output: Vital Signs 01/17/18 15:01 01/17/18 15:16 01/17/18 15:31 Temperature 98.1 F 98.1 F Pulse Rate 89 87 93 H Respiratory Rate 18 20 20 Blood Pressure 148/65 H 128/55 L 140/69 Pulse Oximetry 92 L 92 L 92 L 01/17/18 19:43 01/17/18 20:00 01/17/18 21:05 Temperature 97.6 F Pulse Rate 98 H 105 H 106 H Respiratory Rate 18 19 Blood Pressure 121/56 L Pulse Oximetry 93 L 95 01/18/18 00:00 01/18/18 03:29 01/18/18 04:00 Temperature 97.8 F 98.8 F Pulse Rate 84 73 Respiratory Rate 18 18 Blood Pressure 131/61 127/60 Pulse Oximetry 18 L 97 95 01/18/18 07:55 01/18/18 08:00 Temperature 98.0 F Pulse Rate 101 H 92 H Respiratory Rate 12 20 Blood Pressure 144/71 H Pulse Oximetry 92 L 91 L Intake & Output 01/17/18 01/18/18 01/18/18 18:59 06:59 18:59 Intake Total 240 / 240 Output Total 1200 / 1200 1600 / 1600 Balance -1200 / -1200 -1360 / -1360 Weight 321 lb 13.998 oz Intake: Oral 240 / 240 Output: Urine 1200 / 1200 1600 / 1600 Other: # Bowel Movements 0 1 Result Diagrams: 01/18/18 07:47 01/16/18 08:07 Laboratory Results: Laboratory Results - last 24 hr 01/17/18 01/17/18 01/18/18 17:08 20:05 07:35 WBC RBC Hgb Hct MCV MCH MCHC RDW Plt Count MPV Neut % (Auto) Lymph % (Auto) Harney % (Auto) Eos % (Auto) Baso % (Auto) Neut # (Auto) Lymph # (Auto) Harney # (Auto) Eos # (Auto) Baso # (Auto) WBC Differential Differential Comment POC Glucose 206 H 253 H 91 Iron TIBC % Saturation Ferritin 01/18/18 01/18/18 07:47 07:47 WBC 12.9 H RBC 3.20 L Hgb 9.0 L Hct 28.1 L MCV 87.5 MCH 28.1 MCHC 32.1 RDW 16.3 Plt Count 183 MPV 8.3 Neut % (Auto) 83.0 H Lymph % (Auto) 7.6 L Harney % (Auto) 8.7 H Eos % (Auto) 0.4 Baso % (Auto) 0.3 Neut # (Auto) 10.7 H Lymph # (Auto) 1.0 Harney # (Auto) 1.1 H Eos # (Auto) 0.1 Baso # (Auto) 0.0 WBC Differential . Differential Comment Auto diff final POC Glucose Iron 38 L TIBC 214 L % Saturation 17.7 L Ferritin 299 Imaging Studies: Impressions Catheter Placement X-Ray 01/17/18 08:00 CONCLUSION: 1. Uncomplicated tunneled right chest tube placement as above. 1400 mL of serosanguineous fluid was removed. Chest X-Ray 01/17/18 15:16 CONCLUSION: 1. No evidence of pneumothorax. 2. Questionable subtle visualization of a small tube projected over the right lung base. 3. Interval improvement in pulmonary opacities. Chest X-Ray 01/18/18 00:00 CONCLUSION: 1. Inferior right-sided tunneled pleural catheter without significant pneumothorax. However, there is new moderate subcutaneous right chest wall emphysema that was not present immediately following catheter placement. 2. Stable patchy right lower lung zone airspace disease. Medications: Active Medications Generic Name Dose Route Start Last Admin Trade Name Freq PRN Reason Stop Dose Admin Acetaminophen 650 mg 01/05/18 21:17 01/10/18 02:43 Tylenol PO 650 mg Q6H PRN Administration PAIN 1-10 AND/OR FEVER >101F Al Hydroxide/Mg Hydroxide 30 ml 01/05/18 21:17 01/17/18 21:01 Milk Of Magnesia Liq PO 30 ml Q12H PRN Administration Mild Constipation Albuterol 2.5 mg 01/07/18 12:10 01/16/18 07:55 Albuterol Neb (Prn) NEB 2.5 mg Q2HR NEB PRN Administration DYSPNEA Artificial Tears 1 drops 01/07/18 13:00 01/18/18 05:54 Genteal Severe Dry Eye Relief 0.3% Opth Gel EACH EYE Not Given Q8H [facility] Aspirin 81 mg 01/08/18 09:00 01/18/18 08:28 Aspirin Chew PO 81 mg DAILY [facility] Administration Budesonide 0.5 mg 01/07/18 20:00 01/18/18 07:51 Pulmocort Respule Neb NEB 0.5 mg Q12HR NEB [facility] Administration Bumetanide 1 mg 01/12/18 09:00 01/18/18 08:28 Bumex PO 1 mg DAILY [facility] Administration Carvedilol 3.125 mg 01/08/18 21:00 01/18/18 08:28 Coreg PO 3.125 mg BID [facility] Administration Chlorhexidine Gluconate 15 ml 01/06/18 08:00 01/18/18 08:29 Peridex 0.12% Oral Kit OROPHARYNG 15 ml BID@0800,2000 [facility] Administration Dextrose 50 ml 01/05/18 21:23 01/06/18 06:01 D50w Vial IV.PUSH 50 ml UNSCH PRN Administration PER HYPOGLYCEMIA PROTOCOL Hydralazine HCl 100 mg 01/11/18 13:24 01/18/18 08:28 Apresoline PO 100 mg TID [facility] Administration Insulin Aspart 0 unit 01/10/18 12:00 01/18/18 07:51 Novolog Insulin Correctional Sugar Inj SQ Not Given [facility] Protocol Insulin Detemir 17 unit 01/17/18 13:32 01/18/18 08:30 Levemir Inj SQ 17 unit BID [facility] Administration Isosorbide Dinitrate 10 mg 01/11/18 14:00 01/18/18 05:55 Isordil PO 10 mg Q8HR [facility] Administration Labetalol HCl 10 mg 01/08/18 11:35 01/09/18 00:02 Trandate Inj IV.PUSH 10 mg Q1H PRN Administration SBP>180, DBP>100, HR>65 Lactulose 30 ml 01/05/18 21:17 01/16/18 18:20 Lactulose Liq PO 30 ml DAILY PRN Administration SEV[employer]IP[employer] Nitroglycerin 2 inch 01/08/18 12:13 01/13/18 06:35 Nitro-Bid 2% Oint TOPICAL 2 inch Q6HR PRN Administration SBP>160, DBP>90 Oxycodone/Acetaminophen 1 tab 01/12/18 21:50 01/16/18 04:57 Percocet 5/325 Mg PO 1 tab Q6H PRN Administration pain Pat Own Med: 0 each 01/05/18 09:00 01/05/18 22:38 Fluticasone- INH Not Given Umeclidinium- DAILY [facility] Vilanterol (Trelegy Ellipta)Inh Pravastatin Sodium 10 mg 01/13/18 15:32 01/18/18 08:31 Pravachol PO 10 mg DAILY [facility] Administration Senna/Docusate Sodium 1 tab 01/06/18 09:00 01/18/18 08:29 Zandra-Colace PO 1 tab BID [facility] Administration Sennosides 17.2 mg 01/05/18 21:17 01/14/18 09:28 Senokot PO 17.2 mg Q12H PRN Administration Moderate Constipation Sodium Chloride 2 ml 01/06/18 09:00 01/18/18 08:31 Ns Flush IV.FLUSH 2 ml BID [facility] Administration Spironolactone 25 mg 01/11/18 18:00 01/18/18 08:29 Aldactone PO 25 mg BID@0900,1800 [facility] Administration Tamsulosin HCl 0.4 mg 01/12/18 09:00 01/18/18 08:28 Flomax PO 0.4 mg DAILY [facility]I Administration Objective Remarks: GENERAL: Obese older male sitting on side of bed in no acute distress. SKIN: Warm and dry. HEAD: Normocephalic. EYES: No scleral icterus. No injection or drainage. NECK: Supple, trachea midline. CARDIOVASCULAR: Irregular rhythm. RESPIRATORY: Diminished breath sounds throughout. Pleurx catheter in place to right lateral chest. GASTROINTESTINAL: Abdomen protuberant. Nontender. EXTREMITIES: Generalized edema MUSCULOSKELETAL: Adequate muscle tone. NEUROLOGICAL: No obvious focal deficit. Awake, alert, and oriented x3. Assessment/Plan - Plan 67-year-old male with non-small cell carcinoma of the lung admitted with significant shortness of breath and was intubated in the emergency room. The patient was in the hospital in [facility] in November 2017 where he had several thoracenteses with pleural fluid being positive for "non-small cell carcinoma." 1. Obtain records from [facility]. Ideally would like to know if any pathology was done for specific targeted mutations for possible targeted therapy. 2. Patient with multiple comorbidities; for now will monitor Pleurx catheter output 3. Likely plan for palliative chemotherapy outpatient 4. Continue supportive care
--- NOTE | 2018-01-18 12:58 | P.PNIM ---
Subjective Interval history: Pt seen and examined for f/u PNA, R pleural effusion, and NSCLC. Endorses a cough productive of yellow-brown sputum and some mild discomfort at the pleural catheter site. On BiPAP about five hours overnight. He is trying to ambulate some but feels weak. Denies CP, abdominal pain, N/V. He feels a little frustrated that we don't have records back yet [facility] as he is eager to come up with a treatment plan. Physical Exam Vital signs: Vital Signs 01/17/18 15:01 01/17/18 15:16 01/17/18 15:31 Temperature 98.1 F 98.1 F Pulse Rate 89 87 93 H Respiratory Rate 18 20 20 Blood Pressure 148/65 H 128/55 L 140/69 Pulse Oximetry 92 L 92 L 92 L 01/17/18 19:43 01/17/18 20:00 01/17/18 21:05 Temperature 97.6 F Pulse Rate 98 H 105 H 106 H Respiratory Rate 18 19 Blood Pressure 121/56 L Pulse Oximetry 93 L 95 01/18/18 00:00 01/18/18 03:29 01/18/18 04:00 Temperature 97.8 F 98.8 F Pulse Rate 84 73 Respiratory Rate 18 18 Blood Pressure 131/61 127/60 Pulse Oximetry 18 L 97 95 01/18/18 07:55 01/18/18 08:00 Temperature 98.0 F Pulse Rate 101 H 92 H Respiratory Rate 12 20 Blood Pressure 144/71 H Pulse Oximetry 92 L 91 L Intake & Output 01/17/18 01/18/18 01/18/18 18:59 06:59 18:59 Intake Total 240 / 240 Output Total 1200 / 1200 1600 / 1600 Balance -1200 / -1200 -1360 / -1360 Weight 146 kg Intake: Oral 240 / 240 Output: Urine 1200 / 1200 1600 / 1600 Other: # Bowel Movements 0 1 Narrative: GENERAL: Obese, pleasant, male sitting on the side of bed in [facility]. SKIN: Warm and dry. HEENT: AT/NC. Pupils equal and round. MMM. HEART: RRR no m/r/g. LUNGS: R pleural catheter in place no surrounding redness. Diminished breath sounds over right base. ABDOMEN: +BS, soft, NT, ND. EXTREMITIES: Chronic venous stasis changes of LE. NEURO: Awake and alert. Nonfocal. PSYCH: Appropriate mood and affect. - Urinary Catheter Management Indwelling Temp Sensing Catheter Cath placed during this visit: yes, but has since been removed by the nurse Reason for continuing: Chronic Urinary Retention Insertion date: 01/08/18 Insertion time: 17:15 Removal date: 01/07/18 Removal time: 10:00 Indwelling Urethral Catheter Cath placed during this visit: yes, but has since been removed by the nurse Reason for continuing: Chronic Urinary Retention Insertion date: 01/08/18 Removal date: 01/14/18 Removal time: 06:40 Results - Labs CBC & Chem 7: 01/18/18 07:47 01/16/18 08:07 Laboratory Results - last 24 hr 01/17/18 01/17/18 01/18/18 17:08 20:05 07:35 WBC RBC Hgb Hct MCV MCH MCHC RDW Plt Count MPV Neut % (Auto) Lymph % (Auto) Lamb % (Auto) Eos % (Auto) Baso % (Auto) Neut # (Auto) Lymph # (Auto) Lamb # (Auto) Eos # (Auto) Baso # (Auto) WBC Differential Differential Comment POC Glucose 206 H 253 H 91 Iron TIBC % Saturation Ferritin 01/18/18 01/18/18 07:47 07:47 WBC 12.9 H RBC 3.20 L Hgb 9.0 L Hct 28.1 L MCV 87.5 MCH 28.1 MCHC 32.1 RDW 16.3 Plt Count 183 MPV 8.3 Neut % (Auto) 83.0 H Lymph % (Auto) 7.6 L Lamb % (Auto) 8.7 H Eos % (Auto) 0.4 Baso % (Auto) 0.3 Neut # (Auto) 10.7 H Lymph # (Auto) 1.0 Lamb # (Auto) 1.1 H Eos # (Auto) 0.1 Baso # (Auto) 0.0 WBC Differential . Differential Comment Auto diff final POC Glucose Iron 38 L TIBC 214 L % Saturation 17.7 L Ferritin 299 - Imaging Impressions Catheter Placement X-Ray 01/17/18 08:00 CONCLUSION: 1. Uncomplicated tunneled right chest tube placement as above. 1400 mL of serosanguineous fluid was removed. Chest X-Ray 01/17/18 15:16 CONCLUSION: 1. No evidence of pneumothorax. 2. Questionable subtle visualization of a small tube projected over the right lung base. 3. Interval improvement in pulmonary opacities. Chest X-Ray 01/18/18 00:00 CONCLUSION: 1. Inferior right-sided tunneled pleural catheter without significant pneumothorax. However, there is new moderate subcutaneous right chest wall emphysema that was not present immediately following catheter placement. 2. Stable patchy right lower lung zone airspace disease. Assessment and Plan - Assessment (1) Pneumonia Code(s): J18.9 - Pneumonia, unspecified organism Status: Acute (2) Pleural effusion associated with pulmonary infection Code(s): J18.9 - Pneumonia, unspecified organism; J91.8 - Pleural effusion in other conditions classified elsewhere Status: Acute (3) Non-small cell cancer of right lung Code(s): C34.91 - Malignant neoplasm of unspecified part of right bronchus or lung Status: Acute - Plan 67 year old male with history of tobacco abuse, DM, O2-dependent COPD , HTN, CAD, HLD, and gout admitted 01/05 for respiratory distress and AMS. The patient was intubated in the ED and admitted to [facility] under the licensed acupuncturist. He was extubated on 01/08. Plan by systems: Respiratory Acute hypoxemic/hypercapnic respiratory failure O2-dependent COPD CORINA Pleural effusion NSCLC - S/P intubation 01/04-01/08 - S/P thoracentesis x 2 (-3L at [facility] and -2L during this hospitalization on ) - Pleural cath in place (01/17); to be drained Q3D or PRN - Onc following, awaiting records from [facility] regarding pathology of biopsy to make decision about treatment forward (likely palliative chemo) - Pulmonology following (sees Dr. Clarke as outpatient) - Supplemental O2 to maintain sats >92% - Continue Pulmicort - Albuterol PRN - BiPAP PRN - Continue Aldactone and Bumex Cardiovascular CAD HTN HLD - Continue hydralazine and Coreg - Continue Bumex and Aldactone - Continue Isordil - Continue ASA - Continue statin Endocrine DM - Continue Levemir 17 units BID - Continue SSI with accuchecks per protocol Infectious disease Pseudomonas PNA - ID was following, completed course of Fortaz and Bactrim - Allergy to PCN but tolerates cephalosporins - 1 out of 4 blood culture with Staph epi, likely contaminant Heme Normocytic anemia - H&H stable - Hemodynamically stable - Continue to monitor DVT prophylaxis: SCDs, heparin Code Status: FULL Discussed Condition With: The patient and significant other Discharge Planning: Awaiting records from [facility] so oncology team can move forward with a treatment plan. Discussed with nursing about calling [facility] and obtaining records. Request had been faxed out on 01/14,. PT recommending rehab on discharge.
--- NOTE | 2018-01-18 13:18 | P.PNPL ---
Subjective Interval history: Patient is lying in bed in NAD. Afebrile. Physical Exam Vital signs: Vital Signs 01/17/18 15:01 01/17/18 15:16 01/17/18 15:31 Temperature 98.1 F 98.1 F Pulse Rate 89 87 93 H Respiratory Rate 18 20 20 Blood Pressure 148/65 H 128/55 L 140/69 Pulse Oximetry 92 L 92 L 92 L 01/17/18 19:43 01/17/18 20:00 01/17/18 21:05 Temperature 97.6 F Pulse Rate 98 H 105 H 106 H Respiratory Rate 18 19 Blood Pressure 121/56 L Pulse Oximetry 93 L 95 01/18/18 00:00 01/18/18 03:29 01/18/18 04:00 Temperature 97.8 F 98.8 F Pulse Rate 84 73 Respiratory Rate 18 18 Blood Pressure 131/61 127/60 Pulse Oximetry 18 L 97 95 01/18/18 07:55 01/18/18 08:00 Temperature 98.0 F Pulse Rate 101 H 92 H Respiratory Rate 12 20 Blood Pressure 144/71 H Pulse Oximetry 92 L 91 L Intake & Output 01/17/18 01/18/18 01/18/18 18:59 06:59 18:59 Intake Total 240 / 240 Output Total 1200 / 1200 1600 / 1600 Balance -1200 / -1200 -1360 / -1360 Weight 146 kg Intake: Oral 240 / 240 Output: Urine 1200 / 1200 1600 / 1600 Other: # Bowel Movements 0 1 - Constitutional no acute distress - Routine HEENT Exam Head: Present: normocephalic, atraumatic Eye: Present: EOMI, PERRL, conjunctivae pink ENT: Present: mucous membranes moist - Routine Neck Exam Present: supple, full ROM, trachea midline - Routine Respiratory Exam Present: decreased breath sounds, CTA bilaterally - Routine Cardiovascular Exam Present: RRR, S1, S2 - Routine Abdominal Exam Present: soft, normoactive bowel sounds, distended - Routine Extremities Exam Present: full ROM - Routine Skin Exam Present: intact - Routine Neurological Exam Present: alert, oriented X3, CN II-XII intact - Routine Psychiatric Exam Present: normal affect - Urinary Catheter Management Indwelling Temp Sensing Catheter Cath placed during this visit: yes, but has since been removed by the nurse Reason for continuing: Chronic Urinary Retention Insertion date: 01/08/18 Insertion time: 17:15 Removal date: 01/07/18 Removal time: 10:00 Indwelling Urethral Catheter Cath placed during this visit: yes, but has since been removed by the nurse Reason for continuing: Chronic Urinary Retention Insertion date: 01/08/18 Removal date: 01/14/18 Removal time: 06:40 Assessment and Plan - Plan 1)Acute hypoxemic and hypercapnic resp insuff 2)Pseudomonas Pneumonia 3) NSCLC 4)Pleural effusion s/p Pleurx catheter placement 5)Morbid obesity/CORINA/OHS 6)COPD 7)HTN 8)DM Plan Continue with oxygen keep sats >92% Bronchodilators(DuoNeb, Pulmicort) NIPPV PRN and nocturnally qhs s/p Pleur X catheter on right 01/17 Drain pleural fluid on Right every 3 days and PRN Off steroids Continue with diuretics- on Bumex and Aldactone. s/p abx finished course IV Fortaz and PO Bactrim) ID is following Onc is following- Palliative chemo as outpatient. GI/DVT prophylaxis- per primary team Continue treatment plan.
[2018-01-19] MEDS: Hypromellose 0.3% Opth Gel 10 GM Bottle EACH EYE SCH ×3 (05:33→21:14)
[2018-01-19] MEDS: Oral Hygiene Kit OROPHARYNG SCH ×3 (05:33→15:49)
[2018-01-19 07:45] LABS: Alanine Aminotransferase 21 U/L (12-78); Albumin 2.5 g/dL (3.4-5.0); Anion Gap 5 meq/L (5-15); Aspartate Aminotransferase 11 U/L (15-37); Blood Urea Nitrogen 26 mg/dL (7-18); Calcium 8.2 mg/dL (8.5-10.1); Carbon Dioxide 36.5 meq/L (21.0-32.0); Chloride 98 meq/L (98-107); Glomerular Filtration Rate 61 mL/min (>89); Glucose,Random 125 mg/dL (74-106); Sodium 139 meq/L (136-145)
[2018-01-19 07:47] LABS: Alkaline Phosphatase 62 U/L (45-117); Total Protein 5.8 g/dL (6.4-8.2)
[2018-01-19 07:48] LABS: Baso # (Auto) 0.1 th/mm3 (0.0-0.2); Baso % (Auto) 0.9 % (0.0-2.0); Eos # (Auto) 0.1 th/mm3 (0.0-0.4); Eos % (Auto) 0.9 % (0.0-4.0); Hematocrit 26.3 % (39.0-51.0); Hemoglobin 8.4 gm/dL (13.0-17.0); Lymph # (Auto) 1.1 th/mm3 (1.0-4.8); Lymph % (Auto) 8.9 % (9.0-44.0); Mean Corpuscular HGB Conc 31.9 % (32.0-36.0); Mean Corpuscular Volume 87.7 fL (80.0-100.0); Mean Platelet Volume 8.9 fL (7.0-11.0); Mono % (Auto) 7.7 % (0.0-8.0); Neut # (Auto) 10.5 th/mm3 (1.8-7.7); Neut % (Auto) 81.6 % (16.0-70.0); Platelet Count 152 th/mm3 (150-450); Red Cell Distribution Width 16.2 % (11.6-17.2); White Blood Count 12.8 th/mm3 (4.0-11.0)
[2018-01-19 08:01] LABS: Platelet Estimate Normal (Normal); Platelet Morphology Clumped (Normal)
[2018-01-19] MEDS: hydrALAZINE 50 MG Tablet PO SCH ×3 (08:38→17:26)
[2018-01-19] MEDS: Senna/Docusate Sodium 8.6/50 MG Tablet PO SCH ×2 (08:38→21:12)
--- NOTE | 2018-01-19 11:08 | P.PNPL ---
Subjective Interval history: Patient is on 4L oxygen, afebrile, lethargic and drowsy however able to answer questions appropriately. Physical Exam Vital signs: Vital Signs 01/18/18 12:00 01/18/18 16:00 01/18/18 20:00 Temperature 97.6 F 97.6 F 97.7 F Pulse Rate 94 H 99 H 95 H Respiratory Rate 20 20 20 Blood Pressure 144/81 H 127/59 L 136/63 Pulse Oximetry 93 L 95 95 01/18/18 21:57 01/18/18 23:50 01/19/18 00:00 Temperature 97.5 F L Pulse Rate 89 92 H Respiratory Rate 20 22 20 Blood Pressure 121/91 H Pulse Oximetry 93 L 97 01/19/18 04:00 01/19/18 08:00 01/19/18 08:53 Temperature 97.9 F 97.2 F L Pulse Rate 88 92 H 78 Respiratory Rate 20 20 12 Blood Pressure 136/71 128/64 Pulse Oximetry 95 93 L 96 Intake & Output 01/18/18 01/19/18 01/19/18 18:59 06:59 18:59 Intake Total 600 / 600 360 / 360 Output Total 700 / 700 500 / 500 Balance -100 / -100 -140 / -140 Weight 145.5 kg Intake: Oral 600 / 600 360 / 360 Output: Urine 700 / 700 500 / 500 Other: # Bowel Movements 1 0 - Constitutional no acute distress - Routine HEENT Exam Head: Present: normocephalic, atraumatic Eye: Present: EOMI, PERRL, normal accommodation, conjunctivae pink ENT: Present: mucous membranes moist - Routine Neck Exam Present: supple, full ROM, trachea midline - Routine Respiratory Exam Present: CTA bilaterally - Routine Cardiovascular Exam Present: RRR, S1, S2 - Routine Abdominal Exam Present: soft, normoactive bowel sounds - Routine Extremities Exam Present: edema, full ROM - Routine Skin Exam Present: intact - Routine Neurological Exam Lethargic and drowsy - Routine Psychiatric Exam Present: normal affect - Urinary Catheter Management Indwelling Temp Sensing Catheter Cath placed during this visit: yes, but has since been removed by the nurse Reason for continuing: Chronic Urinary Retention Insertion date: 01/08/18 Insertion time: 17:15 Removal date: 01/07/18 Removal time: 10:00 Indwelling Urethral Catheter Cath placed during this visit: yes, but has since been removed by the nurse Reason for continuing: Chronic Urinary Retention Insertion date: 01/08/18 Removal date: 01/14/18 Removal time: 06:40 Assessment and Plan - Plan 1)Acute hypoxemic and hypercapnic resp insuff 2)Pseudomonas Pneumonia 3) NSCLC 4)Pleural effusion s/p Pleurx catheter placement 5)Morbid obesity/CORINA/OHS 6)COPD 7)HTN 8)DM Plan Continue with oxygen keep sats >92% Bronchodilators(DuoNeb, Pulmicort) NIPPV PRN and nocturnally qhs s/p Pleur X catheter on right 01/17 Drain pleural fluid on Right every 3 days and PRN Check ABG and CXR Continue with diuretics- on Bumex and Aldactone. s/p abx finished course IV Fortaz and PO Bactrim) ID is following Onc is following- Palliative chemo as outpatient. GI/DVT prophylaxis- per primary team Continue treatment plan.
[2018-01-19] MEDS: Chlorhexidine 0.12% Oral Kit 15 ML UDC OROPHARYNG SCH (11:30)
[2018-01-19] MEDS: Spironolactone 25 MG Tablet PO SCH ×2 (11:30→19:04)
[2018-01-19] MEDS: Insulin Detemir Inj 1,000 UNIT/10 ML Vial SQ SCH ×2 (11:31→21:14)
[2018-01-19] MEDS: Insulin NovoLOG Aspart Correctional Sugar Inj SQ SCH ×4 (11:31→21:15)
--- NOTE | 2018-01-19 11:37 | XR ---
EXAM DATE: 01/19/2018 11:32 AM EDT AGE/SEX: 67 years / Male INDICATIONS: Shortness of breath, cough and right sided chest pain. CLINICAL DATA: This is the patient's subsequent encounter. Patient reports that signs and symptoms h ave been present for 3 days and indicates a pain score of 5/10. MEDICAL/SURGICAL HISTORY: Chronic obstructive pulmonary disease. Hypertension. Carcinoma, squ amous cell. Diabetes type 2. Asthma. CHF. Myocardial infarction. . Lung biopsy. COMPARISON: [facility] [place] [facility], CHEST 1V SINGLE AP, 01/18/2018. . FINDINGS: There is more opacity involving both lung bases since the prior examination partially technical, avila boo worsening pleural effusion and possible consolidation is suspected. There is also pulmonary edema and cardiomegaly. CONCLUSION: Worsening bibasilar opacity partially technical, however worsening pleural effusion and/or consolidat ion should be entertained. Additional pulmonary edema is seen. Electronically signed by: Diane Lima MD 01/19/2018 11:36 AM EDT
[2018-01-19 11:55] LABS: ABG Base Excess 14.2 mmol/L (-2-2); ABG PCO2 66 mmHg (38-42); ABG PO2 63 mmHg (61-120)
--- NOTE | 2018-01-19 17:27 | P.PNIM ---
Subjective Interval history: Late entry note. Patient seen this morning. F/u of pleural effusion and NSCLC. Pt has no new complaints. Reports he did not sleep well overnight so has been very tired this morning. Breathing is stable. Continues to have productive cough and some shortness of breath. Tolerating PO. In overall good spirits. Denies CP. Had an episode of vomiting overnight so he did not want to use his BiPAP. Physical Exam Vital signs: Vital Signs 01/18/18 20:00 01/18/18 21:57 01/18/18 23:50 Temperature 97.7 F Pulse Rate 95 H 89 Respiratory Rate 20 20 22 Blood Pressure 136/63 Pulse Oximetry 95 93 L 01/19/18 00:00 01/19/18 04:00 01/19/18 08:00 Temperature 97.5 F L 97.9 F 97.2 F L Pulse Rate 92 H 88 94 H Respiratory Rate 20 20 20 Blood Pressure 121/91 H 136/71 128/64 Pulse Oximetry 97 95 93 L 01/19/18 08:53 01/19/18 12:00 01/19/18 16:00 Temperature 98.1 F Pulse Rate 78 91 H 96 H Respiratory Rate 12 20 Blood Pressure 159/92 H Pulse Oximetry 96 93 L 01/19/18 17:01 Temperature Pulse Rate 81 Respiratory Rate 12 Blood Pressure Pulse Oximetry Intake & Output 01/18/18 01/19/18 01/19/18 18:59 06:59 18:59 Intake Total 600 / 600 360 / 360 Output Total 700 / 700 500 / 500 Balance -100 / -100 -140 / -140 Weight 145.5 kg Intake: Oral 600 / 600 360 / 360 Output: Urine 700 / 700 500 / 500 Other: # Bowel Movements 1 0 Narrative: GENERAL: Obese, pleasant, male sitting on the side of bed in NAD. SKIN: Warm and dry. HEENT: AT/NC. Pupils equal and round. MMM. HEART: RRR no m/r/g. LUNGS: R pleural catheter in place no surrounding redness. Diminished breath sounds over right base. ABDOMEN: +BS, soft, NT, ND. EXTREMITIES: Chronic venous stasis changes of LE. NEURO: Awake and alert. Nonfocal. PSYCH: Appropriate mood and affect. - Urinary Catheter Management Indwelling Temp Sensing Catheter Cath placed during this visit: yes, but has since been removed by the nurse Reason for continuing: Chronic Urinary Retention Insertion date: 01/08/18 Insertion time: 17:15 Removal date: 01/07/18 Removal time: 10:00 Indwelling Urethral Catheter Cath placed during this visit: yes, but has since been removed by the nurse Reason for continuing: Chronic Urinary Retention Insertion date: 01/08/18 Removal date: 01/14/18 Removal time: 06:40 Results - Labs CBC & Chem 7: 01/19/18 06:21 01/19/18 06:21 Laboratory Results - last 24 hr 01/18/18 01/18/18 01/19/18 17:44 20:10 06:21 WBC 12.8 H RBC 3.00 L Hgb 8.4 L Hct 26.3 L MCV 87.7 MCH 28.0 MCHC 31.9 L RDW 16.2 Plt Count 152 MPV 8.9 Prelim Diff (Auto) Slide review pending Neut % (Auto) 81.6 H Lymph % (Auto) 8.9 L [place] % (Auto) 7.7 Eos % (Auto) 0.9 Baso % (Auto) 0.9 Neut # (Auto) 10.5 H Lymph # (Auto) 1.1 [place] # (Auto) 1.0 H Eos # (Auto) 0.1 Baso # (Auto) 0.1 WBC Differential . Diff Scan Auto diff confirmed Differential Comment . Platelet Estimate Normal Platelet Morphology Clumped H Puncture Site Patient Temperature O2 Saturation ABG pH ABG pCO2 ABG pO2 ABG HCO3 ABG O2 Content ABG Base Excess ABG Methemoglobin Catracho Test Hemoglobin Carboxyhemoglobin O2 Delivery Device Liter Flow Inspired O2 Critical Value Sodium Potassium Chloride Carbon Dioxide Anion Gap BUN Creatinine Estimated GFR POC Glucose 230 H 259 H Random Glucose Calcium Total Bilirubin AST ALT Alkaline Phosphatase Total Protein Albumin 01/19/18 01/19/18 01/19/18 06:21 10:14 11:48 WBC RBC Hgb Hct MCV MCH MCHC RDW Plt Count MPV Prelim Diff (Auto) Neut % (Auto) Lymph % (Auto) [place] % (Auto) Eos % (Auto) Baso % (Auto) Neut # (Auto) Lymph # (Auto) [place] # (Auto) Eos # (Auto) Baso # (Auto) WBC Differential Diff Scan Differential Comment Platelet Estimate Platelet Morphology Puncture Site Right radial Patient Temperature 98.6 O2 Saturation 89 L* ABG pH 7.40 ABG pCO2 66 H* ABG pO2 63 ABG HCO3 40 H ABG O2 Content 11.7 L ABG Base Excess 14.2 H ABG Methemoglobin 1.4 Catracho Test Present Hemoglobin 9.3 L Carboxyhemoglobin 2.0 O2 Delivery Device Nasal cannula Liter Flow 4.00 Inspired O2 21 Critical Value Yes Sodium 139 Potassium 4.0 Chloride 98 Carbon Dioxide 36.5 H Anion Gap 5 BUN 26 H Creatinine 1.19 Estimated GFR 61 L POC Glucose 217 H Random Glucose 125 H Calcium 8.2 L Total Bilirubin 0.5 AST 11 L ALT 21 Alkaline Phosphatase 62 Total Protein 5.8 L Albumin 2.5 L 01/19/18 01/19/18 13:02 16:12 WBC RBC Hgb Hct MCV MCH MCHC RDW Plt Count MPV Prelim Diff (Auto) Neut % (Auto) Lymph % (Auto) [place] % (Auto) Eos % (Auto) Baso % (Auto) Neut # (Auto) Lymph # (Auto) [place] # (Auto) Eos # (Auto) Baso # (Auto) WBC Differential Diff Scan Differential Comment Platelet Estimate Platelet Morphology Puncture Site Patient Temperature O2 Saturation ABG pH ABG pCO2 ABG pO2 ABG HCO3 ABG O2 Content ABG Base Excess ABG Methemoglobin Catracho Test Hemoglobin Carboxyhemoglobin O2 Delivery Device Liter Flow Inspired O2 Critical Value Sodium Potassium Chloride Carbon Dioxide Anion Gap BUN Creatinine Estimated GFR POC Glucose 164 H 225 H Random Glucose Calcium Total Bilirubin AST ALT Alkaline Phosphatase Total Protein Albumin - Imaging Impressions Chest X-Ray 01/19/18 11:09 CONCLUSION: Worsening bibasilar opacity partially technical, however worsening pleural effusion and/or consolidation should be entertained. Additional pulmonary edema is seen. Assessment and Plan - Assessment (1) Pneumonia Code(s): J18.9 - Pneumonia, unspecified organism Status: Acute (2) Pleural effusion associated with pulmonary infection Code(s): J18.9 - Pneumonia, unspecified organism; J91.8 - Pleural effusion in other conditions classified elsewhere Status: Acute (3) Non-small cell cancer of right lung Code(s): C34.91 - Malignant neoplasm of unspecified part of right bronchus or lung Status: Acute - Plan 67 year old male with history of tobacco abuse, DM, O2-dependent COPD , HTN, CAD, HLD, and gout admitted 01/05 for respiratory distress and AMS. 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 He was extubated on 01/08. Plan by systems: Respiratory Acute hypoxemic/hypercapnic respiratory failure O2-dependent COPD [place] Pleural effusion NSCLC - S/P intubation 01/04-01/08 - S/P thoracentesis x 2 (-3L at OR Hosp and -2L during this hospitalization on ) - Pleural cath in place (01/17); to be drained Q3D or PRN. D/w nursing to drain today and yielded ~-250 cc - Onc following, awaiting records from [facility] regarding pathology of biopsy to make decision about treatment forward (likely palliative chemo) - Pulmonology following (sees Dr. Clarke as outpatient) - Repeat ABG done today with some improvement from prior - CXR showing worsening pleural effusion and pulmonary edema - Supplemental O2 to maintain sats >92% - Continue Pulmicort - Albuterol PRN - BiPAP PRN - Continue Aldactone - Increase Bumex to BID, monitor renal function Cardiovascular CAD HTN HLD - Continue hydralazine and Coreg - Continue Bumex and Aldactone - Continue Isordil - Continue ASA - Continue statin Endocrine DM - Continue Levemir 17 units BID - Continue SSI with accuchecks per protocol Infectious disease Pseudomonas PNA - ID was following, completed course of Fortaz and Bactrim - Allergy to PCN but tolerates cephalosporins - 1 out of 4 blood culture with Staph epi, likely contaminant Heme Normocytic anemia - H&H stable - Hemodynamically stable - Continue to monitor DVT prophylaxis: SCDs, heparin Discussed Condition With: Dr. Dial and patient Discharge Planning: Awaiting records from [facility] so oncology team can move forward with a treatment plan. Discussed with nursing about calling [facility] and obtaining records. Request had been faxed out on 01/14,. PT recommending rehab on discharge.
[2018-01-20] MEDS: Hypromellose 0.3% Opth Gel 10 GM Bottle EACH EYE SCH ×3 (05:59→22:32)
[2018-01-20] MEDS: Oral Hygiene Kit OROPHARYNG SCH ×3 (05:59→16:26)
[2018-01-20] MEDS: Chlorhexidine 0.12% Oral Kit 15 ML UDC OROPHARYNG SCH ×3 (05:59→22:34)
[2018-01-20] MEDS ORDERED: Insulin Detemir Inj 1,000 UNIT/10 ML Vial SQ SCH (08:20)
[2018-01-20] MEDS: Senna/Docusate Sodium 8.6/50 MG Tablet PO SCH ×2 (08:20→22:32)
[2018-01-20] MEDS: hydrALAZINE 50 MG Tablet PO SCH ×3 (08:20→17:08)
[2018-01-20] MEDS: Insulin NovoLOG Aspart Correctional Sugar Inj SQ SCH ×4 (08:22→22:31)
[2018-01-20] MEDS: Insulin Detemir Inj 1,000 UNIT/10 ML Vial SQ SCH ×2 (08:22→22:30)
--- NOTE | 2018-01-20 08:23 | P.PNIM ---
Subjective Interval history: Pt seen and examined for f/u of NSCLC and recurrent pleural effusion with Pleural cath in place. AFVSS. No acute events overnight. Maintaining sats on 4L O2. Used BiPAP ~4 hours overnight. Reports feeling a little better than yesterday. Continues to have cough and some shortness of breath with exertion. Denies CP, abdominal pain, N/V. Ambulating with PT. Physical Exam Vital signs: Vital Signs 01/19/18 08:53 01/19/18 12:00 01/19/18 16:00 Temperature 98.1 F 97.9 F Pulse Rate 78 91 H 97 H Respiratory Rate 12 20 20 Blood Pressure 159/92 H 137/82 Pulse Oximetry 96 93 L 95 01/19/18 17:01 01/19/18 20:00 01/19/18 20:09 Temperature 97.7 F Pulse Rate 81 92 H 90 Respiratory Rate 12 20 16 Blood Pressure 134/72 Pulse Oximetry 98 01/19/18 21:00 01/20/18 00:00 01/20/18 01:36 Temperature 98.1 F Pulse Rate 101 H 92 H 91 H Respiratory Rate 18 20 Blood Pressure 131/70 Pulse Oximetry 96 01/20/18 01:43 01/20/18 03:13 01/20/18 04:00 Temperature Pulse Rate 90 81 Respiratory Rate 18 18 Blood Pressure 130/60 Pulse Oximetry 95 98 01/20/18 07:43 Temperature Pulse Rate 86 Respiratory Rate 22 Blood Pressure Pulse Oximetry 94 L Intake & Output 01/19/18 01/20/18 01/20/18 18:59 06:59 18:59 Intake Total 720 / 720 720 / 720 Output Total 475 / 475 Balance 720 / 720 245 / 245 Intake: Oral 720 / 720 720 / 720 Output: Urine 475 / 475 Other: # Voids 2 Date of Last Bowel Movement 01/10/18 Narrative: GENERAL: Obese, pleasant, male sitting on the side of bed in NAD. SKIN: Warm and dry. HEENT: AT/NC. Pupils equal and round. MMM. HEART: RRR no m/r/g. LUNGS: R pleural catheter in place no surrounding redness. Diminished breath sounds over right base. ABDOMEN: +BS, soft, NT, ND. EXTREMITIES: Chronic venous stasis changes of LE. NEURO: Awake and alert. Nonfocal. PSYCH: Appropriate mood and affect. - Urinary Catheter Management Indwelling Temp Sensing Catheter Cath placed during this visit: yes, but has since been removed by the nurse Reason for continuing: Chronic Urinary Retention Insertion date: 01/08/18 Insertion time: 17:15 Removal date: 01/07/18 Removal time: 10:00 Indwelling Urethral Catheter Cath placed during this visit: yes, but has since been removed by the nurse Reason for continuing: Chronic Urinary Retention Insertion date: 01/08/18 Removal date: 01/14/18 Removal time: 06:40 Results - Labs CBC & Chem 7: 01/20/18 08:00 01/20/18 08:00 Laboratory Results - last 24 hr 01/19/18 01/19/18 01/19/18 10:14 11:48 13:02 Puncture Site Right radial Patient Temperature 98.6 O2 Saturation 89 L* ABG pH 7.40 ABG pCO2 66 H* ABG pO2 63 ABG HCO3 40 H ABG O2 Content 11.7 L ABG Base Excess 14.2 H ABG Methemoglobin 1.4 Catracho Test Present Hemoglobin 9.3 L Carboxyhemoglobin 2.0 O2 Delivery Device Nasal cannula Liter Flow 4.00 Inspired O2 21 Critical Value Yes POC Glucose 217 H 164 H 01/19/18 01/19/18 01/20/18 16:12 19:37 07:15 Puncture Site Patient Temperature O2 Saturation ABG pH ABG pCO2 ABG pO2 ABG HCO3 ABG O2 Content ABG Base Excess ABG Methemoglobin Catracho Test Hemoglobin Carboxyhemoglobin O2 Delivery Device Liter Flow Inspired O2 Critical Value POC Glucose 225 H 216 H 135 H - Imaging Impressions Chest X-Ray 01/19/18 11:09 CONCLUSION: Worsening bibasilar opacity partially technical, however worsening pleural effusion and/or consolidation should be entertained. Additional pulmonary edema is seen. Assessment and Plan - Assessment (1) Pneumonia Code(s): J18.9 - Pneumonia, unspecified organism Status: Acute (2) Pleural effusion associated with pulmonary infection Code(s): J18.9 - Pneumonia, unspecified organism; J91.8 - Pleural effusion in other conditions classified elsewhere Status: Acute (3) Non-small cell cancer of right lung Code(s): C34.91 - Malignant neoplasm of unspecified part of right bronchus or lung Status: Acute - Plan 67 year old male with history of tobacco abuse, DM, O2-dependent COPD , HTN, CAD, HLD, and gout admitted 01/05 for respiratory distress and AMS. 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 He was extubated on 01/08. Plan by systems: Respiratory Acute hypoxemic/hypercapnic respiratory failure O2-dependent COPD [place] Pleural effusion NSCLC - S/P intubation 01/04-01/08 - S/P thoracentesis x 2 (-3L at [facility] and -2L during this hospitalization on ) - Pleural cath in place (01/17); to be drained Q3D or PRN. Last drained 01/19, yielded ~-250 cc - Onc following, awaiting records from [facility] regarding pathology of biopsy and results of PET scan to make decision about treatment forward (likely palliative chemo) - Pulmonology following (sees Dr. Clarke as outpatient) - Repeat ABG done 01/19 with some improvement from prior - CXR 01/19 showing worsening pleural effusion and pulmonary edema - Supplemental O2 to maintain sats >92% - Continue Pulmicort - Albuterol PRN - BiPAP PRN - Continue Aldactone - Increased Bumex to BID, kidneys tolerating it well Cardiovascular CAD HTN HLD - BPs for the most part have been stable - Continue hydralazine and Coreg - Continue Bumex and Aldactone - Continue Isordil - Continue ASA - Continue statin Endocrine DM - Continue SSI with accuchecks per protocol - Required 14 units SSI yesterday - AM sugars are generally OK but worsens throughout the day - Will increase Levemir to 20 units in the AM and continue with 17 units at night Infectious disease Pseudomonas PNA - ID was following, completed course of Fortaz and Bactrim - Allergy to PCN but tolerates cephalosporins - 1 out of 4 blood culture with Staph epi, likely contaminant - He has remained afebrile Heme Normocytic anemia - H&H stable - Hemodynamically stable - Iron studies show low iron, low TIBC, low %sat, and normal ferritin - Appears more like an anemia of chronic disease picture - Continue to monitor DVT prophylaxis: SCDs, heparin Discussed 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 Discussed with nursing about calling [facility] and obtaining records. Request had been faxed out on 01/14. PT recommending rehab on discharge.
[2018-01-20 09:58] LABS: Hemoglobin 8.4 gm/dL (13.0-17.0); Mean Corpuscular HGB Conc 32.2 % (32.0-36.0); Mean Corpuscular Hemoglobin 28.3 pg (27.0-34.0); Mean Corpuscular Volume 87.8 fL (80.0-100.0); Mean Platelet Volume 8.6 fL (7.0-11.0); Platelet Count 161 th/mm3 (150-450); Red Blood Count 2.96 mil/mm3 (4.50-5.90); White Blood Count 10.3 th/mm3 (4.0-11.0)
[2018-01-20 10:18] LABS: Calcium 8.7 mg/dL (8.5-10.1); Carbon Dioxide 39.1 meq/L (21.0-32.0)
[2018-01-20] MEDS: Spironolactone 25 MG Tablet PO SCH ×2 (13:06→17:08)
--- NOTE | 2018-01-20 13:06 | P.DIET ---
Nutritional Evaluation Type of nutrition evaluation: follow-up Nutrition consult regarding: Diet Evaluation (Previously on TF) Subjective Subjective Comments: Pt c/o occasional nausea, but no vomiting. Coughing of phlegm frequently per pt. c/o constipation. Says he's eating well but the food "stinks". Likes the Glucerna Shakes but sometimes forgets to drink them. He is missing teeth and typically has a partial, but he says it's too big therefore he does not wear it. Objective - Diagnosis Respiratory Failure - Objective % IBW: 180 (IHR=225#) Body Weight Used for Calculations: Upper end of IBW (89kg) Energy Needs - Lower Range (kCal/kg): 25 Energy Needs - Upper Range (kCal/kg): 30 Lower Limit kCal/kg (kCals): 2,225 Upper Limit kCal/kg (kCals): 2,670 Lower Limit Protein Factor (Grams per Kg): 1.2 Upper Limit Protein Factor (Grams per Kg): 1.4 Lower Protein Needs (Protein): 107 Upper Protein Needs (Protein): 125 Dietitian Reviewed in Medical Record: Current diet, Curent medications, Intake & Output, Labs, Medical history Diet Order: 1800ADA Oral Diet Intake Amount: Good 75-90% Objective Comments: Meds: Bumetanide, Aldactone Labs: AccuCheck 135 LBM 01/18 new dx of metastatic non-small cell carcinoma of the lung per oncology notes Feeding - Current PO Supplement Current Supplement: Glucerna Shake Current Frequency of Supplement: Twice daily Current kCals Provided by Supplement: 220 Current Protein Provided by Supplement: 10 Assessment Assessment: Pt remains at nutritional risk r/t new medical dx of non-small cell carcinoma of the lung. Per review of EMR, unsure course of treatment plan currently. Pt is eating well and says he does like the Glucerna Shakes, but forgets to drink them sometimes. C/o nausea. Says his GTH=585#. Recommend a 2200ADA diet to better meet pts nutritional needs. Dietitian will continue to follow to determine plan/goals of care. Recommendations: 1. Recommend 2200ADA diet to better meet nutritional needs. 2. Continue Glucerna Shakes BID. Dietitian to Monitor: Lab values, Glucose level, Supplement acceptance, Intake & Output, Diet tolerance, Weight change, PO Intake, Medical course
--- NOTE | 2018-01-20 18:11 | P.PN ---
Subjective Interval history: Had pleural fluid drained. Now better. Had oncology consult done. Need reports from [facility] Physical Exam Vital signs: Vital Signs 01/19/18 20:00 01/19/18 20:09 01/19/18 21:00 Temperature 97.7 F Pulse Rate 92 H 90 101 H Respiratory Rate 20 16 Blood Pressure 134/72 Pulse Oximetry 98 01/20/18 00:00 01/20/18 01:36 01/20/18 01:43 Temperature 98.1 F Pulse Rate 92 H 91 H Respiratory Rate 18 20 Blood Pressure 131/70 Pulse Oximetry 96 95 01/20/18 03:13 01/20/18 04:00 01/20/18 07:43 Temperature Pulse Rate 90 81 86 Respiratory Rate 18 18 22 Blood Pressure 130/60 Pulse Oximetry 98 94 L 01/20/18 08:00 01/20/18 11:19 01/20/18 12:00 Temperature 97.6 F 98.0 F Pulse Rate 101 H 94 H 94 H Respiratory Rate 22 21 22 Blood Pressure 152/76 H 143/88 H Pulse Oximetry 93 L 93 L 01/20/18 15:55 Temperature Pulse Rate 102 H Respiratory Rate 19 Blood Pressure Pulse Oximetry Intake & Output 01/19/18 01/20/18 01/20/18 18:59 06:59 18:59 Intake Total 720 / 720 720 / 720 Output Total 475 / 475 Balance 720 / 720 245 / 245 Intake: Oral 720 / 720 720 / 720 Output: Urine 475 / 475 Other: # Voids 2 Date of Last Bowel Movement 01/10/18 Narrative: GENERAL: Obese,elderly W/m in no acute distress SKIN: Warm and dry. HEENT: Pupils equal and round. MMM.Throat clear HEART: Regular and No murmur LUNGS: R pleural catheter in place no surrounding redness. Diminished breath sounds over right base. ABDOMEN: +BS, soft, NT, ND. EXTREMITIES: Chronic venous stasis changes of LE. NEURO: Awake and alert. Nonfocal. PSYCH: Appropriate mood and affect. - Urinary Catheter Management Indwelling Temp Sensing Catheter Cath placed during this visit: yes, but has since been removed by the nurse Reason for continuing: Chronic Urinary Retention Insertion date: 01/08/18 Insertion time: 17:15 Removal date: 01/07/18 Removal time: 10:00 Indwelling Urethral Catheter Cath placed during this visit: yes, but has since been removed by the nurse Reason for continuing: Chronic Urinary Retention Insertion date: 01/08/18 Removal date: 01/14/18 Removal time: 06:40 Results - Labs CBC & Chem 7: 01/20/18 08:00 01/20/18 08:00 Laboratory Results - last 24 hr 01/19/18 01/20/18 01/20/18 19:37 07:15 08:00 WBC 10.3 RBC 2.96 L Hgb 8.4 L Hct 26.0 L MCV 87.8 MCH 28.3 MCHC 32.2 RDW 16.0 Plt Count 161 MPV 8.6 Sodium Potassium Chloride Carbon Dioxide Anion Gap BUN Creatinine Estimated GFR POC Glucose 216 H 135 H Random Glucose Calcium 01/20/18 01/20/18 01/20/18 08:00 11:35 16:02 WBC RBC Hgb Hct MCV MCH MCHC RDW Plt Count MPV Sodium 139 Potassium 4.0 Chloride 96 L Carbon Dioxide 39.1 H Anion Gap 4 L BUN 24 H Creatinine 1.06 Estimated GFR 69 L POC Glucose 219 H 212 H Random Glucose 127 H Calcium 8.7 Assessment and Plan - Assessment (1) Pneumonia Code(s): J18.9 - Pneumonia, unspecified organism Status: Acute (2) COPD (chronic obstructive pulmonary disease) with chronic bronchitis Code(s): J44.9 - Chronic obstructive pulmonary disease, unspecified Status: Acute (3) Pleural effusion associated with pulmonary infection Code(s): J18.9 - Pneumonia, unspecified organism; J91.8 - Pleural effusion in other conditions classified elsewhere Status: Acute (4) Non-small cell cancer of right lung Code(s): C34.91 - Malignant neoplasm of unspecified part of right bronchus or lung Status: Acute (5) Sleep apnea with hypersomnolence Code(s): G47.10 - Hypersomnia, unspecified; G47.30 - Sleep apnea, unspecified Status: Acute (6) Obesity Code(s): E66.9 - Obesity, unspecified Status: Acute (7) Hypertension Code(s): I10 - Essential (primary) hypertension Status: Acute (8) Diabetes 1.5, managed as type 2 Code(s): E10.9 - Type 1 diabetes mellitus without complications Status: Acute - Plan 1. Will continue O2 4 L . 2. Nebs qid duoneb and PRN 3. Continue antibiotics per ID 4. Have Pleur X catheter drained every 4 days 5. CBC,BMP 6. Get records from [facility] about Biopsy of lung lesion 7. Oncology evaluation
[2018-01-21] MEDS: Oral Hygiene Kit OROPHARYNG SCH ×4 (01:47→16:08)
[2018-01-21] MEDS: Hypromellose 0.3% Opth Gel 10 GM Bottle EACH EYE SCH ×3 (04:50→21:21)
[2018-01-21] MEDS: Senna/Docusate Sodium 8.6/50 MG Tablet PO SCH ×2 (08:19→21:23)
[2018-01-21] MEDS: hydrALAZINE 50 MG Tablet PO SCH ×3 (08:19→17:11)
[2018-01-21] MEDS: Insulin NovoLOG Aspart Correctional Sugar Inj SQ SCH ×4 (08:20→21:22)
[2018-01-21] MEDS: Spironolactone 25 MG Tablet PO SCH ×2 (08:20→17:11)
[2018-01-21] MEDS: Chlorhexidine 0.12% Oral Kit 15 ML UDC OROPHARYNG SCH ×2 (08:20→21:16)
[2018-01-21] MEDS: Insulin Detemir Inj 1,000 UNIT/10 ML Vial SQ SCH ×2 (08:22→21:22)
[2018-01-21] MEDS ORDERED: Insulin Detemir Inj 1,000 UNIT/10 ML Vial SQ SCH (09:00)
--- NOTE | 2018-01-21 15:46 | P.PN ---
Subjective Interval history: Patient states his breathing is a little more labored today than it was yesterday. We had a long discussion about his previous workup through [facility], his new diagnosis of lung cancer. Ideally we will will be able to obtain medical records in order to give him a determination on prognosis of his cancer. Physical Exam Vital signs: Vital Signs 01/20/18 15:55 01/20/18 16:00 01/20/18 20:00 Temperature 98.0 F 98.8 F Pulse Rate 102 H 100 H 103 H Respiratory Rate 19 22 19 Blood Pressure 143/88 H 118/56 L Pulse Oximetry 93 L 94 L 01/20/18 20:16 01/20/18 23:57 01/21/18 00:00 Temperature 98.8 F Pulse Rate 105 H 93 H 70 Respiratory Rate 24 18 20 Blood Pressure 126/73 Pulse Oximetry 94 L 96 01/21/18 01:42 01/21/18 03:29 01/21/18 03:32 Temperature 98.3 F Pulse Rate 93 H 88 Respiratory Rate 18 19 Blood Pressure 134/95 H Pulse Oximetry 98 93 L 01/21/18 04:00 01/21/18 07:41 01/21/18 08:00 Temperature 98.1 F Pulse Rate 94 H 92 H 95 H Respiratory Rate 19 17 Blood Pressure 129/63 Pulse Oximetry 97 96 01/21/18 11:33 01/21/18 12:00 01/21/18 15:21 Temperature 97.7 F Pulse Rate 97 H 91 H 68 Respiratory Rate 17 18 17 Blood Pressure 151/84 H Pulse Oximetry 94 L Intake & Output 01/20/18 01/21/18 01/21/18 18:59 06:59 18:59 Intake Total 420 / 420 240 / 240 Output Total 850 / 850 Balance 420 / 420 -610 / -610 Weight 146.1 kg Intake: Oral 420 / 420 240 / 240 Output: Urine 850 / 850 Other: # Voids 5 # Bowel Movements 2 Narrative: GENERAL: AAOx3, no acute distress, obese SKIN: Warm and dry. No rashes HEAD: Atruamtic, normocephalic. EYES: No scleral icterus. No injection or drainage. ENT: Moist mucous membranes, patent nares, no erythema of oropharynx. NECK: Supple, trachea midline. No JVD or lymphadenopathy. Normal thyroid. CARDIOVASCULAR: Regular rate and rhythm. No murmurs, gallops, or rubs. RESPIRATORY: Congestive sounds, limited exchange, scattered wheezing bilaterally. No accessory muscle use. GASTROINTESTINAL: Abdomen soft, non-tender, nondistended, normal active bowel sounds MUSCULOSKELETAL: No cyanosis, trace edema in ankles NEURO: CN II-XII grossly intact, no focal deficits, no slurring of speech - Urinary Catheter Management Indwelling Temp Sensing Catheter Cath placed during this visit: yes, but has since been removed by the nurse Reason for continuing: Chronic Urinary Retention Insertion date: 01/08/18 Insertion time: 17:15 Removal date: 01/07/18 Removal time: 10:00 Indwelling Urethral Catheter Cath placed during this visit: yes, but has since been removed by the nurse Reason for continuing: Chronic Urinary Retention Insertion date: 01/08/18 Removal date: 01/14/18 Removal time: 06:40 Results - Labs CBC & Chem 7: 01/20/18 08:00 01/20/18 08:00 Laboratory Results - last 24 hr 01/20/18 01/20/18 01/21/18 16:02 21:38 07:32 POC Glucose 212 H 260 H 254 H 01/21/18 13:05 POC Glucose 177 H Assessment and Plan - Assessment (1) Pneumonia Code(s): J18.9 - Pneumonia, unspecified organism Status: Acute (2) Pleural effusion associated with pulmonary infection Code(s): J18.9 - Pneumonia, unspecified organism; J91.8 - Pleural effusion in other conditions classified elsewhere Status: Acute (3) Non-small cell cancer of right lung Code(s): C34.91 - Malignant neoplasm of unspecified part of right bronchus or lung Status: Acute - Plan Respiratory failure, pleural effusion, COPD, lung cancer Recently diagnosed with non-small cell lung cancer S/P intubation 01/04-01/08 S/P thoracentesis x 2 (-3L at [facility] and -2L during this hospitalization on ) Pleural cath in place (01/17); to be drained Q3D or PRN. Last drained 01/19, yielded ~-250 cc Follow-up chest x-ray on shows worsening pleural effusion ABG done on shows improvement Pulmonology following (sees Dr. Clarke as outpatient) Continue Pulmicort, albuterol, BiPAP, supplemental oxygen, Aldactone, Bumex Appreciate pulmonology consult Pseudomonas pneumonia Patient completed course of Fortaz and Bactrim Allergic to penicillin, tolerates cephalosporins Patient remains afebrile now Hypertension, dyslipidemia, CAD Blood pressures have been controlled while hospitalized Continue hydralazine, Coreg, Bumex, Aldactone, Isordil, aspirin, statin Type 2 diabetes Accu-Cheks with sliding scale insulin coverage Diabetic diet Anemia Pattern is consistent with anemia of chronic disease Monitor periodic CBC DVT Prophylaxis Heparin
--- NOTE | 2018-01-21 19:05 | P.PN ---
Subjective Interval history: Feels tired. On o2 3 L. Had some chest pains. Pleural effusion is small on the right . Oncology evaluation in progress. Physical Exam Vital signs: Vital Signs 01/20/18 20:00 01/20/18 20:16 01/20/18 23:57 Temperature 98.8 F Pulse Rate 103 H 105 H 93 H Respiratory Rate 19 24 18 Blood Pressure 118/56 L Pulse Oximetry 94 L 94 L 01/21/18 00:00 01/21/18 01:42 01/21/18 03:29 Temperature 98.8 F 98.3 F Pulse Rate 70 93 H Respiratory Rate 20 18 Blood Pressure 126/73 134/95 H Pulse Oximetry 96 98 93 L 01/21/18 03:32 01/21/18 04:00 01/21/18 07:41 Temperature Pulse Rate 88 94 H 92 H Respiratory Rate 19 19 Blood Pressure Pulse Oximetry 97 01/21/18 08:00 01/21/18 11:33 01/21/18 12:00 Temperature 98.1 F 97.7 F Pulse Rate 95 H 97 H 93 H Respiratory Rate 17 17 18 Blood Pressure 129/63 151/84 H Pulse Oximetry 96 94 L 01/21/18 15:21 01/21/18 16:00 Temperature 98.1 F Pulse Rate 68 109 H Respiratory Rate 17 18 Blood Pressure 141/73 H Pulse Oximetry 94 L Intake & Output 01/21/18 01/21/18 01/22/18 06:59 18:59 06:59 Intake Total 240 / 240 460 / 460 Output Total 850 / 850 Balance -610 / -610 460 / 460 Weight 146.1 kg Intake: Oral 240 / 240 460 / 460 Output: Urine 850 / 850 Other: # Voids 5 # Bowel Movements 2 Narrative: GENERAL: AAOx3, no acute distress, obese W/M SKIN: Warm and dry. No rashes HEAD: Atraumatic , normocephalic. EYES: No scleral icterus. No injection or drainage. ENT: Moist mucous membranes, patent nares, no erythema of oropharynx. NECK: Supple, trachea midline. No JVD or lymphadenopathy. Normal thyroid. CARDIOVASCULAR: Irregular rate and rhythm. No murmurs, gallops, or rubs. RESPIRATORY:Decreased breath sounds right base and scattered wheezing bilaterally. No accessory muscle use. GASTROINTESTINAL: Abdomen soft, non-tender, nondistended, normal active bowel sounds MUSCULOSKELETAL: No cyanosis,mild edema in ankles NEURO: CN II-XII grossly intact, no focal deficits. - Urinary Catheter Management Indwelling Temp Sensing Catheter Cath placed during this visit: yes, but has since been removed by the nurse Reason for continuing: Chronic Urinary Retention Insertion date: 01/08/18 Insertion time: 17:15 Removal date: 01/07/18 Removal time: 10:00 Indwelling Urethral Catheter Cath placed during this visit: yes, but has since been removed by the nurse Reason for continuing: Chronic Urinary Retention Insertion date: 01/08/18 Removal date: 01/14/18 Removal time: 06:40 Results - Labs CBC & Chem 7: 01/20/18 08:00 01/20/18 08:00 Laboratory Results - last 24 hr 01/20/18 01/21/18 01/21/18 21:38 07:32 13:05 POC Glucose 260 H 254 H 177 H 01/21/18 17:10 POC Glucose 206 H Assessment and Plan - Assessment (1) Pneumonia Code(s): J18.9 - Pneumonia, unspecified organism Status: Acute (2) COPD (chronic obstructive pulmonary disease) with chronic bronchitis Code(s): J44.9 - Chronic obstructive pulmonary disease, unspecified Status: Acute (3) Pleural effusion associated with pulmonary infection Code(s): J18.9 - Pneumonia, unspecified organism; J91.8 - Pleural effusion in other conditions classified elsewhere Status: Acute (4) Non-small cell cancer of right lung Code(s): C34.91 - Malignant neoplasm of unspecified part of right bronchus or lung Status: Acute (5) Sleep apnea with hypersomnolence Code(s): G47.10 - Hypersomnia, unspecified; G47.30 - Sleep apnea, unspecified Status: Acute (6) Obesity Code(s): E66.9 - Obesity, unspecified Status: Acute (7) Hypertension Code(s): I10 - Essential (primary) hypertension Status: Acute (8) Diabetes 1.5, managed as type 2 Code(s): E10.9 - Type 1 diabetes mellitus without complications Status: Acute - Plan 1. Will continue O2 3 L . 2. Nebs qid duoneb and PRN 3. Continue antibiotics per ID 4. Have Pleur X catheter drained every 4 days 5. Chest Xray in am 6. IS at bedside q3h 7. Oncology evaluation
[2018-01-22] MEDS: Oral Hygiene Kit OROPHARYNG SCH ×4 (04:51→17:49)
[2018-01-22] MEDS: Hypromellose 0.3% Opth Gel 10 GM Bottle EACH EYE SCH ×3 (04:51→20:50)
--- NOTE | 2018-01-22 07:43 | XR ---
EXAM DATE: 01/22/2018 7:38 AM EDT AGE/SEX: 67 years / Male INDICATIONS: Short of breath. CLINICAL DATA: This is the patient's subsequent encounter. Patient reports that signs and symptoms h ave been present for 4 - 6 days and indicates a pain score of Nonresponsive. MEDICAL/SURGICAL HISTORY: Chronic obstructive pulmonary disease. Myocardial infarction. Hyper tension. Carcinoma, squamous cell. . Lung biopsy. COMPARISON: [facility] [place]ST 1V SINGLE AP, 01/18/2018. . FINDINGS: Interval progression of airspace consolidation in the right mid to lower lung zones with small associ ated pleural effusion. Improved aeration of the left lower lung zone. Cardiac silhouette is enlarged but stable. There is improved subcutaneous emphysema in the left cervicothoracic soft tissues. CONCLUSION: 1. Progression of airspace consolidation in the right mid to lower lung zones with small associated pleural effusion. 2. Improved aeration of the left lower lung zone. Electronically signed by: Jesus Hayes MD 01/22/2018 7:42 AM EDT
[2018-01-22] MEDS: hydrALAZINE 50 MG Tablet PO SCH ×3 (08:19→17:50)
[2018-01-22] MEDS: Spironolactone 25 MG Tablet PO SCH ×2 (08:20→17:50)
[2018-01-22] MEDS: Senna/Docusate Sodium 8.6/50 MG Tablet PO SCH ×2 (08:20→20:51)
[2018-01-22] MEDS: Insulin Detemir Inj 1,000 UNIT/10 ML Vial SQ SCH ×2 (08:21→20:50)
[2018-01-22] MEDS: Chlorhexidine 0.12% Oral Kit 15 ML UDC OROPHARYNG SCH ×2 (08:21→20:40)
[2018-01-22] MEDS: Insulin NovoLOG Aspart Correctional Sugar Inj SQ SCH ×4 (08:22→20:50)
[2018-01-22 10:00] LABS: Hematocrit 43.6 % (39.0-51.0); Hemoglobin 13.6 gm/dL (13.0-17.0); Mean Corpuscular HGB Conc 31.1 % (32.0-36.0); Mean Corpuscular Hemoglobin 27.7 pg (27.0-34.0); Mean Corpuscular Volume 89.1 fL (80.0-100.0); Platelet Count 95 th/mm3 (150-450); Red Blood Count 4.89 mil/mm3 (4.50-5.90); Red Cell Distribution Width 16.4 % (11.6-17.2)
[2018-01-22 10:02] LABS: Calcium 8.9 mg/dL (8.5-10.1); Carbon Dioxide 37.9 meq/L (21.0-32.0)
--- NOTE | 2018-01-22 15:03 | P.PN ---
Subjective Interval history: Patient is breathing more comfortably today compared to yesterday. He is due for a lung back strain today. He is eager to put together the data collected so far in order to stage his cancer and receive a prognosis and possible treatment plan. He has no new complaints. Physical Exam Vital signs: Vital Signs 01/21/18 15:21 01/21/18 16:00 01/21/18 20:00 Temperature 98.1 F 98.5 F Pulse Rate 68 109 H 102 H Respiratory Rate 17 18 19 Blood Pressure 141/73 H 151/80 H Pulse Oximetry 94 L 98 01/21/18 20:07 01/22/18 00:00 01/22/18 00:29 Temperature 97.7 F Pulse Rate 100 H 99 H 87 Respiratory Rate 16 17 18 Blood Pressure 109/58 L Pulse Oximetry 95 93 L 01/22/18 03:11 01/22/18 04:00 01/22/18 07:00 Temperature 98.8 F Pulse Rate 90 94 H Respiratory Rate 18 16 Blood Pressure 150/80 H Pulse Oximetry 95 96 01/22/18 08:00 01/22/18 08:39 01/22/18 12:00 Temperature 97.7 F 97.7 F Pulse Rate 93 H 87 Respiratory Rate 17 22 18 Blood Pressure 138/78 136/71 Pulse Oximetry 96 95 Intake & Output 01/21/18 01/22/18 01/22/18 18:59 06:59 18:59 Intake Total 460 / 460 Output Total 800 / 800 Balance 460 / 460 -800 / -800 Weight 145.5 kg Intake: Oral 460 / 460 Output: Urine 800 / 800 Other: # Voids 5 Date of Last Bowel Movement 01/21/18 # Bowel Movements 2 Narrative: GENERAL: AAOx3, no acute distress, obese W/M SKIN: Warm and dry. No rashes HEAD: Atraumatic , normocephalic. EYES: No scleral icterus. No injection or drainage. ENT: Moist mucous membranes, patent nares, no erythema of oropharynx. NECK: Supple, trachea midline. No JVD or lymphadenopathy. Normal thyroid. CARDIOVASCULAR: Irregular rate and rhythm. No murmurs, gallops, or rubs. RESPIRATORY:Decreased breath sounds right base, wet congestion. No accessory muscle use. GASTROINTESTINAL: Abdomen soft, non-tender, nondistended, normal active bowel sounds MUSCULOSKELETAL: No cyanosis,mild edema in ankles NEURO: CN II-XII grossly intact, no focal deficits. - Urinary Catheter Management Indwelling Temp Sensing Catheter Cath placed during this visit: yes, but has since been removed by the nurse Reason for continuing: Chronic Urinary Retention Insertion date: 01/08/18 Insertion time: 17:15 Removal date: 01/07/18 Removal time: 10:00 Indwelling Urethral Catheter Cath placed during this visit: yes, but has since been removed by the nurse Reason for continuing: Chronic Urinary Retention Insertion date: 01/08/18 Removal date: 01/14/18 Removal time: 06:40 Results - Labs CBC & Chem 7: 01/22/18 09:20 01/22/18 09:20 Laboratory Results - last 24 hr 01/21/18 01/21/18 01/22/18 17:10 19:51 07:49 WBC RBC Hgb Hct MCV MCH MCHC RDW Plt Count MPV Sodium Potassium Chloride Carbon Dioxide Anion Gap BUN Creatinine Estimated GFR POC Glucose 206 H 198 H 209 H Random Glucose Calcium 01/22/18 01/22/18 01/22/18 09:20 09:20 12:36 WBC 6.0 RBC 4.89 Hgb 13.6 Hct 43.6 MCV 89.1 MCH 27.7 MCHC 31.1 L RDW 16.4 Plt Count 95 L D MPV 8.0 Sodium 138 Potassium 4.0 Chloride 94 L Carbon Dioxide 37.9 H Anion Gap 6 BUN 22 H Creatinine 1.05 Estimated GFR 70 L POC Glucose 262 H Random Glucose 162 H Calcium 8.9 - Imaging Impressions Chest X-Ray 01/22/18 00:00 CONCLUSION: 1. Progression of airspace consolidation in the right mid to lower lung zones with small associated pleural effusion. 2. Improved aeration of the left lower lung zone. Assessment and Plan - Assessment (1) Pneumonia Code(s): J18.9 - Pneumonia, unspecified organism Status: Acute (2) Pleural effusion associated with pulmonary infection Code(s): J18.9 - Pneumonia, unspecified organism; J91.8 - Pleural effusion in other conditions classified elsewhere Status: Acute (3) Non-small cell cancer of right lung Code(s): C34.91 - Malignant neoplasm of unspecified part of right bronchus or lung Status: Acute - Plan Respiratory failure, pleural effusion, COPD, lung cancer Recently diagnosed with non-small cell lung cancer S/P intubation 01/04-01/08 S/P thoracentesis x 2 (-3L at [facility] and -2L during this hospitalization on ) Pleural cath in place (01/17); to be drained Q3D or PRN. Last drained 01/19, yielded ~-250 cc Follow-up chest x-ray on 70 shows worsening pleural effusion ABG done on 72 shows improvement Pulmonology following (sees Dr. Clarke as outpatient) Continue Pulmicort, albuterol, BiPAP, supplemental oxygen, Aldactone, Bumex PET scan results from outpatient test are requested but have not arrived Pleural VAC to be drained today. Appreciate pulmonology consult Pseudomonas pneumonia Patient completed course of Fortaz and Bactrim Allergic to penicillin, tolerates cephalosporins Patient remains afebrile now Hypertension, dyslipidemia, CAD Blood pressures have been controlled while hospitalized Continue hydralazine, Coreg, Bumex, Aldactone, Isordil, aspirin, statin Type 2 diabetes Accu-Cheks with sliding scale insulin coverage Diabetic diet Anemia Pattern is consistent with anemia of chronic disease Monitor periodic CBC DVT Prophylaxis Heparin
--- NOTE | 2018-01-22 15:46 | P.PNONC ---
Subjective Interval history: Afebrile Patient sitting on side of bed talking with his He reports his breathing is "so-so" States he feels like he will be due to drain his Pleurx catheter tomorrow Hoping to be able to start some type of cancer treatment in the near future Objective Vital Signs/Intake & Output: Vital Signs 01/21/18 16:00 01/21/18 20:00 01/21/18 20:07 Temperature 98.1 F 98.5 F Pulse Rate 109 H 102 H 100 H Respiratory Rate 18 19 16 Blood Pressure 141/73 H 151/80 H Pulse Oximetry 94 L 98 95 01/22/18 00:00 01/22/18 00:29 01/22/18 03:11 Temperature 97.7 F Pulse Rate 99 H 87 90 Respiratory Rate 17 18 18 Blood Pressure 109/58 L Pulse Oximetry 93 L 01/22/18 04:00 01/22/18 07:00 01/22/18 08:00 Temperature 98.8 F 97.7 F Pulse Rate 94 H Respiratory Rate 16 17 Blood Pressure 150/80 H 138/78 Pulse Oximetry 95 96 96 01/22/18 08:39 01/22/18 12:00 01/22/18 15:11 Temperature 97.7 F Pulse Rate 93 H 87 106 H Respiratory Rate 22 18 20 Blood Pressure 136/71 Pulse Oximetry 95 97 Intake & Output 01/21/18 01/22/18 01/22/18 18:59 06:59 18:59 Intake Total 460 / 460 Output Total 800 / 800 Balance 460 / 460 -800 / -800 Weight 320 lb 12.361 oz Intake: Oral 460 / 460 Output: Urine 800 / 800 Other: # Voids 5 Date of Last Bowel Movement 01/21/18 # Bowel Movements 2 Result Diagrams: 01/22/18 09:20 01/22/18 09:20 Laboratory Results: Laboratory Results - last 24 hr 01/21/18 01/21/18 01/22/18 17:10 19:51 07:49 WBC RBC Hgb Hct MCV MCH MCHC RDW Plt Count MPV Sodium Potassium Chloride Carbon Dioxide Anion Gap BUN Creatinine Estimated GFR POC Glucose 206 H 198 H 209 H Random Glucose Calcium 01/22/18 01/22/18 01/22/18 09:20 09:20 12:36 WBC 6.0 RBC 4.89 Hgb 13.6 Hct 43.6 MCV 89.1 MCH 27.7 MCHC 31.1 L RDW 16.4 Plt Count 95 L D MPV 8.0 Sodium 138 Potassium 4.0 Chloride 94 L Carbon Dioxide 37.9 H Anion Gap 6 BUN 22 H Creatinine 1.05 Estimated GFR 70 L POC Glucose 262 H Random Glucose 162 H Calcium 8.9 Imaging Studies: Impressions Chest X-Ray 01/22/18 00:00 CONCLUSION: 1. Progression of airspace consolidation in the right mid to lower lung zones with small associated pleural effusion. 2. Improved aeration of the left lower lung zone. Medications: Active Medications Generic Name Dose Route Start Last Admin Trade Name Freq PRN Reason Stop Dose Admin Acetaminophen 650 mg 01/05/18 21:17 01/10/18 02:43 Tylenol PO 650 mg Q6H PRN Administration PAIN 1-10 AND/OR FEVER >101F Al Hydroxide/Mg Hydroxide 30 ml 01/05/18 21:17 01/17/18 21:01 Milk Of Magnesia Liq PO 30 ml Q12H PRN Administration Mild Constipation Albuterol 1 ampul 01/19/18 12:00 01/22/18 15:08 Duoneb Neb (Usman) NEB 1 ampul Q4HR NEB USMAN Administration Albuterol 2.5 mg 01/07/18 12:10 01/18/18 21:56 Albuterol Neb (Prn) NEB 2.5 mg Q2HR NEB PRN Administration DYSPNEA Artificial Tears 1 drops 01/07/18 13:00 01/22/18 13:13 Genteal Severe Dry Eye Relief 0.3% Opth Gel EACH EYE 1 drops Q8H USMAN Administration Aspirin 81 mg 01/08/18 09:00 01/22/18 08:20 Aspirin Chew PO 81 mg DAILY USMAN Administration Budesonide 0.5 mg 01/07/18 20:00 01/22/18 08:39 Pulmocort Respule Neb NEB 0.5 mg Q12HR NEB USMAN Administration Bumetanide 1 mg 01/19/18 21:00 01/22/18 08:21 Bumex PO 1 mg BID USMAN Administration Carvedilol 3.125 mg 01/08/18 21:00 01/22/18 08:20 Coreg PO 3.125 mg BID USMAN Administration Chlorhexidine Gluconate 15 ml 01/06/18 08:00 01/22/18 08:21 Peridex 0.12% Oral Kit OROPHARYNG Not Given BID@0800,2000 [facility] Dextrose 50 ml 01/05/18 21:23 01/06/18 06:01 D50w Vial IV.PUSH 50 ml UNSCH PRN Administration PER HYPOGLYCEMIA PROTOCOL Hydralazine HCl 100 mg 01/11/18 13:24 01/22/18 13:12 Apresoline PO 100 mg TID USMAN Administration Insulin Aspart 0 unit 01/10/18 12:00 01/22/18 13:11 Novolog Insulin Correctional Sugar Inj SQ 7 unit ACHS USMAN Administration Protocol Insulin Detemir 17 unit 01/20/18 21:00 01/21/18 21:22 Levemir Inj SQ 17 unit HS USMAN Administration Insulin Detemir 20 unit 01/21/18 09:00 01/22/18 08:21 Levemir Inj SQ 20 unit DAILY USMAN Administration Isosorbide Dinitrate 10 mg 01/11/18 14:00 01/22/18 13:12 Isordil PO 10 mg Q8HR USMAN Administration Labetalol HCl 10 mg 01/08/18 11:35 01/09/18 00:02 Trandate Inj IV.PUSH 10 mg Q1H PRN Administration SBP>180, DBP>100, HR>65 Lactulose 30 ml 01/05/18 21:17 01/16/18 18:20 Lactulose Liq PO 30 ml DAILY PRN Administration [employer] Nitroglycerin 2 inch 01/08/18 12:13 01/13/18 06:35 Nitro-Bid 2% Oint TOPICAL 2 inch Q6HR PRN Administration SBP>160, DBP>90 Oxycodone/Acetaminophen 1 tab 01/12/18 21:50 01/22/18 03:03 Percocet 5/325 Mg PO 1 tab Q6H PRN Administration pain Pat Own Med: 0 each 01/05/18 09:00 01/05/18 22:38 Fluticasone- INH Not Given Umeclidinium- DAILY [facility] Vilanterol (Trelegy Ellipta)Inh Pravastatin Sodium 10 mg 01/13/18 15:32 01/22/18 08:20 Pravachol PO 10 mg DAILY USMAN Administration Senna/Docusate Sodium 1 tab 01/06/18 09:00 01/22/18 08:20 Zandra-Colace PO 1 tab BID USMAN Administration Sennosides 17.2 mg 01/05/18 21:17 01/14/18 09:28 Senokot PO 17.2 mg Q12H PRN Administration Moderate Constipation Sodium Chloride 2 ml 01/06/18 09:00 01/22/18 08:22 Ns Flush IV.FLUSH 2 ml BID USMAN Administration Spironolactone 25 mg 01/11/18 18:00 01/22/18 08:20 Aldactone PO 25 mg BID@0900,1800 USMAN Administration Tamsulosin HCl 0.4 mg 01/12/18 09:00 01/22/18 08:21 Flomax PO 0.4 mg DAILY USMAN Administration Objective Remarks: GENERAL: Obese older male sitting on side of bed in no acute distress. SKIN: Warm and dry. HEAD: Normocephalic. EYES: No scleral icterus. No injection or drainage. NECK: Supple, trachea midline. CARDIOVASCULAR: Irregular rhythm. RESPIRATORY: Diminished breath sounds throughout. Pleurx catheter in place to right lateral chest. GASTROINTESTINAL: Abdomen protuberant. Nontender. EXTREMITIES: Generalized edema MUSCULOSKELETAL: Adequate muscle tone. NEUROLOGICAL: No obvious focal deficit. Awake, alert, and oriented x3. Assessment/Plan - Plan 67-year-old male with non-small cell carcinoma of the lung admitted with significant shortness of breath and was intubated in the emergency room. The patient was in the hospital in [facility] in November 2017 where he had several thoracenteses with pleural fluid being positive for "non-small cell carcinoma." 1. Patient overall a poor candidate for traditional, palliative intent chemotherapy. Molecular studies pending at [facility]. I discussed with the patient that it would be ideal if this is positive as treatment is usually much more tolerable with targeted therapy than with traditional chemo. 2. Oncology treatment will be planned outpatient. Patient will follow up with Dr. Foley once discharged. 3. Continue supportive care.
--- NOTE | 2018-01-22 18:24 | P.PN ---
Subjective Interval history: Has some SOB today . may need pleural fluid drained in am. Used BiPAP at HS. On O2 3 L Physical Exam Vital signs: Vital Signs 01/21/18 20:00 01/21/18 20:07 01/22/18 00:00 Temperature 98.5 F 97.7 F Pulse Rate 102 H 100 H 99 H Respiratory Rate 19 16 17 Blood Pressure 151/80 H 109/58 L Pulse Oximetry 98 95 93 L 01/22/18 00:29 01/22/18 03:11 01/22/18 04:00 Temperature 98.8 F Pulse Rate 87 90 94 H Respiratory Rate 18 18 16 Blood Pressure 150/80 H Pulse Oximetry 95 01/22/18 07:00 01/22/18 08:00 01/22/18 08:39 Temperature 97.7 F Pulse Rate 93 H Respiratory Rate 17 22 Blood Pressure 138/78 Pulse Oximetry 96 96 01/22/18 12:00 01/22/18 15:11 01/22/18 16:00 Temperature 97.7 F 97.8 F Pulse Rate 87 106 H 98 H Respiratory Rate 18 20 18 Blood Pressure 136/71 155/77 H Pulse Oximetry 95 97 98 Intake & Output 01/21/18 01/22/18 01/22/18 18:59 06:59 18:59 Intake Total 460 / 460 750 / 750 Output Total 800 / 800 900 / 900 Balance 460 / 460 -800 / -800 -150 / -150 Weight 145.5 kg Intake: Oral 460 / 460 750 / 750 Output: Urine 800 / 800 900 / 900 Other: # Voids 5 2 Date of Last Bowel Movement 01/21/18 01/22/18 # Bowel Movements 2 1 Narrative: GENERAL: AAOx3, no acute distress, obese W/M SKIN: Warm and dry. No rashes HEAD: Atraumatic , normocephalic. EYES: No scleral icterus. No injection or drainage. ENT: Moist mucous membranes, patent nares, no erythema of oropharynx. NECK: Supple, trachea midline. No JVD or lymphadenopathy. Normal thyroid. CARDIOVASCULAR: Irregular rate and rhythm. No murmurs, gallops, or rubs. RESPIRATORY:Decreased breath sounds right base, No accessory muscle use. GASTROINTESTINAL: Abdomen soft, non-tender, nondistended, normal active bowel sounds MUSCULOSKELETAL: No cyanosis,mild edema in ankles NEURO: CN II-XII grossly intact, no focal deficits. - Urinary Catheter Management Indwelling Temp Sensing Catheter Cath placed during this visit: yes, but has since been removed by the nurse Reason for continuing: Chronic Urinary Retention Insertion date: 01/08/18 Insertion time: 17:15 Removal date: 01/07/18 Removal time: 10:00 Indwelling Urethral Catheter Cath placed during this visit: yes, but has since been removed by the nurse Reason for continuing: Chronic Urinary Retention Insertion date: 01/08/18 Removal date: 01/14/18 Removal time: 06:40 Results - Labs CBC & Chem 7: 01/22/18 09:20 01/22/18 09:20 Laboratory Results - last 24 hr 01/21/18 01/22/18 01/22/18 19:51 07:49 09:20 WBC 6.0 RBC 4.89 Hgb 13.6 Hct 43.6 MCV 89.1 MCH 27.7 MCHC 31.1 L RDW 16.4 Plt Count 95 L D MPV 8.0 Sodium Potassium Chloride Carbon Dioxide Anion Gap BUN Creatinine Estimated GFR POC Glucose 198 H 209 H Random Glucose Calcium 01/22/18 01/22/18 01/22/18 09:20 12:36 17:03 WBC RBC Hgb Hct MCV MCH MCHC RDW Plt Count MPV Sodium 138 Potassium 4.0 Chloride 94 L Carbon Dioxide 37.9 H Anion Gap 6 BUN 22 H Creatinine 1.05 Estimated GFR 70 L POC Glucose 262 H 127 H Random Glucose 162 H Calcium 8.9 - Imaging Impressions Chest X-Ray 01/22/18 00:00 CONCLUSION: 1. Progression of airspace consolidation in the right mid to lower lung zones with small associated pleural effusion. 2. Improved aeration of the left lower lung zone. Assessment and Plan - Assessment (1) Pneumonia Code(s): J18.9 - Pneumonia, unspecified organism Status: Acute (2) COPD (chronic obstructive pulmonary disease) with chronic bronchitis Code(s): J44.9 - Chronic obstructive pulmonary disease, unspecified Status: Acute (3) Pleural effusion associated with pulmonary infection Code(s): J18.9 - Pneumonia, unspecified organism; J91.8 - Pleural effusion in other conditions classified elsewhere Status: Acute (4) Non-small cell cancer of right lung Code(s): C34.91 - Malignant neoplasm of unspecified part of right bronchus or lung Status: Acute (5) Sleep apnea with hypersomnolence Code(s): G47.10 - Hypersomnia, unspecified; G47.30 - Sleep apnea, unspecified Status: Acute (6) Obesity Code(s): E66.9 - Obesity, unspecified Status: Acute (7) Hypertension Code(s): I10 - Essential (primary) hypertension Status: Acute (8) Diabetes 1.5, managed as type 2 Code(s): E10.9 - Type 1 diabetes mellitus without complications Status: Acute - Plan 1. Will continue O2 3 L . and Arrange home O2 2. Nebs qid duoneb and PRN 3. D/C antibiotics 4. Have Pleur X catheter drained every 4 days 5. Radiology to train home member to Drain fluid 6. IS at bedside q3h 7. Oncology evaluation as OP 8. OK to discharge in am
[2018-01-23] MEDS: Oral Hygiene Kit OROPHARYNG SCH ×4 (06:44→23:19)
[2018-01-23] MEDS: Hypromellose 0.3% Opth Gel 10 GM Bottle EACH EYE SCH ×3 (06:44→20:16)
[2018-01-23] MEDS: Insulin NovoLOG Aspart Correctional Sugar Inj SQ SCH ×4 (09:11→21:13)
[2018-01-23] MEDS: Insulin Detemir Inj 1,000 UNIT/10 ML Vial SQ SCH ×2 (09:12→21:13)
[2018-01-23] MEDS: Senna/Docusate Sodium 8.6/50 MG Tablet PO SCH ×2 (09:12→20:15)
[2018-01-23] MEDS: Chlorhexidine 0.12% Oral Kit 15 ML UDC OROPHARYNG SCH ×2 (09:14→20:13)
[2018-01-23] MEDS: hydrALAZINE 50 MG Tablet PO SCH ×3 (09:14→18:53)
[2018-01-23] MEDS: Spironolactone 25 MG Tablet PO SCH ×2 (09:31→18:54)
--- NOTE | 2018-01-23 12:31 | P.PN ---
Subjective Interval history: He is stable and breathing better. PET shows multiple hypermetabolic nodules in the right lung and right [place] and subcarinal areas Pleur X catheter drained 100 CC last PM Physical Exam Vital signs: Vital Signs 01/22/18 15:11 01/22/18 16:00 01/22/18 19:03 Temperature 97.8 F Pulse Rate 106 H 98 H 98 H Respiratory Rate 20 18 18 Blood Pressure 155/77 H Pulse Oximetry 97 98 01/22/18 20:00 01/23/18 00:00 01/23/18 00:18 Temperature 79.9 F L 97.9 F Pulse Rate 108 H 92 H 93 H Respiratory Rate 16 16 19 Blood Pressure 115/58 L 115/58 L Pulse Oximetry 95 95 95 01/23/18 04:00 01/23/18 04:12 01/23/18 07:40 Temperature 97.9 F Pulse Rate 96 H 94 H 82 Respiratory Rate 17 20 17 Blood Pressure 149/70 H Pulse Oximetry 96 96 97 01/23/18 08:00 01/23/18 11:12 01/23/18 11:53 Temperature 97.4 F L 97.4 F L Pulse Rate 87 94 H 94 H Respiratory Rate 18 16 18 Blood Pressure 121/60 153/72 H Pulse Oximetry 100 99 Intake & Output 01/22/18 01/23/18 01/23/18 18:59 06:59 18:59 Intake Total 750 / 750 Output Total 900 / 900 Balance -150 / -150 Weight 145.5 kg Intake: Oral 750 / 750 Output: Urine 900 / 900 Other: Post Void Residual 600 # Voids 2 3 Date of Last Bowel Movement 01/22/18 # Bowel Movements 1 Narrative: GENERAL: AAOx3, no acute distress, obese W/M SKIN: Warm and dry. No rashes HEAD: Atraumatic , normocephalic. EYES: No scleral icterus. No injection or drainage. ENT: Moist mucous membranes, patent nares, no erythema of oropharynx. NECK: Supple, trachea midline. No JVD or lymphadenopathy. Normal thyroid. CARDIOVASCULAR: Irregular rhythm and rate. No murmurs, gallops, or rubs. RESPIRATORY:Decreased breath sounds right base, No accessory muscle use. GASTROINTESTINAL: Abdomen soft, non-tender, nondistended, normal active bowel sounds MUSCULOSKELETAL: No cyanosis,mild edema in ankles NEURO: CN II-XII grossly intact, no focal deficits. - Urinary Catheter Management Indwelling Temp Sensing Catheter Cath placed during this visit: yes, but has since been removed by the nurse Reason for continuing: Chronic Urinary Retention Insertion date: 01/08/18 Insertion time: 17:15 Removal date: 01/07/18 Removal time: 10:00 Indwelling Urethral Catheter Cath placed during this visit: yes, but has since been removed by the nurse Reason for continuing: Chronic Urinary Retention Insertion date: 01/08/18 Removal date: 01/14/18 Removal time: 06:40 Results - Labs CBC & Chem 7: 01/22/18 09:20 01/22/18 09:20 Laboratory Results - last 24 hr 01/22/18 01/22/18 01/22/18 12:36 17:03 20:23 POC Glucose 262 H 127 H 294 H 01/23/18 01/23/18 07:46 11:53 POC Glucose 176 H 292 H Assessment and Plan - Assessment (1) Pneumonia Code(s): J18.9 - Pneumonia, unspecified organism Status: Acute (2) COPD (chronic obstructive pulmonary disease) with chronic bronchitis Code(s): J44.9 - Chronic obstructive pulmonary disease, unspecified Status: Acute (3) Pleural effusion associated with pulmonary infection Code(s): J18.9 - Pneumonia, unspecified organism; J91.8 - Pleural effusion in other conditions classified elsewhere Status: Acute (4) Non-small cell cancer of right lung Code(s): C34.91 - Malignant neoplasm of unspecified part of right bronchus or lung Status: Acute (5) Sleep apnea with hypersomnolence Code(s): G47.10 - Hypersomnia, unspecified; G47.30 - Sleep apnea, unspecified Status: Acute (6) Obesity Code(s): E66.9 - Obesity, unspecified Status: Acute (7) Hypertension Code(s): I10 - Essential (primary) hypertension Status: Acute (8) Diabetes 1.5, managed as type 2 Code(s): E10.9 - Type 1 diabetes mellitus without complications Status: Acute - Plan 1. Will continue O2 3 L . and Arrange home O2 2. Nebs qid duoneb and PRN 3. Arrange Home health . 4. Have Pleur X catheter drained every 5 days 5. CBC,BMP 6. IS at bedside q3h 7. Oncology evaluation as OP
--- NOTE | 2018-01-23 13:56 | P.PN ---
Subjective Interval history: Fluid drained from his pleural VAC yesterday. Today the results of his PET scan arrived. He has a multifocal presentation of cancer on his right lung. There is a questionable increased uptake in the marrow of T12 vertebrae. Nuclear medicine scan was recommended as potential follow-up. Physical Exam Vital signs: Vital Signs 01/22/18 15:11 01/22/18 16:00 01/22/18 19:03 Temperature 97.8 F Pulse Rate 106 H 98 H 98 H Respiratory Rate 20 18 18 Blood Pressure 155/77 H Pulse Oximetry 97 98 01/22/18 20:00 01/23/18 00:00 01/23/18 00:18 Temperature 79.9 F L 97.9 F Pulse Rate 108 H 92 H 93 H Respiratory Rate 16 16 19 Blood Pressure 115/58 L 115/58 L Pulse Oximetry 95 95 95 01/23/18 04:00 01/23/18 04:12 01/23/18 07:40 Temperature 97.9 F Pulse Rate 96 H 94 H 82 Respiratory Rate 17 20 17 Blood Pressure 149/70 H Pulse Oximetry 96 96 97 01/23/18 08:00 01/23/18 11:12 01/23/18 11:53 Temperature 97.4 F L 97.4 F L Pulse Rate 87 94 H 94 H Respiratory Rate 18 16 18 Blood Pressure 121/60 153/72 H Pulse Oximetry 100 99 Intake & Output 01/22/18 01/23/18 01/23/18 18:59 06:59 18:59 Intake Total 750 / 750 Output Total 900 / 900 Balance -150 / -150 Weight 145.5 kg Intake: Oral 750 / 750 Output: Urine 900 / 900 Other: Post Void Residual 600 # Voids 2 3 Date of Last Bowel Movement 01/22/18 01/22/18 # Bowel Movements 1 Narrative: GENERAL: AAOx3, no acute distress, obese SKIN: Warm and dry. No rashes HEAD: Atraumatic , normocephalic. EYES: No scleral icterus. No injection or drainage. ENT: Moist mucous membranes, patent nares, no erythema of oropharynx. NECK: Supple, trachea midline. No JVD or lymphadenopathy. Normal thyroid. CARDIOVASCULAR: Irregular rhythm and rate. No murmurs, gallops, or rubs. RESPIRATORY:Decreased breath sounds right base, rough fluid sounds at bilateral bases, No accessory muscle use. GASTROINTESTINAL: Abdomen soft, non-tender, nondistended, normal active bowel sounds MUSCULOSKELETAL: No cyanosis,mild edema in ankles NEURO: CN II-XII grossly intact, no focal deficits. - Urinary Catheter Management Indwelling Temp Sensing Catheter Cath placed during this visit: yes, but has since been removed by the nurse Reason for continuing: Chronic Urinary Retention Insertion date: 01/08/18 Insertion time: 17:15 Removal date: 01/07/18 Removal time: 10:00 Indwelling Urethral Catheter Cath placed during this visit: yes, but has since been removed by the nurse Reason for continuing: Chronic Urinary Retention Insertion date: 01/08/18 Removal date: 01/14/18 Removal time: 06:40 Results - Labs CBC & Chem 7: 01/22/18 09:20 01/22/18 09:20 Laboratory Results - last 24 hr 01/22/18 01/22/18 01/23/18 17:03 20:23 07:46 POC Glucose 127 H 294 H 176 H 01/23/18 11:53 POC Glucose 292 H Assessment and Plan - Assessment (1) Pneumonia Code(s): J18.9 - Pneumonia, unspecified organism Status: Acute (2) Pleural effusion associated with pulmonary infection Code(s): J18.9 - Pneumonia, unspecified organism; J91.8 - Pleural effusion in other conditions classified elsewhere Status: Acute (3) Non-small cell cancer of right lung Code(s): C34.91 - Malignant neoplasm of unspecified part of right bronchus or lung Status: Acute - Plan Respiratory failure, pleural effusion, COPD, lung cancer Recently diagnosed with non-small cell lung cancer S/P intubation 01/04-01/08 S/P thoracentesis x 2 (-3L at [facility] and -2L during this hospitalization on ) Pleural cath in place (01/17); to be drained Q3D or PRN. Last drained 01/19, yielded ~-250 cc Follow-up chest x-ray on shows worsening pleural effusion ABG done on shows improvement Pulmonology following (sees Dr. Clarke as outpatient) Continue Pulmicort, albuterol, BiPAP, supplemental oxygen, Aldactone, Bumex PET scan shows multifocal areas in right lobe, questionable uptake in bone marrow of T12 Radiology read of PET scan recommended follow-up nuclear medicine scan to investigate T12 uptake Nuclear medicine bone scan of thoracic spine ordered Pleural VAC drainage yesterday, produced 100 mL (reduced to 250 mL 2 days prior) Appreciate pulmonology consult Pseudomonas pneumonia Patient completed course of Fortaz and Bactrim Allergic to penicillin, tolerates cephalosporins Patient remains afebrile now Hypertension, dyslipidemia, CAD Blood pressures have been controlled while hospitalized Continue hydralazine, Coreg, Bumex, Aldactone, Isordil, aspirin, statin Type 2 diabetes Accu-Cheks with sliding scale insulin coverage Diabetic diet Anemia Pattern is consistent with anemia of chronic disease Monitor periodic CBC DVT Prophylaxis Heparin
[2018-01-24] MEDS: Oral Hygiene Kit OROPHARYNG SCH ×4 (03:36→23:17)
[2018-01-24] MEDS: Hypromellose 0.3% Opth Gel 10 GM Bottle EACH EYE SCH ×3 (05:07→20:29)
[2018-01-24] MEDS: Chlorhexidine 0.12% Oral Kit 15 ML UDC OROPHARYNG SCH ×2 (07:53→20:29)
[2018-01-24] MEDS: Insulin NovoLOG Aspart Correctional Sugar Inj SQ SCH ×4 (08:48→20:31)
[2018-01-24] MEDS: Insulin Detemir Inj 1,000 UNIT/10 ML Vial SQ SCH ×2 (08:48→20:30)
[2018-01-24] MEDS: Spironolactone 25 MG Tablet PO SCH ×2 (08:49→18:06)
[2018-01-24] MEDS: hydrALAZINE 50 MG Tablet PO SCH ×3 (08:49→18:06)
[2018-01-24] MEDS: Senna/Docusate Sodium 8.6/50 MG Tablet PO SCH ×2 (08:51→20:32)
[2018-01-24 10:37] LABS: Baso % (Auto) 0.7 % (0.0-2.0); Eos # (Auto) 0.1 th/mm3 (0.0-0.4); Eos % (Auto) 1.5 % (0.0-4.0); Hematocrit 24.8 % (39.0-51.0); Hemoglobin 8.1 gm/dL (13.0-17.0); Lymph # (Auto) 0.6 th/mm3 (1.0-4.8); Lymph % (Auto) 8.9 % (9.0-44.0); Mean Corpuscular HGB Conc 32.7 % (32.0-36.0); Mean Corpuscular Hemoglobin 28.8 pg (27.0-34.0); Mean Platelet Volume 8.1 fL (7.0-11.0); Mono # (Auto) 0.6 th/mm3 (0.0-0.9); Mono % (Auto) 9.2 % (0.0-8.0); Neut # (Auto) 5.1 th/mm3 (1.8-7.7); Neut % (Auto) 79.7 % (16.0-70.0); Platelet Count 108 th/mm3 (150-450); Red Blood Count 2.82 mil/mm3 (4.50-5.90); Red Cell Distribution Width 15.6 % (11.6-17.2); White Blood Count 6.3 th/mm3 (4.0-11.0)
--- NOTE | 2018-01-24 10:48 | P.PNONC ---
Subjective Interval history: Afebrile Patient reports he is going down for bone scan later today States his Pleurx catheter has less output 100 cc removed yesterday Overall feeling about the same Anxious to go home and get affairs in order Objective Vital Signs/Intake & Output: Vital Signs 01/23/18 11:12 01/23/18 11:53 01/23/18 12:00 Temperature 97.4 F L Pulse Rate 94 H 94 H 96 H Respiratory Rate 16 18 Blood Pressure 153/72 H Pulse Oximetry 99 01/23/18 16:00 01/23/18 20:00 01/23/18 21:20 Temperature 97.3 F L 97.9 F Pulse Rate 106 H 100 H 101 H Respiratory Rate 17 20 20 Blood Pressure 144/60 H 117/69 Pulse Oximetry 94 L 94 L 91 L 01/24/18 00:00 01/24/18 00:18 01/24/18 02:38 Temperature 97.7 F Pulse Rate 99 H Respiratory Rate 18 18 Blood Pressure 127/63 Pulse Oximetry 95 94 L 01/24/18 04:00 01/24/18 08:00 01/24/18 09:07 Temperature 97.9 F 97.8 F Pulse Rate 91 H 92 H 94 H Respiratory Rate 20 20 14 Blood Pressure 137/64 125/65 Pulse Oximetry 94 L 96 97 Intake & Output 01/23/18 01/24/18 01/24/18 18:59 06:59 18:59 Intake Total 780 / 780 240 / 240 Output Total 700 / 700 Balance 780 / 780 -460 / -460 Weight 321 lb 3.416 oz Intake: Oral 780 / 780 240 / 240 Output: Urine 700 / 700 Other: Date of Last Bowel Movement 01/22/18 01/23/18 Result Diagrams: 01/24/18 10:10 01/22/18 09:20 Laboratory Results: Laboratory Results - last 24 hr 01/23/18 01/23/18 01/23/18 11:53 17:27 20:12 WBC RBC Hgb Hct MCV MCH MCHC RDW Plt Count MPV Neut % (Auto) Lymph % (Auto) [place] % (Auto) Eos % (Auto) Baso % (Auto) Neut # (Auto) Lymph # (Auto) [place] # (Auto) Eos # (Auto) Baso # (Auto) WBC Differential Differential Comment POC Glucose 292 H 226 H 196 H 01/24/18 01/24/18 07:23 10:10 WBC 6.3 RBC 2.82 L Hgb 8.1 L Hct 24.8 L MCV 88.0 MCH 28.8 MCHC 32.7 RDW 15.6 Plt Count 108 L MPV 8.1 Neut % (Auto) 79.7 H Lymph % (Auto) 8.9 L [place] % (Auto) 9.2 H Eos % (Auto) 1.5 Baso % (Auto) 0.7 Neut # (Auto) 5.1 Lymph # (Auto) 0.6 L [place] # (Auto) 0.6 Eos # (Auto) 0.1 Baso # (Auto) 0.0 WBC Differential . Differential Comment Auto diff final POC Glucose 268 H Medications: Active Medications Generic Name Dose Route Start Last Admin Trade Name Freq PRN Reason Stop Dose Admin Acetaminophen 650 mg 01/05/18 21:17 01/10/18 02:43 Tylenol PO 650 mg Q6H PRN Administration PAIN 1-10 AND/OR FEVER >101F Al Hydroxide/Mg Hydroxide 30 ml 01/05/18 21:17 01/17/18 21:01 Milk Of Magnesia Liq PO 30 ml Q12H PRN Administration Mild Constipation Albuterol 1 ampul 01/19/18 11:07 01/23/18 21:17 Duoneb Neb (Prn) NEB 1 ampul Q2HR NEB PRN Administration DYSPNEA Albuterol 2.5 mg 01/07/18 12:10 01/18/18 21:56 Albuterol Neb (Prn) NEB 2.5 mg Q2HR NEB PRN Administration DYSPNEA Artificial Tears 1 drops 01/07/18 13:00 01/24/18 05:07 Genteal Severe Dry Eye Relief 0.3% Opth Gel EACH EYE 1 drops Q8H LORI Administration Aspirin 81 mg 01/08/18 09:00 01/24/18 08:50 Aspirin Chew PO 81 mg DAILY LORI Administration Budesonide 0.5 mg 01/07/18 20:00 01/24/18 09:06 Pulmocort Respule Neb NEB 0.5 mg Q12HR NEB LORI Administration Bumetanide 1 mg 01/19/18 21:00 01/24/18 08:49 Bumex PO 1 mg BID LORI Administration Carvedilol 3.125 mg 01/08/18 21:00 01/24/18 08:50 Coreg PO 3.125 mg BID LORI Administration Chlorhexidine Gluconate 15 ml 01/06/18 08:00 01/24/18 07:53 Peridex 0.12% Oral Kit OROPHARYNG Not Given BID@0800,2000 [facility] Dextrose 50 ml 01/05/18 21:23 01/06/18 06:01 D50w Vial IV.PUSH 50 ml UNSCH PRN Administration PER HYPOGLYCEMIA PROTOCOL Hydralazine HCl 100 mg 01/11/18 13:24 01/24/18 08:49 Apresoline PO 100 mg TID LORI Administration Insulin Aspart 0 unit 01/10/18 12:00 01/24/18 08:48 Novolog Insulin Correctional Sugar Inj SQ 7 unit ACHS LORI Administration Protocol Insulin Detemir 17 unit 01/20/18 21:00 01/23/18 21:13 Levemir Inj SQ 17 unit HS LORI Administration Insulin Detemir 20 unit 01/21/18 09:00 01/24/18 08:48 Levemir Inj SQ 20 unit DAILY LORI Administration Isosorbide Dinitrate 10 mg 01/11/18 14:00 01/24/18 05:07 Isordil PO 10 mg Q8HR LORI Administration Labetalol HCl 10 mg 01/08/18 11:35 01/09/18 00:02 Trandate Inj IV.PUSH 10 mg Q1H PRN Administration SBP>180, DBP>100, HR>65 Lactulose 30 ml 01/05/18 21:17 01/16/18 18:20 Lactulose Liq PO 30 ml DAILY PRN Administration [employer] Nitroglycerin 2 inch 01/08/18 12:13 01/13/18 06:35 Nitro-Bid 2% Oint TOPICAL 2 inch Q6HR PRN Administration SBP>160, DBP>90 Oxycodone/Acetaminophen 1 tab 01/12/18 21:50 01/23/18 21:12 Percocet 5/325 Mg PO 1 tab Q6H PRN Administration pain Pat Own Med: 0 each 01/05/18 09:00 01/05/18 22:38 Fluticasone- INH Not Given Umeclidinium- DAILY [facility] Vilanterol (Trelegy Ellipta)Inh Pravastatin Sodium 10 mg 01/13/18 15:32 01/24/18 08:50 Pravachol PO 10 mg DAILY LORI Administration Senna/Docusate Sodium 1 tab 01/06/18 09:00 01/24/18 08:51 Zandra-Colace PO Not Given BID [facility] Sennosides 17.2 mg 01/05/18 21:17 01/14/18 09:28 Senokot PO 17.2 mg Q12H PRN Administration Moderate Constipation Sodium Chloride 2 ml 01/06/18 09:00 01/24/18 08:51 Ns Flush IV.FLUSH 2 ml BID LORI Administration Spironolactone 25 mg 01/11/18 18:00 01/24/18 08:49 Aldactone PO 25 mg BID@0900,1800 LORI Administration Tamsulosin HCl 0.4 mg 01/12/18 09:00 01/24/18 08:49 Flomax PO 0.4 mg DAILY LORI Administration Objective Remarks: GENERAL: Obese older male sitting on side of bed in no acute distress. Occasionally emotional throughout exam SKIN: Warm and dry. HEAD: Normocephalic. EYES: No scleral icterus. No injection or drainage. NECK: Supple, trachea midline. CARDIOVASCULAR: Irregular rhythm. RESPIRATORY: Diminished breath sounds throughout. Pleurx catheter in place to right lateral chest. No erythema at insertion site GASTROINTESTINAL: Abdomen protuberant. Nontender. EXTREMITIES: Generalized edema MUSCULOSKELETAL: Adequate muscle tone. NEUROLOGICAL: No obvious focal deficit. Awake, alert, and oriented x3. Assessment/Plan (1) COPD (chronic obstructive pulmonary disease) with chronic bronchitis Code(s): J44.9 - Chronic obstructive pulmonary disease, unspecified Status: Acute (2) Pleural effusion associated with pulmonary infection Code(s): J18.9 - Pneumonia, unspecified organism; J91.8 - Pleural effusion in other conditions classified elsewhere Status: Acute (3) Non-small cell cancer of right lung Code(s): C34.91 - Malignant neoplasm of unspecified part of right bronchus or lung Status: Acute (4) Hypertension Code(s): I10 - Essential (primary) hypertension Status: Acute (5) Diabetes 1.5, managed as type 2 Code(s): E10.9 - Type 1 diabetes mellitus without complications Status: Acute - Plan 67-year-old male with non-small cell carcinoma of the lung admitted with significant shortness of breath and was intubated in the emergency room. The patient was in the hospital in [facility] in November 2017 where he had several thoracenteses with pleural fluid being positive for "non-small cell carcinoma." 1. Reviewed PET scan that was done on 01/02/18 that showed evidence of multifocal hypermetabolic nodularity throughout the right hemithorax as well as right hilar adenopathy also noted was a prominent hypermetabolism within the subcarinal region, unclear if this was subcarinal adenopathy versus adjacent esophageal neoplasm. Also noted was a nonspecific heterogenous hyper metabolism throughout the visualized marrow space. Focal uptake involving T12 vertebral body was seen. Noted bone scan ordered for today. 2. Await PDL 1 testing from original tumor from [facility] 3. Patient's performance status remains poor. He tells me he sent away physical therapy today as he did not feel up to it. At this point he would be a poor candidate for traditional chemotherapy.
[2018-01-24 11:39] LABS: Albumin 2.7 g/dL (3.4-5.0); Anion Gap 6 meq/L (5-15); Aspartate Aminotransferase 16 U/L (15-37); Blood Urea Nitrogen 24 mg/dL (7-18); Calcium 9.3 mg/dL (8.5-10.1); Carbon Dioxide 42.2 meq/L (21.0-32.0); Chloride 89 meq/L (98-107); Glomerular Filtration Rate 69 mL/min (>89); Glucose,Random 257 mg/dL (74-106); Sodium 137 meq/L (136-145)
[2018-01-24 11:45] LABS: Alanine Aminotransferase 22 U/L (12-78); Alkaline Phosphatase 61 U/L (45-117); Total Protein 6.6 g/dL (6.4-8.2)
--- NOTE | 2018-01-24 12:09 | P.PN ---
Subjective Interval history: Mr. Paredes is breathing at his baseline, he is still awaiting clarity on treatment plan options for his non-small cell lung cancer. He states he had some trouble with breathing overnight but it resolved quickly and now he feels at his baseline again. Physical Exam Vital signs: Vital Signs 01/23/18 16:00 01/23/18 20:00 01/23/18 21:20 Temperature 97.3 F L 97.9 F Pulse Rate 106 H 100 H 101 H Respiratory Rate 17 20 20 Blood Pressure 144/60 H 117/69 Pulse Oximetry 94 L 94 L 91 L 01/24/18 00:00 01/24/18 00:18 01/24/18 02:38 Temperature 97.7 F Pulse Rate 99 H Respiratory Rate 18 18 Blood Pressure 127/63 Pulse Oximetry 95 94 L 01/24/18 04:00 01/24/18 08:00 01/24/18 09:07 Temperature 97.9 F 97.8 F Pulse Rate 91 H 92 H 94 H Respiratory Rate 20 20 14 Blood Pressure 137/64 125/65 Pulse Oximetry 94 L 96 97 Intake & Output 01/23/18 01/24/18 01/24/18 18:59 06:59 18:59 Intake Total 780 / 780 240 / 240 Output Total 700 / 700 Balance 780 / 780 -460 / -460 Weight 145.7 kg Intake: Oral 780 / 780 240 / 240 Output: Urine 700 / 700 Other: Date of Last Bowel Movement 01/22/18 01/23/18 01/23/18 Narrative: GENERAL: AAOx3, no acute distress, obese SKIN: Warm and dry. No rashes HEAD: Atraumatic , normocephalic. EYES: No scleral icterus. No injection or drainage. ENT: Moist mucous membranes, patent nares, no erythema of oropharynx. NECK: Supple, trachea midline. No JVD or lymphadenopathy. Normal thyroid. CARDIOVASCULAR: Regular rate and rhythm. No murmurs, gallops, or rubs. RESPIRATORY: Bilateral bases with less congestion, atelectasis and diminished sounds of fluid still present in right greater than left, No accessory muscle use. GASTROINTESTINAL: Abdomen soft, non-tender, nondistended, normal active bowel sounds MUSCULOSKELETAL: No cyanosis,mild edema in ankles NEURO: CN II-XII grossly intact, no focal deficits. - Urinary Catheter Management Indwelling Temp Sensing Catheter Cath placed during this visit: yes, but has since been removed by the nurse Reason for continuing: Chronic Urinary Retention Insertion date: 01/08/18 Insertion time: 17:15 Removal date: 01/07/18 Removal time: 10:00 Indwelling Urethral Catheter Cath placed during this visit: yes, but has since been removed by the nurse Reason for continuing: Chronic Urinary Retention Insertion date: 01/08/18 Removal date: 01/14/18 Removal time: 06:40 Results - Labs CBC & Chem 7: 01/24/18 10:10 01/24/18 10:47 Laboratory Results - last 24 hr 01/23/18 01/23/18 01/24/18 17:27 20:12 07:23 WBC RBC Hgb Hct MCV MCH MCHC RDW Plt Count MPV Neut % (Auto) Lymph % (Auto) [place] % (Auto) Eos % (Auto) Baso % (Auto) Neut # (Auto) Lymph # (Auto) [place] # (Auto) Eos # (Auto) Baso # (Auto) WBC Differential Differential Comment Sodium Potassium Chloride Carbon Dioxide Anion Gap BUN Creatinine Estimated GFR POC Glucose 226 H 196 H 268 H Random Glucose Calcium Total Bilirubin AST ALT Alkaline Phosphatase Total Protein Albumin 01/24/18 01/24/18 01/24/18 10:10 10:47 11:01 WBC 6.3 RBC 2.82 L Hgb 8.1 L Hct 24.8 L MCV 88.0 MCH 28.8 MCHC 32.7 RDW 15.6 Plt Count 108 L MPV 8.1 Neut % (Auto) 79.7 H Lymph % (Auto) 8.9 L [place] % (Auto) 9.2 H Eos % (Auto) 1.5 Baso % (Auto) 0.7 Neut # (Auto) 5.1 Lymph # (Auto) 0.6 L [place] # (Auto) 0.6 Eos # (Auto) 0.1 Baso # (Auto) 0.0 WBC Differential . Differential Comment Auto diff final Sodium 137 Potassium 4.0 Chloride 89 L Carbon Dioxide 42.2 H Anion Gap 6 BUN 24 H Creatinine 1.07 Estimated GFR 69 L POC Glucose 280 H Random Glucose 257 H Calcium 9.3 Total Bilirubin 0.6 AST 16 ALT 22 Alkaline Phosphatase 61 Total Protein 6.6 D Albumin 2.7 L Assessment and Plan - Assessment (1) Pneumonia Code(s): J18.9 - Pneumonia, unspecified organism Status: Acute (2) Pleural effusion associated with pulmonary infection Code(s): J18.9 - Pneumonia, unspecified organism; J91.8 - Pleural effusion in other conditions classified elsewhere Status: Acute (3) Non-small cell cancer of right lung Code(s): C34.91 - Malignant neoplasm of unspecified part of right bronchus or lung Status: Acute - Plan Respiratory failure, pleural effusion, COPD, lung cancer Recently diagnosed with non-small cell lung cancer S/P intubation 01/04-01/08 S/P thoracentesis x 2 (-3L at [facility] and -2L during this hospitalization on ) Pleural cath in place (01/17); to be drained Q3D or PRN. Last drained 01/19, yielded ~-250 cc Follow-up chest x-ray on 729 shows worsening pleural effusion ABG done on 729 shows improvement Pulmonology following (sees Dr. Clarke as outpatient) Continue Pulmicort, albuterol, BiPAP, supplemental oxygen, Aldactone, Bumex PET scan shows multifocal areas in right lobe, questionable uptake in bone marrow of T12 Radiology read of PET scan recommended follow-up nuclear medicine scan to investigate T12 uptake Nuclear medicine bone scan of thoracic spine to be done today Pleural VAC drainage 01/23/18, produced 100 mL (reduced to 250 mL 2 days prior) Appreciate pulmonology consult Pseudomonas pneumonia Patient completed course of Fortaz and Bactrim Allergic to penicillin, tolerates cephalosporins Patient remains afebrile now Hypertension, dyslipidemia, CAD Blood pressures have been controlled while hospitalized Continue hydralazine, Coreg, Bumex, Aldactone, Isordil, aspirin, statin Type 2 diabetes Accu-Cheks with sliding scale insulin coverage Diabetic diet Anemia Pattern is consistent with anemia of chronic disease Monitor periodic CBC DVT Prophylaxis Heparin Discharge planning Patient is interested in transitioning at [facility] for increased availability of physical therapy and more timely access to updates in his treatment plan. Outpatient follow-up for him at this time would be fairly difficult. He is undergoing nuclear medicine study today but may be appropriate for discharge in the next 1-2 days.
--- NOTE | 2018-01-24 13:40 | NM ---
INDICATIONS: Neoplasm. T12 abnormality on PET scan, patient with Lung Cancer on right. CLINICAL DATA: This is the patient's initial encounter. Patient reports that signs and symptoms have been present for 1 week and indicates a pain score of 0/10. MEDICAL/SURGICAL HISTORY: Carcinoma, lung. Chronic obstructive pulmonary disease. Congestive heart failure. Hypertension, Diabetes, Chronic kidney disease, Gout. Patient had two falls in November 23, resulting in injury to right foot. . Cystoscopy, lung biopsy, and paracentesis. COMPARISON: No prior exams available for comparison. TECHNIQUE: . . Whole body bone scan was performed at 2-3 hours. No correlative bone scan available for comparison. DOSE: 31.2 mCi Tc99m MDP IV FINDINGS: There is increased radiotracer uptake in the knees which may be degenerative arthritic. Correlation w ith plain films suggested. There is also pronounced uptake in the right first metatarsophalangeal everardo nt region. There is no significant increased activity in the spine or pelvis. CONCLUSION: Likely degenerative uptake in the knees and right foot. No suspicious activity of the spine Electronically signed by: Wilfred Carvalho MD 01/24/2018 1:39 PM EDT
--- NOTE | 2018-01-24 19:33 | P.PN ---
Subjective Interval history: SOB with exertion. No chest apin. On O2 3 L. Will go for Bone scan Physical Exam Vital signs: Vital Signs 01/23/18 20:00 01/23/18 21:20 01/24/18 00:00 Temperature 97.9 F 97.7 F Pulse Rate 100 H 101 H 99 H Respiratory Rate 20 20 18 Blood Pressure 117/69 127/63 Pulse Oximetry 94 L 91 L 95 01/24/18 00:18 01/24/18 02:38 01/24/18 04:00 Temperature 97.9 F Pulse Rate 91 H Respiratory Rate 18 20 Blood Pressure 137/64 Pulse Oximetry 94 L 94 L 01/24/18 08:00 01/24/18 09:07 01/24/18 12:00 Temperature 97.8 F 97.5 F L Pulse Rate 92 H 94 H 85 Respiratory Rate 20 14 20 Blood Pressure 125/65 126/78 Pulse Oximetry 96 97 95 01/24/18 16:00 Temperature 97.8 F Pulse Rate 101 H Respiratory Rate 20 Blood Pressure 161/64 H Pulse Oximetry 94 L Intake & Output 01/24/18 01/24/18 01/25/18 06:59 18:59 06:59 Intake Total 240 / 240 480 / 480 Output Total 700 / 700 1125 / 1125 Balance -460 / -460 -645 / -645 Weight 145.7 kg Intake: Oral 240 / 240 480 / 480 Output: Urine 700 / 700 1125 / 1125 Other: Date of Last Bowel Movement 01/23/18 01/23/18 Narrative: GENERAL: AAOx3, no acute distress, obese W/M SKIN: Warm and dry. No rashes HEAD: Atraumatic , normocephalic. EYES: No scleral icterus. No injection or drainage. ENT: Moist mucous membranes, patent nares, no erythema of oropharynx. NECK: Supple, trachea midline. No JVD or lymphadenopathy. Normal thyroid. CARDIOVASCULAR: Regular rate and rhythm. No murmurs, gallops, or rubs. RESPIRATORY: accessory muscle use. Occ Basal crackles. GASTROINTESTINAL: Abdomen soft, non-tender, nondistended, normal active bowel sounds MUSCULOSKELETAL: No cyanosis,mild edema in ankles NEURO: CN II-XII grossly intact, no focal deficits. - Urinary Catheter Management Indwelling Temp Sensing Catheter Cath placed during this visit: yes, but has since been removed by the nurse Reason for continuing: Chronic Urinary Retention Insertion date: 01/08/18 Insertion time: 17:15 Removal date: 01/07/18 Removal time: 10:00 Indwelling Urethral Catheter Cath placed during this visit: yes, but has since been removed by the nurse Reason for continuing: Chronic Urinary Retention Insertion date: 01/08/18 Removal date: 01/14/18 Removal time: 06:40 Results - Labs CBC & Chem 7: 01/24/18 10:10 01/24/18 10:47 Laboratory Results - last 24 hr 01/23/18 01/24/18 01/24/18 20:12 07:23 10:10 WBC 6.3 RBC 2.82 L Hgb 8.1 L Hct 24.8 L MCV 88.0 MCH 28.8 MCHC 32.7 RDW 15.6 Plt Count 108 L MPV 8.1 Neut % (Auto) 79.7 H Lymph % (Auto) 8.9 L [place] % (Auto) 9.2 H Eos % (Auto) 1.5 Baso % (Auto) 0.7 Neut # (Auto) 5.1 Lymph # (Auto) 0.6 L [place] # (Auto) 0.6 Eos # (Auto) 0.1 Baso # (Auto) 0.0 WBC Differential . Differential Comment Auto diff final Sodium Potassium Chloride Carbon Dioxide Anion Gap BUN Creatinine Estimated GFR POC Glucose 196 H 268 H Random Glucose Calcium Total Bilirubin AST ALT Alkaline Phosphatase Total Protein Albumin 01/24/18 01/24/18 01/24/18 10:47 11:01 16:10 WBC RBC Hgb Hct MCV MCH MCHC RDW Plt Count MPV Neut % (Auto) Lymph % (Auto) [place] % (Auto) Eos % (Auto) Baso % (Auto) Neut # (Auto) Lymph # (Auto) [place] # (Auto) Eos # (Auto) Baso # (Auto) WBC Differential Differential Comment Sodium 137 Potassium 4.0 Chloride 89 L Carbon Dioxide 42.2 H Anion Gap 6 BUN 24 H Creatinine 1.07 Estimated GFR 69 L POC Glucose 280 H 197 H Random Glucose 257 H Calcium 9.3 Total Bilirubin 0.6 AST 16 ALT 22 Alkaline Phosphatase 61 Total Protein 6.6 D Albumin 2.7 L - Imaging Impressions Bone Scan Nuclear Medicine 01/24/18 00:00 CONCLUSION: Likely degenerative uptake in the knees and right foot. No suspicious activity of the spine Assessment and Plan - Assessment (1) Pneumonia Code(s): J18.9 - Pneumonia, unspecified organism Status: Acute (2) COPD (chronic obstructive pulmonary disease) with chronic bronchitis Code(s): J44.9 - Chronic obstructive pulmonary disease, unspecified Status: Acute (3) Pleural effusion associated with pulmonary infection Code(s): J18.9 - Pneumonia, unspecified organism; J91.8 - Pleural effusion in other conditions classified elsewhere Status: Acute (4) Non-small cell cancer of right lung Code(s): C34.91 - Malignant neoplasm of unspecified part of right bronchus or lung Status: Acute (5) Sleep apnea with hypersomnolence Code(s): G47.10 - Hypersomnia, unspecified; G47.30 - Sleep apnea, unspecified Status: Acute (6) Obesity Code(s): E66.9 - Obesity, unspecified Status: Acute (7) Hypertension Code(s): I10 - Essential (primary) hypertension Status: Acute (8) Diabetes 1.5, managed as type 2 Code(s): E10.9 - Type 1 diabetes mellitus without complications Status: Acute - Plan 1. Will continue O2 3 L . Arrange home O2 2. Nebs qid duoneb and PRN 3. Arrange Home health . 4. Have Pleur X catheter drained every 5 days 5. Bone scan 6. IS at bedside q3h 7. Symbicort , 2 puffs BID
[2018-01-25] MEDS: Hypromellose 0.3% Opth Gel 10 GM Bottle EACH EYE SCH ×3 (04:19→21:21)
[2018-01-25] MEDS: Oral Hygiene Kit OROPHARYNG SCH ×3 (04:19→18:13)
[2018-01-25] MEDS: hydrALAZINE 50 MG Tablet PO SCH ×3 (09:05→18:12)
[2018-01-25] MEDS: Senna/Docusate Sodium 8.6/50 MG Tablet PO SCH ×2 (09:05→21:23)
[2018-01-25] MEDS: Spironolactone 25 MG Tablet PO SCH ×2 (09:09→18:12)
[2018-01-25] MEDS: Insulin NovoLOG Aspart Correctional Sugar Inj SQ SCH ×4 (09:10→21:25)
[2018-01-25] MEDS: Insulin Detemir Inj 1,000 UNIT/10 ML Vial SQ SCH ×2 (09:10→21:25)
[2018-01-25] MEDS: Chlorhexidine 0.12% Oral Kit 15 ML UDC OROPHARYNG SCH ×2 (09:11→21:21)
[2018-01-25 09:28] LABS: Hematocrit 25.3 % (39.0-51.0); Hemoglobin 8.2 gm/dL (13.0-17.0); Mean Corpuscular HGB Conc 32.4 % (32.0-36.0); Mean Corpuscular Hemoglobin 28.3 pg (27.0-34.0); Mean Corpuscular Volume 87.1 fL (80.0-100.0); Mean Platelet Volume 8.3 fL (7.0-11.0); Platelet Count 110 th/mm3 (150-450); Red Cell Distribution Width 15.7 % (11.6-17.2); White Blood Count 7.4 th/mm3 (4.0-11.0)
[2018-01-25 09:55] LABS: Carbon Dioxide 42.8 meq/L (21.0-32.0); Potassium 3.8 meq/L (3.5-5.1)
--- NOTE | 2018-01-25 11:07 | P.PNIM ---
Subjective Interval history: No complaints today. Patient remains oxygen dependent. Determination for acceptance to inpatient rehab pending. Nuclear medicine bone scan showed no spinal lesions. Follow-up visit from oncology pending. Physical Exam Vital signs: Vital Signs 01/24/18 12:00 01/24/18 16:00 01/24/18 19:49 Temperature 97.5 F L 97.8 F Pulse Rate 85 101 H 104 H Respiratory Rate 20 20 20 Blood Pressure 126/78 161/64 H Pulse Oximetry 95 94 L 92 L 01/24/18 20:00 01/25/18 00:00 01/25/18 04:00 Temperature 97.6 F 97.6 F 97.9 F Pulse Rate 104 H 104 H 97 H Respiratory Rate 18 18 18 Blood Pressure 163/80 H 163/80 H 124/58 L Pulse Oximetry 94 L 94 L 94 L 01/25/18 08:00 01/25/18 09:40 01/25/18 09:41 Temperature 98.4 F Pulse Rate 97 H 97 H Respiratory Rate 20 20 Blood Pressure 170/76 H Pulse Oximetry 94 L 94 L Intake & Output 01/24/18 01/25/18 01/25/18 18:59 06:59 18:59 Intake Total 480 / 480 1000 / 1000 Output Total 1125 / 1125 1450 / 1450 Balance -645 / -645 -450 / -450 Weight 143 kg Intake: Oral 480 / 480 1000 / 1000 Output: Urine 1125 / 1125 1450 / 1450 Other: Date of Last Bowel Movement 01/23/18 01/24/18 Narrative: GENERAL: NAD, A&Ox3, obese, oxygen in place. HEAD: Normocephalic. NECK: Supple, trachea midline. No lymphadenopathy. EYES: No scleral icterus. No injection or drainage. CARDIOVASCULAR: Regular rate and rhythm without murmurs, gallops, or rubs. RESPIRATORY: Breath sounds equal bilaterally. No accessory muscle use. GASTROINTESTINAL: Abdomen soft, non-tender, nondistended. MUSCULOSKELETAL: No cyanosis, mild lower extremity edema. SKIN: Warm and dry. NEURO: No focal neurological deficits. - Urinary Catheter Management Indwelling Temp Sensing Catheter Cath placed during this visit: yes, but has since been removed by the nurse Reason for continuing: Chronic Urinary Retention Insertion date: 01/08/18 Insertion time: 17:15 Removal date: 01/07/18 Removal time: 10:00 Indwelling Urethral Catheter Cath placed during this visit: yes, but has since been removed by the nurse Reason for continuing: Chronic Urinary Retention Insertion date: 01/08/18 Removal date: 01/14/18 Removal time: 06:40 Results - Labs CBC & Chem 7: 01/25/18 08:20 01/25/18 08:20 Laboratory Results - last 24 hr 01/24/18 01/24/18 01/24/18 10:47 11:01 16:10 WBC RBC Hgb Hct MCV MCH MCHC RDW Plt Count MPV Sodium 137 Potassium 4.0 Chloride 89 L Carbon Dioxide 42.2 H Anion Gap 6 BUN 24 H Creatinine 1.07 Estimated GFR 69 L POC Glucose 280 H 197 H Random Glucose 257 H Calcium 9.3 Total Bilirubin 0.6 AST 16 ALT 22 Alkaline Phosphatase 61 Total Protein 6.6 D Albumin 2.7 L 01/25/18 01/25/18 01/25/18 08:08 08:20 08:20 WBC 7.4 RBC 2.90 L Hgb 8.2 L Hct 25.3 L MCV 87.1 MCH 28.3 MCHC 32.4 RDW 15.7 Plt Count 110 L MPV 8.3 Sodium 135 L Potassium 3.8 Chloride 89 L Carbon Dioxide 42.8 H Anion Gap 3 L BUN 25 H Creatinine 1.16 Estimated GFR 62 L POC Glucose 247 H Random Glucose 225 H Calcium 9.0 Total Bilirubin AST ALT Alkaline Phosphatase Total Protein Albumin - Imaging Impressions Bone Scan Nuclear Medicine 01/24/18 00:00 CONCLUSION: Likely degenerative uptake in the knees and right foot. No suspicious activity of the spine Assessment and Plan - Assessment (1) Pneumonia Code(s): J18.9 - Pneumonia, unspecified organism Status: Acute (2) Pleural effusion associated with pulmonary infection Code(s): J18.9 - Pneumonia, unspecified organism; J91.8 - Pleural effusion in other conditions classified elsewhere Status: Acute (3) Non-small cell cancer of right lung Code(s): C34.91 - Malignant neoplasm of unspecified part of right bronchus or lung Status: Acute - Plan 67-year-old male admitted for altered mental status with respiratory failure, intubated for airway protection Pleurx placement today. Sputum cultures are still positive for Pseudomonas. ID following and Bactrim and ceftazidime will be continued. Patient stable for transfer out of ICU. Acute hypoxic/hypercapnic respiratory failure Pseudomonas pneumonia Chronic respiratory failure/3 L oxygen dependent. Follows with Dr. Clarke Obstructive sleep apnea/CPAP at night COPD Bilateral pleural effusion right greater than left Lung cancer Extubated 01/08. Continue albuterol as needed Continue the desonide Continue CPAP at night Continue IV steroids Patient completed treatment with Bactrim and ceftazidime, for pneumonia Oncology following Pulmonology following PleurX catheter in place, to be drained every 5 days Essential hypertension Hyperlipidemia Coronary artery disease Continue hydralazine 100 mg 3 times daily, carvedilol 3.125 mg twice daily. Hold losartan with acute kidney injury. Continue bumetanide 1 mg daily and Aldactone 25 mg twice daily.. Continue isosorbide dinitrate 10 mg 3 times daily As needed labetalol As needed Nitropaste Continue aspirin chew 81 mg daily Continue pravastatin 40 mg daily for dyslipidemia Hypoalbuminemia Continue diet Normocytic anemia Follow CBC No indication for transfusion of blood products at this time Diabetes mellitus type 2 Follow blood sugars Insulin sliding scale Diabetic diet Gout No exacerbation Follow clinically Continue baseline treatment DVT prophylaxis SCDs and heparin Discharge planning Possible approval for [place] inpatient rehab pending clearance from oncology pending
--- NOTE | 2018-01-25 14:11 | P.PN ---
Subjective Interval history: breathing better. Bone scan was negative. On O2 3 l. Will go to Rehab on Saturday Physical Exam Vital signs: Vital Signs 01/24/18 16:00 01/24/18 19:49 01/24/18 20:00 Temperature 97.8 F 97.6 F Pulse Rate 101 H 104 H 104 H Respiratory Rate 20 20 18 Blood Pressure 161/64 H 163/80 H Pulse Oximetry 94 L 92 L 94 L 01/25/18 00:00 01/25/18 04:00 01/25/18 08:00 Temperature 97.6 F 97.9 F 98.4 F Pulse Rate 104 H 97 H 97 H Respiratory Rate 18 18 20 Blood Pressure 163/80 H 124/58 L 170/76 H Pulse Oximetry 94 L 94 L 94 L 01/25/18 09:40 01/25/18 09:41 01/25/18 12:00 Temperature 97.8 F Pulse Rate 97 H 93 H Respiratory Rate 20 20 Blood Pressure 134/73 Pulse Oximetry 94 L 97 Intake & Output 01/24/18 01/25/18 01/25/18 18:59 06:59 18:59 Intake Total 480 / 480 1000 / 1000 Output Total 1125 / 1125 1450 / 1450 Balance -645 / -645 -450 / -450 Weight 143 kg Intake: Oral 480 / 480 1000 / 1000 Output: Urine 1125 / 1125 1450 / 1450 Other: Date of Last Bowel Movement 01/23/18 01/24/18 Narrative: GENERAL: NAD, A&Ox3, Elderly W/M Obese. HEAD: Normocephalic. NECK: Supple, trachea midline. No lymphadenopathy. EYES: No scleral icterus. No injection or drainage. CARDIOVASCULAR: Regular rate and rhythm without murmurs, gallops, or rubs. RESPIRATORY: Breath sounds equal bilaterally. Occ wheeze on right. No accessory muscle use. GASTROINTESTINAL: Abdomen soft, non-tender, nondistended. MUSCULOSKELETAL: No cyanosis, mild lower extremity edema. SKIN: Warm and dry. NEURO: No focal neurological deficits. - Urinary Catheter Management Indwelling Temp Sensing Catheter Cath placed during this visit: yes, but has since been removed by the nurse Reason for continuing: Chronic Urinary Retention Insertion date: 01/08/18 Insertion time: 17:15 Removal date: 01/07/18 Removal time: 10:00 Indwelling Urethral Catheter Cath placed during this visit: yes, but has since been removed by the nurse Reason for continuing: Chronic Urinary Retention Insertion date: 01/08/18 Removal date: 01/14/18 Removal time: 06:40 Results - Labs CBC & Chem 7: 01/25/18 08:20 01/25/18 08:20 Laboratory Results - last 24 hr 01/24/18 01/25/18 01/25/18 16:10 08:08 08:20 WBC 7.4 RBC 2.90 L Hgb 8.2 L Hct 25.3 L MCV 87.1 MCH 28.3 MCHC 32.4 RDW 15.7 Plt Count 110 L MPV 8.3 Sodium Potassium Chloride Carbon Dioxide Anion Gap BUN Creatinine Estimated GFR POC Glucose 197 H 247 H Random Glucose Calcium 01/25/18 01/25/18 08:20 12:03 WBC RBC Hgb Hct MCV MCH MCHC RDW Plt Count MPV Sodium 135 L Potassium 3.8 Chloride 89 L Carbon Dioxide 42.8 H Anion Gap 3 L BUN 25 H Creatinine 1.16 Estimated GFR 62 L POC Glucose 282 H Random Glucose 225 H Calcium 9.0 Assessment and Plan - Assessment (1) Pneumonia Code(s): J18.9 - Pneumonia, unspecified organism Status: Acute (2) COPD (chronic obstructive pulmonary disease) with chronic bronchitis Code(s): J44.9 - Chronic obstructive pulmonary disease, unspecified Status: Acute (3) Pleural effusion associated with pulmonary infection Code(s): J18.9 - Pneumonia, unspecified organism; J91.8 - Pleural effusion in other conditions classified elsewhere Status: Acute (4) Non-small cell cancer of right lung Code(s): C34.91 - Malignant neoplasm of unspecified part of right bronchus or lung Status: Acute (5) Sleep apnea with hypersomnolence Code(s): G47.10 - Hypersomnia, unspecified; G47.30 - Sleep apnea, unspecified Status: Acute (6) Obesity Code(s): E66.9 - Obesity, unspecified Status: Acute (7) Hypertension Code(s): I10 - Essential (primary) hypertension Status: Acute (8) Diabetes 1.5, managed as type 2 Code(s): E10.9 - Type 1 diabetes mellitus without complications Status: Acute - Plan 1. Will continue O2 3 L . Arrange O2 at rehab. 2. Nebs qid duoneb and PRN 3. PT evaluation 4. Have Pleur X catheter drained every 5 days 5. Labs on Saturday 6. IS at bedside q3h 7. Symbicort , 160/4.5 mcg 2 puffs BID
[2018-01-26] MEDS: Oral Hygiene Kit OROPHARYNG SCH ×4 (00:57→18:31)
[2018-01-26] MEDS: Hypromellose 0.3% Opth Gel 10 GM Bottle EACH EYE SCH ×3 (04:56→21:10)
[2018-01-26] MEDS: Senna/Docusate Sodium 8.6/50 MG Tablet PO SCH ×2 (09:32→21:12)
[2018-01-26] MEDS: Chlorhexidine 0.12% Oral Kit 15 ML UDC OROPHARYNG SCH ×2 (09:33→19:25)
[2018-01-26] MEDS: Spironolactone 25 MG Tablet PO SCH ×2 (09:33→18:31)
[2018-01-26] MEDS: hydrALAZINE 50 MG Tablet PO SCH ×3 (09:33→18:31)
[2018-01-26] MEDS: Insulin Detemir Inj 1,000 UNIT/10 ML Vial SQ SCH ×2 (09:33→21:10)
[2018-01-26] MEDS: Insulin NovoLOG Aspart Correctional Sugar Inj SQ SCH ×4 (09:34→21:10)
--- NOTE | 2018-01-26 11:35 | P.PNIM ---
Subjective Interval history: Complaint of headache today, poor sleeping last night. Shortness of breath is unchanged. No new complaints. Physical Exam Vital signs: Vital Signs 01/25/18 11:35 01/25/18 12:00 01/25/18 16:00 Temperature 97.8 F 98.3 F Pulse Rate 95 H 93 H 107 H Respiratory Rate 20 20 Blood Pressure 134/73 132/60 Pulse Oximetry 97 94 L 01/25/18 16:11 01/25/18 20:00 01/25/18 20:19 Temperature 97.6 F Pulse Rate 106 H 88 100 H Respiratory Rate 20 16 Blood Pressure 133/60 Pulse Oximetry 95 01/26/18 00:00 01/26/18 00:30 01/26/18 04:00 Temperature 97.7 F 97.7 F Pulse Rate 102 H 95 H Respiratory Rate 20 18 Blood Pressure 123/69 144/90 H Pulse Oximetry 97 92 L 95 01/26/18 04:25 01/26/18 08:00 01/26/18 08:58 Temperature 97.7 F Pulse Rate 80 95 H Respiratory Rate 18 18 Blood Pressure 154/84 H Pulse Oximetry 93 L 98 01/26/18 08:59 Temperature Pulse Rate Respiratory Rate Blood Pressure Pulse Oximetry 93 L Intake & Output 01/25/18 01/26/18 01/26/18 18:59 06:59 18:59 Intake Total 720 / 720 480 / 480 Output Total 1120 / 1120 700 / 700 Balance -400 / -400 -220 / -220 Weight 141 kg Intake: Oral 720 / 720 480 / 480 Output: Urine 1120 / 1120 700 / 700 Other: # Voids 3 Date of Last Bowel Movement 01/22/18 01/24/18 # Bowel Movements 1 Narrative: GENERAL: NAD, A&Ox3, nasal cannula oxygen HEAD: Normocephalic. NECK: Supple, trachea midline. No lymphadenopathy. EYES: No scleral icterus. No injection or drainage. CARDIOVASCULAR: Regular rate and rhythm without murmurs, gallops, or rubs. RESPIRATORY: Breath sounds equal bilaterally. No accessory muscle use. GASTROINTESTINAL: Abdomen soft, non-tender, nondistended. MUSCULOSKELETAL: No cyanosis, or edema. SKIN: Warm and dry. NEURO: No focal neurological deficits. - Urinary Catheter Management Indwelling Temp Sensing Catheter Cath placed during this visit: yes, but has since been removed by the nurse Reason for continuing: Chronic Urinary Retention Insertion date: 01/08/18 Insertion time: 17:15 Removal date: 01/07/18 Removal time: 10:00 Indwelling Urethral Catheter Cath placed during this visit: yes, but has since been removed by the nurse Reason for continuing: Chronic Urinary Retention Insertion date: 01/08/18 Removal date: 01/14/18 Removal time: 06:40 Results - Labs CBC & Chem 7: 01/25/18 08:20 01/25/18 08:20 Laboratory Results - last 24 hr 01/25/18 01/25/18 01/25/18 12:03 17:13 20:25 POC Glucose 282 H 246 H 265 H 01/26/18 08:04 POC Glucose 151 H Assessment and Plan - Assessment (1) Pneumonia Code(s): J18.9 - Pneumonia, unspecified organism Status: Acute (2) Pleural effusion associated with pulmonary infection Code(s): J18.9 - Pneumonia, unspecified organism; J91.8 - Pleural effusion in other conditions classified elsewhere Status: Acute (3) Non-small cell cancer of right lung Code(s): C34.91 - Malignant neoplasm of unspecified part of right bronchus or lung Status: Acute - Plan 67-year-old male admitted for altered mental status with respiratory failure, intubated for airway protection No acute concerns today. Arrangements for inpatient rehabilitation are in process. Potential discharge tomorrow. Acute hypoxic/hypercapnic respiratory failure Pseudomonas pneumonia Chronic respiratory failure/3 L oxygen dependent. Follows with Dr. Clarke Obstructive sleep apnea/CPAP at night COPD Bilateral pleural effusion right greater than left Lung cancer Extubated 01/08. Continue albuterol as needed Continue the desonide Continue CPAP at night Continue IV steroids Patient completed treatment with Bactrim and ceftazidime, for pneumonia Oncology following Pulmonology following PleurX catheter in place, to be drained every 5 days Essential hypertension Hyperlipidemia Coronary artery disease Continue hydralazine 100 mg 3 times daily, carvedilol 3.125 mg twice daily. Hold losartan with acute kidney injury. Continue bumetanide 1 mg daily and Aldactone 25 mg twice daily.. Continue isosorbide dinitrate 10 mg 3 times daily As needed labetalol As needed Nitropaste Continue aspirin chew 81 mg daily Continue pravastatin 40 mg daily for dyslipidemia Hypoalbuminemia Continue diet Normocytic anemia Follow CBC No indication for transfusion of blood products at this time Diabetes mellitus type 2 Follow blood sugars Insulin sliding scale Diabetic diet Gout No exacerbation Follow clinically Continue baseline treatment DVT prophylaxis SCDs and heparin Discharge planning Possible approval for [facility] inpatient rehab pending clearance from oncology pending
--- NOTE | 2018-01-26 12:57 | P.PN ---
Subjective Interval history: He is Wheezing today. On O2 3 L. No chest pain . will go to rehab in am. Physical Exam Vital signs: Vital Signs 01/25/18 16:00 01/25/18 16:11 01/25/18 20:00 Temperature 98.3 F 97.6 F Pulse Rate 107 H 106 H 88 Respiratory Rate 20 20 Blood Pressure 132/60 133/60 Pulse Oximetry 94 L 95 01/25/18 20:19 01/26/18 00:00 01/26/18 00:30 Temperature 97.7 F Pulse Rate 100 H 102 H Respiratory Rate 16 20 Blood Pressure 123/69 Pulse Oximetry 97 92 L 01/26/18 04:00 01/26/18 04:25 01/26/18 08:00 Temperature 97.7 F 97.7 F Pulse Rate 95 H 80 Respiratory Rate 18 18 Blood Pressure 144/90 H 154/84 H Pulse Oximetry 95 93 L 98 01/26/18 08:58 01/26/18 08:59 01/26/18 12:00 Temperature 97.6 F Pulse Rate 95 H 92 H Respiratory Rate 18 18 Blood Pressure 135/59 L Pulse Oximetry 93 L 95 Intake & Output 01/25/18 01/26/18 01/26/18 18:59 06:59 18:59 Intake Total 720 / 720 480 / 480 Output Total 1120 / 1120 700 / 700 Balance -400 / -400 -220 / -220 Weight 141 kg Intake: Oral 720 / 720 480 / 480 Output: Urine 1120 / 1120 700 / 700 Other: # Voids 3 Date of Last Bowel Movement 01/22/18 01/24/18 01/25/18 # Bowel Movements 1 Narrative: GENERAL: NAD, A&Ox3, nasal cannula oxygen 3L HEAD: Normocephalic. NECK: Supple, trachea midline. No lymphadenopathy. EYES: No scleral icterus. No injection or drainage. CARDIOVASCULAR: Regular rate and rhythm without murmurs, gallops, or rubs. RESPIRATORY: Breath sounds equal bilaterally, with wheezes.No accessory muscle use. GASTROINTESTINAL: Abdomen soft, non-tender, nondistended. MUSCULOSKELETAL: No cyanosis, but has edema. SKIN: Warm and dry. NEURO: No focal neurological deficits. - Urinary Catheter Management Indwelling Temp Sensing Catheter Cath placed during this visit: yes, but has since been removed by the nurse Reason for continuing: Chronic Urinary Retention Insertion date: 01/08/18 Insertion time: 17:15 Removal date: 01/07/18 Removal time: 10:00 Indwelling Urethral Catheter Cath placed during this visit: yes, but has since been removed by the nurse Reason for continuing: Chronic Urinary Retention Insertion date: 01/08/18 Removal date: 01/14/18 Removal time: 06:40 Results - Labs CBC & Chem 7: 01/25/18 08:20 01/25/18 08:20 Laboratory Results - last 24 hr 01/25/18 01/25/18 01/26/18 17:13 20:25 08:04 POC Glucose 246 H 265 H 151 H 01/26/18 12:05 POC Glucose 191 H Assessment and Plan - Assessment (1) Pneumonia Code(s): J18.9 - Pneumonia, unspecified organism Status: Acute (2) COPD (chronic obstructive pulmonary disease) with chronic bronchitis Code(s): J44.9 - Chronic obstructive pulmonary disease, unspecified Status: Acute (3) Pleural effusion associated with pulmonary infection Code(s): J18.9 - Pneumonia, unspecified organism; J91.8 - Pleural effusion in other conditions classified elsewhere Status: Acute (4) Non-small cell cancer of right lung Code(s): C34.91 - Malignant neoplasm of unspecified part of right bronchus or lung Status: Acute (5) Sleep apnea with hypersomnolence Code(s): G47.10 - Hypersomnia, unspecified; G47.30 - Sleep apnea, unspecified Status: Acute (6) Obesity Code(s): E66.9 - Obesity, unspecified Status: Acute (7) Hypertension Code(s): I10 - Essential (primary) hypertension Status: Acute (8) Diabetes 1.5, managed as type 2 Code(s): E10.9 - Type 1 diabetes mellitus without complications Status: Acute - Plan 1. Will continue O2 3 L . Arrange O2 at rehab. 2. Nebs qid duoneb and PRN 3. PT evaluation 4. Have Pleur X catheter drained every 5 days 5. Labs on Saturday 6. IS at bedside q2h. 7. Symbicort , 160/4.5 mcg 2 puffs BID
--- NOTE | 2018-01-26 18:45 | US ---
EXAM DATE: 01/26/2018 6:34 PM EDT AGE/SEX: 67 years / Male INDICATIONS: Bilateral leg swelling. CLINICAL DATA: This is the patient's initial encounter. Patient reports that signs and symptoms have been present for > 1 year and indicates a pain score of 0/10. MEDICAL/SURGICAL HISTORY: . Hypertension. Congestive heart failure. Diabetes. GOUT. Hyperlipide nelly. . Lung biopsy. COMPARISON: POI, US LEG VENOUS DOPPLER, RIGHT, 07/09/2012. . TECHNIQUE: Venous ultrasound of both lower extremities was performed from the inguinal ligament to t he proximal calf. Real-time, color Doppler and spectral tracing, compression and augmentation techni ques were used. FINDINGS: Right Leg: Normal compression of the deep venous system from the inguinal region to the proximal laurie f. No echogenic clot is seen. Normal response of the venous system to augmentation and respiration. Left Leg: Normal compression of the deep venous system from the inguinal region to the proximal calf . No echogenic clot is seen. Normal response of the venous system to augmentation and respiration. Other: None. CONCLUSION: Negative study. No venous thrombosis of either lower extremity. Electronically signed by: Wilfred Chamorro MD 01/26/2018 6:44 PM EDT
[2018-01-27] MEDS: Oral Hygiene Kit OROPHARYNG SCH ×4 (01:04→17:40)
[2018-01-27] MEDS: Hypromellose 0.3% Opth Gel 10 GM Bottle EACH EYE SCH ×3 (05:03→20:41)
[2018-01-27 05:28] LABS: Baso # (Auto) 0.1 th/mm3 (0.0-0.2); Baso % (Auto) 0.8 % (0.0-2.0); Eos # (Auto) 0.1 th/mm3 (0.0-0.4); Hematocrit 25.6 % (39.0-51.0); Hemoglobin 8.3 gm/dL (13.0-17.0); Lymph # (Auto) 0.8 th/mm3 (1.0-4.8); Mean Corpuscular HGB Conc 32.3 % (32.0-36.0); Mean Corpuscular Hemoglobin 28.1 pg (27.0-34.0); Mean Corpuscular Volume 86.9 fL (80.0-100.0); Mean Platelet Volume 8.1 fL (7.0-11.0); Mono # (Auto) 0.8 th/mm3 (0.0-0.9); Mono % (Auto) 10.3 % (0.0-8.0); Neut # (Auto) 5.5 th/mm3 (1.8-7.7); Neut % (Auto) 75.9 % (16.0-70.0); Platelet Count 116 th/mm3 (150-450); Red Blood Count 2.95 mil/mm3 (4.50-5.90); Red Cell Distribution Width 15.7 % (11.6-17.2); White Blood Count 7.3 th/mm3 (4.0-11.0)
[2018-01-27 05:53] LABS: Albumin 2.8 g/dL (3.4-5.0); Anion Gap 2 meq/L (5-15); Aspartate Aminotransferase 12 U/L (15-37); Blood Urea Nitrogen 25 mg/dL (7-18); Carbon Dioxide 44.9 meq/L (21.0-32.0); Chloride 91 meq/L (98-107); Glomerular Filtration Rate 63 mL/min (>89); Glucose,Random 142 mg/dL (74-106); Potassium 3.8 meq/L (3.5-5.1); Sodium 138 meq/L (136-145)
[2018-01-27 05:59] LABS: Alanine Aminotransferase 23 U/L (12-78); Alkaline Phosphatase 61 U/L (45-117); Total Protein 6.7 g/dL (6.4-8.2)
[2018-01-27] MEDS: Senna/Docusate Sodium 8.6/50 MG Tablet PO SCH ×2 (08:06→20:42)
[2018-01-27] MEDS: hydrALAZINE 50 MG Tablet PO SCH ×3 (08:07→17:41)
[2018-01-27] MEDS: Insulin NovoLOG Aspart Correctional Sugar Inj SQ SCH ×4 (11:34→20:40)
[2018-01-27] MEDS: Chlorhexidine 0.12% Oral Kit 15 ML UDC OROPHARYNG SCH ×2 (11:35→20:42)
[2018-01-27] MEDS: Spironolactone 25 MG Tablet PO SCH ×2 (11:35→17:42)
[2018-01-27] MEDS: Insulin Detemir Inj 1,000 UNIT/10 ML Vial SQ SCH ×2 (11:36→20:41)
--- NOTE | 2018-01-27 12:58 | P.PN ---
Subjective Interval history: He is doing better. Pleural catheter being drained. No chest pain. Off O2 Physical Exam Vital signs: Vital Signs 01/26/18 15:50 01/26/18 16:00 01/26/18 20:00 Temperature 98.1 F 98.2 F Pulse Rate 107 H 97 H 110 H Respiratory Rate 18 18 Blood Pressure 125/51 L 134/70 Pulse Oximetry 95 91 L 01/26/18 20:04 01/26/18 21:19 01/27/18 00:00 Temperature 98 F Pulse Rate 103 H 98 H 96 H Respiratory Rate 19 21 18 Blood Pressure 116/65 Pulse Oximetry 92 L 94 L 01/27/18 01:11 01/27/18 04:00 01/27/18 08:00 Temperature 97.7 F 97.9 F Pulse Rate 93 H 102 H Respiratory Rate 18 18 Blood Pressure 156/74 H 115/55 L Pulse Oximetry 92 L 95 94 L 01/27/18 08:59 Temperature Pulse Rate 99 H Respiratory Rate 12 Blood Pressure Pulse Oximetry 95 Intake & Output 01/26/18 01/27/18 01/27/18 18:59 06:59 18:59 Intake Total 720 / 720 600 / 600 Output Total 800 / 800 800 / 800 Balance -80 / -80 -200 / -200 Weight 142.6 kg Intake: Oral 720 / 720 600 / 600 Output: Urine 800 / 800 800 / 800 Other: # Voids 3 Date of Last Bowel Movement 01/25/18 01/25/18 Narrative: GENERAL: NAD, A&Ox3. Sitting up. HEAD: Normocephalic. NECK: Supple, trachea midline. No lymphadenopathy. EYES: No scleral icterus. No injection or drainage. CARDIOVASCULAR: Regular rate and rhythm without murmurs, gallops, or rubs. RESPIRATORY: Breath sounds equal and diminished bilaterally, with wheezes.No accessory muscle use. GASTROINTESTINAL: Abdomen soft, non-tender, nondistended. MUSCULOSKELETAL: No cyanosis, but has edema. SKIN: Warm and dry. NEURO: No focal neurological deficits. - Urinary Catheter Management Indwelling Temp Sensing Catheter Cath placed during this visit: yes, but has since been removed by the nurse Reason for continuing: Chronic Urinary Retention Insertion date: 01/08/18 Insertion time: 17:15 Removal date: 01/07/18 Removal time: 10:00 Indwelling Urethral Catheter Cath placed during this visit: yes, but has since been removed by the nurse Reason for continuing: Chronic Urinary Retention Insertion date: 01/08/18 Removal date: 01/14/18 Removal time: 06:40 Results - Labs CBC & Chem 7: 01/27/18 04:22 01/27/18 04:27 Laboratory Results - last 24 hr 01/26/18 01/26/18 01/27/18 16:45 21:10 04:22 WBC 7.3 RBC 2.95 L Hgb 8.3 L Hct 25.6 L MCV 86.9 MCH 28.1 MCHC 32.3 RDW 15.7 Plt Count 116 L MPV 8.1 Neut % (Auto) 75.9 H Lymph % (Auto) 11.0 [place] % (Auto) 10.3 H Eos % (Auto) 2.0 Baso % (Auto) 0.8 Neut # (Auto) 5.5 Lymph # (Auto) 0.8 L [place] # (Auto) 0.8 Eos # (Auto) 0.1 Baso # (Auto) 0.1 WBC Differential . Differential Comment Auto diff final Sodium Potassium Chloride Carbon Dioxide Anion Gap BUN Creatinine Estimated GFR POC Glucose 286 H 271 H Random Glucose Calcium Total Bilirubin AST ALT Alkaline Phosphatase Total Protein Albumin 01/27/18 01/27/18 01/27/18 04:27 07:50 12:39 WBC RBC Hgb Hct MCV MCH MCHC RDW Plt Count MPV Neut % (Auto) Lymph % (Auto) [place] % (Auto) Eos % (Auto) Baso % (Auto) Neut # (Auto) Lymph # (Auto) [place] # (Auto) Eos # (Auto) Baso # (Auto) WBC Differential Differential Comment Sodium 138 Potassium 3.8 Chloride 91 L Carbon Dioxide 44.9 H Anion Gap 2 L BUN 25 H Creatinine 1.15 Estimated GFR 63 L POC Glucose 207 H 241 H Random Glucose 142 H Calcium 9.0 Total Bilirubin 0.5 AST 12 L ALT 23 Alkaline Phosphatase 61 Total Protein 6.7 Albumin 2.8 L - Imaging Impressions Venous Doppler Study 01/26/18 00:00 CONCLUSION: Negative study. No venous thrombosis of either lower extremity. Assessment and Plan - Assessment (1) Pneumonia Code(s): J18.9 - Pneumonia, unspecified organism Status: Acute (2) COPD (chronic obstructive pulmonary disease) with chronic bronchitis Code(s): J44.9 - Chronic obstructive pulmonary disease, unspecified Status: Acute (3) Pleural effusion associated with pulmonary infection Code(s): J18.9 - Pneumonia, unspecified organism; J91.8 - Pleural effusion in other conditions classified elsewhere Status: Acute (4) Non-small cell cancer of right lung Code(s): C34.91 - Malignant neoplasm of unspecified part of right bronchus or lung Status: Acute (5) Sleep apnea with hypersomnolence Code(s): G47.10 - Hypersomnia, unspecified; G47.30 - Sleep apnea, unspecified Status: Acute (6) Obesity Code(s): E66.9 - Obesity, unspecified Status: Acute (7) Hypertension Code(s): I10 - Essential (primary) hypertension Status: Acute (8) Diabetes 1.5, managed as type 2 Code(s): E10.9 - Type 1 diabetes mellitus without complications Status: Acute - Plan 1. Will continue O2 3 L . Arrange O2 at rehab. 2. Nebs qid duoneb and PRN 3. PT evaluation 4. Have Pleur X catheter drained every 5 days 5. Chest X ray next week 6. IS at bedside q2h. 7. Symbicort , 160/4.5 mcg 2 puffs BID 8. Transfer to rehab.
--- NOTE | 2018-01-27 13:13 | P.PNIM ---
Subjective Interval history: Mr. Penn is a 68-year-old male. He is admitted secondary to respiratory failure. During this hospital stay he had a prolonged course and has been recovering slowly after discontinuation of mechanical ventilation and then discontinuation of high flow oxygen. He is physically debilitated and at this point he is stable for transition to an inpatient rehab. He will continue oxygen supplementation and BiPAP or CPAP at night. Medically clear and stable for discharge today. Physical Exam Vital signs: Vital Signs 01/26/18 15:50 01/26/18 16:00 01/26/18 20:00 Temperature 98.1 F 98.2 F Pulse Rate 107 H 97 H 110 H Respiratory Rate 18 18 Blood Pressure 125/51 L 134/70 Pulse Oximetry 95 91 L 01/26/18 20:04 01/26/18 21:19 01/27/18 00:00 Temperature 98 F Pulse Rate 103 H 98 H 96 H Respiratory Rate 19 21 18 Blood Pressure 116/65 Pulse Oximetry 92 L 94 L 01/27/18 01:11 01/27/18 04:00 01/27/18 08:00 Temperature 97.7 F 97.9 F Pulse Rate 93 H 102 H Respiratory Rate 18 18 Blood Pressure 156/74 H 115/55 L Pulse Oximetry 92 L 95 94 L 01/27/18 08:59 Temperature Pulse Rate 99 H Respiratory Rate 12 Blood Pressure Pulse Oximetry 95 Intake & Output 01/26/18 01/27/18 01/27/18 18:59 06:59 18:59 Intake Total 720 / 720 600 / 600 Output Total 800 / 800 800 / 800 Balance -80 / -80 -200 / -200 Weight 142.6 kg Intake: Oral 720 / 720 600 / 600 Output: Urine 800 / 800 800 / 800 Other: # Voids 3 Date of Last Bowel Movement 01/25/18 01/25/18 - Urinary Catheter Management Indwelling Temp Sensing Catheter Cath placed during this visit: yes, but has since been removed by the nurse Reason for continuing: Chronic Urinary Retention Insertion date: 01/08/18 Insertion time: 17:15 Removal date: 01/07/18 Removal time: 10:00 Indwelling Urethral Catheter Cath placed during this visit: yes, but has since been removed by the nurse Reason for continuing: Chronic Urinary Retention Insertion date: 01/08/18 Removal date: 01/14/18 Removal time: 06:40 Results - Labs CBC & Chem 7: 01/27/18 04:22 01/27/18 04:27 Laboratory Results - last 24 hr 01/26/18 01/26/18 01/27/18 16:45 21:10 04:22 WBC 7.3 RBC 2.95 L Hgb 8.3 L Hct 25.6 L MCV 86.9 MCH 28.1 MCHC 32.3 RDW 15.7 Plt Count 116 L MPV 8.1 Neut % (Auto) 75.9 H Lymph % (Auto) 11.0 [place] % (Auto) 10.3 H Eos % (Auto) 2.0 Baso % (Auto) 0.8 Neut # (Auto) 5.5 Lymph # (Auto) 0.8 L [place] # (Auto) 0.8 Eos # (Auto) 0.1 Baso # (Auto) 0.1 WBC Differential . Differential Comment Auto diff final Sodium Potassium Chloride Carbon Dioxide Anion Gap BUN Creatinine Estimated GFR POC Glucose 286 H 271 H Random Glucose Calcium Total Bilirubin AST ALT Alkaline Phosphatase Total Protein Albumin 01/27/18 01/27/18 01/27/18 04:27 07:50 12:39 WBC RBC Hgb Hct MCV MCH MCHC RDW Plt Count MPV Neut % (Auto) Lymph % (Auto) [place] % (Auto) Eos % (Auto) Baso % (Auto) Neut # (Auto) Lymph # (Auto) [place] # (Auto) Eos # (Auto) Baso # (Auto) WBC Differential Differential Comment Sodium 138 Potassium 3.8 Chloride 91 L Carbon Dioxide 44.9 H Anion Gap 2 L BUN 25 H Creatinine 1.15 Estimated GFR 63 L POC Glucose 207 H 241 H Random Glucose 142 H Calcium 9.0 Total Bilirubin 0.5 AST 12 L ALT 23 Alkaline Phosphatase 61 Total Protein 6.7 Albumin 2.8 L - Imaging Impressions Venous Doppler Study 01/26/18 00:00 CONCLUSION: Negative study. No venous thrombosis of either lower extremity. Assessment and Plan - Assessment (1) Pneumonia Code(s): J18.9 - Pneumonia, unspecified organism Status: Acute (2) Pleural effusion associated with pulmonary infection Code(s): J18.9 - Pneumonia, unspecified organism; J91.8 - Pleural effusion in other conditions classified elsewhere Status: Acute (3) Non-small cell cancer of right lung Code(s): C34.91 - Malignant neoplasm of unspecified part of right bronchus or lung Status: Acute - Plan 67-year-old male admitted for altered mental status with respiratory failure, intubated for airway protection No acute concerns today. Arrangements for inpatient rehabilitation are in process. Potential discharge tomorrow. Acute hypoxic/hypercapnic respiratory failure Pseudomonas pneumonia Chronic respiratory failure/3 L oxygen dependent. Follows with Dr. Clarke Obstructive sleep apnea/CPAP at night COPD Bilateral pleural effusion right greater than left Lung cancer Extubated 01/08. Continue albuterol as needed Continue the desonide Continue CPAP at night Continue IV steroids Patient completed treatment with Bactrim and ceftazidime, for pneumonia Oncology following Pulmonology following PleurX catheter in place, to be drained every 5 days Essential hypertension Hyperlipidemia Coronary artery disease Continue hydralazine 100 mg 3 times daily, carvedilol 3.125 mg twice daily. Hold losartan with acute kidney injury. Continue bumetanide 1 mg daily and Aldactone 25 mg twice daily.. Continue isosorbide dinitrate 10 mg 3 times daily As needed labetalol As needed Nitropaste Continue aspirin chew 81 mg daily Continue pravastatin 40 mg daily for dyslipidemia Hypoalbuminemia Continue diet Normocytic anemia Follow CBC No indication for transfusion of blood products at this time Diabetes mellitus type 2 Follow blood sugars Insulin sliding scale Diabetic diet Gout No exacerbation Follow clinically Continue baseline treatment DVT prophylaxis SCDs and heparin Discharge planning Possible approval for [place] inpatient rehab pending clearance from oncology pending
--- NOTE | 2018-01-27 15:57 | P.CONPAL ---
Consult Service: Palliative Care Requesting Physician: Simona Wray Reason for Consult: a. To assist with evaluation and management of symptoms including: dyspnea, pain, weakness. b. To assist medical decision maker(s) with: better understanding of current medical conditions; weighing benefits/burdens of medical treatment options; making medical treatment decisions. Primary Care Provider: No Primary Care Physician History of Present Illness History of Present Illness: Mr. Penn is a 68 year old male with past medical history of diabetes, CHF, COPD oxygen dependent 3-3.5 L, chronic kidney disease, chronic respiratory failure with hypoxia, gout, hyperlipidemia, hypertension, elevated BMI, recent diagnosis non-small cell lung cancer and malignant pleural effusion. Patient was previously admitted at [facility] from November 26 - December 12 at which time he underwent CT directed needle biopsy, pathology revealed moderately invasive squamous cell carcinoma. Outpatient PET CT scan revealed multifocal hypermetabolic nodularity throughout the right hemithorax as well as right hilar adenopathy, moderate to right sided pleural effusion consistent with lung cancer, prominent hypermetabolism within the subcarinal region possible subcarinal adenopathy versus adjacent esophageal neoplasm, nonspecific heterogeneous hyper metabolic area throughout the visualized marrow space in the T12 vertebral body. Patient presented to [facility] emergency department on 01/05/18 via EMS with shortness of breath and lethargy. Glucose was 46, no change in mental status post D50. Patient was intubated emergently to protect airway, placed on mechanical ventilation and transferred to ICU. He was slightly hypotensive, BP 88/40 given saline bolus with improvement in systolic blood pressure. Patient was extubated on 01/08/18, tolerated high flow nasal cannula oxygen. He has since been weaned to oxygen via nasal cannula. Pulmonology and infectious disease have been following. Patient has been transferred to the medical floor, tolerating oxygen via nasal cannula. Patient has been cleared medically for discharge to [facility], pending insurance authorization. Palliative care was consulted in this patient with newly diagnosed metastatic non-small cell lung cancer, multiple medical comorbidities, poor candidate for palliative chemotherapy given debility to assist with communication, symptom management further clarification of medical treatment goals. Met with patient at bedside. No family present. Patient has a good understanding of his current medical condition. He remains hopeful that he will be able to get stronger so that he can consider palliative chemotherapy. He understands that his life expectancy is likely limited secondary to newly diagnosed lung cancer. He verbalizes concerns about whether or not he has been adventist enough and will be accepted to [facility]. He indicates that the service center representative, chaplains and other clergy have been following in supporting him. He desires continued aggressive care including FULL CODE at this time. Though I suspect once he has additional information regarding treatment options and whether or not that he has any treatment options he will be able to make better medical decisions. Palliative care will certainly continue to follow to assist during hospitalization/rehabilitation stay. Function/Cognitive Trajectory: Patient was reportedly in his usual state of health until about 2-1/2 months ago when he had a CT scan of the chest that revealed a right-sided pleural effusion. He has had increasing shortness of breath, difficulty breathing, requiring more oxygen and declining functional status secondary to shortness of breath. Prior to a few months ago he was able to take off his oxygen for short periods of time (an hour or so) without significant effect. Review of Systems Constitutional: Reports fatigue, Reports lack of energy, Reports weakness Ears, Nose, Mouth, and Throat: Reports poor balance (recent falls) Cardiovascular: Reports foot swelling, Reports leg pain with activity, Reports leg sores, Reports leg swelling, Reports shortness of breath, Reports shortness of breath with activity, Reports shortness of breath when lying down Respiratory: Reports cough, Reports shortness of breath, Reports shortness of breath with activity Gastrointestinal: Reports constipation Musculoskeletal: Reports body aches, Reports joint pain, Reports joint swelling , Reports muscle weakness Skin/Breast: Reports non-healing lesions Hematologic/Lymphatic: Reports easy bruising PMFSH - History History Provided By: Patient, Family Member - Medical History Medical History: Medical History (Last Reviewed 01/27/18 @ 08:58 by Jeannette Taylor) CHF (congestive heart failure) COPD (chronic obstructive pulmonary disease) Chronic kidney disease Chronic respiratory failure with hypoxia, on home O2 therapy Diabetes Gout Hyperlipemia Hypertension Lipoma Malignant pleural effusion Morbid obesity Non-small cell carcinoma of left lung, stage 4 Personal history of tobacco use - Surgical History Surgical History: Surgical History (Last Reviewed 01/27/18 @ 08:58 by Jeannette Taylor) History of cystoscopy History of lung biopsy - Family History Family History: Family History (Last Updated 01/27/18 @ 16:37 by Crystal Sheppard) Mother Breast cancer Aunt Breast cancer Aunt Breast cancer Grandparent Colon cancer Heart failure Father Cancer - Tobacco History Second Hand Smoke Exposure: Yes Tobacco Use In Past 30 Days: No Smoking Status: Former smoker Packs Per Day: 2 Years Smoked: 45 Smoking End Date: 5 years ago - Alcohol History How Often Do You Have a Drink Containing Alcohol: Monthly or less - Substance Use History Substance History: No History of Abuse - Travel History Recent Travel in the [place] Within the Last 8 Weeks: No Recent Travel Out of the Country Within the Last 8 Weeks: No - Immunization History Tetanus Immunization: Unsure Hx Influenza Vaccine This Season: Yes Medications and Allergies Active Medications: Active Medications Acetaminophen (Tylenol) 650 mg PO Q6H PRN PRN Reason: PAIN 1-10 AND/OR FEVER >101F Last Admin: 01/10/18 02:43 Dose: 650 mg Al Hydroxide/Mg Hydroxide (Milk Of Magntrever Liq) 30 ml PO Q12H PRN PRN Reason: Mild Constipation Last Admin: 01/17/18 21:01 Dose: 30 ml Albuterol (Duoneb Neb (Prn)) 1 ampul NEB Q2HR NEB PRN PRN Reason: DYSPNEA Last Admin: 01/24/18 19:47 Dose: 1 ampul Albuterol (Albuterol Neb (Prn)) 2.5 mg NEB Q2HR NEB PRN PRN Reason: DYSPNEA Last Admin: 01/27/18 08:57 Dose: 2.5 mg Artificial Tears (Genteal Severe Dry Eye Relief 0.3% Opth Gel) 1 drops EACH EYE Q8H [facility] Last Admin: 01/27/18 13:11 Dose: Not Given Aspirin (Aspirin Chew) 81 mg PO DAILY [facility] Last Admin: 01/27/18 08:07 Dose: 81 mg Bisacodyl (Dulcolax Supp) 10 mg RECTAL DAILY PRN PRN Reason: SEVERE CONSITIPATION Budesonide (Pulmocort Respule Neb) 0.5 mg NEB Q12HR NEB [facility] Last Admin: 01/27/18 08:57 Dose: 0.5 mg Bumetanide (Bumex) 1 mg PO BID [facility] Last Admin: 01/27/18 08:06 Dose: 1 mg Carvedilol (Coreg) 3.125 mg PO BID [facility] Last Admin: 01/27/18 08:06 Dose: 3.125 mg Chlorhexidine Gluconate (Peridex 0.12% Oral Kit) 15 ml OROPHARYNG BID@0800, 2000 [facility] Last Admin: 01/27/18 11:35 Dose: Not Given Dextrose (D50w Vial) 50 ml IV.PUSH UNSCH PRN PRN Reason: PER HYPOGLYCEMIA PROTOCOL Last Admin: 01/06/18 06:01 Dose: 50 ml Glucagon (Glucagon Inj) 1 mg OTHER PRN PRN PRN Reason: for Hypoglycemia Protocol Hydralazine HCl (Apresoline) 100 mg PO TID [facility] Last Admin: 01/27/18 13:11 Dose: 100 mg Nicardipine HCl 25 mg/ Sodium (Chloride) 250 mls @ 50 mls/hr IV.CONT TITRATE PRN; Protocol PRN Reason: Per Protocol Insulin Aspart (Novolog Insulin Correctional Sugar Inj) 0 unit SQ ACHS [facility]; Protocol Last Admin: 01/27/18 13:12 Dose: 4 unit Insulin Detemir (Levemir Inj) 17 unit SQ HS [facility] Last Admin: 01/26/18 21:10 Dose: 17 unit Insulin Detemir (Levemir Inj) 20 unit SQ DAILY [facility] Last Admin: 01/27/18 11:36 Dose: 20 unit Isosorbide Dinitrate (Isordil) 10 mg PO Q8HR [facility] Last Admin: 01/27/18 13:11 Dose: 10 mg Labetalol HCl (Trandate Inj) 10 mg IV.PUSH Q1H PRN PRN Reason: SBP>180, DBP>100, HR>65 Last Admin: 01/09/18 00:02 Dose: 10 mg Lactulose (Lactulose Liq) 30 ml PO DAILY PRN PRN Reason: SEVERE CONSITIPATION Last Admin: 01/16/18 18:20 Dose: 30 ml Nitroglycerin (Nitro-Bid 2% Oint) 2 inch TOPICAL Q6HR PRN PRN Reason: SBP>160, DBP>90 Last Admin: 01/13/18 06:35 Dose: 2 inch Oxycodone/Acetaminophen (Percocet 5/325 Mg) 1 tab PO Q6H PRN PRN Reason: pain Last Admin: 01/26/18 21:21 Dose: 1 tab Pat Own Med: Febuxostat (Uloric) 80 Mg Tablet 0 each PO DAILY [facility] Pat Own Med: Fluticasone- Umeclidinium- Vilanterol (Trelegy Ellipta)Inh 0 each INH DAILY [facility] Last Admin: 01/05/18 22:38 Dose: Not Given Pravastatin Sodium (Pravachol) 10 mg PO DAILY [facility] Last Admin: 01/27/18 08:07 Dose: 10 mg Senna/Docusate Sodium (Zandra-Colace) 1 tab PO BID [facility] Last Admin: 01/27/18 08:06 Dose: 1 tab Sennosides (Senokot) 17.2 mg PO Q12H PRN PRN Reason: Moderate Constipation Last Admin: 01/14/18 09:28 Dose: 17.2 mg Sodium Chloride (Ns Flush) 2 ml IV.FLUSH BID [facility] Last Admin: 01/27/18 11:35 Dose: 2 ml Sodium Chloride (Ns Flush) 2 ml IV.FLUSH PRN PRN PRN Reason: FLUSH AFTER USING IV ACCESS Last Admin: 01/27/18 08:10 Dose: 2 ml Spironolactone (Aldactone) 25 mg PO BID@0900,1800 [facility] Last Admin: 01/27/18 11:35 Dose: 25 mg Tamsulosin HCl (Flomax) 0.4 mg PO DAILY [facility] Last Admin: 01/27/18 08:06 Dose: 0.4 mg Allergies Allergy/AdvReac Type Severity Reaction Status Date / Time Iodine and Iodide Containing Allergy Hives Verified 01/10/18 10:43 Produc levofloxacin [From Levaquin] Allergy Hives Verified 01/10/18 10:57 Penicillins Allergy Hives Verified 01/10/18 10:58 Home Medications Medication Instructions Recorded Confirmed Type aspirin [Aspirin Low Dose] 81 mg PO DAILY 01/05/18 01/05/18 History bumetanide 2 mg PO DAILY 01/05/18 01/05/18 History carvedilol 3.125 mg PO BID 01/05/18 01/05/18 History febuxostat [Uloric] 80 mg PO DAILY 01/05/18 01/05/18 History wwaxsxeviir-krtofbsnx-fhcrgmid 1 inh INHALATION DAILY 01/05/18 01/05/18 History [Trelegy Ellipta] glimepiride 8 mg PO QAM 01/05/18 01/05/18 History hydralazine 50 mg PO TID 01/05/18 01/05/18 History losartan 50 mg PO HS 01/05/18 01/05/18 History pravastatin 40 mg PO DAILY 01/05/18 01/05/18 History spironolactone 50 mg PO DAILY 01/05/18 01/05/18 History Advance Directives Living Will: No Healthcare Surrogate: No Power of Energy Efficient Site Manager: No Today's verbally stated goals: Patient desires continued aggressive care including FULL CODE, rehab and consideration of cancer treatment if possible. Family/friends goals: No family present. Ethical and Legal Issues: Patient is currently capacitated to make his own healthcare decisions. According to [place] statutes, healthcare proxy decision making would fall to his spouse, Emy should he lose capacity. He is considering implementation of written advance directives. Physical Exam Vital Signs: Vital Signs - 24 hr 01/26/18 16:00 01/26/18 20:00 01/26/18 20:04 Temperature 98.1 F 98.2 F Pulse Rate 97 H 110 H 103 H Respiratory Rate 18 18 19 Blood Pressure 125/51 L 134/70 Pulse Oximetry 95 91 L 92 L 01/26/18 21:19 01/27/18 00:00 01/27/18 01:11 Temperature 98 F Pulse Rate 98 H 96 H Respiratory Rate 21 18 Blood Pressure 116/65 Pulse Oximetry 94 L 92 L 01/27/18 04:00 01/27/18 08:00 01/27/18 08:59 Temperature 97.7 F 97.9 F Pulse Rate 93 H 102 H 99 H Respiratory Rate 18 18 12 Blood Pressure 156/74 H 115/55 L Pulse Oximetry 95 94 L 95 01/27/18 12:00 01/27/18 15:32 Temperature 98.4 F 97.9 F Pulse Rate 95 H 95 H Respiratory Rate 18 18 Blood Pressure 141/66 H 145/56 H Pulse Oximetry 95 95 I&O: Intake & Output 01/25/18 01/26/18 01/27/18 01/28/18 06:59 06:59 06:59 06:59 Intake Total 1480 / 1480 1200 / 1200 1320 / 1320 900 / 900 Output Total 2575 / 2575 1820 / 1820 1600 / 1600 600 / 600 Balance -1095 / -1095 -620 / -620 -280 / -280 300 / 300 Weight 143 kg 141 kg 142.6 kg Physical Exam: CONSTITUTIONAL/GENERAL: This is an adequately nourished patient, short of breath with conversation. TUBES/LINES/DRAINS: oxygen via NC, PIV, pleur x catheter right chest. SKIN: No jaundice, rashes, or lesions. Ecchymoses on upper extremities. No wounds seen anteriorly. Skin temperature appropriate. Not diaphoretic. HEAD: Atraumatic. Normocephalic. EYES: Pupils equal and round and reactive. Extraocular motions intact. No scleral icterus. No injection or drainage. Fundi not examined. ENT: Hearing grossly normal. Nose without bleeding or purulent drainage. Throat without visible erythema, exudates, masses, or lesions. NECK: Trachea midline. CARDIOVASCULAR: Regular rate and rhythm without murmurs, gallops, or rubs. No JVD. RESPIRATORY/CHEST: Mildly labored respirations with conversation. Diminished breath sounds bilaterally. GASTROINTESTINAL: Abdomen soft, non-tender, nondistended. No guarding. Bowel sounds distant. GENITOURINARY: Without palpable bladder distension. MUSCULOSKELETAL: Extremities with generalized edema. Lower extremity vascular changes noted. No calf tenderness. No mottling or clubbing. LYMPHATICS: No palpable cervical or supraclavicular adenopathy. NEUROLOGICAL: Awake and alert. Motor and sensory grossly within normal limits. Follows commands. Cognitively sharp. Moves all extremities. PSYCHIATRIC: some intermittent anxiety reported. Diagnostic Tests Laboratory: Laboratory Results - last 72 hr 01/24/18 01/25/18 01/25/18 16:10 08:08 08:20 WBC 7.4 RBC 2.90 L Hgb 8.2 L Hct 25.3 L MCV 87.1 MCH 28.3 MCHC 32.4 RDW 15.7 Plt Count 110 L MPV 8.3 Neut % (Auto) Lymph % (Auto) [place] % (Auto) Eos % (Auto) Baso % (Auto) Neut # (Auto) Lymph # (Auto) [place] # (Auto) Eos # (Auto) Baso # (Auto) WBC Differential Differential Comment Sodium Potassium Chloride Carbon Dioxide Anion Gap BUN Creatinine Estimated GFR POC Glucose 197 H 247 H Random Glucose Calcium Total Bilirubin AST ALT Alkaline Phosphatase Total Protein Albumin 01/25/18 01/25/18 01/25/18 08:20 12:03 17:13 WBC RBC Hgb Hct MCV MCH MCHC RDW Plt Count MPV Neut % (Auto) Lymph % (Auto) [place] % (Auto) Eos % (Auto) Baso % (Auto) Neut # (Auto) Lymph # (Auto) [place] # (Auto) Eos # (Auto) Baso # (Auto) WBC Differential Differential Comment Sodium 135 L Potassium 3.8 Chloride 89 L Carbon Dioxide 42.8 H Anion Gap 3 L BUN 25 H Creatinine 1.16 Estimated GFR 62 L POC Glucose 282 H 246 H Random Glucose 225 H Calcium 9.0 Total Bilirubin AST ALT Alkaline Phosphatase Total Protein Albumin 01/25/18 01/26/18 01/26/18 20:25 08:04 12:05 WBC RBC Hgb Hct MCV MCH MCHC RDW Plt Count MPV Neut % (Auto) Lymph % (Auto) [place] % (Auto) Eos % (Auto) Baso % (Auto) Neut # (Auto) Lymph # (Auto) [place] # (Auto) Eos # (Auto) Baso # (Auto) WBC Differential Differential Comment Sodium Potassium Chloride Carbon Dioxide Anion Gap BUN Creatinine Estimated GFR POC Glucose 265 H 151 H 191 H Random Glucose Calcium Total Bilirubin AST ALT Alkaline Phosphatase Total Protein Albumin 01/26/18 01/26/18 01/27/18 16:45 21:10 04:22 WBC 7.3 RBC 2.95 L Hgb 8.3 L Hct 25.6 L MCV 86.9 MCH 28.1 MCHC 32.3 RDW 15.7 Plt Count 116 L MPV 8.1 Neut % (Auto) 75.9 H Lymph % (Auto) 11.0 [place] % (Auto) 10.3 H Eos % (Auto) 2.0 Baso % (Auto) 0.8 Neut # (Auto) 5.5 Lymph # (Auto) 0.8 L [place] # (Auto) 0.8 Eos # (Auto) 0.1 Baso # (Auto) 0.1 WBC Differential . Differential Comment Auto diff final Sodium Potassium Chloride Carbon Dioxide Anion Gap BUN Creatinine Estimated GFR POC Glucose 286 H 271 H Random Glucose Calcium Total Bilirubin AST ALT Alkaline Phosphatase Total Protein Albumin 01/27/18 01/27/18 01/27/18 04:27 07:50 12:39 WBC RBC Hgb Hct MCV MCH MCHC RDW Plt Count MPV Neut % (Auto) Lymph % (Auto) [place] % (Auto) Eos % (Auto) Baso % (Auto) Neut # (Auto) Lymph # (Auto) [place] # (Auto) Eos # (Auto) Baso # (Auto) WBC Differential Differential Comment Sodium 138 Potassium 3.8 Chloride 91 L Carbon Dioxide 44.9 H Anion Gap 2 L BUN 25 H Creatinine 1.15 Estimated GFR 63 L POC Glucose 207 H 241 H Random Glucose 142 H Calcium 9.0 Total Bilirubin 0.5 AST 12 L ALT 23 Alkaline Phosphatase 61 Total Protein 6.7 Albumin 2.8 L Result Diagrams: 01/27/18 04:22 01/27/18 04:27 Imaging: Abdomen/Bladder Ultrasound 01/07/18 00:00 CONCLUSION: 1. No evidence of hydronephrosis on either side. 2. Gallstones. Thoracentesis Ultrasound 01/09/18 00:00 CONCLUSION: 1. Uncomplicated ultrasound-guided right-sided thoracentesis, as above. Chest Ultrasound 01/13/18 00:00 CONCLUSION: 1. Moderate size pleural effusion. The patient was marked for thoracentesis. Catheter Placement X-Ray 01/17/18 08:00 CONCLUSION: 1. Uncomplicated tunneled right chest tube placement as above. 1400 mL of serosanguineous fluid was removed. Chest X-Ray 01/22/18 00:00 CONCLUSION: 1. Progression of airspace consolidation in the right mid to lower lung zones with small associated pleural effusion. 2. Improved aeration of the left lower lung zone. Bone Scan Nuclear Medicine 01/24/18 00:00 CONCLUSION: Likely degenerative uptake in the knees and right foot. No suspicious activity of the spine Venous Doppler Study 01/26/18 00:00 CONCLUSION: Negative study. No venous thrombosis of either lower extremity. Procedures: * Pleur x catheter placement * 01/09/18 - Thoracentesis * 01/08/18 - Extubated * 01/05/18 - Intubated Patient/Family Conference Present at Family Conference: Met with patient at bedside. Family Conference Time: 60 Family Conference Location: Bedside Issues Discussed: * Palliative care role, purpose, approach * Additional medical, psychosocial, and spiritual history * Patients general health, functional status, and cognitive changes in the months leading up to the current hospitalization * Patient/family understanding of the current medical problems * Patient/family understanding of prognosis * Patients goals of care as best understood from advance directives and/or conversations and/or values * Current medical treatment options and benefits/burdens of those options * Likely scenarios comparing ongoing aggressive care with a transition to comfort measures only * Questions answered to the best of my ability * Palliative care contact information provided Assessment and Plan Pertinent Non-Medical Issues: Psychosocial: Raised in [facility], lived in [place] and [place]. [place] . for 48 years to [place]. Has one adopted son. He also raised a niece, Brenda Jaime. Moved to [place] about 14 years ago. Retired [employer] after 42 years. Quit after he had an AR. . Spiritual:Hoahaoism elie, he verbalizes " I am not sure I have been adventist enough to get to [facility]." He has been visited by the copy chaser and other chaplains during admission. Legal: Patient is currently capacitated to make his own healthcare decisions. According to [place] statutes, healthcare proxy decision making would fall to his spouse, Emy should he lose capacity. He is considering implementation of written advance directives. Ethical issues impacting care: No known concerns at this time. Important Contacts: * [place] Penn, : Prognosis: Mr. Penn has newly diagnosed NSCLC pending additional pathology to determine treatment options. He appears to be a poor candidate for chemotherapy given debility and poor performance status. Hospice appropriate if goals are comfort oriented. . Code Status: Full Code Plan: * Patient is currently capacitated to make his own healthcare decisions. According to [place] statutes, healthcare proxy decision making would fall to his spouse, Emy should he lose capacity. He is considering implementation of written advance directives. * FULL CODE * Met with patient, he desires continued aggressive care including FULL CODE at this time. He indicates that he will be able to make better decisions once he knows what his treatment options are. He is very open to conversation understands that his life expectancy may be limited depending on treatment options given lung cancer diagnosis. He has affairs that he would like to get an order, including consideration of written advance directives. * Patient will likely be transferred to [facility], he requests that we see him during his rehabilitation. Will request oncology/medical consult palliative care upon transfer. * SYMPTOMS: Dyspnea: Secondary to underlying CHF, oxygen dependent COPD and now new lung cancer diagnosis. On oxygen via nasal cannula currently. Moderate shortness of breath noted with increased conversation. Pain: Secondary to general debility, limited mobility secondary to shortness of breath. Has as needed Percocet available, does not like to use pain medication. Currently rates pain 3 out of 10, which he indicates is tolerable. Weakness: Secondary to repeat hospitalization, general debility, limited mobility secondary to shortness of breath. No new medication recommendations at this time. Patient is hesitant to take any medications that may cause sedation. * Palliative care number provided. * Palliative care will continue to follow throughout hospital course to assist with symptom management and clarification of medical treatment goals as needed. Appreciation Thank you for the opportunity to participate in the care of Kareem Penn. Attestation Attestation: To help prompt me to consider important information that might be impacting today's encounter and assessment, information from prior notes written by myself or my colleagues may have been "brought forward" into today's note. My signature on this note, however, is an attestation that I personally performed the exam, history, and/or decision-making noted today, and, unless otherwise indicated, the interactions with patient, family, and staff as well as the review of records all occurred today. I also attest that the listed assessment and stated plan reflect my best clinical judgment today based on the combination of historical information, prior notes, and today's exam/ interactions. When time spent is documented, it refers only to time spent today by the signer, or if indicated, combined time spent today by collaborating physician/nurse practitioner.
[2018-01-28] MEDS: Chlorhexidine 0.12% Oral Kit 15 ML UDC OROPHARYNG SCH ×2 (07:30→23:42)
[2018-01-28] MEDS: hydrALAZINE 50 MG Tablet PO SCH ×3 (09:32→19:00)
[2018-01-28] MEDS: Insulin NovoLOG Aspart Correctional Sugar Inj SQ SCH ×4 (09:32→21:48)
[2018-01-28] MEDS: Senna/Docusate Sodium 8.6/50 MG Tablet PO SCH ×2 (09:32→21:46)
[2018-01-28] MEDS: Insulin Detemir Inj 1,000 UNIT/10 ML Vial SQ SCH ×2 (09:33→21:46)
[2018-01-28] MEDS: Spironolactone 25 MG Tablet PO SCH ×2 (09:40→18:58)
--- NOTE | 2018-01-28 11:37 | P.PNIM ---
Subjective Interval history: Patient discharge 01/27/2018. Awaiting placement at inpatient rehab. Patient resting comfortably without complaints. Physical Exam Vital signs: Vital Signs 01/27/18 12:00 01/27/18 15:32 01/27/18 16:00 Temperature 98.4 F 97.9 F Pulse Rate 95 H 95 H 103 H Respiratory Rate 18 18 Blood Pressure 141/66 H 145/56 H Pulse Oximetry 95 95 95 01/27/18 19:19 01/27/18 20:00 01/28/18 00:00 Temperature 98.5 F 98 F Pulse Rate 111 H 114 H 98 H Respiratory Rate 18 20 20 Blood Pressure 116/61 118/67 Pulse Oximetry 97 94 L 92 L 01/28/18 02:30 01/28/18 04:00 01/28/18 06:00 Temperature 97.6 F Pulse Rate 100 H 88 Respiratory Rate 20 Blood Pressure 136/66 Pulse Oximetry 94 L 93 L 01/28/18 08:00 01/28/18 08:19 Temperature 97.8 F Pulse Rate 98 H 93 H Respiratory Rate 20 12 Blood Pressure 116/74 Pulse Oximetry 95 95 Intake & Output 01/27/18 01/28/18 01/28/18 18:59 06:59 18:59 Intake Total 900 / 900 240 / 240 Output Total 600 / 600 500 / 500 Balance 300 / 300 -260 / -260 Weight 140.9 kg Intake: Oral 900 / 900 240 / 240 Output: Urine 500 / 500 500 / 500 Wound Drainage 100 / 100 Right Back 100 / 100 Other: # Bowel Movements 0 Narrative: GENERAL: NAD, A&Ox3, oxygen in place. HEAD: Normocephalic. NECK: Supple, trachea midline. No lymphadenopathy. EYES: No scleral icterus. No injection or drainage. CARDIOVASCULAR: Regular rate and rhythm without murmurs, gallops, or rubs. RESPIRATORY: Breath sounds equal bilaterally. No accessory muscle use. GASTROINTESTINAL: Abdomen soft, non-tender, nondistended. MUSCULOSKELETAL: No cyanosis, or edema. SKIN: Warm and dry. NEURO: No focal neurological deficits. - Urinary Catheter Management Indwelling Temp Sensing Catheter Cath placed during this visit: yes, but has since been removed by the nurse Reason for continuing: Chronic Urinary Retention Insertion date: 01/08/18 Insertion time: 17:15 Removal date: 01/07/18 Removal time: 10:00 Indwelling Urethral Catheter Cath placed during this visit: yes, but has since been removed by the nurse Reason for continuing: Chronic Urinary Retention Insertion date: 01/08/18 Removal date: 01/14/18 Removal time: 06:40 Results - Labs CBC & Chem 7: 01/27/18 04:22 01/27/18 04:27 Laboratory Results - last 24 hr 01/27/18 01/27/18 01/27/18 12:39 17:59 19:54 POC Glucose 241 H 293 H 253 H 01/28/18 08:20 POC Glucose 286 H Assessment and Plan - Assessment (1) Pneumonia Code(s): J18.9 - Pneumonia, unspecified organism Status: Acute (2) Pleural effusion associated with pulmonary infection Code(s): J18.9 - Pneumonia, unspecified organism; J91.8 - Pleural effusion in other conditions classified elsewhere Status: Acute (3) Non-small cell cancer of right lung Code(s): C34.91 - Malignant neoplasm of unspecified part of right bronchus or lung Status: Acute - Plan 67-year-old male admitted for altered mental status with respiratory failure, intubated for airway protection Doing well today. Patient discharged 01/27/2018. Discharge pending bed availability. Acute hypoxic/hypercapnic respiratory failure Pseudomonas pneumonia Chronic respiratory failure/3 L oxygen dependent. Follows with Dr. Clarke Obstructive sleep apnea/CPAP at night COPD Bilateral pleural effusion right greater than left Lung cancer Extubated 01/08. Continue albuterol as needed Continue the desonide Continue CPAP at night Continue IV steroids Patient completed treatment with Bactrim and ceftazidime, for pneumonia Oncology following Pulmonology following PleurX catheter in place, to be drained every 5 days Essential hypertension Hyperlipidemia Coronary artery disease Continue hydralazine 100 mg 3 times daily, carvedilol 3.125 mg twice daily. Hold losartan with acute kidney injury. Continue bumetanide 1 mg daily and Aldactone 25 mg twice daily.. Continue isosorbide dinitrate 10 mg 3 times daily As needed labetalol As needed Nitropaste Continue aspirin chew 81 mg daily Continue pravastatin 40 mg daily for dyslipidemia Hypoalbuminemia Continue diet Normocytic anemia Follow CBC No indication for transfusion of blood products at this time Diabetes mellitus type 2 Follow blood sugars Insulin sliding scale Diabetic diet Gout No exacerbation Follow clinically Continue baseline treatment DVT prophylaxis SCDs and heparin Discharge planning Possible approval for [place] inpatient rehab pending clearance from oncology pending
[2018-01-28] MEDS: Oral Hygiene Kit OROPHARYNG SCH ×3 (12:40→23:41)
[2018-01-28] MEDS: Hypromellose 0.3% Opth Gel 10 GM Bottle EACH EYE SCH ×3 (13:27→23:41)
--- NOTE | 2018-01-28 17:38 | P.DIET ---
Nutritional Evaluation Type of nutrition evaluation: follow-up Nutrition consult regarding: Diet Evaluation (Previously on TF) Subjective Subjective Comments: Continues to eat well. No complaints. Drinking Glucerna Shakes. Objective - Diagnosis Respiratory Failure - Objective % IBW: 174 (IDQ=690#) Body Weight Used for Calculations: Upper end of IBW (89kg) Energy Needs - Lower Range (kCal/kg): 25 Energy Needs - Upper Range (kCal/kg): 30 Lower Limit kCal/kg (kCals): 2,225 Upper Limit kCal/kg (kCals): 2,670 Lower Limit Protein Factor (Grams per Kg): 1.2 Upper Limit Protein Factor (Grams per Kg): 1.4 Lower Protein Needs (Protein): 107 Upper Protein Needs (Protein): 125 Dietitian Reviewed in Medical Record: Current diet, Curent medications, Intake & Output, Labs Diet Order: 1800ADA Oral Diet Intake Amount: Good 75-90% Feeding - Current PO Supplement Current Supplement: Glucerna Shake Current Frequency of Supplement: Twice daily Current kCals Provided by Supplement: 220 Current Protein Provided by Supplement: 10 Assessment Assessment: Pt remains on an 1800ADA diet. He's eating well, usually 75-100% of his meals. Drinking Glucerna Shakes BID. No N/V/D/C. Continue current POC. Consult RD if needed. Recommendations: 1. Consult RD if needed.
--- NOTE | 2018-01-28 17:50 | P.PN ---
Subjective Interval history: Waiting on transfer to Rehab. SOB with activity. No chest pains. Physical Exam Vital signs: Vital Signs 01/27/18 19:19 01/27/18 20:00 01/28/18 00:00 Temperature 98.5 F 98 F Pulse Rate 111 H 114 H 98 H Respiratory Rate 18 20 20 Blood Pressure 116/61 118/67 Pulse Oximetry 97 94 L 92 L 01/28/18 02:30 01/28/18 04:00 01/28/18 06:00 Temperature 97.6 F Pulse Rate 100 H 88 Respiratory Rate 20 Blood Pressure 136/66 Pulse Oximetry 94 L 93 L 01/28/18 08:00 01/28/18 08:19 Temperature 97.7 F Pulse Rate 98 H 93 H Respiratory Rate 20 12 Blood Pressure 118/70 Pulse Oximetry 96 95 Intake & Output 01/27/18 01/28/18 01/28/18 18:59 06:59 18:59 Intake Total 900 / 900 240 / 240 Output Total 600 / 600 500 / 500 Balance 300 / 300 -260 / -260 Weight 140.9 kg Intake: Oral 900 / 900 240 / 240 Output: Urine 500 / 500 500 / 500 Wound Drainage 100 / 100 Right Back 100 / 100 Other: # Bowel Movements 0 Narrative: GENERAL: NAD, A&Ox3, N/C oxygen in place. HEAD: Normocephalic. NECK: Supple, trachea midline. No lymphadenopathy. EYES: No scleral icterus. No injection or drainage. CARDIOVASCULAR: Regular rate and rhythm without murmurs, gallops, or rubs. RESPIRATORY: Breath sounds equal bilaterally. Decreased at right base.No accessory muscle use. GASTROINTESTINAL: Abdomen soft, non-tender, nondistended. MUSCULOSKELETAL: No cyanosis,but 1 + edema. SKIN: Warm and dry. NEURO: No focal neurological deficits. - Urinary Catheter Management Indwelling Temp Sensing Catheter Cath placed during this visit: yes, but has since been removed by the nurse Reason for continuing: Chronic Urinary Retention Insertion date: 01/08/18 Insertion time: 17:15 Removal date: 01/07/18 Removal time: 10:00 Indwelling Urethral Catheter Cath placed during this visit: yes, but has since been removed by the nurse Reason for continuing: Chronic Urinary Retention Insertion date: 01/08/18 Removal date: 01/14/18 Removal time: 06:40 Results - Labs CBC & Chem 7: 01/27/18 04:22 01/27/18 04:27 Laboratory Results - last 24 hr 01/27/18 01/27/18 01/28/18 17:59 19:54 08:20 POC Glucose 293 H 253 H 286 H 01/28/18 12:22 POC Glucose 259 H Assessment and Plan - Assessment (1) Pneumonia Code(s): J18.9 - Pneumonia, unspecified organism Status: Acute (2) COPD (chronic obstructive pulmonary disease) with chronic bronchitis Code(s): J44.9 - Chronic obstructive pulmonary disease, unspecified Status: Acute (3) Pleural effusion associated with pulmonary infection Code(s): J18.9 - Pneumonia, unspecified organism; J91.8 - Pleural effusion in other conditions classified elsewhere Status: Acute (4) Non-small cell cancer of right lung Code(s): C34.91 - Malignant neoplasm of unspecified part of right bronchus or lung Status: Acute (5) Sleep apnea with hypersomnolence Code(s): G47.10 - Hypersomnia, unspecified; G47.30 - Sleep apnea, unspecified Status: Acute (6) Obesity Code(s): E66.9 - Obesity, unspecified Status: Acute (7) Hypertension Code(s): I10 - Essential (primary) hypertension Status: Acute (8) Diabetes 1.5, managed as type 2 Code(s): E10.9 - Type 1 diabetes mellitus without complications Status: Acute - Plan 1. Will continue O2 3 L . Arrange O2 at rehab. 2. Nebs qid duoneb and PRN 3. PT evaluation 4. Pleur X catheter drained every 5 days 5. Chest X ray next week 6. IS at bedside q2h. 7. Symbicort , 160/4.5 mcg 2 puffs BID 8. Transfer to rehab.
[2018-01-29] MEDS: Oral Hygiene Kit OROPHARYNG SCH ×4 (00:30→17:36)
[2018-01-29] MEDS: Hypromellose 0.3% Opth Gel 10 GM Bottle EACH EYE SCH ×2 (06:32→13:01)
[2018-01-29 09:08] VITALS: RESP 18
[2018-01-29] MEDS: hydrALAZINE 50 MG Tablet PO SCH ×3 (09:18→17:55)
[2018-01-29] MEDS: Insulin NovoLOG Aspart Correctional Sugar Inj SQ SCH ×3 (09:18→17:50)
[2018-01-29] MEDS: Spironolactone 25 MG Tablet PO SCH ×2 (09:18→17:55)
[2018-01-29] MEDS: Senna/Docusate Sodium 8.6/50 MG Tablet PO SCH (09:19)
[2018-01-29] MEDS: Insulin Detemir Inj 1,000 UNIT/10 ML Vial SQ SCH (09:19)
--- NOTE | 2018-01-29 12:04 | P.PNIM ---
Subjective Interval history: Mr. Penn was not approved for rehab and inpatient Center at [facility]. Transition to seek for intermediate facility occurring today. No new complaints from patient. Physical Exam Vital signs: Vital Signs 01/28/18 16:00 01/28/18 19:45 01/28/18 20:00 Temperature 98.3 F 98 F Pulse Rate 101 H 108 H 95 H Respiratory Rate 20 20 Blood Pressure 148/74 H 115/80 Pulse Oximetry 96 95 01/28/18 20:50 01/28/18 23:40 01/29/18 00:00 Temperature 97.8 F Pulse Rate 96 H 100 H 92 H Respiratory Rate 18 20 Blood Pressure 106/58 L Pulse Oximetry 95 98 01/29/18 01:40 01/29/18 03:10 01/29/18 03:49 Temperature Pulse Rate 110 H 95 H Respiratory Rate 20 Blood Pressure Pulse Oximetry 01/29/18 04:00 01/29/18 09:07 Temperature 97.8 F Pulse Rate 92 H 89 Respiratory Rate 20 18 Blood Pressure 108/52 L Pulse Oximetry 97 96 Intake & Output 01/28/18 01/29/18 01/29/18 18:59 06:59 18:59 Intake Total 440 / 440 1130 / 1130 Output Total 2200 / 2200 1300 / 1300 Balance -1760 / -1760 -170 / -170 Weight 143.3 kg Intake: Oral 440 / 440 1130 / 1130 Output: Urine 2200 / 2200 1300 / 1300 Other: Date of Last Bowel Movement 01/28/18 # Bowel Movements 2 1 Narrative: GENERAL: NAD, A&Ox3, nasal cannula oxygen in place. HEAD: Normocephalic. NECK: Supple, trachea midline. No lymphadenopathy. EYES: No scleral icterus. No injection or drainage. CARDIOVASCULAR: Regular rate and rhythm without murmurs, gallops, or rubs. RESPIRATORY: Breath sounds equal bilaterally. No accessory muscle use. GASTROINTESTINAL: Abdomen soft, non-tender, nondistended. MUSCULOSKELETAL: No cyanosis, or edema. SKIN: Warm and dry. NEURO: No focal neurological deficits. - Urinary Catheter Management Indwelling Temp Sensing Catheter Cath placed during this visit: yes, but has since been removed by the nurse Reason for continuing: Chronic Urinary Retention Insertion date: 01/08/18 Insertion time: 17:15 Removal date: 01/07/18 Removal time: 10:00 Indwelling Urethral Catheter Cath placed during this visit: yes, but has since been removed by the nurse Reason for continuing: Chronic Urinary Retention Insertion date: 01/08/18 Removal date: 01/14/18 Removal time: 06:40 Results - Labs CBC & Chem 7: 01/27/18 04:22 01/27/18 04:27 Laboratory Results - last 24 hr 01/28/18 01/28/18 01/28/18 12:22 18:12 21:35 POC Glucose 259 H 198 H 347 H 01/29/18 08:09 POC Glucose 184 H Assessment and Plan - Assessment (1) Pneumonia Code(s): J18.9 - Pneumonia, unspecified organism Status: Acute (2) Pleural effusion associated with pulmonary infection Code(s): J18.9 - Pneumonia, unspecified organism; J91.8 - Pleural effusion in other conditions classified elsewhere Status: Acute (3) Non-small cell cancer of right lung Code(s): C34.91 - Malignant neoplasm of unspecified part of right bronchus or lung Status: Acute - Plan 67-year-old male admitted for altered mental status with respiratory failure, intubated for airway protection Doing well today. Patient discharged 01/27/2018. Discharge arranged placement options and pending bed availability. Acute hypoxic/hypercapnic respiratory failure Pseudomonas pneumonia Chronic respiratory failure/3 L oxygen dependent. Follows with Dr. Clarke Obstructive sleep apnea/CPAP at night COPD Bilateral pleural effusion right greater than left Lung cancer Extubated 01/08. Continue albuterol as needed Continue the desonide Continue CPAP at night Continue IV steroids Patient completed treatment with Bactrim and ceftazidime, for pneumonia Oncology following Pulmonology following PleurX catheter in place, to be drained every 5 days Essential hypertension Hyperlipidemia Coronary artery disease Continue hydralazine 100 mg 3 times daily, carvedilol 3.125 mg twice daily. Hold losartan with acute kidney injury. Continue bumetanide 1 mg daily and Aldactone 25 mg twice daily.. Continue isosorbide dinitrate 10 mg 3 times daily As needed labetalol As needed Nitropaste Continue aspirin chew 81 mg daily Continue pravastatin 40 mg daily for dyslipidemia Hypoalbuminemia Continue diet Normocytic anemia Follow CBC No indication for transfusion of blood products at this time Diabetes mellitus type 2 Follow blood sugars Insulin sliding scale Diabetic diet Gout No exacerbation Follow clinically Continue baseline treatment DVT prophylaxis SCDs and heparin Discharge planning Option for inpatient rehab declined patient's insurance Awaiting option for intermediate facility placement
--- NOTE | 2018-01-29 12:40 | P.PN ---
Subjective Interval history: He is feeling OK. On BIPAP now but has a Trilogy machine at home. On O2 3L Physical Exam Vital signs: Vital Signs 01/28/18 16:00 01/28/18 19:45 01/28/18 20:00 Temperature 98.3 F 98 F Pulse Rate 101 H 108 H 95 H Respiratory Rate 20 20 Blood Pressure 148/74 H 115/80 Pulse Oximetry 96 95 01/28/18 20:50 01/28/18 23:40 01/29/18 00:00 Temperature 97.8 F Pulse Rate 96 H 100 H 92 H Respiratory Rate 18 20 Blood Pressure 106/58 L Pulse Oximetry 95 98 01/29/18 01:40 01/29/18 03:10 01/29/18 03:49 Temperature Pulse Rate 110 H 95 H Respiratory Rate 20 Blood Pressure Pulse Oximetry 01/29/18 04:00 01/29/18 09:07 Temperature 97.8 F Pulse Rate 92 H 89 Respiratory Rate 20 18 Blood Pressure 108/52 L Pulse Oximetry 97 96 Intake & Output 01/28/18 01/29/18 01/29/18 18:59 06:59 18:59 Intake Total 440 / 440 1130 / 1130 Output Total 2200 / 2200 1300 / 1300 Balance -1760 / -1760 -170 / -170 Weight 143.3 kg Intake: Oral 440 / 440 1130 / 1130 Output: Urine 2200 / 2200 1300 / 1300 Other: Date of Last Bowel Movement 01/28/18 # Bowel Movements 2 1 Narrative: GENERAL: NAD, A&Ox3, nasal cannula oxygen in place. HEAD: Normocephalic. NECK: Supple, trachea midline. No lymphadenopathy. EYES: No scleral icterus. No injection or drainage. CARDIOVASCULAR: Regular rate and rhythm without murmurs, gallops, or rubs. RESPIRATORY:Occ Right base crackles. No accessory muscle use. GASTROINTESTINAL: Abdomen soft, non-tender, nondistended. MUSCULOSKELETAL: No cyanosis, but 1 + edema. SKIN: Warm and dry. NEURO: No focal neurological deficits. - Urinary Catheter Management Indwelling Temp Sensing Catheter Cath placed during this visit: yes, but has since been removed by the nurse Reason for continuing: Chronic Urinary Retention Insertion date: 01/08/18 Insertion time: 17:15 Removal date: 01/07/18 Removal time: 10:00 Indwelling Urethral Catheter Cath placed during this visit: yes, but has since been removed by the nurse Reason for continuing: Chronic Urinary Retention Insertion date: 01/08/18 Removal date: 01/14/18 Removal time: 06:40 Results - Labs CBC & Chem 7: 01/27/18 04:22 01/27/18 04:27 Laboratory Results - last 24 hr 01/28/18 01/28/18 01/29/18 18:12 21:35 08:09 POC Glucose 198 H 347 H 184 H 01/29/18 12:28 POC Glucose 237 H Assessment and Plan - Assessment (1) Pneumonia Code(s): J18.9 - Pneumonia, unspecified organism Status: Acute (2) COPD (chronic obstructive pulmonary disease) with chronic bronchitis Code(s): J44.9 - Chronic obstructive pulmonary disease, unspecified Status: Acute (3) Pleural effusion associated with pulmonary infection Code(s): J18.9 - Pneumonia, unspecified organism; J91.8 - Pleural effusion in other conditions classified elsewhere Status: Acute (4) Non-small cell cancer of right lung Code(s): C34.91 - Malignant neoplasm of unspecified part of right bronchus or lung Status: Acute (5) Sleep apnea with hypersomnolence Code(s): G47.10 - Hypersomnia, unspecified; G47.30 - Sleep apnea, unspecified Status: Acute (6) Obesity Code(s): E66.9 - Obesity, unspecified Status: Acute (7) Hypertension Code(s): I10 - Essential (primary) hypertension Status: Acute (8) Diabetes 1.5, managed as type 2 Code(s): E10.9 - Type 1 diabetes mellitus without complications Status: Acute - Plan 1. Will continue O2 3 L . Arrange O2 at rehab. 2. Nebs qid duoneb and PRN 3. PT evaluation 4. Pleur X catheter drained every 5 days 5. Chest X ray next week 6. BiPAP at HS 12/5 CM. 7. Symbicort , 160/4.5 mcg 2 puffs BID 8. Transfer to rehab today
[2018-01-29 14:27] VITALS: BP 139/78; PULSE 92; TEMP 98.4; O2SAT 94
--- NOTE | 2018-01-29 16:09 | P.PNIM ---
Subjective Interval history: Patient was declined for option at inpatient rehab. Now working on residential facility. Medically clear and stable for discharge to residential facility. Physical Exam Vital signs: Vital Signs 01/28/18 19:45 01/28/18 20:00 01/28/18 20:50 Temperature 98 F Pulse Rate 108 H 95 H 96 H Respiratory Rate 20 18 Blood Pressure 115/80 Pulse Oximetry 95 95 01/28/18 23:40 01/29/18 00:00 01/29/18 01:40 Temperature 97.8 F Pulse Rate 100 H 92 H 110 H Respiratory Rate 20 Blood Pressure 106/58 L Pulse Oximetry 98 01/29/18 03:10 01/29/18 03:49 01/29/18 04:00 Temperature 97.8 F Pulse Rate 95 H 92 H Respiratory Rate 20 20 Blood Pressure 108/52 L Pulse Oximetry 97 01/29/18 08:00 01/29/18 09:07 01/29/18 12:00 Temperature 98.0 F 98.4 F Pulse Rate 95 H 89 92 H Respiratory Rate 18 18 18 Blood Pressure 119/78 139/78 Pulse Oximetry 94 L 96 94 L Intake & Output 01/28/18 01/29/18 01/29/18 18:59 06:59 18:59 Intake Total 440 / 440 1130 / 1130 Output Total 2200 / 2200 1300 / 1300 Balance -1760 / -1760 -170 / -170 Weight 143.3 kg Intake: Oral 440 / 440 1130 / 1130 Output: Urine 2200 / 2200 1300 / 1300 Other: Date of Last Bowel Movement 01/28/18 # Bowel Movements 2 1 Narrative: GENERAL: NAD, A&Ox3, chronic oxygen in place. HEAD: Normocephalic. NECK: Supple, trachea midline. No lymphadenopathy. EYES: No scleral icterus. No injection or drainage. CARDIOVASCULAR: Regular rate and rhythm without murmurs, gallops, or rubs. RESPIRATORY: Breath sounds equal bilaterally. No accessory muscle use. GASTROINTESTINAL: Abdomen soft, non-tender, nondistended. MUSCULOSKELETAL: No cyanosis, or edema. SKIN: Warm and dry. NEURO: No focal neurological deficits. - Urinary Catheter Management Indwelling Temp Sensing Catheter Cath placed during this visit: yes, but has since been removed by the nurse Reason for continuing: Chronic Urinary Retention Insertion date: 01/08/18 Insertion time: 17:15 Removal date: 01/07/18 Removal time: 10:00 Indwelling Urethral Catheter Cath placed during this visit: yes, but has since been removed by the nurse Reason for continuing: Chronic Urinary Retention Insertion date: 01/08/18 Removal date: 01/14/18 Removal time: 06:40 Results - Labs CBC & Chem 7: 01/27/18 04:22 01/27/18 04:27 Laboratory Results - last 24 hr 01/28/18 01/28/18 01/29/18 18:12 21:35 08:09 POC Glucose 198 H 347 H 184 H 01/29/18 12:28 POC Glucose 237 H Assessment and Plan - Assessment (1) Pneumonia Code(s): J18.9 - Pneumonia, unspecified organism Status: Acute (2) Pleural effusion associated with pulmonary infection Code(s): J18.9 - Pneumonia, unspecified organism; J91.8 - Pleural effusion in other conditions classified elsewhere Status: Acute (3) Non-small cell cancer of right lung Code(s): C34.91 - Malignant neoplasm of unspecified part of right bronchus or lung Status: Acute - Plan 67-year-old male admitted for altered mental status with respiratory failure, intubated for airway protection Doing well today. Patient discharged 01/27/2018. Discharge arranged placement options and pending bed availability. Plan to discharge to residential facility when placement available. Acute hypoxic/hypercapnic respiratory failure Pseudomonas pneumonia Chronic respiratory failure/3 L oxygen dependent. Follows with Dr. Clarke Obstructive sleep apnea/CPAP at night COPD Bilateral pleural effusion right greater than left Lung cancer Extubated 01/08. Continue albuterol as needed Continue the desonide Continue CPAP at night Continue IV steroids Patient completed treatment with Bactrim and ceftazidime, for pneumonia Oncology following Pulmonology following PleurX catheter in place, to be drained every 5 days Essential hypertension Hyperlipidemia Coronary artery disease Continue hydralazine 100 mg 3 times daily, carvedilol 3.125 mg twice daily. Hold losartan with acute kidney injury. Continue bumetanide 1 mg daily and Aldactone 25 mg twice daily.. Continue isosorbide dinitrate 10 mg 3 times daily As needed labetalol As needed Nitropaste Continue aspirin chew 81 mg daily Continue pravastatin 40 mg daily for dyslipidemia Hypoalbuminemia Continue diet Normocytic anemia Follow CBC No indication for transfusion of blood products at this time Diabetes mellitus type 2 Follow blood sugars Insulin sliding scale Diabetic diet Gout No exacerbation Follow clinically Continue baseline treatment DVT prophylaxis SCDs and heparin Discharge planning Option for inpatient rehab declined patient's insurance Awaiting option for residential facility placement
--- NOTE | 2018-02-12 11:22 | P.DS ---
Date of admission: 01/05/18 20:45 Primary care physician: No Primary Care Physician Brief History from admission: Elderly gentleman with past medical history of CHF, diabetes mellitus, gout, dyslipidemia and hypertension presents with respiratory distress and altered mental status. The patient was intubated by ED attending for an airway protection and respiratory failure. No other information or history is available at this time. DS: Diagnosis - Discharge Diagnosis (1) Pneumonia Status: Acute (2) Pleural effusion associated with pulmonary infection Status: Acute (3) Non-small cell cancer of right lung Status: Acute DS: Medications - Discharge Medications Prescriptions: albuterol sulfate 2.5 mg NEB Q4H PRN #25 ml PRN Reason: Dyspnea bumetanide 1 mg PO BID #60 tab carvedilol [Coreg] 3.125 mg PO BID #60 tab hydralazine 100 mg PO TID #90 tab insulin detemir U-100 [Levemir U-100 Insulin] 20 unit SUB-Q DAILY #100 ml insulin detemir U-100 [Levemir U-100 Insulin] 17 unit SUB-Q HS #100 ml oxycodone-acetaminophen 1 tab PO Q6H PRN #12 tab PRN Reason: pain tamsulosin 0.4 mg PO DAILY #30 cap DS: Summary Hospital Course: This discharge summary is for the discharge on 01/29/18 (order placed 01/27/18) Mr. Penn is a 68-year-old male. He is admitted secondary to respiratory failure. During this hospital stay he had a prolonged course and has been recovering slowly after discontinuation of mechanical ventilation and then discontinuation of high flow oxygen. He is physically debilitated and at this point he is stable for transition to an inpatient rehab. He will continue oxygen supplementation and BiPAP or CPAP at night. Medically clear and stable for discharge today. - Time Spent with Patient Total time spent providing and/or coordinating discharge services: Greater than 30 minutes Results Procedures completed during hospitalization: Intubation Extubation - Impressions ITS Impressions Abdomen/Bladder Ultrasound 01/07/18 00:00 CONCLUSION: 1. No evidence of hydronephrosis on either side. 2. Gallstones. Thoracentesis Ultrasound 01/09/18 00:00 CONCLUSION: 1. Uncomplicated ultrasound-guided right-sided thoracentesis, as above. Chest Ultrasound 01/13/18 00:00 CONCLUSION: 1. Moderate size pleural effusion. The patient was marked for thoracentesis. Catheter Placement X-Ray 01/17/18 08:00 CONCLUSION: 1. Uncomplicated tunneled right chest tube placement as above. 1400 mL of serosanguineous fluid was removed. Chest X-Ray 01/22/18 00:00 CONCLUSION: 1. Progression of airspace consolidation in the right mid to lower lung zones with small associated pleural effusion. 2. Improved aeration of the left lower lung zone. Bone Scan Nuclear Medicine 01/24/18 00:00 CONCLUSION: Likely degenerative uptake in the knees and right foot. No suspicious activity of the spine Venous Doppler Study 01/26/18 00:00 CONCLUSION: Negative study. No venous thrombosis of either lower extremity. Discharge Plan - Discharge Disposition Patient Disposition: Discharge to SNF - Discharge Condition Condition: Stable - Discharge Order Discharge Orders: Discharge Order (Routine); Ordered 01/27/18 Ordered By: Manjit Kimball - Discharge Details Anticipated Discharge Date: 01/27/18 - Physicians Team Primary Care Provider: Primary Care Physici,No Attending Provider: Manjit Kimball Other Providers: [employer],Insurance ; Hilary Armstrong MD ; Wilfred Pryor MD ; [facility],Agency ; Derrick Foley MD ; Heber Dos Santos MD
== END 2018-01-29 18:23 ==
LOC: NEPC 19:41 → MERGE 20:45 → EDBD 20:45 → NEDA 20:45 → UNMERGE 20:45 → HIMC 21:50 → N04 01-14 20:10
PROVIDERS: ADMIT Hospitalist; ATTEND Hospitalist

== ENCOUNTER 2018-01-30 17:14 | Inpatient (IN) ==
--- NOTE | 2018-01-30 18:24 | ED ---
HPI General Chief complaint: Respiratory Symptoms Stated complaint: Abnormal Labs Time Seen by Provider: 01/30/18 18:03 Source: patient Mode of arrival: EMS Limitations: no limitations History of Present Illness HPI narrative: 5-year-old male with a history of stage IV non-small cell lung card [place], COPD, diabetes presents emergency department for evaluation of shortness of breath that worsened last night. Patient states he was discharged yesterday to [facility] and felt he needed to come back to the emergency department and hospital for continued care for shortness of breath. Patient states that he was supposed to be on BiPAP last night but was unable to do so because the had the incorrect machine according to the patient. Patient states he has had subjective fevers and chills for several weeks and nausea that is been persistent for several days without vomiting. Says his last bowel movement was last night and was normal for him. Patient denies chest pain but states he is short of breath. Denies unusual abdominal pain or leg pain. He states that his is on hospice and would like to take his to dinner before he passes. He says that he has been given 4-6 months to live. He says that he has had multiple pleural effusions and was instructed to drain his right chest tube every 3 days. Patient brought in equipment to have this done. Related Data Home Medications Medication Instructions Recorded Confirmed aspirin [Aspirin Low Dose] 81 mg PO DAILY 01/05/18 01/30/18 pravastatin 10 mg PO DAILY 01/05/18 02/01/18 spironolactone 50 mg PO DAILY 01/05/18 01/30/18 Humalog KwikPen Insulin See Label Instructions .ROUTE 01/30/18 01/31/18 .COMPLEX acetaminophen 650 mg PO Q6H PRN 01/30/18 01/31/18 bisacodyl [Dulcolax (bisacodyl)] 10 mg VT DAILY PRN 01/30/18 01/31/18 budesonide [Pulmicort] 2 ml NEB Q12HR NEB 01/30/18 01/30/18 magnesium citrate [Citroma] 296 ml PO DAILY PRN 01/30/18 01/31/18 magnesium hydroxide [Milk of 30 ml PO DAILY PRN 01/30/18 01/31/18 Magnesia] sodium phosphates [Enema 118 ml VT DAILY PRN 01/30/18 01/31/18 Disposable] Previous Rx's Medication Instructions Recorded albuterol sulfate 2.5 mg NEB Q4H PRN #25 ml 01/27/18 bumetanide 1 mg PO BID #60 tab 01/27/18 carvedilol [Coreg] 3.125 mg PO BID #60 tab 01/27/18 hydralazine 100 mg PO TID #90 tab 01/27/18 insulin detemir U-100 [Levemir 17 unit SUB-Q HS #100 ml 01/27/18 U-100 Insulin] insulin detemir U-100 [Levemir 20 unit SUB-Q DAILY #100 ml 01/27/18 U-100 Insulin] oxycodone-acetaminophen 1 tab PO Q6H PRN #12 tab 01/27/18 tamsulosin 0.4 mg PO DAILY #30 cap 01/27/18 Allergies Allergy/AdvReac Type Severity Reaction Status Date / Time levofloxacin [From Levaquin] Allergy Intermediate Hives Verified 01/31/18 01:27 Penicillins Allergy Intermediate Hives Verified 01/31/18 01:27 shellfish derived Allergy Intermediate Hives Verified 01/31/18 01:26 Review of Systems ROS: all other systems reviewed are negative [facility] Social History Social History Substance History: No History of Abuse Second Hand Smoke Exposure: No Smoking Status: Former smoker Tobacco Type: Cigarettes Packs Per Day: 2 Cigarettes Per Day: 40.0 Years Smoked: 45 Pack-Years: 90.00 Smoking End Date: 5 years ago How Often Do You Have a Drink Containing Alcohol: Never Recent Travel in [facility] within the Last 8 Weeks: No Recent Out of Country Travel within the Last 8 Weeks: No Exam Narrative Exam Narrative: GENERAL: WD, WN in NAD SKIN: Focused skin assessment warm/dry. HEAD: Atraumatic. Normocephalic. EYES: Pupils equal and round. No scleral icterus. No injection or drainage. ENT: No nasal bleeding or discharge. Mucous membranes pink and moist. NECK: Trachea midline. No JVD. CARDIOVASCULAR: Regular rate and rhythm. No murmur appreciated. RESPIRATORY: No accessory muscle use. diffuse rales, rhonchi. right chest tube in place GASTROINTESTINAL: Abdomen soft, non-tender, nondistended. Hepatic and splenic margins not palpable. MUSCULOSKELETAL: No obvious deformities. No clubbing. No cyanosis. No edema. RLE edematous with venous stasis changes without TTP, LLE supple without TTP NEUROLOGICAL: Awake and alert. No obvious cranial nerve deficits. Motor grossly within normal limits. Normal speech. PSYCHIATRIC: Appropriate mood and affect; insight and judgment normal. Course Initial Documented Vital Signs Temperature 99.4 F 01/30/18 17:35 Pulse Rate 98 H 01/30/18 17:35 Respiratory Rate 29 H 01/30/18 17:35 Blood Pressure 127/60 01/30/18 17:35 Pulse Oximetry 95 01/30/18 17:35 Last Documented Vital Signs Temperature 98.1 F 02/02/18 08:00 Pulse Rate 72 02/02/18 09:10 Respiratory Rate 12 02/02/18 09:10 Blood Pressure 142/82 H 02/02/18 08:00 Pulse Oximetry 97 02/02/18 09:10 Medical Decision Making MDM Narrative Medical decision making narrative: 68-year-old male presents emergency department with shortness of breath that worsened yesterday after discharge from the hospital. According to the patient, he was unable to have a BiPAP for his sleep apnea and COPD which he believes exacerbated his symptoms. Patient continues to have subjective fevers and chills and is currently receiving antibiotics for his pneumonia. Patient is unable to tell me what medication he is taking unfortunately. Patient initially presented to the emergency department on a nonrebreather. He was subsequently placed on nasal cannula 5 L/min with O2 saturation at 96%. Vision states he has been using nasal cannula 5 L/min at home. Upon initial evaluation, patient is sitting up with wet coughs and does appear to be short of breath but is able to speak in full sentences fairly comfortably. Patient states he was admitted to [facility] for shortness of breath and diagnosed with pleural effusions. States that he was at [facility] November 26 - for this complaint. States that he saw his digital media intern, Dr. Clarke December 17 where he was diagnosed with lung cancer. He had a follow-up PET scan by oncology at [facility]. Says he was admitted to the hospital here at [facility] January 05 for another episode of shortness of breath and was discharged yesterday. According to patient, patient was discharged to rehab as he needed to receive rehabilitation prior to receiving potentially chemo or radiation therapy for his lung cancer. I spoke with Dr. Araujo who agreed to take this patient. Differential Diagnosis Differential Diagnosis: Pleural effusion, COPD exacerbation, pneumonia, lung cancer Medical Records Medical records reviewed: Yes I reviewed the patient's medical records. Lab Data Lab results reviewed: Yes I reviewed the patient's lab results. Lab results narrative: Anemia present H/H 7.8/24.7 Result diagrams: 02/01/18 05:40 02/01/18 05:40 Lab Results 01/30/18 01/30/18 01/30/18 Range/Units 18:25 19:25 19:25 WBC 6.6 (4.0-11.0) th/mm3 RBC 2.80 L (4.50-5.90) mil/mm3 Hgb 7.8 L (13.0-17.0) gm/dL Hct 24.7 L (39.0-51.0) % MCV 88.3 (80.0-100.0) fL MCH 27.9 (27.0-34.0) pg MCHC 31.6 L (32.0-36.0) % RDW 15.6 (11.6-17.2) % Plt Count 138 L (150-450) th/mm3 MPV 7.7 (7.0-11.0) fL Neut % (Auto) 75.3 H (16.0-70.0) % Lymph % (Auto) 12.4 (9.0-44.0) % [place] % (Auto) 9.8 H (0.0-8.0) % Eos % (Auto) 1.9 (0.0-4.0) % Baso % (Auto) 0.6 (0.0-2.0) % Neut # (Auto) 5.0 (1.8-7.7) th/mm3 Lymph # (Auto) 0.8 L (1.0-4.8) th/mm3 [place] # (Auto) 0.7 (0.0-0.9) th/mm3 Eos # (Auto) 0.1 (0.0-0.4) th/mm3 Baso # (Auto) 0.0 (0.0-0.2) th/mm3 WBC Differential . Differential Comment Auto diff final PT (9.8-11.6) sec INR Ratio APTT (24.3-30.1) sec Puncture Site Left radial Patient Temperature 98.6 O2 Saturation 94 (90-100) % ABG pH 7.42 (7.380-7.420) ABG pCO2 76 H* (38-42) mmHg ABG pO2 81 (61-120) mmHg ABG HCO3 48 H (22-26) mmol/L ABG O2 Content 10.9 L (12.0-20.0) Vol % ABG Base Excess 21.8 H (-2-2) mmol/L ABG Methemoglobin 0.6 (0-2) % Catracho Test Present Hemoglobin 8.2 L (12.0-16.0) G/DL Carboxyhemoglobin 2.2 (0-4) % O2 Delivery Device Nasal cannula Liter Flow 4.50 L/M Inspired O2 38 % Critical Value Yes Sodium 138 (136-145) meq/L Potassium 4.1 (3.5-5.1) meq/L Chloride 90 L (98-107) meq/L Carbon Dioxide 42.8 H (21.0-32.0) meq/L Anion Gap 5 (5-15) meq/L BUN 19 H (7-18) mg/dL Creatinine 0.99 (0.60-1.30) mg/dL Estimated GFR 75 L (>89) mL/min POC Glucose (68-110) mg/dl Random Glucose 153 H (74-106) mg/dL Calcium 8.8 (8.5-10.1) mg/dL Total Bilirubin 0.4 (0.2-1.0) mg/dL AST 15 (15-37) U/L ALT 21 (12-78) U/L Alkaline Phosphatase 60 (45-117) U/L Total Creatine Kinase 32 L (39-308) U/L Troponin I Less than 0.02 L (0.02-0.05) ng/mL B-Natriuretic Peptide (0-100) pg/mL Total Protein 6.8 (6.4-8.2) g/dL Albumin 2.7 L (3.4-5.0) g/dL 01/30/18 01/30/18 01/31/18 Range/Units 19:25 19:25 04:33 WBC (4.0-11.0) th/mm3 RBC (4.50-5.90) mil/mm3 Hgb (13.0-17.0) gm/dL Hct (39.0-51.0) % MCV (80.0-100.0) fL MCH (27.0-34.0) pg MCHC (32.0-36.0) % RDW (11.6-17.2) % Plt Count (150-450) th/mm3 MPV (7.0-11.0) fL Neut % (Auto) (16.0-70.0) % Lymph % (Auto) (9.0-44.0) % [place] % (Auto) (0.0-8.0) % Eos % (Auto) (0.0-4.0) % Baso % (Auto) (0.0-2.0) % Neut # (Auto) (1.8-7.7) th/mm3 Lymph # (Auto) (1.0-4.8) th/mm3 [place] # (Auto) (0.0-0.9) th/mm3 Eos # (Auto) (0.0-0.4) th/mm3 Baso # (Auto) (0.0-0.2) th/mm3 WBC Differential Differential Comment PT 10.9 (9.8-11.6) sec INR 1.1 Ratio APTT 25.9 (24.3-30.1) sec Puncture Site Patient Temperature O2 Saturation (90-100) % ABG pH (7.380-7.420) ABG pCO2 (38-42) mmHg ABG pO2 (61-120) mmHg ABG HCO3 (22-26) mmol/L ABG O2 Content (12.0-20.0) Vol % ABG Base Excess (-2-2) mmol/L ABG Methemoglobin (0-2) % Catracho Test Hemoglobin (12.0-16.0) G/DL Carboxyhemoglobin (0-4) % O2 Delivery Device Liter Flow L/M Inspired O2 % Critical Value Sodium (136-145) meq/L Potassium (3.5-5.1) meq/L Chloride (98-107) meq/L Carbon Dioxide (21.0-32.0) meq/L Anion Gap (5-15) meq/L BUN (7-18) mg/dL Creatinine (0.60-1.30) mg/dL Estimated GFR (>89) mL/min POC Glucose 267 H (68-110) mg/dl Random Glucose (74-106) mg/dL Calcium (8.5-10.1) mg/dL Total Bilirubin (0.2-1.0) mg/dL AST (15-37) U/L ALT (12-78) U/L Alkaline Phosphatase (45-117) U/L Total Creatine Kinase (39-308) U/L Troponin I (0.02-0.05) ng/mL B-Natriuretic Peptide 119 H (0-100) pg/mL Total Protein (6.4-8.2) g/dL Albumin (3.4-5.0) g/dL 01/31/18 01/31/18 01/31/18 Range/Units 05:18 08:09 10:03 WBC 5.7 (4.0-11.0) th/mm3 RBC 2.90 L (4.50-5.90) mil/mm3 Hgb 8.3 L (13.0-17.0) gm/dL Hct 25.4 L (39.0-51.0) % MCV 87.6 (80.0-100.0) fL MCH 28.6 (27.0-34.0) pg MCHC 32.6 (32.0-36.0) % RDW 15.9 (11.6-17.2) % Plt Count 151 (150-450) th/mm3 MPV 7.6 (7.0-11.0) fL Neut % (Auto) 89.0 H (16.0-70.0) % Lymph % (Auto) 7.5 L (9.0-44.0) % [place] % (Auto) 3.1 (0.0-8.0) % Eos % (Auto) 0.0 (0.0-4.0) % Baso % (Auto) 0.4 (0.0-2.0) % Neut # (Auto) 5.0 (1.8-7.7) th/mm3 Lymph # (Auto) 0.4 L (1.0-4.8) th/mm3 [place] # (Auto) 0.2 (0.0-0.9) th/mm3 Eos # (Auto) 0.0 (0.0-0.4) th/mm3 Baso # (Auto) 0.0 (0.0-0.2) th/mm3 WBC Differential . Differential Comment Auto diff final PT (9.8-11.6) sec INR Ratio APTT (24.3-30.1) sec Puncture Site Patient Temperature O2 Saturation (90-100) % ABG pH (7.380-7.420) ABG pCO2 (38-42) mmHg ABG pO2 (61-120) mmHg ABG HCO3 (22-26) mmol/L ABG O2 Content (12.0-20.0) Vol % ABG Base Excess (-2-2) mmol/L ABG Methemoglobin (0-2) % Catracho Test Hemoglobin (12.0-16.0) G/DL Carboxyhemoglobin (0-4) % O2 Delivery Device Liter Flow L/M Inspired O2 % Critical Value Sodium 137 (136-145) meq/L Potassium 4.4 (3.5-5.1) meq/L Chloride 88 L (98-107) meq/L Carbon Dioxide 42.5 H (21.0-32.0) meq/L Anion Gap 7 (5-15) meq/L BUN 19 H (7-18) mg/dL Creatinine 0.98 (0.60-1.30) mg/dL Estimated GFR 76 L (>89) mL/min POC Glucose 281 H (68-110) mg/dl Random Glucose 223 H (74-106) mg/dL Calcium 8.7 (8.5-10.1) mg/dL Total Bilirubin (0.2-1.0) mg/dL AST (15-37) U/L ALT (12-78) U/L Alkaline Phosphatase (45-117) U/L Total Creatine Kinase (39-308) U/L Troponin I (0.02-0.05) ng/mL B-Natriuretic Peptide (0-100) pg/mL Total Protein (6.4-8.2) g/dL Albumin (3.4-5.0) g/dL 01/31/18 01/31/18 01/31/18 Range/Units 12:18 17:26 19:52 WBC (4.0-11.0) th/mm3 RBC (4.50-5.90) mil/mm3 Hgb (13.0-17.0) gm/dL Hct (39.0-51.0) % MCV (80.0-100.0) fL MCH (27.0-34.0) pg MCHC (32.0-36.0) % RDW (11.6-17.2) % Plt Count (150-450) th/mm3 MPV (7.0-11.0) fL Neut % (Auto) (16.0-70.0) % Lymph % (Auto) (9.0-44.0) % [place] % (Auto) (0.0-8.0) % Eos % (Auto) (0.0-4.0) % Baso % (Auto) (0.0-2.0) % Neut # (Auto) (1.8-7.7) th/mm3 Lymph # (Auto) (1.0-4.8) th/mm3 [place] # (Auto) (0.0-0.9) th/mm3 Eos # (Auto) (0.0-0.4) th/mm3 Baso # (Auto) (0.0-0.2) th/mm3 WBC Differential Differential Comment PT (9.8-11.6) sec INR Ratio APTT (24.3-30.1) sec Puncture Site Patient Temperature O2 Saturation (90-100) % ABG pH (7.380-7.420) ABG pCO2 (38-42) mmHg ABG pO2 (61-120) mmHg ABG HCO3 (22-26) mmol/L ABG O2 Content (12.0-20.0) Vol % ABG Base Excess (-2-2) mmol/L ABG Methemoglobin (0-2) % Catracho Test Hemoglobin (12.0-16.0) G/DL Carboxyhemoglobin (0-4) % O2 Delivery Device Liter Flow L/M Inspired O2 % Critical Value Sodium (136-145) meq/L Potassium (3.5-5.1) meq/L Chloride (98-107) meq/L Carbon Dioxide (21.0-32.0) meq/L Anion Gap (5-15) meq/L BUN (7-18) mg/dL Creatinine (0.60-1.30) mg/dL Estimated GFR (>89) mL/min POC Glucose 262 H 390 H 277 H (68-110) mg/dl Random Glucose (74-106) mg/dL Calcium (8.5-10.1) mg/dL Total Bilirubin (0.2-1.0) mg/dL AST (15-37) U/L ALT (12-78) U/L Alkaline Phosphatase (45-117) U/L Total Creatine Kinase (39-308) U/L Troponin I (0.02-0.05) ng/mL B-Natriuretic Peptide (0-100) pg/mL Total Protein (6.4-8.2) g/dL Albumin (3.4-5.0) g/dL 02/01/18 02/01/18 02/01/18 Range/Units 02:27 05:40 05:40 WBC 6.9 (4.0-11.0) th/mm3 RBC 2.87 L (4.50-5.90) mil/mm3 Hgb 8.2 L (13.0-17.0) gm/dL Hct 25.2 L (39.0-51.0) % MCV 87.7 (80.0-100.0) fL MCH 28.4 (27.0-34.0) pg MCHC 32.4 (32.0-36.0) % RDW 15.8 (11.6-17.2) % Plt Count 164 (150-450) th/mm3 MPV 7.7 (7.0-11.0) fL Neut % (Auto) 72.6 H (16.0-70.0) % Lymph % (Auto) 12.9 (9.0-44.0) % [place] % (Auto) 12.2 H (0.0-8.0) % Eos % (Auto) 1.7 (0.0-4.0) % Baso % (Auto) 0.6 (0.0-2.0) % Neut # (Auto) 5.0 (1.8-7.7) th/mm3 Lymph # (Auto) 0.9 L (1.0-4.8) th/mm3 [place] # (Auto) 0.8 (0.0-0.9) th/mm3 Eos # (Auto) 0.1 (0.0-0.4) th/mm3 Baso # (Auto) 0.0 (0.0-0.2) th/mm3 WBC Differential . Differential Comment Auto diff final PT (9.8-11.6) sec INR Ratio APTT (24.3-30.1) sec Puncture Site Patient Temperature O2 Saturation (90-100) % ABG pH (7.380-7.420) ABG pCO2 (38-42) mmHg ABG pO2 (61-120) mmHg ABG HCO3 (22-26) mmol/L ABG O2 Content (12.0-20.0) Vol % ABG Base Excess (-2-2) mmol/L ABG Methemoglobin (0-2) % Catracho Test Hemoglobin (12.0-16.0) G/DL Carboxyhemoglobin (0-4) % O2 Delivery Device Liter Flow L/M Inspired O2 % Critical Value Sodium 139 (136-145) meq/L Potassium 3.8 (3.5-5.1) meq/L Chloride 90 L (98-107) meq/L Carbon Dioxide Greater than 45.0 H (21.0-32.0) meq/L Anion Gap 4 L (5-15) meq/L BUN 27 H (7-18) mg/dL Creatinine 1.13 (0.60-1.30) mg/dL Estimated GFR 64 L (>89) mL/min POC Glucose 136 H (68-110) mg/dl Random Glucose 117 H D (74-106) mg/dL Calcium 8.8 (8.5-10.1) mg/dL Total Bilirubin 0.4 (0.2-1.0) mg/dL AST 15 (15-37) U/L ALT 21 (12-78) U/L Alkaline Phosphatase 60 (45-117) U/L Total Creatine Kinase (39-308) U/L Troponin I (0.02-0.05) ng/mL B-Natriuretic Peptide (0-100) pg/mL Total Protein 6.6 (6.4-8.2) g/dL Albumin 2.7 L (3.4-5.0) g/dL 02/01/18 02/01/18 02/01/18 Range/Units 07:19 11:25 16:29 WBC (4.0-11.0) th/mm3 RBC (4.50-5.90) mil/mm3 Hgb (13.0-17.0) gm/dL Hct (39.0-51.0) % MCV (80.0-100.0) fL MCH (27.0-34.0) pg MCHC (32.0-36.0) % RDW (11.6-17.2) % Plt Count (150-450) th/mm3 MPV (7.0-11.0) fL Neut % (Auto) (16.0-70.0) % Lymph % (Auto) (9.0-44.0) % [place] % (Auto) (0.0-8.0) % Eos % (Auto) (0.0-4.0) % Baso % (Auto) (0.0-2.0) % Neut # (Auto) (1.8-7.7) th/mm3 Lymph # (Auto) (1.0-4.8) th/mm3 [place] # (Auto) (0.0-0.9) th/mm3 Eos # (Auto) (0.0-0.4) th/mm3 Baso # (Auto) (0.0-0.2) th/mm3 WBC Differential Differential Comment PT (9.8-11.6) sec INR Ratio APTT (24.3-30.1) sec Puncture Site Patient Temperature O2 Saturation (90-100) % ABG pH (7.380-7.420) ABG pCO2 (38-42) mmHg ABG pO2 (61-120) mmHg ABG HCO3 (22-26) mmol/L ABG O2 Content (12.0-20.0) Vol % ABG Base Excess (-2-2) mmol/L ABG Methemoglobin (0-2) % Catracho Test Hemoglobin (12.0-16.0) G/DL Carboxyhemoglobin (0-4) % O2 Delivery Device Liter Flow L/M Inspired O2 % Critical Value Sodium (136-145) meq/L Potassium (3.5-5.1) meq/L Chloride (98-107) meq/L Carbon Dioxide (21.0-32.0) meq/L Anion Gap (5-15) meq/L BUN (7-18) mg/dL Creatinine (0.60-1.30) mg/dL Estimated GFR (>89) mL/min POC Glucose 143 H 277 H 208 H (68-110) mg/dl Random Glucose (74-106) mg/dL Calcium (8.5-10.1) mg/dL Total Bilirubin (0.2-1.0) mg/dL AST (15-37) U/L ALT (12-78) U/L Alkaline Phosphatase (45-117) U/L Total Creatine Kinase (39-308) U/L Troponin I (0.02-0.05) ng/mL B-Natriuretic Peptide (0-100) pg/mL Total Protein (6.4-8.2) g/dL Albumin (3.4-5.0) g/dL 02/01/18 02/02/18 02/02/18 Range/Units 19:54 02:58 07:12 WBC (4.0-11.0) th/mm3 RBC (4.50-5.90) mil/mm3 Hgb (13.0-17.0) gm/dL Hct (39.0-51.0) % MCV (80.0-100.0) fL MCH (27.0-34.0) pg MCHC (32.0-36.0) % RDW (11.6-17.2) % Plt Count (150-450) th/mm3 MPV (7.0-11.0) fL Neut % (Auto) (16.0-70.0) % Lymph % (Auto) (9.0-44.0) % [place] % (Auto) (0.0-8.0) % Eos % (Auto) (0.0-4.0) % Baso % (Auto) (0.0-2.0) % Neut # (Auto) (1.8-7.7) th/mm3 Lymph # (Auto) (1.0-4.8) th/mm3 [place] # (Auto) (0.0-0.9) th/mm3 Eos # (Auto) (0.0-0.4) th/mm3 Baso # (Auto) (0.0-0.2) th/mm3 WBC Differential Differential Comment PT (9.8-11.6) sec INR Ratio APTT (24.3-30.1) sec Puncture Site Patient Temperature O2 Saturation (90-100) % ABG pH (7.380-7.420) ABG pCO2 (38-42) mmHg ABG pO2 (61-120) mmHg ABG HCO3 (22-26) mmol/L ABG O2 Content (12.0-20.0) Vol % ABG Base Excess (-2-2) mmol/L ABG Methemoglobin (0-2) % Catracho Test Hemoglobin (12.0-16.0) G/DL Carboxyhemoglobin (0-4) % O2 Delivery Device Liter Flow L/M Inspired O2 % Critical Value Sodium (136-145) meq/L Potassium (3.5-5.1) meq/L Chloride (98-107) meq/L Carbon Dioxide (21.0-32.0) meq/L Anion Gap (5-15) meq/L BUN (7-18) mg/dL Creatinine (0.60-1.30) mg/dL Estimated GFR (>89) mL/min POC Glucose 164 H 189 H 170 H (68-110) mg/dl Random Glucose (74-106) mg/dL Calcium (8.5-10.1) mg/dL Total Bilirubin (0.2-1.0) mg/dL AST (15-37) U/L ALT (12-78) U/L Alkaline Phosphatase (45-117) U/L Total Creatine Kinase (39-308) U/L Troponin I (0.02-0.05) ng/mL B-Natriuretic Peptide (0-100) pg/mL Total Protein (6.4-8.2) g/dL Albumin (3.4-5.0) g/dL 02/02/18 Range/Units 11:54 WBC (4.0-11.0) th/mm3 RBC (4.50-5.90) mil/mm3 Hgb (13.0-17.0) gm/dL Hct (39.0-51.0) % MCV (80.0-100.0) fL MCH (27.0-34.0) pg MCHC (32.0-36.0) % RDW (11.6-17.2) % Plt Count (150-450) th/mm3 MPV (7.0-11.0) fL Neut % (Auto) (16.0-70.0) % Lymph % (Auto) (9.0-44.0) % [place] % (Auto) (0.0-8.0) % Eos % (Auto) (0.0-4.0) % Baso % (Auto) (0.0-2.0) % Neut # (Auto) (1.8-7.7) th/mm3 Lymph # (Auto) (1.0-4.8) th/mm3 [place] # (Auto) (0.0-0.9) th/mm3 Eos # (Auto) (0.0-0.4) th/mm3 Baso # (Auto) (0.0-0.2) th/mm3 WBC Differential Differential Comment PT (9.8-11.6) sec INR Ratio APTT (24.3-30.1) sec Puncture Site Patient Temperature O2 Saturation (90-100) % ABG pH (7.380-7.420) ABG pCO2 (38-42) mmHg ABG pO2 (61-120) mmHg ABG HCO3 (22-26) mmol/L ABG O2 Content (12.0-20.0) Vol % ABG Base Excess (-2-2) mmol/L ABG Methemoglobin (0-2) % Catracho Test Hemoglobin (12.0-16.0) G/DL Carboxyhemoglobin (0-4) % O2 Delivery Device Liter Flow L/M Inspired O2 % Critical Value Sodium (136-145) meq/L Potassium (3.5-5.1) meq/L Chloride (98-107) meq/L Carbon Dioxide (21.0-32.0) meq/L Anion Gap (5-15) meq/L BUN (7-18) mg/dL Creatinine (0.60-1.30) mg/dL Estimated GFR (>89) mL/min POC Glucose 206 H (68-110) mg/dl Random Glucose (74-106) mg/dL Calcium (8.5-10.1) mg/dL Total Bilirubin (0.2-1.0) mg/dL AST (15-37) U/L ALT (12-78) U/L Alkaline Phosphatase (45-117) U/L Total Creatine Kinase (39-308) U/L Troponin I (0.02-0.05) ng/mL B-Natriuretic Peptide (0-100) pg/mL Total Protein (6.4-8.2) g/dL Albumin (3.4-5.0) g/dL Imaging Data Radiologist's impression: Chest X-Ray 01/30/18 18:03 CONCLUSION: 1. Extensive right lung airspace disease 2. Focal opacity containing an air-fluid level within the superior segment of the right lower lobe representing either loculated effusion or abscess. Chest CTA 01/30/18 20:20 CONCLUSION: 1. No evidence of pulmonary embolism. 2. Significant progression of right-sided pleural thickening with development of multiple parenchymal nodules and infiltrative peribronchial disease characteristic of a neoplastic process. 3. Progressing mediastinal lymphadenopathy. 4. Loculated pleural effusion along the posterior margin containing an air- fluid level. Chest X-Ray 02/01/18 00:00 CONCLUSION: Stable chest x-ray with right pleural-based opacity/pleural thickening with right lower lung zone airspace opacity. Discharge Plan Discharge Disposition Patient Disposition: 30 Still Patient Discharge Condition Condition: Fair Discharge Details Diagnosis: Pleural effusion Physicians Team ED Provider: Freddy Montana ED Midlevel Provider: Eloina Menard Primary Care Provider: UNKNOWN, Attending Provider: Rc Argueta Other Providers: Wilfred Pryor V ; [facility],Insurance ; Haja Ba ; Heber Dos Santos ; Derrick Foley Status ED Status: Left Department Discharge Information Discharge Date/Time: 01/31/18 01:37
--- NOTE | 2018-01-30 18:35 | XR ---
EXAM DATE: 01/30/2018 6:31 PM EDT AGE/SEX: 68 years / Male INDICATIONS: . Shortness of breath. CLINICAL DATA: This is the patient's initial encounter. Patient reports that signs and symptoms have been present for 1 month and indicates a pain score of 0/10. MEDICAL/SURGICAL HISTORY: Hypertension. Chronic obstructive pulmonary disease. Congestive hea rt failure. Diabetes. Carcinoma, squamous cell. Myocardial infarction. None. COMPARISON: [facility] [place], CHEST 1V SINGLE AP, 01/22/2018. . FINDINGS: Extensive airspace disease remains evident throughout the right lung. Lateral projection demonstrates a focal opacity containing an air-fluid level in the superior segment of the right lower lobe. Left lung is relatively clear. Heart and mediastinal structures are stable. CONCLUSION: 1. Extensive right lung airspace disease 2. Focal opacity containing an air-fluid level within the superior segment of the right lower lobe r epresenting either loculated effusion or abscess. Electronically signed by: Zhou Vázquez MD 01/30/2018 6:34 PM EDT
[2018-01-30 19:41] LABS: ABG Base Excess 21.8 mmol/L (-2-2); ABG PCO2 76 mmHg (38-42); ABG PO2 81 mmHg (61-120)
[2018-01-30 20:01] LABS: Baso % (Auto) 0.6 % (0.0-2.0); Eos # (Auto) 0.1 th/mm3 (0.0-0.4); Eos % (Auto) 1.9 % (0.0-4.0); Hematocrit 24.7 % (39.0-51.0); Hemoglobin 7.8 gm/dL (13.0-17.0); Lymph # (Auto) 0.8 th/mm3 (1.0-4.8); Lymph % (Auto) 12.4 % (9.0-44.0); Mean Corpuscular HGB Conc 31.6 % (32.0-36.0); Mean Corpuscular Hemoglobin 27.9 pg (27.0-34.0); Mean Corpuscular Volume 88.3 fL (80.0-100.0); Mean Platelet Volume 7.7 fL (7.0-11.0); Mono # (Auto) 0.7 th/mm3 (0.0-0.9); Mono % (Auto) 9.8 % (0.0-8.0); Neut % (Auto) 75.3 % (16.0-70.0); Platelet Count 138 th/mm3 (150-450); Red Cell Distribution Width 15.6 % (11.6-17.2); White Blood Count 6.6 th/mm3 (4.0-11.0)
[2018-01-30 20:14] LABS: Activated Partial Thrombo Time 25.9 sec (24.3-30.1); INR 1.1 Ratio; Prothrombin Time 10.9 sec (9.8-11.6)
[2018-01-30 20:35] LABS: Alanine Aminotransferase 21 U/L (12-78); Albumin 2.7 g/dL (3.4-5.0); Anion Gap 5 meq/L (5-15); Aspartate Aminotransferase 15 U/L (15-37); Blood Urea Nitrogen 19 mg/dL (7-18); Calcium 8.8 mg/dL (8.5-10.1); Carbon Dioxide 42.8 meq/L (21.0-32.0); Chloride 90 meq/L (98-107); Glomerular Filtration Rate 75 mL/min (>89); Glucose,Random 153 mg/dL (74-106); Potassium 4.1 meq/L (3.5-5.1); Sodium 138 meq/L (136-145)
[2018-01-30 20:38] LABS: Alkaline Phosphatase 60 U/L (45-117); Total Protein 6.8 g/dL (6.4-8.2)
[2018-01-30 20:57] LABS: Creatine Kinase 32 U/L (39-308)
--- NOTE | 2018-01-30 22:17 | CT ---
EXAM DATE: 01/30/2018 10:02 PM EDT AGE/SEX: 68 years / Male INDICATIONS: Shortness of breath. CLINICAL DATA: This is the patient's initial encounter. Patient reports that signs and symptoms have been present for 1 day and indicates a pain score of 0/10. MEDICAL/SURGICAL HISTORY: Carcinoma, lung. Chronic obstructive pulmonary disease. Congestive hear t failure. Hypertension. Diabetes. Lipoma. Pleural effusion. None. RADIATION DOSE: 10.85 CTDI (mGy) COMPARISON: POI, CT CHEST W/O CONTRAST, 11/20/2017. . TECHNIQUE: Volumetric scanning was performed using a multi-row detector CT scanner during bolus infu daniel of 75 ml Omnipaque 350 (iohexol) nonionic water-soluble contrast as a single exam dose. The ashly a was post processed with a variety of visualization algorithms including full volume maximum intensi ty projection and sliding thin slab reformation. Using automated exposure control and adjustment of t he mA and/or kV according to patient size, radiation dose was kept as low as reasonably achievable to obtain optimal diagnostic quality images. DICOM format image data is available electronically for r eview and comparison. FINDINGS: Pulmonary Arteries: No filling defects are seen in the pulmonary arteries out to the subsegmental ve ssels. The left and right pulmonary arteries are normal in diameter. Lung: Parenchymal nodularity with peribronchial mass is identified throughout the right lung especia lly in the middle and lower lobes. Discrete nodules are identified in the right upper lobe largest me asuring 1.7 cm. The left lung remains relatively clear. Nodular pleural thickening has progressed compared to the pre vious study. Effusion: Small right pleural effusion is evident. No air-fluid levels identified posteriorly in wha t appears to be loculated pleural fluid. Small catheter is identified in the right lung base. Mediastinum: There is been interval progression of mediastinal lymphadenopathy. Significant enlargem ent of lymph nodes is noted. The largest node is identified in the subcarinal region and measures gre ater than 2 cm. Other: The axilla is unremarkable. CONCLUSION: 1. No evidence of pulmonary embolism. 2. Significant progression of right-sided pleural thickening with development of multiple parenchyma l nodules and infiltrative peribronchial disease characteristic of a neoplastic process. 3. Progressing mediastinal lymphadenopathy. 4. Loculated pleural effusion along the posterior margin containing an air-fluid level. Electronically signed by: Zhou Vázquez MD 01/30/2018 10:15 PM EDT
[2018-01-30] MEDS ORDERED: MethylPREDNISolone Sod Succinate Inj 40 MG/ML Vial IV.PUSH ONE (22:42)
[2018-01-30] MEDS ORDERED: Temazepam 15 MG Capsule PO PRN (23:43)
[2018-01-30] MEDS ORDERED: Acetaminophen 325 MG Tablet PO PRN (23:43)
[2018-01-30] MEDS ORDERED: Bisacodyl 10 MG Supp RECTAL PRN (23:43)
[2018-01-31] MEDS ORDERED: Sod Chloride 0.9% Inj 1,000 ML IV.CONT SCH
[2018-01-31] MEDS ORDERED: Dextrose 50% in Water 50 ML Vial IV.PUSH PRN (00:07)
--- NOTE | 2018-01-31 00:10 | P.HP ---
History of Present Illness Service: [facility] Primary Care Physician: UNKNOWN History of Present Illness: 68-year-old male with a past medical history significant for CHF, CKD, COPD, diabetes mellitus, hypertension, hyperlipidemia, non-small cell carcinoma of the lung and associated malignant pleural effusion presents to the emergency department for evaluation of shortness of breath. The patient was discharged yesterday to [facility] and he felt he needed to come back to the emergency department for reevaluation of his shortness of breath. He reports his shortness of breath started yesterday and persisted throughout the night. The patient was supposed to be on BiPAP overnight but he was unable to do so because they had the incorrect machine at the facility. He denies any chest pain. He has a pleural catheter in place that is supposed to be drained every 5 days. Chest CTA showed significant progression of right sided pleural thickening and infiltrated peribronchial disease characteristic of a neoplastic process. He also has a loculated pleural effusion along the posterior margin containing an air-fluid level. Inpatient Certification: I certify that the inpatient services were ordered in accordance with Medicare regulations governing the order. This includes certification that hospital inpatient services are reasonable and necessary and in the case of services not specified as inpatient-only under 42 CFR 419.22(n), that they are appropriately provided as inpatient services in accordance to with the 2-midnight benchmark under 43 CFR 412.3(e) Estimated Total Length of Stay (Days): 3 Plans for Post Hospital Care: Not yet determined [facility] - History History Provided By: Patient, Boring Inspector / EMT - Medical History Medical History: Medical History (Last Reviewed 01/30/18 @ 17:37 by Stacey Harvey) CHF (congestive heart failure) COPD (chronic obstructive pulmonary disease) Chronic kidney disease Chronic respiratory failure with hypoxia, on home O2 therapy Diabetes Gout Hyperlipemia Hypertension Lipoma Malignant pleural effusion Morbid obesity Non-small cell carcinoma of left lung, stage 4 Personal history of tobacco use - Surgical History Surgical History: Surgical History (Last Reviewed 01/30/18 @ 17:37 by Stacey Harvey) History of cystoscopy History of lung biopsy - Family History Family History: Family History (Last Reviewed 01/28/18 @ 08:59 by Jeannette Taylor) Mother Breast cancer Aunt Breast cancer Aunt Breast cancer Grandparent Colon cancer Heart failure Father Cancer - Tobacco History Second Hand Smoke Exposure: No Tobacco Use In Past 30 Days: No Smoking Status: Former smoker Tobacco Type: Cigarettes Packs Per Day: 2 Years Smoked: 45 Smoking End Date: 5 years ago - Alcohol History How Often Do You Have a Drink Containing Alcohol: Monthly or less - Substance Use History Substance History: No History of Abuse - Travel History Recent Travel in the [place] Within the Last 8 Weeks: No Recent Travel Out of the Country Within the Last 8 Weeks: No - Immunization History Tetanus Immunization: <5 Years Hx Influenza Vaccine This Season: Yes Medications and Allergies Active Medications: Active Medications Acetaminophen (Tylenol) 650 mg PO Q4H PRN PRN Reason: Temp > 100.4 Al Hydroxide/Mg Hydroxide (Milk Of Magnesia Liq) 30 ml PO Q12H PRN PRN Reason: Mild Constipation Bisacodyl (Dulcolax Supp) 10 mg RECTAL DAILY PRN PRN Reason: SEVERE CONSITIPATION Sodium Chloride (Ns Inj) 1,000 mls @ 100 mls/hr IV.CONT .Q10H LORI Lactulose (Lactulose Liq) 30 ml PO DAILY PRN PRN Reason: SEVERE CONSITIPATION Ondansetron HCl (Zofran Inj) 4 mg IV.PUSH Q6H PRN PRN Reason: NAUSEA OR VOMITING Senna/Docusate Sodium (Zandra-Colace) 1 tab PO BID LORI Sennosides (Senokot) 17.2 mg PO Q12H PRN PRN Reason: Moderate Constipation Temazepam (Restoril) 15 mg PO HS PRN PRN Reason: INSOMNIA Allergies Allergy/AdvReac Type Severity Reaction Status Date / Time shellfish derived Allergy Intermediate Hives Verified 01/30/18 20:31 levofloxacin [From Levaquin] Allergy Hives Verified 01/10/18 10:57 Penicillins Allergy Hives Verified 01/10/18 10:58 Home Medications Medication Instructions Recorded Confirmed Type aspirin [Aspirin Low Dose] 81 mg PO DAILY 01/05/18 01/05/18 History pravastatin 40 mg PO DAILY 01/05/18 01/05/18 History spironolactone 50 mg PO DAILY 01/05/18 01/05/18 History Exam Vital signs: Vital Signs 01/30/18 17:35 01/30/18 19:45 01/30/18 20:00 Temperature 99.4 F Pulse Rate 98 H 98 H Respiratory Rate 29 H 20 23 Blood Pressure 127/60 121/64 124/58 L Pulse Oximetry 95 97 97 01/30/18 22:55 01/30/18 23:00 01/30/18 23:10 Temperature Pulse Rate 97 H 102 H Respiratory Rate 28 H 20 Blood Pressure 137/76 Pulse Oximetry 99 96 Intake & Output 01/30/18 01/30/18 01/31/18 06:59 18:59 06:59 Weight 145.15 kg Narrative: Gen.: No acute distress Head: Normocephalic. Atraumatic. EENT: Pupils equal round and reactive to light. Nose without drainage. Airway intact. Throat without injection. Cardiovascular: Regular rate and rhythm. No murmurs, rubs or gallops. Respiratory: Decreased/absent breath sounds on the right. Scant wheezes throughout. Abdomen: Soft, nontender, nondistended. No peritoneal signs. Musculoskeletal: No gross deformities. No edema. Skin: No obvious rashes or erythema. Neuro: Sensory and motor grossly intact. Cranial nerves II through XII grossly intact. Psych: Appropriate mood and affect Results - Labs CBC & Chem 7: 01/30/18 19:25 01/30/18 19:25 Labs: Laboratory Results - last 24 hr 01/30/18 01/30/18 01/30/18 18:25 19:25 19:25 WBC 6.6 RBC 2.80 L Hgb 7.8 L Hct 24.7 L MCV 88.3 MCH 27.9 MCHC 31.6 L RDW 15.6 Plt Count 138 L MPV 7.7 Neut % (Auto) 75.3 H Lymph % (Auto) 12.4 Harmon % (Auto) 9.8 H Eos % (Auto) 1.9 Baso % (Auto) 0.6 Neut # (Auto) 5.0 Lymph # (Auto) 0.8 L Harmon # (Auto) 0.7 Eos # (Auto) 0.1 Baso # (Auto) 0.0 WBC Differential . Differential Comment Auto diff final PT INR APTT Puncture Site Left radial Patient Temperature 98.6 O2 Saturation 94 ABG pH 7.42 ABG pCO2 76 H* ABG pO2 81 ABG HCO3 48 H ABG O2 Content 10.9 L ABG Base Excess 21.8 H ABG Methemoglobin 0.6 Catracho Test Present Hemoglobin 8.2 L Carboxyhemoglobin 2.2 O2 Delivery Device Nasal cannula Liter Flow 4.50 Inspired O2 38 Critical Value Yes Sodium 138 Potassium 4.1 Chloride 90 L Carbon Dioxide 42.8 H Anion Gap 5 BUN 19 H Creatinine 0.99 Estimated GFR 75 L Random Glucose 153 H Calcium 8.8 Total Bilirubin 0.4 AST 15 ALT 21 Alkaline Phosphatase 60 Total Creatine Kinase 32 L Troponin I Less than 0.02 L B-Natriuretic Peptide Total Protein 6.8 Albumin 2.7 L 01/30/18 01/30/18 19:25 19:25 WBC RBC Hgb Hct MCV MCH MCHC RDW Plt Count MPV Neut % (Auto) Lymph % (Auto) Harmon % (Auto) Eos % (Auto) Baso % (Auto) Neut # (Auto) Lymph # (Auto) Harmon # (Auto) Eos # (Auto) Baso # (Auto) WBC Differential Differential Comment PT 10.9 INR 1.1 APTT 25.9 Puncture Site Patient Temperature O2 Saturation ABG pH ABG pCO2 ABG pO2 ABG HCO3 ABG O2 Content ABG Base Excess ABG Methemoglobin Catracho Test Hemoglobin Carboxyhemoglobin O2 Delivery Device Liter Flow Inspired O2 Critical Value Sodium Potassium Chloride Carbon Dioxide Anion Gap BUN Creatinine Estimated GFR Random Glucose Calcium Total Bilirubin AST ALT Alkaline Phosphatase Total Creatine Kinase Troponin I B-Natriuretic Peptide 119 H Total Protein Albumin - Imaging Impressions Chest X-Ray 01/30/18 18:03 CONCLUSION: 1. Extensive right lung airspace disease 2. Focal opacity containing an air-fluid level within the superior segment of the right lower lobe representing either loculated effusion or abscess. Chest CTA 01/30/18 20:20 CONCLUSION: 1. No evidence of pulmonary embolism. 2. Significant progression of right-sided pleural thickening with development of multiple parenchymal nodules and infiltrative peribronchial disease characteristic of a neoplastic process. 3. Progressing mediastinal lymphadenopathy. 4. Loculated pleural effusion along the posterior margin containing an air- fluid level. Caprini VTE Risk Assessment Caprini VTE Risk Assessment: Moderate/High Risk (score >= 2) Caprini Risk Assessment Model: Point Value = 1 Point Value = 2 Point Value = 3 Point Value = 5 Age 41-60 Minor surgery BMI > 25 kg/m2 Swollen legs Varicose veins or History of unexplained or recurrent spontaneous Oral contraceptives or hormone replacement Sepsis (< 1 month) Serious lung disease, including pneumonia (< 1 month) Abnormal pulmonary function Acute myocardial infarction Congestive heart failure (< 1 month) History of inflammatory bowel disease Medical patient at bed rest Age 61-74 Arthroscopic surgery Major open surgery (> 45 min) Laparoscopic surgery (> 45 min) Malignancy Confined to bed (> 72 hours) Immobilizing plaster cast Central venous access Age >= 75 History of VTE Family history of VTE Factor V Leiden Prothrombin [id number] Lupus anticoagulant Anticardiolipin antibodies Elevated serum homocysteine Heparin-induced thrombocytopenia Other congenital or acquired thrombophilia Stroke (< 1 month) Elective arthroplasty Hip, pelvis, or leg fracture Acute spinal cord injury (< 1 month) Prophylaxis Regimen: Total Risk Factor Score Risk Level Prophylaxis Regimen 0-1 Low Early ambulation 2 Moderate Order ONE of the following: *Sequential Compression Device (SCD) *Heparin 5000 units SQ BID 3-4 Higher Order ONE of the following medications: *Heparin 5000 units SQ TID *Enoxaparin/Lovenox 40 mg SQ daily (WT < 150 kg, CrCl > 30 mL/min) *Enoxaparin/Lovenox 30 mg SQ daily (WT < 150 kg, CrCl > 10-29 mL/min) *Enoxaparin/Lovenox 30 mg SQ BID (WT < 150 kg, CrCl > 30 mL/min) AND/OR *Sequential Compression Device (SCD) 5 or more Highest Order ONE of the following medications: *Heparin 5000 units SQ TID (Preferred with Epidurals) *Enoxaparin/Lovenox 40 mg SQ daily (WT < 150 kg, CrCl > 30 mL/min) *Enoxaparin/Lovenox 30 mg SQ daily (WT < 150 kg, CrCl > 10-29 mL/min) *Enoxaparin/Lovenox 30 mg SQ BID (WT < 150 kg, CrCl > 30 mL/min) AND *Sequential Compression Device (SCD) Assessment and Plan - Plan Assessment/plan: 1. Non-small cell lung cancer/shortness of breath/malignant effusion For details of imaging see HPI Pulmonology consulted, appreciate assistance Patient seen by oncology during last hospital stay, awaiting PT L1 testing from original tumor from [facility] Patient determined to be a poor candidate for traditional chemotherapy 2. COPD Shortness of breath likely has COPD component Wheezes throughout Duo nebs Currently on BiPAP ABG significant for CO2 retention 3. Diabetes mellitus Continue home long-acting insulin Sliding-scale insulin Monitor blood glucose 4. CKD Creatinine 0.99 Monitor renal function 5. Hypertension/hyperlipidemia Continue home medications FEN N.p.o. Electrolytes: Monitor and replete as needed NS at 100 cc/hour Holding pharmacologic anticoagulation in case patient requires procedure
[2018-01-31] MEDS: Insulin NovoLOG Aspart Correctional Sugar Inj SQ SCH ×5 (04:40→21:16)
[2018-01-31 06:37] LABS: Calcium 8.7 mg/dL (8.5-10.1); Carbon Dioxide 42.5 meq/L (21.0-32.0); Potassium 4.4 meq/L (3.5-5.1)
[2018-01-31] MEDS: hydrALAZINE 50 MG Tablet PO SCH ×3 (08:57→18:14)
[2018-01-31] MEDS: Spironolactone 50 MG Tablet PO SCH (08:58)
[2018-01-31] MEDS: Senna/Docusate Sodium 8.6/50 MG Tablet PO SCH ×2 (08:58→21:16)
[2018-01-31] MEDS: Insulin Detemir Inj 1,000 UNIT/10 ML Vial SQ SCH ×2 (08:58→21:16)
[2018-01-31 10:15] LABS: Baso % (Auto) 0.4 % (0.0-2.0); Hematocrit 25.4 % (39.0-51.0); Hemoglobin 8.3 gm/dL (13.0-17.0); Lymph # (Auto) 0.4 th/mm3 (1.0-4.8); Lymph % (Auto) 7.5 % (9.0-44.0); Mean Corpuscular HGB Conc 32.6 % (32.0-36.0); Mean Corpuscular Hemoglobin 28.6 pg (27.0-34.0); Mean Corpuscular Volume 87.6 fL (80.0-100.0); Mean Platelet Volume 7.6 fL (7.0-11.0); Mono # (Auto) 0.2 th/mm3 (0.0-0.9); Mono % (Auto) 3.1 % (0.0-8.0); Platelet Count 151 th/mm3 (150-450); Red Cell Distribution Width 15.9 % (11.6-17.2); White Blood Count 5.7 th/mm3 (4.0-11.0)
--- NOTE | 2018-01-31 12:45 | P.PNIM ---
Subjective Interval history: Patient readmitted with respiratory distress. Currently she is on 5 L of oxygen. Drainage of his pleural effusion off the right side is currently ongoing. Physical Exam Vital signs: Vital Signs 01/30/18 17:35 01/30/18 19:45 01/30/18 20:00 Temperature 99.4 F Pulse Rate 98 H 98 H Respiratory Rate 29 H 20 23 Blood Pressure 127/60 121/64 124/58 L Pulse Oximetry 95 97 97 01/30/18 22:55 01/30/18 23:00 01/30/18 23:10 Temperature Pulse Rate 97 H 102 H Respiratory Rate 28 H 20 Blood Pressure 137/76 Pulse Oximetry 99 96 01/31/18 01:20 01/31/18 01:30 01/31/18 03:46 Temperature Pulse Rate 102 H Respiratory Rate Blood Pressure Pulse Oximetry 97 90 L 01/31/18 07:54 01/31/18 08:00 Temperature 98.4 F Pulse Rate 102 H 103 H Respiratory Rate 30 H 20 Blood Pressure 137/57 L Pulse Oximetry 95 95 Intake & Output 01/30/18 01/31/18 01/31/18 18:59 06:59 18:59 Output Total 900 / 900 Balance -900 / -900 Weight 145.15 kg Output: Urine 900 / 900 Narrative: GENERAL: NAD, A&Ox3, nasal cannula in place HEAD: Normocephalic. NECK: Supple, trachea midline. No lymphadenopathy. EYES: No scleral icterus. No injection or drainage. CARDIOVASCULAR: Regular rate and rhythm without murmurs, gallops, or rubs. RESPIRATORY: Breath sounds equal bilaterally. No accessory muscle use. GASTROINTESTINAL: Abdomen soft, non-tender, nondistended. MUSCULOSKELETAL: No cyanosis, or edema. Right-sided drainage bag present to drain from chronic pigtail catheter right lung. SKIN: Warm and dry. NEURO: No focal neurological deficits. Results - Labs CBC & Chem 7: 01/31/18 10:03 01/31/18 05:18 Laboratory Results - last 24 hr 01/30/18 01/30/18 01/30/18 18:25 19:25 19:25 WBC 6.6 RBC 2.80 L Hgb 7.8 L Hct 24.7 L MCV 88.3 MCH 27.9 MCHC 31.6 L RDW 15.6 Plt Count 138 L MPV 7.7 Neut % (Auto) 75.3 H Lymph % (Auto) 12.4 Burke % (Auto) 9.8 H Eos % (Auto) 1.9 Baso % (Auto) 0.6 Neut # (Auto) 5.0 Lymph # (Auto) 0.8 L Burke # (Auto) 0.7 Eos # (Auto) 0.1 Baso # (Auto) 0.0 WBC Differential . Differential Comment Auto diff final PT INR APTT Puncture Site Left radial Patient Temperature 98.6 O2 Saturation 94 ABG pH 7.42 ABG pCO2 76 H* ABG pO2 81 ABG HCO3 48 H ABG O2 Content 10.9 L ABG Base Excess 21.8 H ABG Methemoglobin 0.6 Catracho Test Present Hemoglobin 8.2 L Carboxyhemoglobin 2.2 O2 Delivery Device Nasal cannula Liter Flow 4.50 Inspired O2 38 Critical Value Yes Sodium 138 Potassium 4.1 Chloride 90 L Carbon Dioxide 42.8 H Anion Gap 5 BUN 19 H Creatinine 0.99 Estimated GFR 75 L POC Glucose Random Glucose 153 H Calcium 8.8 Total Bilirubin 0.4 AST 15 ALT 21 Alkaline Phosphatase 60 Total Creatine Kinase 32 L Troponin I Less than 0.02 L B-Natriuretic Peptide Total Protein 6.8 Albumin 2.7 L 01/30/18 01/30/18 01/31/18 19:25 19:25 04:33 WBC RBC Hgb Hct MCV MCH MCHC RDW Plt Count MPV Neut % (Auto) Lymph % (Auto) Burke % (Auto) Eos % (Auto) Baso % (Auto) Neut # (Auto) Lymph # (Auto) Burke # (Auto) Eos # (Auto) Baso # (Auto) WBC Differential Differential Comment PT 10.9 INR 1.1 APTT 25.9 Puncture Site Patient Temperature O2 Saturation ABG pH ABG pCO2 ABG pO2 ABG HCO3 ABG O2 Content ABG Base Excess ABG Methemoglobin Catracho Test Hemoglobin Carboxyhemoglobin O2 Delivery Device Liter Flow Inspired O2 Critical Value Sodium Potassium Chloride Carbon Dioxide Anion Gap BUN Creatinine Estimated GFR POC Glucose 267 H Random Glucose Calcium Total Bilirubin AST ALT Alkaline Phosphatase Total Creatine Kinase Troponin I B-Natriuretic Peptide 119 H Total Protein Albumin 01/31/18 01/31/18 01/31/18 05:18 08:09 10:03 WBC 5.7 RBC 2.90 L Hgb 8.3 L Hct 25.4 L MCV 87.6 MCH 28.6 MCHC 32.6 RDW 15.9 Plt Count 151 MPV 7.6 Neut % (Auto) 89.0 H Lymph % (Auto) 7.5 L Burke % (Auto) 3.1 Eos % (Auto) 0.0 Baso % (Auto) 0.4 Neut # (Auto) 5.0 Lymph # (Auto) 0.4 L Burke # (Auto) 0.2 Eos # (Auto) 0.0 Baso # (Auto) 0.0 WBC Differential . Differential Comment Auto diff final PT INR APTT Puncture Site Patient Temperature O2 Saturation ABG pH ABG pCO2 ABG pO2 ABG HCO3 ABG O2 Content ABG Base Excess ABG Methemoglobin Catracho Test Hemoglobin Carboxyhemoglobin O2 Delivery Device Liter Flow Inspired O2 Critical Value Sodium 137 Potassium 4.4 Chloride 88 L Carbon Dioxide 42.5 H Anion Gap 7 BUN 19 H Creatinine 0.98 Estimated GFR 76 L POC Glucose 281 H Random Glucose 223 H Calcium 8.7 Total Bilirubin AST ALT Alkaline Phosphatase Total Creatine Kinase Troponin I B-Natriuretic Peptide Total Protein Albumin 01/31/18 12:18 WBC RBC Hgb Hct MCV MCH MCHC RDW Plt Count MPV Neut % (Auto) Lymph % (Auto) Burke % (Auto) Eos % (Auto) Baso % (Auto) Neut # (Auto) Lymph # (Auto) Burke # (Auto) Eos # (Auto) Baso # (Auto) WBC Differential Differential Comment PT INR APTT Puncture Site Patient Temperature O2 Saturation ABG pH ABG pCO2 ABG pO2 ABG HCO3 ABG O2 Content ABG Base Excess ABG Methemoglobin Catracho Test Hemoglobin Carboxyhemoglobin O2 Delivery Device Liter Flow Inspired O2 Critical Value Sodium Potassium Chloride Carbon Dioxide Anion Gap BUN Creatinine Estimated GFR POC Glucose 262 H Random Glucose Calcium Total Bilirubin AST ALT Alkaline Phosphatase Total Creatine Kinase Troponin I B-Natriuretic Peptide Total Protein Albumin - Imaging Impressions Chest X-Ray 01/30/18 18:03 CONCLUSION: 1. Extensive right lung airspace disease 2. Focal opacity containing an air-fluid level within the superior segment of the right lower lobe representing either loculated effusion or abscess. Chest CTA 01/30/18 20:20 CONCLUSION: 1. No evidence of pulmonary embolism. 2. Significant progression of right-sided pleural thickening with development of multiple parenchymal nodules and infiltrative peribronchial disease characteristic of a neoplastic process. 3. Progressing mediastinal lymphadenopathy. 4. Loculated pleural effusion along the posterior margin containing an air- fluid level. Assessment and Plan - Plan 68-year-old male readmitted secondary to respiratory distress related to malignant effusions and lung cancer, chronic pigtail catheters present for drainage q. 5 days. Chronic oxygen use. Non-small cell lung cancer shortness of breath malignant effusion 2 new drainage q. 5 days for now unless changed by pulmonology Pulmonology following Poor candidate for chemotherapy Severe COPD Chronic respiratory failure Shortness of breath likely has COPD component Wheezes throughout Duo nebs Currently on BiPAP ABG significant for CO2 retention Diabetes mellitus type 2 Follow blood sugars Insulin sliding scale Diabetic diet CKD Creatinine 0.99 Monitor renal function Hypertension/hyperlipidemia Continue home medications DVT prophylaxis SCDs
--- NOTE | 2018-01-31 14:29 | ECG ---
Date Performed: 01/30/2018 Time Performed: 19:43:46 PTAGE: 68 years EKG: Sinus rhythm WITH OCCASIONAL SUPRAVENTRICULAR PREMATURE COMPLEXES INCOMPLETE RIGHT BUNDLE BRANCH BLOCK BORDERLINE ECG Since the PREVIOUS TRACING , no significant change noted PREVIOUS TRACIN01/06/2018 03.29 DOCTOR: Tremaine Mistry Interpretating Date/Time 01/31/2018 14:27:46
--- NOTE | 2018-01-31 22:27 | MB ---
cc: Jean Gastelum MD DATE: 01/31/2018 REASON FOR CONSULTATION: Respiratory insufficiency and pleural effusions. HISTORY OF PRESENT ILLNESS: This is a 68-year-old white male who recently was transferred to rehab following an extended hospital stay for CHF and non-small cell carcinoma of the lung with recurrent right pleural effusion, requiring PleurX catheter placement and drainage and a history of COPD with respiratory failure, requiring BiPAP and obstructive sleep apnea. The patient was seen by oncology and is being scheduled for chemotherapy due to extensive locally advanced non-small cell cancer in the right lung as well as mediastinal region and was on 3 liters of oxygen via nasal cannula. A PleurX catheter was placed in the right chest for a recurrent large pleural effusion, and every 5 days, drainage of up to 300 mL of fluid was done. The most recent one was not over 200 mL. The patient, however, after he [facility] stated that he did not have the BiPAP set up right and his oxygen saturations dropped and he was also having some leg swelling and increased dyspnea and thus was brought back to the emergency room and now admitted. A CT chest showed a loculated right effusion as well as extensive neoplastic disease in the right lung field. The patient has a PleurX catheter in place. PAST MEDICAL HISTORY: As mentioned before, significant for COPD, chronic kidney disease, diabetes, hyperlipidemia, gout, history of CHF, obesity, sleep apnea, non-small cell carcinoma of the right lung and history of lipoma. PAST SURGICAL HISTORY: Includes lung biopsy and cystoscopy. HABITS: The patient smoked 1-2 packs per day for over 45 years and quit. No significant alcohol use. FAMILY HISTORY: Significant for breast cancer in his mother. Father had also colon cancer and other malignancies in his aunts. ALLERGIES: LEVAQUIN, PENICILLIN AND SHELLFISH. MEDICATION LIST: Aspirin 81 mg, pravastatin 40 mg and Aldactone 50 mg a day. REVIEW OF SYSTEMS: The patient is overweight. He has leg swelling, more on the right side. He has dizziness, postnasal drip, cough and wheezing. He has epigastric distress and reflux. He has urinary frequency. He denies any skin lesions. He has some joint pains. PHYSICAL EXAMINATION: GENERAL: This is an obese, elderly white male whose face is plethoric. He has 2+ leg edema. VITAL SIGNS: His blood pressure is 130/70, pulse is 88, respirations 22, temperature 98.2. HEENT: Head is normocephalic. Pupils reactive and equal. Tongue is moist. Nasal mucosa is erythematous. Throat clear. NECK: Supple with mild venous distention. Trachea midline. CHEST: Distant breath sounds over the right chest with occasional crackles at the lung bases. HEART: Sounds are irregular. S1, S2 with no murmur, no S3 gallop. ABDOMEN: Soft, protuberant without masses. No organomegaly. Bowel sounds active. EXTREMITIES: Varicosities and edema, 2+. NEUROLOGIC: He is moving all his extremities well with no gross motor deficits. Cranial nerves grossly intact. SKIN: Dry and cool. IMPRESSION: 1. Chronic obstructive pulmonary disease with acute exacerbation. 2. Recurrent right pleural effusion. 3. Extensive non-small cell carcinoma of the lung with mediastinal metastasis. 4. Respiratory failure. 5. Sleep apnea. PLAN: The patient will be placed on BiPAP at night 15/5 cm, FiO2 of 35%. The patient will have the PleurX catheter drained every 5 days. Also, given DuoNeb solution via nebulizer q.i.d. and Symbicort 160/4.5 mcg 2 puffs b.i.d. The patient will be seen by oncology if possible, and if he is stable, transferred back to rehab on BiPAP. The patient will use O2 at 3-4 liters nasal cannula during the day. Thank you for this consultation. MD CAMERON Duffy/collin , 08:03 PM , 08:16 PM
[2018-02-01] MEDS: Insulin NovoLOG Aspart Correctional Sugar Inj SQ SCH ×5 (02:37→20:45)
--- NOTE | 2018-02-01 06:34 | XR ---
EXAM DATE: 02/01/2018 6:26 AM EDT AGE/SEX: 68 years / Male INDICATIONS: Effusion. CLINICAL DATA: This is the patient's subsequent encounter. Patient reports that signs and symptoms h ave been present for 1 month and indicates a pain score of 0/10. MEDICAL/SURGICAL HISTORY: . Hypertension. Chronic obstructive pulmonary disease. Congestive he art failure. Diabetes. Carcinoma, squamous cell. Myocardial infarction. None. COMPARISON: [facility], CHEST 2V PA&LAT, 01/30/2018. [facility], CTA PULMONARY W CONTRAST W 3D, 01/30/2018. . FINDINGS: Portable AP view of the chest demonstrates a normal-sized cardiac silhouette with calcification of th e aorta. There is stable pleural-based opacity in the right hemithorax with airspace consolidation in the right lower lung zone. No pneumothorax is identified. Left lung demonstrates no abnormality. Bon es and soft tissues demonstrate no acute finding. CONCLUSION: Stable chest x-ray with right pleural-based opacity/pleural thickening with right lower lung zone air space opacity. Electronically signed by: Wilfred Reyes MD 02/01/2018 6:33 AM EDT
[2018-02-01 07:08] LABS: Baso % (Auto) 0.6 % (0.0-2.0); Eos # (Auto) 0.1 th/mm3 (0.0-0.4); Eos % (Auto) 1.7 % (0.0-4.0); Hematocrit 25.2 % (39.0-51.0); Hemoglobin 8.2 gm/dL (13.0-17.0); Lymph # (Auto) 0.9 th/mm3 (1.0-4.8); Lymph % (Auto) 12.9 % (9.0-44.0); Mean Corpuscular HGB Conc 32.4 % (32.0-36.0); Mean Corpuscular Hemoglobin 28.4 pg (27.0-34.0); Mean Corpuscular Volume 87.7 fL (80.0-100.0); Mean Platelet Volume 7.7 fL (7.0-11.0); Mono # (Auto) 0.8 th/mm3 (0.0-0.9); Mono % (Auto) 12.2 % (0.0-8.0); Neut % (Auto) 72.6 % (16.0-70.0); Platelet Count 164 th/mm3 (150-450); Red Blood Count 2.87 mil/mm3 (4.50-5.90); Red Cell Distribution Width 15.8 % (11.6-17.2); White Blood Count 6.9 th/mm3 (4.0-11.0)
[2018-02-01 07:48] LABS: Alanine Aminotransferase 21 U/L (12-78); Albumin 2.7 g/dL (3.4-5.0); Alkaline Phosphatase 60 U/L (45-117); Anion Gap 4 meq/L (5-15); Aspartate Aminotransferase 15 U/L (15-37); Blood Urea Nitrogen 27 mg/dL (7-18); Calcium 8.8 mg/dL (8.5-10.1); Chloride 90 meq/L (98-107); Glomerular Filtration Rate 64 mL/min (>89); Glucose,Random 117 mg/dL (74-106); Potassium 3.8 meq/L (3.5-5.1); Sodium 139 meq/L (136-145); Total Protein 6.6 g/dL (6.4-8.2)
[2018-02-01] MEDS: hydrALAZINE 50 MG Tablet PO SCH ×3 (08:41→17:57)
[2018-02-01] MEDS: Senna/Docusate Sodium 8.6/50 MG Tablet PO SCH ×2 (08:46→20:45)
[2018-02-01] MEDS: Insulin Detemir Inj 1,000 UNIT/10 ML Vial SQ SCH ×2 (08:47→20:45)
[2018-02-01] MEDS: Spironolactone 50 MG Tablet PO SCH (09:50)
--- NOTE | 2018-02-01 13:07 | P.PNIM ---
Subjective Interval history: Nursing denies any deterioration since last night. Patient herself reports feeling partially improved shortness of breath after Pleurx drainage. He is open to discussion with oncology and at least understands the possibility of hospice if oncology deems appropriate. Physical Exam Vital signs: Vital Signs 01/31/18 14:39 01/31/18 16:00 01/31/18 19:36 Temperature 98.0 F Pulse Rate 111 H Respiratory Rate 20 Blood Pressure 139/70 Pulse Oximetry 95 93 L 94 L 01/31/18 19:50 01/31/18 20:00 02/01/18 00:00 Temperature 99.1 F 98.7 F Pulse Rate 103 H 95 H Respiratory Rate 20 20 Blood Pressure 145/60 H 140/63 Pulse Oximetry 92 L 94 L 95 02/01/18 00:01 02/01/18 04:00 02/01/18 05:10 Temperature 98.4 F Pulse Rate 95 H 97 H Respiratory Rate 18 19 Blood Pressure 145/63 H Pulse Oximetry 95 93 L 02/01/18 07:48 02/01/18 08:00 Temperature 97.4 F L Pulse Rate 91 H 89 Respiratory Rate 12 20 Blood Pressure 170/81 H Pulse Oximetry 95 95 Intake & Output 01/31/18 02/01/18 02/01/18 18:59 06:59 18:59 Intake Total 240 / 240 Output Total 150 / 150 Balance 90 / 90 Weight 147 kg Intake: Oral 240 / 240 Output: Wound Drainage 150 / 150 Right Posterior 150 / 150 Other: Date of Last Bowel Movement 01/30/18 Narrative: Slightly diminished breath sounds in the bases, otherwise coarse breath sounds bilaterally Unlabored breathing On nasal cannula Pleurx catheter visible on the right thoracic back Results - Labs CBC & Chem 7: 02/01/18 05:40 02/01/18 05:40 Laboratory Results - last 24 hr 01/31/18 01/31/18 02/01/18 17:26 19:52 02:27 WBC RBC Hgb Hct MCV MCH MCHC RDW Plt Count MPV Neut % (Auto) Lymph % (Auto) [place] % (Auto) Eos % (Auto) Baso % (Auto) Neut # (Auto) Lymph # (Auto) [place] # (Auto) Eos # (Auto) Baso # (Auto) WBC Differential Differential Comment Sodium Potassium Chloride Carbon Dioxide Anion Gap BUN Creatinine Estimated GFR POC Glucose 390 H 277 H 136 H Random Glucose Calcium Total Bilirubin AST ALT Alkaline Phosphatase Total Protein Albumin 02/01/18 02/01/18 02/01/18 05:40 05:40 07:19 WBC 6.9 RBC 2.87 L Hgb 8.2 L Hct 25.2 L MCV 87.7 MCH 28.4 MCHC 32.4 RDW 15.8 Plt Count 164 MPV 7.7 Neut % (Auto) 72.6 H Lymph % (Auto) 12.9 [place] % (Auto) 12.2 H Eos % (Auto) 1.7 Baso % (Auto) 0.6 Neut # (Auto) 5.0 Lymph # (Auto) 0.9 L [place] # (Auto) 0.8 Eos # (Auto) 0.1 Baso # (Auto) 0.0 WBC Differential . Differential Comment Auto diff final Sodium 139 Potassium 3.8 Chloride 90 L Carbon Dioxide Greater than 45.0 H Anion Gap 4 L BUN 27 H Creatinine 1.13 Estimated GFR 64 L POC Glucose 143 H Random Glucose 117 H D Calcium 8.8 Total Bilirubin 0.4 AST 15 ALT 21 Alkaline Phosphatase 60 Total Protein 6.6 Albumin 2.7 L 02/01/18 11:25 WBC RBC Hgb Hct MCV MCH MCHC RDW Plt Count MPV Neut % (Auto) Lymph % (Auto) [place] % (Auto) Eos % (Auto) Baso % (Auto) Neut # (Auto) Lymph # (Auto) [place] # (Auto) Eos # (Auto) Baso # (Auto) WBC Differential Differential Comment Sodium Potassium Chloride Carbon Dioxide Anion Gap BUN Creatinine Estimated GFR POC Glucose 277 H Random Glucose Calcium Total Bilirubin AST ALT Alkaline Phosphatase Total Protein Albumin - Imaging Impressions Chest X-Ray 02/01/18 00:00 CONCLUSION: Stable chest x-ray with right pleural-based opacity/pleural thickening with right lower lung zone airspace opacity. Assessment and Plan - Plan 68-year-old male readmitted secondary to respiratory distress related to malignant effusions and lung cancer, chronic pigtail catheters present for drainage q. 5 days. Chronic oxygen use. Non-small cell lung cancer shortness of breath - improved since Pleurx drainage started malignant effusion -Pleurx drainage q5 days for now unless changed by pulmonology -Poor candidate for chemotherapy -pending oncology assessment recommendations as well as disposition (hospice versus further treatment). Severe COPD Chronic respiratory failure -likely has COPD component -Duo nebs -Currently on NC -ABG significant for CO2 retention Diabetes mellitus type 2 -Follow blood sugars -Insulin sliding scale -Diabetic diet CKD -Creatinine 0.99 Hypertension/hyperlipidemia -Continue home medications Discharge Planning: Discharge clearance pending oncology assessment recommendations as well as disposition (hospice versus further treatment).
--- NOTE | 2018-02-01 23:39 | MB ---
cc: Haja Ba MD DATE: 02/01/2018 REASON FOR CONSULTATION: Progressive lung cancer. PATIENT PROFILE: The patient is a 68-year-old white male. He is . He has 1 adopted son. He was born in [place], [place]. He has lived in [place] since 2004. He stopped smoking 5 years ago and previously smoked 2 packs of cigarettes per day for 40 years. Alcohol intake consists of an infrequent beer. HISTORY OF PRESENT ILLNESS: The patient's history dates back to 11/2017. He was hospitalized at [facility] in [facility]. I do not have these records. He underwent a biopsy and according to notes was found to have a squamous cell carcinoma of the lung. He has been in and out of hospitals for the past 6 or 7 weeks. He has had multiple thoracenteses for fluid in the right lung. He was apparently in our hospital for a number of weeks, then discharged, and then readmitted after several days. I am now asked to see him. He saw Dr. Foley, who is an oncologist in our group. He apparently had PD-L1 testing. I do not have access to this as it was done outside of our institution and thoughts were given to treating him with immunotherapy if he was PD-L1 positive at 50% or greater. If he was less, then it is not clear to me that there was any desire to treat him with chemotherapy because of a poor performance status with multiple comorbidities. He is now readmitted after being outside of the hospital for several days. He was in what sounds like a rehab center and he was so short of breath that he was sent back to [place]. He has had a number of studies. On 01/30/2018, he had a chest CTA showing no evidence of a pulmonary emboli. He has significant progression of right-sided pleural thickening with development of multiple parenchymal nodules and peribronchial disease characteristic of a neoplastic process. He has progressive mediastinal adenopathy. He has loculated pleural effusion along the posterior margin containing an air fluid level. He had a bone scan on 01/24/2018 showing no evidence of metastatic disease. He had a Doppler of the lower extremities showing no evidence of a DVT on 01/26/2018. He has a PleurX catheter, which he states is draining very little, if any, fluid. He continues to deteriorate and all attempts at rehabilitation have been unsuccessful. PAST SURGICAL HISTORY: 1. Biopsy of lung revealing squamous cell cancer, I believe, 11/2017. 2. PleurX catheter. PAST MEDICAL HISTORY: 1. Congestive heart failure. 2. Previous DE. 3. COPD. 4. Mild chronic renal failure. 5. Respiratory failure. 6. Diabetes. 7. Gout. 8. Hyperlipidemia. 9. Hypertension. 10. Stage IV squamous non-small cell cancer of the lung. 11. Morbid obesity. 12. 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 MEDICATIONS: 1. Albuterol. 2. Aspirin. 3. Pulmicort. 4. Bumex. 5. Coreg. 6. Hydralazine. 7. Insulin. 8. Lactulose. 9. Percocet. 10. Pravastatin. 11. Spironolactone. 12. Flomax. ALLERGIES: LEVAQUIN AND PENICILLIN. FAMILY HISTORY: Noncontributory. REVIEW OF SYSTEMS: Notable for progressive weakness, shortness of breath, incapacitation, some generalized achiness. All other review of systems is negative. PHYSICAL EXAMINATION: GENERAL: Reveals both a chronically and acute-appearing male. It is difficult for him to sit up. He is morbidly obese. He is edematous. He is short of breath with minimal activity. His appearance is cushingoid, movement is slow and labored with shortness of breath. VITAL SIGNS: Temperature 97.3, pulse 96, respiratory rate 24, blood pressure 140/90, O2 saturation 94% on oxygen. HEENT: Unremarkable, except for a few remaining teeth. NECK: There is no adenopathy. HEART: Regular rhythm. LUNGS: Sounds: Left lung mildly decreased. Right lung virtually absent. ABDOMEN: Soft, obese. No hepatosplenomegaly. EXTREMITIES: 2+ edema with stasis changes. MUSCULOSKELETAL: Muscle loss, generalized weakness. NEUROLOGIC: No focal weakness. Cognition and affect are unremarkable. SKIN: Notable for stasis changes involving the lower extremities. LABORATORY STUDIES: Hemoglobin 8.2, white count 6900, platelets 164,000. Electrolytes, BUN and creatinine are unremarkable except for albumin of 2.7, glucose of 208, creatinine was 1.13 with a GFR of 64 mL ASSESSMENT: The patient has progressive non-small cell lung cancer with involvement of the pleura and mediastinum. He has very significant comorbidities and has a performance status of approximately 50%. He appears to be a poor candidate for chemotherapy. There is testing for PD-L1, which is pending the results should be back. RECOMMENDATIONS: 1. His oncologist, Dr. Foley, will return Saturday. 2. It is imperative that one find the results of the PD-L1 testing. 3. If he is PD-L1 positive, it would be reasonable to try immunotherapy as there is not a lot of downside. The PD-L1 would have to be 50% or greater. If he is PD-L1 negative, then I am not optimistic that he will be a candidate for chemotherapy and if this is a squamous cell cancer, then there are not targeted therapies available. It will be important to make decisions as time is running out for this gentleman and he understands the situation. If he is not a candidate for immunotherapy, then I believe that hospice would be appropriate and discussed this with him. MD ANGELLA Vidal/angella/kitty , 07:28 PM , 07:41 PM MTDLucina
[2018-02-02] MEDS: Insulin NovoLOG Aspart Correctional Sugar Inj SQ SCH ×5 (03:01→21:29)
[2018-02-02] MEDS: Spironolactone 50 MG Tablet PO SCH (08:55)
[2018-02-02] MEDS: hydrALAZINE 50 MG Tablet PO SCH ×3 (09:01→17:36)
[2018-02-02] MEDS: Senna/Docusate Sodium 8.6/50 MG Tablet PO SCH ×2 (09:31→21:29)
[2018-02-02] MEDS: Insulin Detemir Inj 1,000 UNIT/10 ML Vial SQ SCH ×2 (11:36→21:29)
--- NOTE | 2018-02-02 13:06 | P.PNONC ---
Subjective Interval history: Afebrile Patient reports his shortness of breath is much improved since coming back in the hospital Per RN approximately 150 cc was drained from his Pleurx catheter yesterday Patient reports he wants to get all his options in order and then make a decision regarding hospice Objective Vital Signs/Intake & Output: Vital Signs 02/01/18 16:00 02/01/18 16:23 02/01/18 20:00 Temperature 97.3 F L 98.1 F Pulse Rate 96 H 102 H 95 H Respiratory Rate 20 12 20 Blood Pressure 143/96 H 149/64 H Pulse Oximetry 94 L 90 L 02/01/18 20:34 02/02/18 00:00 02/02/18 04:00 Temperature 98.2 F 98.1 F Pulse Rate 99 H 97 H 87 Respiratory Rate 19 19 20 Blood Pressure 121/56 L 148/115 H Pulse Oximetry 94 L 96 99 02/02/18 04:01 02/02/18 08:00 02/02/18 09:10 Temperature 98.1 F Pulse Rate 72 72 Respiratory Rate 20 12 Blood Pressure 142/82 H Pulse Oximetry 95 98 97 Intake & Output 02/01/18 02/02/18 02/02/18 18:59 06:59 18:59 Intake Total 980 / 980 480 / 480 Output Total 300 / 300 Balance 980 / 980 180 / 180 Weight 322 lb 8.58 oz Intake: Oral 980 / 980 480 / 480 Output: Urine 300 / 300 Other: # Voids 3 Date of Last Bowel Movement 01/30/18 01/30/18 # Bowel Movements 0 Result Diagrams: 02/01/18 05:40 02/01/18 05:40 Laboratory Results: Laboratory Results - last 24 hr 02/01/18 02/01/18 02/02/18 16:29 19:54 02:58 POC Glucose 208 H 164 H 189 H 02/02/18 02/02/18 07:12 11:54 POC Glucose 170 H 206 H Medications: Active Medications Generic Name Dose Route Start Last Admin Trade Name Freq PRN Reason Stop Dose Admin Albuterol 1 ampul 01/31/18 22:00 02/02/18 09:10 Duoneb Neb (Usman) NEB 1 ampul Q6HR NEB USMAN Administration Aspirin 81 mg 01/31/18 09:00 02/02/18 09:00 Ecotrin PO 81 mg DAILY USMAN Administration Budesonide 0.5 mg 01/31/18 08:00 02/02/18 09:10 Pulmocort Respule Neb NEB 0.5 mg Q12HR NEB USMAN Administration Bumetanide 1 mg 01/31/18 09:00 02/02/18 08:50 Bumex PO 1 mg BID USMAN Administration Carvedilol 3.125 mg 01/31/18 09:00 02/02/18 09:00 Coreg PO 3.125 mg BID USMAN Administration Hydralazine HCl 100 mg 01/31/18 09:00 02/02/18 09:01 Apresoline PO 100 mg TID [facility] Administration Insulin Aspart 0 unit 01/31/18 03:00 02/02/18 12:34 Novolog Insulin Correctional Sugar Inj SQ 3 unit ACHS AND 3AM USMAN Administration Protocol Insulin Detemir 17 unit 01/31/18 21:00 02/01/18 20:45 Levemir Inj SQ 17 unit HS USMAN Administration Insulin Detemir 20 unit 01/31/18 09:00 02/02/18 11:36 Levemir Inj SQ Not Given DAILY [facility] Oxycodone/Acetaminophen 1 tab 01/31/18 00:04 02/01/18 17:57 Percocet 5/325 Mg PO 1 tab Q6H PRN Administration PAIN SCALE 1 TO 10 Pravastatin Sodium 40 mg 01/31/18 09:00 02/02/18 09:00 Pravachol PO 40 mg DAILY [facility] Administration Senna/Docusate Sodium 1 tab 01/31/18 09:00 02/02/18 09:31 Zandra-Colace PO Not Given BID [facility] Spironolactone 50 mg 01/31/18 09:00 02/02/18 08:55 Aldactone PO 50 mg DAILY [facility] Administration Tamsulosin HCl 0.4 mg 01/31/18 09:00 02/02/18 08:55 Flomax PO 0.4 mg DAILY [facility] Administration Objective Remarks: GENERAL: Overweight, chronically ill-appearing elderly male resting in bed in no acute distress SKIN: Warm and dry. Few scattered bruises HEAD: Normocephalic. EYES: No scleral icterus. No injection or drainage. NECK: Supple, trachea midline. No JVD or lymphadenopathy. CARDIOVASCULAR: Regular rate and rhythm without murmurs. RESPIRATORY: Scattered rhonchi, few wheezes. GASTROINTESTINAL: Abdomen soft, non-tender, nondistended. EXTREMITIES: No cyanosis, or edema. MUSCULOSKELETAL: Adequate muscle tone. NEUROLOGICAL: No obvious focal deficit. Awake, alert, and oriented x3. Assessment/Plan - Plan 68-year-old male with diagnosis of non-small cell lung cancer. He has multiple comorbidities which makes chemotherapy difficult. 1. I have requested path studies from [facility] to include molecular study PDL 1 which should be resulted by now. This was faxed this morning. I had a very lengthy conversation with the patient. His wishes are to spend some more time at home with his . He reports he does not want to in the hospital which is obviously very reasonable. We discussed hospice. I offered that we can consult hospice and he can speak with them about what they offer. His wishes are to have all available facts and then make a decision. Unfortunately he seems to be getting worse and not better. For now I will transfer him to the oncology floor. - Attending Statement The exam, history, and the medical decision-making described in the above note were completed with the assistance of the mid-level provider. I reviewed and agree with the findings presented. I attest that I had a [id number] encounter with the patient on the same day, and personally performed and documented my assessment and findings in the medical record. There is no change in his overall condition or exam. He remains debilitated weak and short of breath. We have attempted unsuccessfully to obtain the PDL 1 status as I believe this is his best and possibly only viable option. Dr. Foley will return tomorrow and it will be easier to pursue on Saturday when pathology will be open.
--- NOTE | 2018-02-02 14:51 | P.PNIM ---
Subjective Interval history: Nursing denies any deterioration since last night. Patient himself says his breathing is not as bad. Says he just feels a little lousy. Physical Exam Vital signs: Vital Signs 02/01/18 16:00 02/01/18 16:23 02/01/18 20:00 Temperature 97.3 F L 98.1 F Pulse Rate 96 H 102 H 95 H Respiratory Rate 20 12 20 Blood Pressure 143/96 H 149/64 H Pulse Oximetry 94 L 90 L 02/01/18 20:34 02/02/18 00:00 02/02/18 04:00 Temperature 98.2 F 98.1 F Pulse Rate 99 H 97 H 87 Respiratory Rate 19 19 20 Blood Pressure 121/56 L 148/115 H Pulse Oximetry 94 L 96 99 02/02/18 04:01 02/02/18 08:00 02/02/18 09:10 Temperature 98.1 F Pulse Rate 72 72 Respiratory Rate 20 12 Blood Pressure 142/82 H Pulse Oximetry 95 98 97 Intake & Output 02/01/18 02/02/18 02/02/18 18:59 06:59 18:59 Intake Total 980 / 980 480 / 480 Output Total 300 / 300 Balance 980 / 980 180 / 180 Weight 146.3 kg Intake: Oral 980 / 980 480 / 480 Output: Urine 300 / 300 Other: # Voids 3 Date of Last Bowel Movement 01/30/18 01/30/18 # Bowel Movements 0 Narrative: Unlabored breathing, on nasal cannula Has mild crackles at on right lung base, coarse breath sounds otherwise all throughout Awake and alert Results - Labs CBC & Chem 7: 02/01/18 05:40 02/01/18 05:40 Laboratory Results - last 24 hr 02/01/18 02/01/18 02/02/18 16:29 19:54 02:58 POC Glucose 208 H 164 H 189 H 02/02/18 02/02/18 07:12 11:54 POC Glucose 170 H 206 H Assessment and Plan - Plan 68-year-old male readmitted secondary to respiratory distress related to malignant effusions and lung cancer, chronic pigtail catheters present for drainage q. 5 days. Chronic oxygen use. Non-small cell lung cancer shortness of breath - improved since Pleurx drainage started malignant effusion -Pleurx drainage q5 days for now unless changed by pulmonology -Poor candidate for chemotherapy -pending PT L1 testing records from outside hospital so that final oncology recommendations can be made (hospice vs tx) Severe COPD Chronic respiratory failure -likely has COPD component -Duo nebs -Currently on NC Diabetes mellitus type 2 -Follow blood sugars -Insulin sliding scale -Diabetic diet CKD -Creatinine 0.99 Hypertension/hyperlipidemia -Continue home medications Discharge Planning: Discharge clearance pending oncology assessment recommendations as well as disposition (hospice versus further treatment).
[2018-02-03] MEDS: Insulin NovoLOG Aspart Correctional Sugar Inj SQ SCH ×5 (03:13→20:51)
[2018-02-03] MEDS: Insulin Detemir Inj 1,000 UNIT/10 ML Vial SQ SCH ×2 (08:31→20:51)
[2018-02-03] MEDS: Senna/Docusate Sodium 8.6/50 MG Tablet PO SCH ×2 (08:31→20:51)
[2018-02-03] MEDS: Spironolactone 50 MG Tablet PO SCH (08:32)
[2018-02-03] MEDS: hydrALAZINE 50 MG Tablet PO SCH ×3 (08:32→17:25)
--- NOTE | 2018-02-03 14:25 | P.CONPAL ---
Consult Service: Palliative Care Requesting Physician: Rc Argueta Reason for Consult: a. To assist with evaluation and management of symptoms including: dyspnea, pain, weakness, constipation. b. To assist medical decision maker(s) with: better understanding of current medical conditions; weighing benefits/burdens of medical treatment options; making medical treatment decisions. Primary Care Provider: UNKNOWN History of Present Illness History of Present Illness: Mr. Penn is a 68 year old male with past medical history of diabetes, CHF, COPD oxygen dependent 3-3.5 L, chronic kidney disease, chronic respiratory failure with hypoxia, gout, hyperlipidemia, hypertension, elevated BMI, recent diagnosis non-small cell lung cancer and malignant pleural effusion. 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 I obtained PDL 1 results from [facility] which revealed PDL 1 negative (copy on front of paper chart). Outpatient PET CT scan revealed multifocal hypermetabolic nodularity throughout the right hemithorax as well as right hilar adenopathy, moderate to right sided pleural effusion consistent with lung cancer, prominent hypermetabolism within the subcarinal region possible subcarinal adenopathy versus adjacent esophageal neoplasm, nonspecific heterogeneous hyper metabolic area throughout the visualized marrow space in the T12 vertebral body. Patient was previously admitted 01/05/18-01/29/18 with recurrent malignant pleural effusion post PleurX catheter with intermittent drainage. He was discharged to [facility]. On 01/30/18 patient developed severe shortness of breath and was transported to [facility] emergency department. CTA chest showed no evidence of pulmonary emboli. He has significant progression of right sided pleural thickening with development of multiple parenchymal nodules and progressive mediastinal adenopathy and loculated pleural effusion. Palliative care was consulted to assist with clarification of medical treatment goals. Patient known to Palliative care service from prior admission. He remembers me upon my arrival. He reports continued shortness of breath, worse with exertion, prolonged conversation and eating. He reports significantly decreased appetite. Decreased mobility due to shortness of breath. He reports generalized body aches / joint and back pain that he "lives with" due to underlying gout. He does not feel he needs to be medicated for pain. He does not quantify the pain because he considers it discomfort. No Percocet used since 02/01/18. He has some constipation, LBM about 4 days ago. He remains on Zandra-colace BID. Encouraged use of PRN MOM or Dulcolax, he agrees to take if no BM today. I reviewed the PDL1 negative results explaining that this means he is not a candidate for immunotherapy. I explained the concerns of oncology that he is not a good candidate for chemotherapy given poor performance status. He is appropriately tearful. He tells me he would like to speak with oncologist to confirm these findings. He is considering CODE status, stating he does not likely want resuscitation or mechanical ventilation if it will not improve his quality of life. I advised he will not likely be able to be weaned from vent given pulmonary disease, lung cancer and declining status and that this would leave his having to make a decision to consider withdrawal of life support. I told him if his heart or breathing stops his quality of life would be negatively impacted. He tells me he is considering going home with hospice in hopes he can have a few good weeks with his , reminiscing about their lives and enjoying his time left. He verbalizes fear of dying and what it will be like. I reviewed what I would anticipate for him and how hospice would help make sure he does not suffer. He is worried about struggling to breath, we talked at length about the use of medications, NC oxygen and nebulizers to control shortness of breath. We agreed to speak again 02/04/18 after he has a chance to speak with oncologist. He will likely decide about NO CODE status and transition to comfort measures, unless oncology feels they have good treatment options that will improve his quality and quantity of life. I offered to call his , he asked me not to call her yet. He would like to speak with her first. Function/Cognitive Trajectory: See HPI. Review of Systems All other systems reviewed negative except as stated in HPI PMFSH - History History Provided By: Patient, Medical Record - Medical History Medical History: Medical History (Last Reviewed 01/31/18 @ 08:25 by Cara Choe) CHF (congestive heart failure) COPD (chronic obstructive pulmonary disease) Chronic kidney disease Chronic respiratory failure with hypoxia, on home O2 therapy Diabetes Gout Hyperlipemia Hypertension Lipoma Malignant pleural effusion Morbid obesity Non-small cell carcinoma of left lung, stage 4 Personal history of tobacco use - Surgical History Surgical History: Surgical History (Last Reviewed 01/31/18 @ 08:25 by Cara Choe) History of cystoscopy History of lung biopsy - Family History Family History: Family History (Last Reviewed 01/28/18 @ 08:59 by Jeannette Taylor) Mother Breast cancer Aunt Breast cancer Aunt Breast cancer Grandparent Colon cancer Heart failure Father Cancer - Tobacco History Second Hand Smoke Exposure: No Tobacco Use In Past 30 Days: No Smoking Status: Former smoker Tobacco Type: Cigarettes Packs Per Day: 2 Years Smoked: 45 Smoking End Date: 5 years ago - Alcohol History How Often Do You Have a Drink Containing Alcohol: Never - Substance Use History Substance History: No History of Abuse - Travel History Recent Travel in the [place] Within the Last 8 Weeks: No Recent Travel Out of the Country Within the Last 8 Weeks: No - Immunization History Tetanus Immunization: <5 Years Hx Influenza Vaccine This Season: Yes Medications and Allergies Active Medications: Active Medications Acetaminophen (Tylenol) 650 mg PO Q4H PRN PRN Reason: Temp > 100.4 Al Hydroxide/Mg Hydroxide (Milk Of Jessica Polanco) 30 ml PO Q12H PRN PRN Reason: Mild Constipation Albuterol (Duoneb Neb (Prn)) 1 ampul NEB Q4HR NEB PRN PRN Reason: SOB/Wheezing Albuterol (Duoneb Neb (Usman)) 1 ampul NEB Q6HR NEB [facility] Last Admin: 02/03/18 08:13 Dose: 1 ampul Aspirin (Ecotrin) 81 mg PO DAILY [facility] Last Admin: 02/03/18 08:30 Dose: 81 mg Bisacodyl (Dulcolax Supp) 10 mg RECTAL DAILY PRN PRN Reason: SEVERE CONSITIPATION Budesonide (Pulmocort Respule Neb) 0.5 mg NEB Q12HR NEB [facility] Last Admin: 02/02/18 20:40 Dose: 0.5 mg Bumetanide (Bumex) 1 mg PO BID [facility] Last Admin: 02/03/18 08:30 Dose: 1 mg Carvedilol (Coreg) 3.125 mg PO BID [facility] Last Admin: 02/03/18 08:30 Dose: 3.125 mg Dextrose (D50w Vial) 50 ml IV.PUSH UNSCH PRN PRN Reason: PER HYPOGLYCEMIA PROTOCOL Glucagon (Glucagon Inj) 1 mg OTHER PRN PRN PRN Reason: for Hypoglycemia Protocol Hydralazine HCl (Apresoline) 100 mg PO TID [facility] Last Admin: 02/03/18 13:22 Dose: 100 mg Insulin Aspart (Novolog Insulin Correctional Sugar Inj) 0 unit SQ ACHS AND 3AM USMAN; Protocol Last Admin: 02/03/18 13:22 Dose: 3 unit Insulin Detemir (Levemir Inj) 17 unit SQ HS [facility] Last Admin: 02/02/18 21:29 Dose: 17 unit Insulin Detemir (Levemir Inj) 20 unit SQ DAILY [facility] Last Admin: 02/03/18 08:31 Dose: 20 unit Lactulose (Lactulose Liq) 30 ml PO DAILY PRN PRN Reason: SEVERE CONSITIPATION Ondansetron HCl (Zofran Inj) 4 mg IV.PUSH Q6H PRN PRN Reason: NAUSEA OR VOMITING Oxycodone/Acetaminophen (Percocet 5/325 Mg) 1 tab PO Q6H PRN PRN Reason: PAIN SCALE 1 TO 10 Last Admin: 02/01/18 17:57 Dose: 1 tab Pravastatin Sodium (Pravachol) 40 mg PO DAILY [facility] Last Admin: 02/03/18 08:31 Dose: 40 mg Senna/Docusate Sodium (Zandra-Colace) 1 tab PO BID [facility] Last Admin: 02/03/18 08:31 Dose: 1 tab Sennosides (Senokot) 17.2 mg PO Q12H PRN PRN Reason: Moderate Constipation Spironolactone (Aldactone) 50 mg PO DAILY [facility] Last Admin: 02/03/18 08:32 Dose: 50 mg Tamsulosin HCl (Flomax) 0.4 mg PO DAILY [facility] Last Admin: 02/03/18 08:32 Dose: 0.4 mg Temazepam (Restoril) 15 mg PO HS PRN PRN Reason: INSOMNIA Allergies Allergy/AdvReac Type Severity Reaction Status Date / Time levofloxacin [From Levaquin] Allergy Intermediate Hives Verified 01/31/18 01:27 Penicillins Allergy Intermediate Hives Verified 01/31/18 01:27 shellfish derived Allergy Intermediate Hives Verified 01/31/18 01:26 Home Medications Medication Instructions Recorded Confirmed Type aspirin [Aspirin Low Dose] 81 mg PO DAILY 01/05/18 01/30/18 History pravastatin 10 mg PO DAILY 01/05/18 02/01/18 History spironolactone 50 mg PO DAILY 01/05/18 01/30/18 History Humalog KwikPen Insulin See Label Instructions .ROUTE 01/30/18 01/31/18 History .COMPLEX acetaminophen 650 mg PO Q6H PRN 01/30/18 01/31/18 History bisacodyl [Dulcolax (bisacodyl)] 10 mg DC DAILY PRN 01/30/18 01/31/18 History budesonide [Pulmicort] 2 ml NEB Q12HR NEB 01/30/18 01/30/18 History magnesium citrate [Citroma] 296 ml PO DAILY PRN 01/30/18 01/31/18 History magnesium hydroxide [Milk of 30 ml PO DAILY PRN 01/30/18 01/31/18 History Magnesia] sodium phosphates [Enema 118 ml DC DAILY PRN 01/30/18 01/31/18 History Disposable] Advance Directives Living Will: No Healthcare Surrogate: No Power of Outside Installation Machinist: No Today's verbally stated goals: Patient is waiting to speak with oncology to decide on CODE status (considering NO CODE (DNR/DNI)) and transition to comfort measures with hospice support. Ethical and Legal Issues: Patient is currently capacitated to make his own healthcare decisions. According to [place] statutes, healthcare proxy decision making would fall to his spouse, Emy should he lose capacity. He is considering implementation of written advance directives. Physical Exam Vital Signs: Vital Signs - 24 hr 02/02/18 16:00 02/02/18 16:03 02/02/18 20:00 Temperature 97.9 F 98.3 F Pulse Rate 97 H 106 H 105 H Respiratory Rate 20 12 20 Blood Pressure 110/60 143/60 H Pulse Oximetry 93 L 94 L 02/02/18 20:41 02/03/18 00:00 02/03/18 00:48 Temperature 97.8 F Pulse Rate 93 H 86 Respiratory Rate 18 20 Blood Pressure 147/73 H Pulse Oximetry 97 94 L 96 02/03/18 04:00 02/03/18 04:14 02/03/18 08:00 Temperature 98.0 F 97.8 F Pulse Rate 93 H 91 H 95 H Respiratory Rate 20 20 20 Blood Pressure 142/63 H 139/65 Pulse Oximetry 96 97 02/03/18 08:13 02/03/18 12:00 Temperature 97.6 F Pulse Rate 90 93 H Respiratory Rate 18 20 Blood Pressure 133/63 Pulse Oximetry 94 L 97 I&O: Intake & Output 02/01/18 02/02/18 02/03/18 02/04/18 06:59 06:59 06:59 06:59 Intake Total 240 / 240 1460 / 1460 1320 / 1320 Output Total 150 / 150 300 / 300 1900 / 1900 500 / 500 Balance 90 / 90 1160 / 1160 -580 / -580 -500 / -500 Weight 147 kg 146.3 kg 146.7 kg Physical Exam: CONSTITUTIONAL/GENERAL: This is an adequately nourished patient, short of breath at rest. TUBES/LINES/DRAINS: Oxygen NC, Pleur X. SKIN: No jaundice, rashes, or lesions. Ecchymoses on upper extremities/ hands. No wounds seen anteriorly. Skin temperature appropriate. Not diaphoretic. HEAD: Atraumatic. Normocephalic. EYES: Pupils equal and round and reactive. Extraocular motions intact. No scleral icterus. No injection or drainage. Fundi not examined. ENT: Hearing grossly normal. Nose without bleeding or purulent drainage. Throat without visible erythema, exudates, masses, or lesions. NECK: Trachea midline. CARDIOVASCULAR: Regular rate and rhythm without murmurs, gallops, or rubs. No JVD. Peripheral pulses symmetric. RESPIRATORY/CHEST: Labored respirations at rest, increases with prolonged conversation. Expiratory wheezing noted. Scattered coarse breath sounds. GASTROINTESTINAL: Abdomen soft, non-tender, protuberant. Bowel sounds active. GENITOURINARY: Without palpable bladder distension. MUSCULOSKELETAL: Extremities with trace edema. + joint tenderness. No mottling or clubbing. LYMPHATICS: No palpable cervical or supraclavicular adenopathy. NEUROLOGICAL: Awake and alert. Follows commands. Cognitively sharp. Moves all extremities. PSYCHIATRIC: Appropriately tearful with difficult conversation. Diagnostic Tests Laboratory: Laboratory Results - last 72 hr 01/31/18 01/31/18 02/01/18 17:26 19:52 02:27 WBC RBC Hgb Hct MCV MCH MCHC RDW Plt Count MPV Neut % (Auto) Lymph % (Auto) [place] % (Auto) Eos % (Auto) Baso % (Auto) Neut # (Auto) Lymph # (Auto) [place] # (Auto) Eos # (Auto) Baso # (Auto) WBC Differential Differential Comment Sodium Potassium Chloride Carbon Dioxide Anion Gap BUN Creatinine Estimated GFR POC Glucose 390 H 277 H 136 H Random Glucose Calcium Total Bilirubin AST ALT Alkaline Phosphatase Total Protein Albumin 02/01/18 02/01/18 02/01/18 05:40 05:40 07:19 WBC 6.9 RBC 2.87 L Hgb 8.2 L Hct 25.2 L MCV 87.7 MCH 28.4 MCHC 32.4 RDW 15.8 Plt Count 164 MPV 7.7 Neut % (Auto) 72.6 H Lymph % (Auto) 12.9 [place] % (Auto) 12.2 H Eos % (Auto) 1.7 Baso % (Auto) 0.6 Neut # (Auto) 5.0 Lymph # (Auto) 0.9 L [place] # (Auto) 0.8 Eos # (Auto) 0.1 Baso # (Auto) 0.0 WBC Differential . Differential Comment Auto diff final Sodium 139 Potassium 3.8 Chloride 90 L Carbon Dioxide Greater than 45.0 H Anion Gap 4 L BUN 27 H Creatinine 1.13 Estimated GFR 64 L POC Glucose 143 H Random Glucose 117 H D Calcium 8.8 Total Bilirubin 0.4 AST 15 ALT 21 Alkaline Phosphatase 60 Total Protein 6.6 Albumin 2.7 L 02/01/18 02/01/18 02/01/18 11:25 16:29 19:54 WBC RBC Hgb Hct MCV MCH MCHC RDW Plt Count MPV Neut % (Auto) Lymph % (Auto) [place] % (Auto) Eos % (Auto) Baso % (Auto) Neut # (Auto) Lymph # (Auto) [place] # (Auto) Eos # (Auto) Baso # (Auto) WBC Differential Differential Comment Sodium Potassium Chloride Carbon Dioxide Anion Gap BUN Creatinine Estimated GFR POC Glucose 277 H 208 H 164 H Random Glucose Calcium Total Bilirubin AST ALT Alkaline Phosphatase Total Protein Albumin 02/02/18 02/02/18 02/02/18 02:58 07:12 11:54 WBC RBC Hgb Hct MCV MCH MCHC RDW Plt Count MPV Neut % (Auto) Lymph % (Auto) [place] % (Auto) Eos % (Auto) Baso % (Auto) Neut # (Auto) Lymph # (Auto) [place] # (Auto) Eos # (Auto) Baso # (Auto) WBC Differential Differential Comment Sodium Potassium Chloride Carbon Dioxide Anion Gap BUN Creatinine Estimated GFR POC Glucose 189 H 170 H 206 H Random Glucose Calcium Total Bilirubin AST ALT Alkaline Phosphatase Total Protein Albumin 02/02/18 02/02/18 02/03/18 16:51 19:46 07:50 WBC RBC Hgb Hct MCV MCH MCHC RDW Plt Count MPV Neut % (Auto) Lymph % (Auto) [place] % (Auto) Eos % (Auto) Baso % (Auto) Neut # (Auto) Lymph # (Auto) [place] # (Auto) Eos # (Auto) Baso # (Auto) WBC Differential Differential Comment Sodium Potassium Chloride Carbon Dioxide Anion Gap BUN Creatinine Estimated GFR POC Glucose 285 H 258 H 146 H Random Glucose Calcium Total Bilirubin AST ALT Alkaline Phosphatase Total Protein Albumin 02/03/18 12:48 WBC RBC Hgb Hct MCV MCH MCHC RDW Plt Count MPV Neut % (Auto) Lymph % (Auto) [place] % (Auto) Eos % (Auto) Baso % (Auto) Neut # (Auto) Lymph # (Auto) [place] # (Auto) Eos # (Auto) Baso # (Auto) WBC Differential Differential Comment Sodium Potassium Chloride Carbon Dioxide Anion Gap BUN Creatinine Estimated GFR POC Glucose 202 H Random Glucose Calcium Total Bilirubin AST ALT Alkaline Phosphatase Total Protein Albumin Result Diagrams: 02/01/18 05:40 02/01/18 05:40 Imaging: Chest CTA 01/30/18 20:20 CONCLUSION: 1. No evidence of pulmonary embolism. 2. Significant progression of right-sided pleural thickening with development of multiple parenchymal nodules and infiltrative peribronchial disease characteristic of a neoplastic process. 3. Progressing mediastinal lymphadenopathy. 4. Loculated pleural effusion along the posterior margin containing an air- fluid level. Chest X-Ray 02/01/18 00:00 CONCLUSION: Stable chest x-ray with right pleural-based opacity/pleural thickening with right lower lung zone airspace opacity. Patient/Family Conference Present at Family Conference: Met with patient at bedside. Family Conference Time: 90 Family Conference Location: Bedside Issues Discussed: * Palliative care role, purpose, approach * Additional medical, psychosocial, and spiritual history * Patients general health, functional status, and cognitive changes in the months leading up to the current hospitalization * Patient/family understanding of the current medical problems * Patient/family understanding of prognosis * Patients goals of care as best understood from advance directives and/or conversations and/or values * Current medical treatment options and benefits/burdens of those options * Likely scenarios comparing ongoing aggressive care with a transition to comfort measures only * Questions answered to the best of my ability * Palliative care contact information provided See HPI for summary of conversation. Assessment and Plan - Disease Oriented Problem List (1) COPD (chronic obstructive pulmonary disease) with chronic bronchitis (2) Pleural effusion associated with pulmonary infection (3) Non-small cell cancer of right lung (4) Obesity (5) Hypertension (6) Diabetes 1.5, managed as type 2 (7) Recurrent right pleural effusion - Symptom Scale (1) Pain 0-10 Scale: 1 (2) Constipation 0-10 Scale: Unable to quantify (3) Dyspnea 0-10 Scale: 7 (4) Weakness 0-10 Scale: 5 Pertinent Non-Medical Issues: Psychosocial: Raised in [place] [place], lived in [place] and [place]. [employer] . for 48 years to [place]. Has one adopted son. He also raised a niece, Brenda Jaime. Moved to [place] about 14 years ago. Retired [employer] after 42 years. Quit after he had an MS. . Spiritual:Confucianist elie, he verbalizes " I am not sure I have been mandaen enough to get to [facility]." He has been visited by the applications instructor and other chaplains during admission. Legal: Patient is currently capacitated to make his own healthcare decisions. According to [place] statutes, healthcare proxy decision making would fall to his spouseEmy should he lose capacity. He is considering implementation of written advance directives. Ethical issues impacting care: No known concerns at this time. Important Contacts: * [place] Penn, : Prognosis: Mr. Penn has newly diagnosed NSCLC, PDL1 negative. He appears to be a poor candidate for chemotherapy given debility and poor performance status. Hospice appropriate if goals are comfort oriented. Code Status: Full Code Plan: * Patient is currently capacitated to make his own healthcare decisions. According to [place] statutes, healthcare proxy decision making would fall to his spouse, Emy should he lose capacity. He is considering implementation of written advance directives. * FULL CODE - considering NO CODE (DNR/DNI) wants to speak with oncology before making this decision. * Met with patient, he is considering transition to comfort with hospice support in hopes he can return home to spend a few quality weeks with his . He is considering NO CODE. He is not ready to make any decision until he definitively hears form oncology about treatment options. He agrees we can meet again 02/04/18 to further clarify goals of medical treatment. * SYMPTOMS: Dyspnea: Secondary to underlying CHF, oxygen dependent COPD and now new lung cancer diagnosis. On oxygen via nasal cannula currently. Moderate shortness of breath noted with increased conversation. May benefit from Morphine and Lorazepam to control dyspnea and pain. Pain: Secondary to general debility, limited mobility secondary to shortness of breath. Has as needed Percocet available (none since 02/01), does not like to use pain medication. Reports as discomfort and does not want to quantify because it is not pain. Weakness: Secondary to repeat hospitalization, general debility, limited mobility secondary to shortness of breath. No new medication recommendations at this time. Patient is hesitant to take any medications that may cause sedation. Constipation: LBM 4 days ago. On scheduled Zandra-Colace. Has PRN meds available will take 02/04 if no BM tonight. Will monitor. * Palliative care number provided. * Palliative care will continue to follow throughout hospital course to assist with symptom management and clarification of medical treatment goals as needed. Appreciation Thank you for the opportunity to participate in the care of Kareem Penn. Attestation Attestation: To help prompt me to consider important information that might be impacting today's encounter and assessment, information from prior notes written by myself or my colleagues may have been "brought forward" into today's note. My signature on this note, however, is an attestation that I personally performed the exam, history, and/or decision-making noted today, and, unless otherwise indicated, the interactions with patient, family, and staff as well as the review of records all occurred today. I also attest that the listed assessment and stated plan reflect my best clinical judgment today based on the combination of historical information, prior notes, and today's exam/ interactions. When time spent is documented, it refers only to time spent today by the signer, or if indicated, combined time spent today by collaborating physician/nurse practitioner.
--- NOTE | 2018-02-03 17:57 | P.PN ---
Subjective Interval history: He is doing OK. The pleur X Catheter only drained 150 CC . On O2 3 L. CXR shows a Right lung infiltrate Physical Exam Vital signs: Vital Signs 02/02/18 20:00 02/02/18 20:41 02/03/18 00:00 Temperature 98.3 F 97.8 F Pulse Rate 105 H 93 H 86 Respiratory Rate 20 18 20 Blood Pressure 143/60 H 147/73 H Pulse Oximetry 94 L 97 94 L 02/03/18 00:48 02/03/18 04:00 02/03/18 04:14 Temperature 98.0 F Pulse Rate 93 H 91 H Respiratory Rate 20 20 Blood Pressure 142/63 H Pulse Oximetry 96 96 02/03/18 08:00 02/03/18 08:13 02/03/18 12:00 Temperature 97.8 F 97.6 F Pulse Rate 95 H 90 93 H Respiratory Rate 20 18 20 Blood Pressure 139/65 133/63 Pulse Oximetry 97 94 L 97 02/03/18 16:00 02/03/18 16:43 Temperature 96.8 F L Pulse Rate 120 H 89 Respiratory Rate 20 20 Blood Pressure 136/60 Pulse Oximetry 94 L 97 Intake & Output 02/02/18 02/03/18 02/03/18 18:59 06:59 18:59 Intake Total 1080 / 1080 240 / 240 Output Total 1100 / 1100 800 / 800 500 / 500 Balance -20 / -20 -560 / -560 -500 / -500 Weight 146.7 kg Intake: Oral 1080 / 1080 240 / 240 Output: Urine 1100 / 1100 800 / 800 500 / 500 Other: # Voids 3 Date of Last Bowel Movement 01/30/18 # Bowel Movements 0 Narrative: Unlabored breathing, on nasal cannula Has mild crackles at on right lung base, coarse breath sounds otherwise all throughout Awake and alert GENERAL: SKIN: Warm and dry. HEAD: Atraumatic. Normocephalic. EYES: Pupils equal and round. No scleral icterus. No injection or drainage. ENT: No nasal bleeding or discharge. Mucous membranes pink and moist. NECK: Trachea midline. No JVD. CARDIOVASCULAR: Irregular rate and rhythm. RESPIRATORY: No accessory muscle use. Has Right chest wheezes and crackles. GASTROINTESTINAL: Abdomen soft, non-tender, nondistended. Hepatic and splenic margins not palpable. MUSCULOSKELETAL: Extremities without clubbing, cyanosis,but has 2 + edema. No obvious deformities. NEUROLOGICAL: Awake and alert. Motor grossly within normal limits. Normal speech. PSYCHIATRIC: Appropriate mood and affect; insight and judgment normal. Asessment : 1. COPD. 2. Nonsmall cell lung Ca with Mets. 3. Recurrent Right effusion 4. CHF 5. Diabetes Results - Labs CBC & Chem 7: 02/01/18 05:40 02/01/18 05:40 Laboratory Results - last 24 hr 02/02/18 02/03/18 02/03/18 19:46 07:50 12:48 POC Glucose 258 H 146 H 202 H Assessment and Plan - Plan 1. O2 2 4 L. 2. Will drain Pleural catheter every 2 weeks. 3. Chemotherapy per Dr rowell. 4. Elbert carlson QID 5. Palliative care to see.
--- NOTE | 2018-02-03 18:13 | P.PNIM ---
Subjective Interval history: Nursing denies any deterioration since last night. Patient does admit that his abdomen is larger than it should be but he does not want any procedures done. He does not report any acute distention, but rather a chronic picture. Physical Exam Vital signs: Vital Signs 02/02/18 20:00 02/02/18 20:41 02/03/18 00:00 Temperature 98.3 F 97.8 F Pulse Rate 105 H 93 H 86 Respiratory Rate 20 18 20 Blood Pressure 143/60 H 147/73 H Pulse Oximetry 94 L 97 94 L 02/03/18 00:48 02/03/18 04:00 02/03/18 04:14 Temperature 98.0 F Pulse Rate 93 H 91 H Respiratory Rate 20 20 Blood Pressure 142/63 H Pulse Oximetry 96 96 02/03/18 08:00 02/03/18 08:13 02/03/18 12:00 Temperature 97.8 F 97.6 F Pulse Rate 95 H 90 93 H Respiratory Rate 20 18 20 Blood Pressure 139/65 133/63 Pulse Oximetry 97 94 L 97 02/03/18 16:00 02/03/18 16:43 Temperature 96.8 F L Pulse Rate 120 H 89 Respiratory Rate 20 20 Blood Pressure 136/60 Pulse Oximetry 94 L 97 Intake & Output 02/02/18 02/03/18 02/03/18 18:59 06:59 18:59 Intake Total 1080 / 1080 240 / 240 Output Total 1100 / 1100 800 / 800 500 / 500 Balance -20 / -20 -560 / -560 -500 / -500 Weight 146.7 kg Intake: Oral 1080 / 1080 240 / 240 Output: Urine 1100 / 1100 800 / 800 500 / 500 Other: # Voids 3 Date of Last Bowel Movement 01/30/18 # Bowel Movements 0 Narrative: Mild crackles heard in bilateral lung bases, unlabored breathing, on nasal cannula Protuberant but soft abdomen Results - Labs CBC & Chem 7: 02/01/18 05:40 02/01/18 05:40 Laboratory Results - last 24 hr 02/02/18 02/03/18 02/03/18 19:46 07:50 12:48 POC Glucose 258 H 146 H 202 H 02/03/18 17:58 POC Glucose 157 H Assessment and Plan - Plan 68-year-old male readmitted secondary to respiratory distress related to malignant effusions and lung cancer, chronic pigtail catheters present for drainage q. 5 days. Chronic oxygen use. Non-small cell lung cancer shortness of breath - improved since Pleurx drainage started malignant effusion -Pleurx drainage q5 days for now unless changed by pulmonology -Poor candidate for chemotherapy -pending PT L1 testing records from outside hospital so that final oncology recommendations can be made (hospice vs tx), palliative care following Suspected ascites -Patient has no interest in paracentesis at this time Severe COPD Chronic respiratory failure -likely has COPD component -Duo nebs -Currently on OH Diabetes mellitus type 2 -Follow blood sugars -Insulin sliding scale -Diabetic diet CKD Hypertension/hyperlipidemia -Continue home medications Discharge Planning: Discharge clearance pending oncology assessment recommendations as well as disposition (hospice versus further treatment).
[2018-02-04] MEDS: Insulin NovoLOG Aspart Correctional Sugar Inj SQ SCH ×5 (04:01→20:14)
[2018-02-04] MEDS: hydrALAZINE 50 MG Tablet PO SCH ×3 (08:45→18:07)
[2018-02-04] MEDS: Spironolactone 50 MG Tablet PO SCH (08:46)
[2018-02-04] MEDS: Senna/Docusate Sodium 8.6/50 MG Tablet PO SCH ×2 (08:46→20:12)
[2018-02-04] MEDS: Insulin Detemir Inj 1,000 UNIT/10 ML Vial SQ SCH ×2 (08:49→20:12)
--- NOTE | 2018-02-04 12:29 | P.PN ---
Subjective Interval history: He is alert and breathing OK. O2 at 3 L. Physical Exam Vital signs: Vital Signs 02/03/18 16:00 02/03/18 16:43 02/03/18 20:00 Temperature 96.8 F L 98.8 F Pulse Rate 120 H 89 101 H Respiratory Rate 20 20 18 Blood Pressure 136/60 141/65 H Pulse Oximetry 94 L 97 96 02/03/18 20:23 02/04/18 00:00 02/04/18 01:20 Temperature 97 F L Pulse Rate 92 H 98 H Respiratory Rate 20 18 Blood Pressure 154/63 H Pulse Oximetry 97 95 96 02/04/18 04:00 02/04/18 04:09 02/04/18 04:12 Temperature 98 F Pulse Rate 98 H 92 H Respiratory Rate 20 21 Blood Pressure 130/44 L Pulse Oximetry 95 94 L 02/04/18 08:00 02/04/18 08:38 Temperature 98.0 F Pulse Rate 98 H 79 Respiratory Rate 20 20 Blood Pressure 145/76 H Pulse Oximetry 94 L 95 Intake & Output 02/03/18 02/04/18 02/04/18 18:59 06:59 18:59 Intake Total 480 / 480 Output Total 500 / 500 500 / 500 Balance -20 / -20 -500 / -500 Weight 140.6 kg Intake: Oral 480 / 480 Output: Urine 500 / 500 500 / 500 Other: Date of Last Bowel Movement 01/30/18 01/30/18 Narrative: GENERAL: Alert and in No distress SKIN: Warm and dry. HEAD: Atraumatic. Normocephalic. EYES: Pupils equal and round. No scleral icterus. No injection or drainage. ENT: No nasal bleeding or discharge. Mucous membranes pink and moist. NECK: Trachea midline. No JVD. CARDIOVASCULAR: Regular rate and rhythm. RESPIRATORY: Has accessory muscle use. Few basal crackles.tarsha,Abd: nondistended. Hepatic and splenic margins not palpable. MUSCULOSKELETAL: Extremities without clubbing, cyanosis, but 2 + edema. No obvious deformities. NEUROLOGICAL: Awake and alert. No obvious cranial nerve deficits. Motor grossly within normal limits. Normal speech. PSYCHIATRIC: Appropriate mood and affect; insight and judgment normal. Results - Labs CBC & Chem 7: 02/01/18 05:40 02/01/18 05:40 Laboratory Results - last 24 hr 02/03/18 02/03/1802/03/18 12:48 17:58 19:40 POC Glucose 202 H 157 H 207 H 02/04/18 02/04/18 03:58 07:59 POC Glucose 161 H 160 H Assessment and Plan - Assessment (1) COPD (chronic obstructive pulmonary disease) with chronic bronchitis Code(s): J44.9 - Chronic obstructive pulmonary disease, unspecified Status: Acute (2) Pleural effusion associated with pulmonary infection Code(s): J18.9 - Pneumonia, unspecified organism; J91.8 - Pleural effusion in other conditions classified elsewhere Status: Acute (3) Non-small cell cancer of right lung Code(s): C34.91 - Malignant neoplasm of unspecified part of right bronchus or lung Status: Acute (4) Sleep apnea with hypersomnolence Code(s): G47.10 - Hypersomnia, unspecified; G47.30 - Sleep apnea, unspecified Status: Acute (5) Obesity Code(s): E66.9 - Obesity, unspecified Status: Acute (6) Hypertension Code(s): I10 - Essential (primary) hypertension Status: Acute (7) Diabetes 1.5, managed as type 2 Code(s): E10.9 - Type 1 diabetes mellitus without complications Status: Acute - Plan 1. O2 2 4 L.N/C 2. Will drain Pleural catheter every 2 weeks. 3. Chemotherapy per Dr rowell. 4. Elbert carlson QID 5. Palliative care to see. 6. Symbicort 160/4.5 mcg , 2 puffs BID
--- NOTE | 2018-02-04 13:48 | P.PNPAL ---
Reason for Visit Reason for visit: a. To assist with evaluation and management of symptoms including: dyspnea, pain, weakness, constipation. b. To assist medical decision maker(s) with: better understanding of current medical conditions; weighing benefits/burdens of medical treatment options; making medical treatment decisions. Subjective Subjective/Interval History: Patient seen and examined in room on oncology unit. No family at bedside. Also present Jigna Muller LCSW. Patient is awake and alert. He has persistent shortness of breath and some associated anxiety. He does not want to take any medication. He remains resistant to use of medication that may cause any level of sedation. He has joint "discomfort" today, he does not quantify as it is "just discomfort." He has PRN Percocet available, has not taken any since . He has some constipation, LBM about 5 days ago. He remains on Zandra-colace BID. Encouraged use of PRN MOM or Dulcolax, encouraged use. Patient hopes to shower and shave. Spoke with Dr. Foley, he reports he will be coming to speak with patient this afternoon. Advised of PDL 1 negative results and that they were placed in paper chart and flagged for him to review. He agrees patient is hospice appropriate. Advised of patient tentative plan to transition to comfort with hospice services to go home and spend some quality time with is . HE tells me he is tired. He will consider changing CODE status to NO CODE (DNR/DNI) after speaking with oncologist. Patient does not want to make any definitive decisions until after speaks with Dr. Foley. He is considering CODE status, stating he does not likely want resuscitation or mechanical ventilation if it will not improve his quality of life- wants to again talk to Dr. Foley before making this decision. He again verbalizes consideration of going home with hospice in hopes he can have a few good weeks with his , reminiscing about their lives and enjoying his time left. He again verbalizes fear of dying in pain or "suffering." I reviewed hospice services and how they would be there to ensure he does not suffer. Family/Friend Interactions: No family present. Offered to speak with his , he declined me calling her today. Advance Directives Living Will: Never completed Health Care Surrogate: Never completed Durable Power of Hearing Aid Repairer: Never completed Significant change in goals:: Considering CODE status and transition to comfort with hospice support, wants to speak with Dr. Foley (oncology) prior to making a definitive decision. Objective Vital Signs: Vital Signs 02/03/18 16:00 02/03/18 16:43 02/03/18 20:00 Temperature 96.8 F L 98.8 F Pulse Rate 120 H 89 101 H Respiratory Rate 20 20 18 Blood Pressure 136/60 141/65 H Pulse Oximetry 94 L 97 96 02/03/18 20:23 02/04/18 00:00 02/04/18 01:20 Temperature 97 F L Pulse Rate 92 H 98 H Respiratory Rate 20 18 Blood Pressure 154/63 H Pulse Oximetry 97 95 96 02/04/18 04:00 02/04/18 04:09 02/04/18 04:12 Temperature 98 F Pulse Rate 98 H 92 H Respiratory Rate 20 21 Blood Pressure 130/44 L Pulse Oximetry 95 94 L 02/04/18 08:00 02/04/18 08:38 Temperature 98.0 F Pulse Rate 98 H 79 Respiratory Rate 20 20 Blood Pressure 145/76 H Pulse Oximetry 94 L 95 Intake & Output 02/03/18 02/04/18 02/04/18 18:59 06:59 18:59 Intake Total 480 / 480 Output Total 500 / 500 500 / 500 Balance -20 / -20 -500 / -500 Weight 140.6 kg Intake: Oral 480 / 480 Output: Urine 500 / 500 500 / 500 Other: Date of Last Bowel Movement 01/30/18 01/30/18 Physical Exam: CONSTITUTIONAL/GENERAL: This is an adequately nourished patient, short of breath at rest. TUBES/LINES/DRAINS: Oxygen NC, Pleur X. SKIN: No jaundice, rashes, or lesions. Ecchymoses on upper extremities/ hands. No wounds seen anteriorly. Skin temperature appropriate. Not diaphoretic. EYES: Pupils equal and round and reactive. CARDIOVASCULAR: Regular rate and rhythm without murmurs, gallops, or rubs. No JVD. Peripheral pulses symmetric. RESPIRATORY/CHEST: Labored respirations at rest, increases with prolonged conversation. Expiratory wheezing noted. Scattered coarse breath sounds. GASTROINTESTINAL: Abdomen soft, non-tender, protuberant. Bowel sounds active. GENITOURINARY: Without palpable bladder distension. MUSCULOSKELETAL: Extremities with trace edema. + joint tenderness. No mottling or clubbing. NEUROLOGICAL: Awake and alert. Follows commands. Cognitively sharp. Moves all extremities. PSYCHIATRIC: Appropriately tearful with difficult conversation. Diagnostic Tests Laboratory: Laboratory Results - last 72 hr 02/01/18 02/01/18 02/02/18 16:29 19:54 02:58 POC Glucose 208 H 164 H 189 H 02/02/18 02/02/18 02/02/18 07:12 11:54 16:51 POC Glucose 170 H 206 H 285 H 02/02/18 02/03/18 02/03/18 19:46 07:50 12:48 POC Glucose 258 H 146 H 202 H 02/03/18 02/03/18 02/04/18 17:58 19:40 03:58 POC Glucose 157 H 207 H 161 H 02/04/18 02/04/18 07:59 12:51 POC Glucose 160 H 188 H Result Diagrams: 02/01/18 05:40 02/01/18 05:40 Imaging: Chest CTA 01/30/18 20:20 CONCLUSION: 1. No evidence of pulmonary embolism. 2. Significant progression of right-sided pleural thickening with development of multiple parenchymal nodules and infiltrative peribronchial disease characteristic of a neoplastic process. 3. Progressing mediastinal lymphadenopathy. 4. Loculated pleural effusion along the posterior margin containing an air- fluid level. Chest X-Ray 02/01/18 00:00 CONCLUSION: Stable chest x-ray with right pleural-based opacity/pleural thickening with right lower lung zone airspace opacity. Assessment and Plan - Disease Oriented Problem List (1) COPD (chronic obstructive pulmonary disease) with chronic bronchitis (2) Pleural effusion associated with pulmonary infection (3) Non-small cell cancer of right lung (4) Obesity (5) Hypertension (6) Diabetes 1.5, managed as type 2 (7) Recurrent right pleural effusion - Symptom Scale (1) Pain 0-10 Scale: 1 (2) Constipation 0-10 Scale: Unable to quantify (3) Dyspnea 0-10 Scale: Unable to quantify (4) Weakness 0-10 Scale: Unable to quantify Pertinent Non-Medical Issues: Psychosocial: Raised in [facility], lived in [place] and [place]. [place]. for 48 years to [place]. Has one adopted son. He also raised a niece, Brenda Jaime. Moved to [place] about 14 years ago. Retired [employer] after 42 years. Quit after he had an [place]. . Spiritual:[employer] elie, he verbalizes " I am not sure I have been yarsani enough to get to [facility]." He has been visited by the hotel or motel manager and other chaplains during admission. Legal: Patient is currently capacitated to make his own healthcare decisions. According to [place] statutes, healthcare proxy decision making would fall to his spouse, Emy should he lose capacity. He is considering implementation of written advance directives. Ethical issues impacting care: No known concerns at this time. Important Contacts: * [place] Penn, : [phone] Prognosis: Mr. Penn has newly diagnosed NSCLC, PDL1 negative. He appears to be a poor candidate for chemotherapy given debility and poor performance status. Hospice appropriate if goals are comfort oriented. Code Status: Full Code Plan: * Patient is currently capacitated to make his own healthcare decisions. According to [place] statutes, healthcare proxy decision making would fall to his spouse, Emy should he lose capacity. He is considering implementation of written advance directives. * FULL CODE - considering NO CODE (DNR/DNI) wants to speak with oncology before making this decision. * Met with patient, he is considering transition to comfort with hospice support in hopes he can return home to spend a few quality weeks with his . He is considering NO CODE. He is not ready to make any decision until he speaks with Dr. Foley. * SYMPTOMS: Dyspnea: Secondary to underlying CHF, oxygen dependent COPD and now new lung cancer diagnosis. On oxygen via nasal cannula currently. Moderate shortness of breath noted with increased conversation. May benefit from Morphine and Lorazepam to control dyspnea and pain. Pain: Secondary to general debility, limited mobility secondary to shortness of breath. Has as needed Percocet available (none since 02/01), does not like to use pain medication. Reports as discomfort and does not want to quantify because it is not pain. Weakness: Secondary to repeat hospitalization, general debility, limited mobility secondary to shortness of breath. No new medication recommendations at this time. Patient is hesitant to take any medications that may cause sedation. Constipation: LBM 4 days ago. On scheduled Zandra-Colace. Has PRN meds available will take 02/04 if no BM tonight. Will monitor. * Palliative care will continue to follow throughout hospital course to assist with symptom management and clarification of medical treatment goals as needed. Attestation Attestation: To help prompt me to consider important information that might be impacting today's encounter and assessment, information from prior notes written by myself or my colleagues may have been "brought forward" into today's note. My signature on this note, however, is an attestation that I personally performed the exam, history, and/or decision-making noted today, and, unless otherwise indicated, the interactions with patient, family, and staff as well as the review of records all occurred today. I also attest that the listed assessment and stated plan reflect my best clinical judgment today based on the combination of historical information, prior notes, and today's exam/ interactions. When time spent is documented, it refers only to time spent today by the signer, or if indicated, combined time spent today by collaborating physician/nurse practitioner.
--- NOTE | 2018-02-04 15:28 | P.PNIM ---
Subjective Interval history: Patient says she is feeling about the same as yesterday. Denies any chest pain. Says he is waiting for oncologist to discuss any further treatment options, however at this time however says he is leaning towards hospice.. Physical Exam Vital signs: Vital Signs 02/03/18 16:00 02/03/18 16:43 02/03/18 20:00 Temperature 96.8 F L 98.8 F Pulse Rate 120 H 89 101 H Respiratory Rate 20 20 18 Blood Pressure 136/60 141/65 H Pulse Oximetry 94 L 97 96 02/03/18 20:23 02/04/18 00:00 02/04/18 01:20 Temperature 97 F L Pulse Rate 92 H 98 H Respiratory Rate 20 18 Blood Pressure 154/63 H Pulse Oximetry 97 95 96 02/04/18 04:00 02/04/18 04:09 02/04/18 04:12 Temperature 98 F Pulse Rate 98 H 92 H Respiratory Rate 20 21 Blood Pressure 130/44 L Pulse Oximetry 95 94 L 02/04/18 08:00 02/04/18 08:38 02/04/18 13:24 Temperature 98.0 F 98.2 F Pulse Rate 98 H 79 101 H Respiratory Rate 20 20 Blood Pressure 145/76 H 141/67 H Pulse Oximetry 94 L 95 93 L Intake & Output 02/03/18 02/04/18 02/04/18 18:59 06:59 18:59 Intake Total 480 / 480 Output Total 500 / 500 500 / 500 Balance -20 / -20 -500 / -500 Weight 140.6 kg Intake: Oral 480 / 480 Output: Urine 500 / 500 500 / 500 Other: Date of Last Bowel Movement 01/30/18 01/30/18 Narrative: GENERAL: Patient sitting up in bed. Appears comfortable. SKIN: Warm and dry. HEAD: Normocephalic. EYES: No scleral icterus. No injection or drainage. NECK: Supple, trachea midline. No JVD or lymphadenopathy. CARDIOVASCULAR: Regular rate and rhythm without murmurs, gallops, or rubs. RESPIRATORY: Breath sounds slightly decreased on the right base. Pleurx catheter in place without surrounding erythema.. No accessory muscle use. GASTROINTESTINAL: Abdomen soft, non-tender, nondistended. MUSCULOSKELETAL: No cyanosis. 2+ peripheral edema. BACK: Nontender without obvious deformity. No CVA tenderness. Results - Labs CBC & Chem 7: 02/01/18 05:40 02/01/18 05:40 Laboratory Results - last 24 hr 02/03/18 02/03/18 02/04/18 17:58 19:40 03:58 POC Glucose 157 H 207 H 161 H 02/04/18 02/04/18 07:59 12:51 POC Glucose 160 H 188 H Assessment and Plan - Plan 68-year-old male readmitted secondary to respiratory distress related to malignant effusions and lung cancer, chronic pigtail catheters present for drainage q. 5 days. Chronic oxygen use. //Non-small cell lung cancer shortness of breath - improved since Pleurx drainage started malignant effusion -Pleurx drainage q5 days for now unless changed by pulmonology -Poor candidate for chemotherapy -pending PT L1 testing records from outside hospital so that final oncology recommendations can be made (hospice vs tx), palliative care following = 02/04. Patient waiting for oncology to discuss any further treatment. At this time, however patient is leaning towards home with hospice. Appreciate oncology, palliative care assistance. //Suspected ascites -Patient has no interest in paracentesis at this time. 02/04. Again discussed with patient and he has not interested. //Severe COPD //Chronic respiratory failure -likely has COPD component -Duo nebs -Currently on NC //Diabetes mellitus type 2 -Follow blood sugars -Insulin sliding scale -Diabetic diet CKD Hypertension/hyperlipidemia -Continue home medications Discharge Planning: Discharge clearance pending oncology assessment recommendations as well as disposition (hospice versus further treatment).
--- NOTE | 2018-02-04 19:00 | P.PN ---
Subjective Interval history: No SOB at rest. On o2 3 L. Cough with some wheezing. waiting on Oncology to advise him on further course. Physical Exam Vital signs: Vital Signs 02/03/18 20:00 02/03/18 20:23 02/04/18 00:00 Temperature 98.8 F 97 F L Pulse Rate 101 H 92 H 98 H Respiratory Rate 18 20 18 Blood Pressure 141/65 H 154/63 H Pulse Oximetry 96 97 95 02/04/18 01:20 02/04/18 04:00 02/04/18 04:09 Temperature 98 F Pulse Rate 98 H 92 H Respiratory Rate 20 21 Blood Pressure 130/44 L Pulse Oximetry 96 95 02/04/18 04:12 02/04/18 08:00 02/04/18 08:38 Temperature 98.0 F Pulse Rate 98 H 79 Respiratory Rate 20 20 Blood Pressure 145/76 H Pulse Oximetry 94 L 94 L 95 02/04/18 13:24 02/04/18 16:12 02/04/18 16:47 Temperature 98.2 F 98.1 F Pulse Rate 101 H 90 100 H Respiratory Rate 20 20 Blood Pressure 141/67 H 131/60 Pulse Oximetry 93 L 94 L Intake & Output 02/03/18 02/04/18 02/04/18 18:59 06:59 18:59 Intake Total 480 / 480 Output Total 500 / 500 500 / 500 Balance -20 / -20 -500 / -500 Weight 140.6 kg Intake: Oral 480 / 480 Output: Urine 500 / 500 500 / 500 Other: Date of Last Bowel Movement 01/30/18 01/30/18 Narrative: GENERAL:Obese W/M Patient sitting up in bed, in No distress. Appears comfortable. SKIN: Warm and dry. HEAD: Normocephalic. EYES: No scleral icterus. No injection or drainage. NECK: Supple, trachea midline. No JVD or lymphadenopathy. CARDIOVASCULAR: Regular rate and rhythm without murmurs, gallops, or rubs. RESPIRATORY: Breath sounds slightly decreased on the right base. Pleurx catheter in place without surrounding erythema.. No accessory muscle use.Occ Wheezes. GASTROINTESTINAL: Abdomen soft, non-tender, nondistended. MUSCULOSKELETAL: No cyanosis. 2+ peripheral edema. BACK: Nontender without obvious deformity. No CVA tenderness. Results - Labs CBC & Chem 7: 02/01/18 05:40 02/01/18 05:40 Laboratory Results - last 24 hr 02/03/18 02/04/18 02/04/18 19:40 03:58 07:59 POC Glucose 207 H 161 H 160 H 02/04/18 02/04/18 12:51 16:42 POC Glucose 188 H 205 H Assessment and Plan - Assessment (1) COPD (chronic obstructive pulmonary disease) with chronic bronchitis Code(s): J44.9 - Chronic obstructive pulmonary disease, unspecified Status: Acute (2) Pleural effusion associated with pulmonary infection Code(s): J18.9 - Pneumonia, unspecified organism; J91.8 - Pleural effusion in other conditions classified elsewhere Status: Acute (3) Non-small cell cancer of right lung Code(s): C34.91 - Malignant neoplasm of unspecified part of right bronchus or lung Status: Acute (4) Sleep apnea with hypersomnolence Code(s): G47.10 - Hypersomnia, unspecified; G47.30 - Sleep apnea, unspecified Status: Acute (5) Obesity Code(s): E66.9 - Obesity, unspecified Status: Acute (6) Hypertension Code(s): I10 - Essential (primary) hypertension Status: Acute (7) Diabetes 1.5, managed as type 2 Code(s): E10.9 - Type 1 diabetes mellitus without complications Status: Acute - Plan 1. O2 2 4 L N/C 2. Will drain Pleural catheter every 2 weeks. 3. Chemotherapy per Dr rowell. 4. Duoneb aldo QID 5. Labs in am 6. Symbicort 160/4.5 mcg , 2 puffs BID
[2018-02-05] MEDS: Insulin NovoLOG Aspart Correctional Sugar Inj SQ SCH ×3 (04:16→12:33)
[2018-02-05] MEDS: Senna/Docusate Sodium 8.6/50 MG Tablet PO SCH (08:23)
--- NOTE | 2018-02-05 08:23 | P.PNONC ---
Subjective Interval history: Patient seen and examined, vital signs, labs, medications most recent CT imaging as well as pathology results reviewed. Subjectively; patient reports having symptoms of generalized weakness and difficulty breathing at rest and with minimal ambulation. He also reports right-sided chest pain. Objective Vital Signs/Intake & Output: Vital Signs 02/04/18 08:38 02/04/18 09:00 02/04/18 12:00 Temperature Pulse Rate 79 96 H 90 Respiratory Rate 20 Blood Pressure Pulse Oximetry 95 02/04/18 13:24 02/04/18 16:00 02/04/18 16:12 Temperature 98.2 F Pulse Rate 101 H 98 H 90 Respiratory Rate 20 Blood Pressure 141/67 H Pulse Oximetry 93 L 02/04/18 16:47 02/04/18 21:39 02/05/18 00:00 Temperature 98.1 F Pulse Rate 100 H 88 92 H Respiratory Rate 20 16 Blood Pressure 131/60 Pulse Oximetry 94 L 93 L 02/05/18 02:00 02/05/18 04:00 02/05/18 07:24 Temperature 98 F Pulse Rate 83 87 Respiratory Rate 20 16 Blood Pressure 142/80 H Pulse Oximetry 98 95 98 Intake & Output 02/04/18 02/05/18 02/05/18 18:59 06:59 18:59 Intake Total 960 / 960 Output Total 575 / 575 900 / 900 Balance -575 / -575 60 / 60 Weight 140.5 kg Intake: Oral 960 / 960 Output: Urine 575 / 575 900 / 900 Other: # Voids 1 Date of Last Bowel Movement 02/04/18 02/04/18 # Bowel Movements 1 Result Diagrams: 02/01/18 05:40 02/01/18 05:40 Laboratory Results: Laboratory Results - last 24 hr 02/04/18 02/04/18 02/04/18 12:51 16:42 20:11 POC Glucose 188 H 205 H 221 H 02/05/18 04:14 POC Glucose 118 H Medications: Active Medications Generic Name Dose Route Start Last Admin Trade Name Freq PRN Reason Stop Dose Admin Aspirin 81 mg 01/31/18 09:00 02/04/18 08:45 Ecotrin PO 81 mg DAILY LORI Administration Budesonide 0.5 mg 01/31/18 08:00 02/05/18 07:23 Pulmocort Respule Neb NEB 0.5 mg Q12HR NEB LORI Administration Bumetanide 1 mg 01/31/18 09:00 02/04/18 20:12 Bumex PO 1 mg BID LORI Administration Carvedilol 3.125 mg 01/31/18 09:00 02/04/18 20:12 Coreg PO 3.125 mg BID LORI Administration Hydralazine HCl 100 mg 01/31/18 09:00 02/04/18 18:07 Apresoline PO 100 mg TID LORI Administration Insulin Aspart 0 unit 01/31/18 03:00 02/05/18 04:16 Novolog Insulin Correctional Sugar Inj SQ Not Given ACHS AND 3AM [facility] Protocol Insulin Detemir 17 unit 01/31/18 21:00 02/04/18 20:12 Levemir Inj SQ 17 unit HS LORI Administration Insulin Detemir 20 unit 01/31/18 09:00 02/04/18 08:49 Levemir Inj SQ 20 unit DAILY LORI Administration Oxycodone/Acetaminophen 1 tab 01/31/18 00:04 02/05/18 00:17 Percocet 5/325 Mg PO 1 tab Q6H PRN Administration PAIN SCALE 1 TO 10 Pravastatin Sodium 40 mg 01/31/18 09:00 02/04/18 08:45 Pravachol PO Not Given DAILY LORI Senna/Docusate Sodium 1 tab 01/31/18 09:00 02/04/18 20:12 Zandra-Colace PO 1 tab BID LORI Administration Spironolactone 50 mg 01/31/18 09:00 02/04/18 08:46 Aldactone PO 50 mg DAILY LORI Administration Tamsulosin HCl 0.4 mg 01/31/18 09:00 02/04/18 08:45 Flomax PO 0.4 mg DAILY LORI Administration Objective Remarks: GENERAL: Elderly male, heavyset, sitting up at the bedside, appears to be short of breath. He is able to speak full sentences. SKIN: Warm and dry. HEAD: Normocephalic. EYES: No scleral icterus. No injection or drainage. NECK: Supple, trachea midline. No JVD or lymphadenopathy. LYMPHATIC: No adenopathy. CARDIOVASCULAR: Regular rate and rhythm without murmurs. RESPIRATORY: Decreased breath sounds over the right hemithorax, left side decreased breath sounds over the bases, prolonged expiratory phase.. GASTROINTESTINAL: Obese abdomen, abdomen soft, non-tender, nondistended. EXTREMITIES: Chronic venous with edema. MUSCULOSKELETAL: Generally decreased muscle mass and tone. NEUROLOGICAL: No obvious focal deficit. Awake, alert, and oriented x3. PSYCHIATRIC: Appropriate mood and affect; insight and judgment normal. Assessment/Plan - Plan 68-year-old male with diagnosis of non-small cell lung cancer, extensive involvement of the right hemithorax and pleura. Based on serial scans dating back to the spring 2017 his disease has a very rapid tempo progression. PDL 1 expression is negative. Patient's ECOG performance status is at best 3. He is a poor candidate for aggressive conventional systemic chemotherapy. At today's visit I talked to the patient about his disease, stage and goals of any potential treatment which would be palliative. I explained to the patient that given his multiple medical comorbid conditions as well as his poor ECOG performance status that even low intensity systemic chemotherapy would prove to have a significantly higher risk of treatment-related adverse outcomes relative to minimal potential benefit. I explained to him that low intensity systemic chemotherapy would offer him a potential 20-25% response rate which includes stable disease and reduction in tumor burden. However the risk of adverse effects would be significantly higher given his poor performance status and multiple medical comorbid conditions. I have advised him to consider hospice, the patient is agreeable to this. The patient tells me that he would like to keep "the door open "to reveal any targeted therapies should the molecular testing which includes EGFR, ALK, BRA F and ROS-1 mutation analysis comes back positive. I have advised him for the time being to pursue hospice. Should any of the mutational analyses come back favorable (he has an overall 10 % chance of being positive for 1 of these actionable mutations) I will call him and arrange initiation of therapy. At that time he may revoke hospice. The patient prefers being discharged home with hospice. I would endorse this.
[2018-02-05] MEDS: hydrALAZINE 50 MG Tablet PO SCH ×2 (08:24→12:31)
[2018-02-05] MEDS: Spironolactone 50 MG Tablet PO SCH (08:24)
[2018-02-05] MEDS: Insulin Detemir Inj 1,000 UNIT/10 ML Vial SQ SCH (08:25)
[2018-02-05 10:55] VITALS: BP 174/71
--- NOTE | 2018-02-05 11:25 | P.PNIM ---
Subjective Interval history: Patient says he feeling all right. Denies any chest pain. Denies shortness of breath. Would like to go to hospice Physical Exam Vital signs: Vital Signs 02/04/18 12:00 02/04/18 13:24 02/04/18 16:00 Temperature 98.2 F Pulse Rate 90 101 H 98 H Respiratory Rate Blood Pressure 141/67 H Pulse Oximetry 93 L 02/04/18 16:12 02/04/18 16:47 02/04/18 21:39 Temperature 98.1 F Pulse Rate 90 100 H 88 Respiratory Rate 20 20 16 Blood Pressure 131/60 Pulse Oximetry 94 L 02/05/18 00:00 02/05/18 02:00 02/05/18 04:00 Temperature 98 F Pulse Rate 92 H 83 Respiratory Rate 20 Blood Pressure 142/80 H Pulse Oximetry 93 L 98 95 02/05/18 07:24 02/05/18 08:00 Temperature 89.1 F L Pulse Rate 87 90 Respiratory Rate 16 22 Blood Pressure 174/71 H Pulse Oximetry 98 95 Intake & Output 02/04/18 02/05/18 02/05/18 18:59 06:59 18:59 Intake Total 960 / 960 Output Total 575 / 575 900 / 900 Balance -575 / -575 60 / 60 Weight 140.5 kg Intake: Oral 960 / 960 Output: Urine 575 / 575 900 / 900 Other: # Voids 1 Date of Last Bowel Movement 02/04/18 02/04/18 02/04/18 # Bowel Movements 1 Narrative: GENERAL:Obese W/M Patient sitting up in bed, in No distress. Appears comfortable. SKIN: Warm and dry. HEAD: Normocephalic. EYES: No scleral icterus. No injection or drainage. NECK: Supple, trachea midline. No JVD or lymphadenopathy. CARDIOVASCULAR: Regular rate and rhythm without murmurs, gallops, or rubs. RESPIRATORY: Breath sounds slightly decreased on the right base. Pleurx catheter in place without surrounding erythema.. No accessory muscle use.Occ Wheezes. No change GASTROINTESTINAL: Abdomen soft, non-tender, nondistended. MUSCULOSKELETAL: No cyanosis. 2+ peripheral edema. BACK: Nontender without obvious deformity. No CVA tenderness. Results - Labs CBC & Chem 7: 02/01/18 05:40 02/01/18 05:40 Laboratory Results - last 24 hr 02/04/18 02/04/18 02/04/18 12:51 16:42 20:11 POC Glucose 188 H 205 H 221 H 02/05/18 02/05/18 04:14 08:20 POC Glucose 118 H 136 H Assessment and Plan - Plan 68-year-old male readmitted secondary to respiratory distress related to malignant effusions and lung cancer, chronic pigtail catheters present for drainage q. 5 days. Chronic oxygen use. //Non-small cell lung cancer shortness of breath - improved since Pleurx drainage started malignant effusion -Pleurx drainage q5 days for now unless changed by pulmonology -Poor candidate for chemotherapy -pending PT L1 testing records from outside hospital so that final oncology recommendations can be made (hospice vs tx), palliative care following = 02/04. Patient waiting for oncology to discuss any further treatment. At this time, however patient is leaning towards home with hospice. Appreciate oncology, palliative care assistance. = 02/05. Patient is opted for home with hospice. Hospice consult pending. Appreciate palliative care and oncology assistance. //Suspected ascites -Patient has no interest in paracentesis at this time. 02/04. Again discussed with patient and he has not interested. //Severe COPD //Chronic respiratory failure -likely has COPD component -Duo nebs -Currently on NC //Diabetes mellitus type 2 -Follow blood sugars -Insulin sliding scale -Diabetic diet CKD Hypertension/hyperlipidemia -Continue home medications Discharge Planning: Status post oncology assessment Patient would like to go home with hospice.
[2018-02-05 13:51] VITALS: PULSE 88
[2018-02-05 13:52] VITALS: RESP 20; TEMP 98.1; O2SAT 96
--- NOTE | 2018-02-05 13:52 | P.PNPAL ---
Reason for Visit Reason for visit: a. To assist with evaluation and management of symptoms including: dyspnea, pain, weakness, constipation. b. To assist medical decision maker(s) with: better understanding of current medical conditions; weighing benefits/burdens of medical treatment options; making medical treatment decisions. Subjective Subjective/Interval History: Patient seen and examined in room on oncology unit. No family at bedside. Also present Jigna Muller LCSW. Patient is awake and alert. He has persistent shortness of breath, appears more visibly short of breath today. He has had some intermittent achy joint pain, he took one dose of PRN Percocet in the past 24 hours with relief. LBM 02/05/18, will need to continue bowel regimen at home. Patient reports Dr. Foley came to talk with him this morning and he has decided to go home with hospice. He has elected NO CODE and transition to comfort with hospice support. He again verbalizes desire to go home and reminisce with his . I reviewed hospice services. He is worried about how he will get to upcoming MD appointments, advised hospice will come to him and that it may not be physically possible for him to go to the doctors in the comings days/weeks. I advised he will not be able to drive. He is in agreement to meet with hospice in hopes he will be able to return home soon. Offered support. Plan for DC home with hospice when arrangements made. Will likely benefit from PRN Morphine and/ or Lorazepam for management of shortness of breath and related anxiety, if he is willing to consider. Questions answered to his satisfaction. Discussed with Dr. Velasco, case management and hospice admission nurse. Family/Friend Interactions: No family present. Advance Directives Living Will: Never completed Health Care Surrogate: Never completed Durable Power of Guest Relations Agent: Never completed Health Care Surrogate Name and Number: HCP: should pt lose capacity. Significant change in goals:: NO CODE. Patient wants to go home with [facility] hospice. Objective Vital Signs: Vital Signs 02/04/18 16:00 02/04/18 16:12 02/04/18 16:47 Temperature 98.1 F Pulse Rate 98 H 90 100 H Respiratory Rate 20 20 Blood Pressure 131/60 Pulse Oximetry 94 L 02/04/18 21:39 02/05/18 00:00 02/05/18 02:00 Temperature Pulse Rate 88 92 H Respiratory Rate 16 Blood Pressure Pulse Oximetry 93 L 98 02/05/18 04:00 02/05/18 07:24 02/05/18 08:00 Temperature 98 F 89.1 F L Pulse Rate 83 87 90 Respiratory Rate 20 16 22 Blood Pressure 142/80 H 174/71 H Pulse Oximetry 95 98 95 Intake & Output 02/04/18 02/05/18 02/05/18 18:59 06:59 18:59 Intake Total 960 / 960 Output Total 575 / 575 900 / 900 Balance -575 / -575 60 / 60 Weight 140.5 kg Intake: Oral 960 / 960 Output: Urine 575 / 575 900 / 900 Other: # Voids 1 Date of Last Bowel Movement 02/04/18 02/04/18 02/04/18 # Bowel Movements 1 Physical Exam: CONSTITUTIONAL/GENERAL: This is an adequately nourished patient, short of breath at rest. TUBES/LINES/DRAINS: Oxygen NC, Pleur X. SKIN: Ecchymoses on upper extremities/ hands. No wounds seen anteriorly. Skin temperature appropriate. Not diaphoretic. CARDIOVASCULAR: Regular rate and rhythm without murmurs, gallops, or rubs. No JVD. Peripheral pulses symmetric. RESPIRATORY/CHEST: Labored respirations at rest, increases with prolonged conversation. Expiratory wheezing noted. Scattered coarse breath sounds. GASTROINTESTINAL: Abdomen soft, non-tender, protuberant. Bowel sounds active. GENITOURINARY: Without palpable bladder distension. MUSCULOSKELETAL: Extremities with trace edema. + joint tenderness. No mottling or clubbing. NEUROLOGICAL: Awake and alert. Follows commands. Cognitively sharp. Moves all extremities. PSYCHIATRIC: Appropriately tearful with difficult conversation. Diagnostic Tests Laboratory: Laboratory Results - last 72 hr 02/02/18 02/02/18 02/03/18 16:51 19:46 07:50 POC Glucose 285 H 258 H 146 H 02/03/18 02/03/18 02/03/18 12:48 17:58 19:40 POC Glucose 202 H 157 H 207 H 02/04/18 02/04/18 02/04/18 03:58 07:59 12:51 POC Glucose 161 H 160 H 188 H 02/04/18 02/04/18 02/05/18 16:42 20:11 04:14 POC Glucose 205 H 221 H 118 H 02/05/18 02/05/18 08:20 11:46 POC Glucose 136 H 213 H Result Diagrams: 02/01/18 05:40 02/01/18 05:40 Imaging: Chest CTA 01/30/18 20:20 CONCLUSION: 1. No evidence of pulmonary embolism. 2. Significant progression of right-sided pleural thickening with development of multiple parenchymal nodules and infiltrative peribronchial disease characteristic of a neoplastic process. 3. Progressing mediastinal lymphadenopathy. 4. Loculated pleural effusion along the posterior margin containing an air- fluid level. Chest X-Ray 02/01/18 00:00 CONCLUSION: Stable chest x-ray with right pleural-based opacity/pleural thickening with right lower lung zone airspace opacity. Assessment and Plan - Disease Oriented Problem List (1) COPD (chronic obstructive pulmonary disease) with chronic bronchitis (2) Pleural effusion associated with pulmonary infection (3) Non-small cell cancer of right lung (4) Obesity (5) Hypertension (6) Diabetes 1.5, managed as type 2 (7) Recurrent right pleural effusion - Symptom Scale (1) Pain 0-10 Scale: 4 (2) Constipation 0-10 Scale: 1 (3) Dyspnea 0-10 Scale: Unable to quantify (4) Weakness 0-10 Scale: Unable to quantify Pertinent Non-Medical Issues: Psychosocial: Raised in [facility], lived in [place] and [place]. [place]. for 48 years to [place]. Has one adopted son. He also raised a niece, Brenda Jaime. Moved to [place] about 14 years ago. Retired [email or web address] after 42 years. Quit after he had an CT. . Spiritual:Orthodox elie, he verbalizes " I am not sure I have been yarsanism enough to get to [facility]." He has been visited by the manager medicare marketing and other chaplains during admission. Legal: Patient is currently capacitated to make his own healthcare decisions. According to [place] statutes, healthcare proxy decision making would fall to his spouse, Emy should he lose capacity. He is considering implementation of written advance directives. Ethical issues impacting care: No known concerns at this time. Important Contacts: * [place] Penn, : Prognosis: Mr. Penn has newly diagnosed NSCLC, PDL1 negative. He appears to be a poor candidate for chemotherapy given debility and poor performance status. Hospice appropriate if goals are comfort oriented. Code Status: Full Code Plan: * Patient is currently capacitated to make his own healthcare decisions. According to [place] statutes, healthcare proxy decision making would fall to his spouse, Emy should he lose capacity. He is considering implementation of written advance directives. * NO CODE * Met with patient, he is ready to transition to comfort with hospice support in hopes he can return home to spend a few quality weeks with his . He has elected NO CODE. * [facility] consulted. * SYMPTOMS: Dyspnea: Secondary to underlying CHF, oxygen dependent COPD and now new lung cancer diagnosis. On oxygen via nasal cannula currently. Moderate shortness of breath noted with increased conversation. May benefit from Morphine and Lorazepam to control dyspnea and pain. Pain: Secondary to general debility, limited mobility secondary to shortness of breath. Has as needed Percocet available (1 dose in past 24 hours), does not like to use pain medication. Reports as discomfort and does not want to quantify because it is not pain. Weakness: Secondary to repeat hospitalization, general debility, limited mobility secondary to shortness of breath. No new medication recommendations at this time. Patient is hesitant to take any medications that may cause sedation. Constipation: LBM 02/05/18. On scheduled Zandra-Colace. Will monitor. * Palliative care will continue to follow throughout hospital course to assist with symptom management and clarification of medical treatment goals as needed. Attestation Attestation: To help prompt me to consider important information that might be impacting today's encounter and assessment, information from prior notes written by myself or my colleagues may have been "brought forward" into today's note. My signature on this note, however, is an attestation that I personally performed the exam, history, and/or decision-making noted today, and, unless otherwise indicated, the interactions with patient, family, and staff as well as the review of records all occurred today. I also attest that the listed assessment and stated plan reflect my best clinical judgment today based on the combination of historical information, prior notes, and today's exam/ interactions. When time spent is documented, it refers only to time spent today by the signer, or if indicated, combined time spent today by collaborating physician/nurse practitioner.
--- NOTE | 2018-02-05 13:52 | P.DS ---
Date of admission: 01/30/18 22:45 Primary care physician: UNKNOWN Brief History from admission: 68-year-old male with a past medical history significant for CHF, CKD, COPD, diabetes mellitus, hypertension, hyperlipidemia, non-small cell carcinoma of the lung and associated malignant pleural effusion presents to the emergency department for evaluation of shortness of breath. The patient was discharged yesterday to [facility] and he felt he needed to come back to the emergency department for reevaluation of his shortness of breath. He reports his shortness of breath started yesterday and persisted throughout the night. The patient was supposed to be on BiPAP overnight but he was unable to do so because they had the incorrect machine at the facility. He denies any chest pain. He has a pleural catheter in place that is supposed to be drained every 5 days. Chest CTA showed significant progression of right sided pleural thickening and infiltrated peribronchial disease characteristic of a neoplastic process. He also has a loculated pleural effusion along the posterior margin containing an air-fluid level. DS: Summary Hospital Course: 68-year-old male readmitted secondary to respiratory distress related to malignant effusions and lung cancer, chronic pigtail catheters present for drainage q. 5 days. Chronic oxygen use. Patient underwent Pleurx catheter drainage with moderate improvement in shortness of breath. Patient is to continue Pleurx catheter drainage every 5 days for comfort. Pulmonology, oncology consulted. Patient with overall poor prognosis. After discussion with oncology, palliative care team, patient will opt for home with hospice. For problem-based summary from most recent progress note, please see below. //Non-small cell lung cancer shortness of breath - improved since Pleurx drainage started malignant effusion -Pleurx drainage q5 days for now unless changed by pulmonology -Poor candidate for chemotherapy -pending PT L1 testing records from outside hospital so that final oncology recommendations can be made (hospice vs tx), palliative care following = 02/04. Patient waiting for oncology to discuss any further treatment. At this time, however patient is leaning towards home with hospice. Appreciate oncology, palliative care assistance. = 02/05. Patient is opted for home with hospice. Hospice consult pending. Appreciate palliative care and oncology assistance. //Suspected ascites -Patient has no interest in paracentesis at this time. 02/04. Again discussed with patient and he has not interested. //Severe COPD //Chronic respiratory failure -likely has COPD component -Duo nebs -Currently on NC //Diabetes mellitus type 2 -Follow blood sugars -Insulin sliding scale -Diabetic diet CKD Hypertension/hyperlipidemia -Continue home medications Discharge Planning: Status post oncology assessment Patient would like to go home with hospice. - Time Spent with Patient Total time spent providing and/or coordinating discharge services: Greater than 30 minutes - Quality: VTE Deep Vein Thrombosis/Pulmonary Embolism Present on Admission: No Exam Vital signs: Vital Signs 02/04/18 16:00 02/04/18 16:12 02/04/18 16:47 Temperature 98.1 F Pulse Rate 98 H 90 100 H Respiratory Rate 20 20 Blood Pressure 131/60 Pulse Oximetry 94 L 02/04/18 21:39 02/05/18 00:00 02/05/18 02:00 Temperature Pulse Rate 88 92 H Respiratory Rate 16 Blood Pressure Pulse Oximetry 93 L 98 02/05/18 04:00 02/05/18 07:24 02/05/18 08:00 Temperature 98 F 89.1 F L Pulse Rate 83 87 90 Respiratory Rate 20 16 22 Blood Pressure 142/80 H 174/71 H Pulse Oximetry 95 98 95 02/05/18 12:00 Temperature 98.1 F Pulse Rate 88 Respiratory Rate 20 Blood Pressure Pulse Oximetry 96 Intake & Output 02/04/18 02/05/18 02/05/18 18:59 06:59 18:59 Intake Total 960 / 960 Output Total 575 / 575 900 / 900 Balance -575 / -575 60 / 60 Weight 140.5 kg Intake: Oral 960 / 960 Output: Urine 575 / 575 900 / 900 Other: # Voids 1 Date of Last Bowel Movement 02/04/18 02/04/18 02/04/18 # Bowel Movements 1 Results Procedures completed during hospitalization: Pleurx catheter drainage. Labs on day of discharge: Labs from last 24 hours 02/05/18 02/05/18 02/05/18 11:46 08:20 04:14 POC Glucose 213 H 136 H 118 H 02/04/18 02/04/18 20:11 16:42 POC Glucose 221 H 205 H - Impressions ITS Impressions Chest CTA 01/30/18 20:20 CONCLUSION: 1. No evidence of pulmonary embolism. 2. Significant progression of right-sided pleural thickening with development of multiple parenchymal nodules and infiltrative peribronchial disease characteristic of a neoplastic process. 3. Progressing mediastinal lymphadenopathy. 4. Loculated pleural effusion along the posterior margin containing an air- fluid level. Chest X-Ray 02/01/18 00:00 CONCLUSION: Stable chest x-ray with right pleural-based opacity/pleural thickening with right lower lung zone airspace opacity. Discharge Plan - Discharge Disposition Patient Disposition: 50 Hospice/Home - Discharge Condition Condition: Fair - Discharge Order Discharge Orders: Discharge Order (Routine); Ordered 02/05/18 Ordered By: Jesus Velasco - Discharge Details Anticipated Discharge Date: 02/05/18 - Physicians Team Primary Care Provider: UNKNOWN, Attending Provider: Jesus Velasco Other Providers: Wilfred Pryor MD ; [employer],Insurance ; Heber Dos Santos MD ; Derrick Foley MD
== END 2018-02-05 16:35 | disposition hospice, home (50) ==
LOC: NEPC 17:14 → MERGE 22:45 → UNMERGE 22:45 → NEDA 22:45 → N04 01-31 01:42 → HCIN 02-03 23:58
PROVIDERS: ADMIT Internal Medicine; ATTEND Internal Medicine